=== PATIENT | male | born 1955 | race Hispanic/Latino ===

== ENCOUNTER 2018-05-04 10:14 | Emergency (ER) | payer BC ==
[2018-05-04] MEDS ORDERED: NA CHLORIDE 0.9% 1,000 ML ONE (11:26)
[2018-05-04 11:39] LABS: Protime INR 1.13
[2018-05-04 11:44] LABS: ALT/SGPT 21 U/L (12-78); AST/SGOT 15 U/L (15-37); Albumin 3.7 g/dL (3.4-5.0); Alkaline Phosphatase 43 U/L (45-117); BUN Blood Urea Nitrogen 17 mg/dL (7-18); Bicarbonate 23 mmol/L (21-32); Bilirubin Direct 0.3 mg/dL (0-0.2); Glucose Level 114 mg/dL (74-106); Magnesium 1.9 mg/dL (1.8-2.4); NT PRO-BNP 1244 pg/mL (<125); Potassium 3.8 mmol/L (3.5-5.1); Protein, Total 7.2 g/dL (6.4-8.2); Sodium Level 137 mmol/L (136-145); Troponin (Emerg Dept Use Only) < 0.02 ng/mL (0.0-0.045)
--- NOTE | 2018-05-04 11:48 | RAD REPORT ---
EXAM DESCRIPTION: RAD - Chest Single View - 05/04/2018 11:09 am CLINICAL HISTORY: DYSPNEA Chest pain. COMPARISON: No comparisons FINDINGS: Portable technique limits examination quality. The lungs are grossly clear. The heart is normal in size. No displaced fractures. IMPRESSION: No acute intrathoracic process suspected.
[2018-05-04 13:02] LABS: Absolute Lymphocytes (CBC) 1.2 K/uL (0.7-4.9); Absolute Neutrophil 0.8 K/uL (1.8-8.0); Basophils % 0.4 % (0-1.3); Eosinophils % 0.1 % (0-4.4); Hematocrit 31.7 % (39.6-49.0); Lymphocytes % 39.7 % (15.3-44.8); MCH 33.1 pg (27.0-35.0); MCV 92.2 fL (80-100); MPV 7.8 fL (7.6-11.3); Monocytes % 34.2 % (3.3-12.3); RBC Red Blood Cell Count 3.44 M/uL (4.33-5.43)
[2018-05-04 13:43] LABS: Urine Blood NEGATIVE (NEG); Urine Glucose NEGATIVE (NEG); Urine Protein NEGATIVE (NEG); Urine pH 5.5 (5.0-7.0)
--- NOTE | 2018-05-04 14:35 | EDPHYS ---
Physician Documentation [facility] Name: Sheldon Jaramillo Age: 62 yrs Sex: Male : 1955 Arrival Date: 05/04/2018 Time: 10:15 Bed 4 Private MD: ED Physician Florentino Arteaga HPI: 05/04 12:03 This 62 yrs old Male presents to ER via Ambulatory with complaints of Pain All damari Over, Shortness Of Breath. 12:03 The patient has shortness of breath with light activity. Onset: The symptoms/episode damari began/occurred 1 day(s) ago. Duration: The symptoms are chronic. The patient's shortness of breath has no apparent modifying factors. Associated signs and symptoms: The patient has no apparent associated signs or symptoms. Severity of symptoms: At their worst the symptoms were mild in the emergency department the symptoms have improved moderately. The patient has not experienced similar symptoms in the past. Historical: - Allergies: 10:55 No Known Allergies; jl7 - PMHx: 10:55 Myocardial infarction; Hypertension; jl7 - PSHx: 10:55 Heart stents; jl7 - Immunization history:: Adult Immunizations not up to date. - Social history:: Smoking status: Patient/guardian denies using tobacco. - Ebola Screening: : No symptoms or risks identified at this time. ROS: 12:04 Constitutional: Negative for fever, chills, and weight loss, Eyes: Negative for injury, damari pain, redness, and discharge, ENT: Negative for injury, pain, and discharge, Neck: Negative for injury, pain, and swelling, Cardiovascular: Negative for chest pain, palpitations, and edema, Respiratory: Negative for shortness of breath, cough, wheezing, and pleuritic chest pain, Abdomen/GI: Negative for abdominal pain, nausea, vomiting, diarrhea, and constipation, Back: Negative for injury and pain, : Negative for injury, bleeding, discharge, and swelling, MS/Extremity: Negative for injury and deformity, Skin: Negative for injury, rash, and discoloration, Neuro: Negative for headache, weakness, numbness, tingling, and seizure, Psych: Negative for depression, anxiety, suicide ideation, homicidal ideation, and hallucinations, Allergy/Immunology: Negative for hives, rash, and allergies, Endocrine: Negative for neck swelling, polydipsia, polyuria, polyphagia, and marked weight changes, Hematologic/Lymphatic: Negative for swollen nodes, abnormal bleeding, and unusual bruising. Exam: 12:04 Constitutional: This is a well developed, well nourished patient who is awake, alert, damari and in no acute distress. Head/Face: Normocephalic, atraumatic. Eyes: Pupils equal round and reactive to light, extra-ocular motions intact. Lids and lashes normal. Conjunctiva and sclera are non-icteric and not injected. Cornea within normal limits. Periorbital areas with no swelling, redness, or edema. ENT: Nares patent. No nasal discharge, no septal abnormalities noted. Tympanic membranes are normal and external auditory canals are clear. Oropharynx with no redness, swelling, or masses, exudates, or evidence of obstruction, uvula midline. Mucous membranes moist. Neck: Trachea midline, no thyromegaly or masses palpated, and no cervical lymphadenopathy. Supple, full range of motion without nuchal rigidity, or vertebral point tenderness. No Meningismus. Chest/axilla: Normal chest wall appearance and motion. Nontender with no deformity. No lesions are appreciated. Cardiovascular: Regular rate and rhythm with a normal S1 and S2. No gallops, murmurs, or rubs. Normal PMI, no JVD. No pulse deficits. Respiratory: Lungs have equal breath sounds bilaterally, clear to auscultation and percussion. No rales, rhonchi or wheezes noted. No increased work of breathing, no retractions or nasal flaring. Abdomen/GI: Soft, non-tender, with normal bowel sounds. No distension or tympany. No guarding or rebound. No evidence of tenderness throughout. Back: No spinal tenderness. No costovertebral tenderness. Full range of motion. Male : Normal genitalia with no discharge or lesions. Skin: Warm, dry with normal turgor. Normal color with no rashes, no lesions, and no evidence of cellulitis. MS/ Extremity: Pulses equal, no cyanosis. Neurovascular intact. Full, normal range of motion. Neuro: Awake and alert, GCS 15, oriented to person, place, time, and situation. Cranial nerves II-XII grossly intact. Motor strength 5/5 in all extremities. Sensory grossly intact. Cerebellar exam normal. Normal gait. Psych: Awake, alert, with orientation to person, place and time. Behavior, mood, and affect are within normal limits. 12:04 Musculoskeletal/extremity: DVT Exam: No signs of deep vein thrombosis. no pain, no swelling, no tenderness, negative Homans' sign noted on exam, no appreciated bluish discoloration, no erythema, no increased warmth. Vital Signs: 10:55 BP 151 / 73; Pulse 92; Resp 16 S; Temp 98.8(O); Pulse Ox 97% on R/A; Weight 160.57 kg jl7 (R); Height 5 ft. 5 in. (165.10 cm) (R); Pain 9/10; 11:45 BP 146 / 83; Pulse 90; Resp 16 S; Pulse Ox 97% on R/A; jl7 13:24 BP 115 / 57; Pulse 76; Resp 16 S; Pulse Ox 98% on R/A; jl7 14:52 BP 127 / 79; Pulse 89; Resp 16 S; Pulse Ox 96% on R/A; jl7 16:05 BP 129 / 60; Pulse 87; Resp 16 S; Pulse Ox 98% on R/A; jl7 10:55 Body Mass Index 58.91 (160.57 kg, 165.10 cm) 7 MDM: 10:44 Patient medically screened. [facility] 12:06 Data reviewed: vital signs, nurses notes, lab test result(s), EKG, radiologic studies, damari plain films. 12 10:44 Order name: Basic Metabolic Panel [facility] 05/04 10:44 Order name: CBC with Diff; Complete Time: 15:50 [facility] 05/04 10:44 Order name: LFT's [facility] 05/04 10:44 Order name: Magnesium [facility] 05/04 10:44 Order name: NT PRO-BNP [facility] 05/04 10:44 Order name: PT-INR [facility] 05/04 10:44 Order name: Troponin (emerg Dept Use Only) [facility] 05/04 11:43 Order name: Protime (+INR); Complete Time: 12:03 [facility] 05/04 11:44 Order name: Basic Metabolic Panel; Complete Time: 12:03 [facility] 05/04 11:44 Order name: Liver (Hepatic) Function; Complete Time: 12:03 [facility] 05/04 11:44 Order name: Troponin (Emerg Dept Use Only); Complete Time: 12:03 [facility] 05/04 11:44 Order name: NT PRO-BNP; Complete Time: 12:03 [facility] 05/04 11:44 Order name: Magnesium; Complete Time: 12:03 [facility] 05/04 12:03 Order name: Urine Culture [facility] 05/04 10:44 Order name: XRAY Chest (1 view) [facility] 05/04 11:49 Order name: RAD; Complete Time: 12:03 [facility] 05/04 12:05 Order name: Influenza Screen (a \T\ B); Complete Time: 13:24 05/04 13:17 Order name: D-Dimer; Complete Time: 14:48 [facility] 05/04 13:21 Order name: Add On-Lab 05/04 13:30 Order name: Manual Differential; Complete Time: 15:50 [facility] 05/04 13:34 Order name: Blood Culture Adult (2) 05/04 13:41 Order name: Urine Dipstick--Ancillary (enter results); Complete Time: 14:06 05/04 14:51 Order name: CT Chest For PE Angio; Complete Time: 15:50 [facility] 05/04 10:44 Order name: EKG; Complete Time: 10:45 [facility] 05/04 10:44 Order name: Cardiac monitoring; Complete Time: 10:57 [facility] 05/04 10:44 Order name: EKG - Nurse/Tech; Complete Time: 11:32 [facility] 05/04 10:44 Order name: IV Saline Lock; Complete Time: 11:15 [facility] 05/04 10:44 Order name: Labs collected and sent; Complete Time: 11:32 [facility] 05/04 10:44 Order name: O2 Per Protocol; Complete Time: 10:57 [facility] 05/04 10:44 Order name: O2 Sat Monitoring; Complete Time: 10:57 [facility] 05/04 12:03 Order name: Urine Dipstick-Ancillary (obtain specimen); Complete Time: 12:58 [facility] 05/04 12:13 Order name: Labs - recollect needed; Complete Time: 12:33 05/04 13:18 Order name: Vital Signs; Complete Time: 13:27 [facility] Administered Medications: 11:24 Drug: NS 0.9% 1000 ml Route: IV; Rate: 125 ml/hr; Site: left forearm; jl7 12:25 Drug: NS 0.9% 500 ml Route: IV; Rate: bolus; Site: left forearm; aa5 13:24 Follow up: Response: No adverse reaction; IV Status: Completed infusion; IV Intake: jl7 500ml 15:00 Drug: Lovenox 100 mg Route: Sub-Q; Site: left upper abdomen; jl7 15:15 Follow up: Response: No adverse reaction jl7 15:01 Drug: Pepcid 20 mg Route: IVP; Site: left forearm; jl7 15:45 Follow up: Response: No adverse reaction jl7 16:03 Not Given (Other Intervention Used): Cefepime 2 grams IVPB at 200 ml/hr once over 30 jl7 mins; (mix in NS 100 mL) 16:16 Drug: Cefepime 2 grams {Note: administered slow IVP per pharmacy protocol at this aa5 time..} Route: IVPB; Rate: 200 ml/hr; Infused Over: 30 mins; Site: left forearm; Disposition: 05/04/18 14:[address] [facility]. Diagnosis are Dyspnea, Pancytopenia - with 9%blast, Fever, unspecified, Obesity, unspecified, Malaise and fatigue. - Reason for transfer: Higher level of care. - Accepting physician [facility] to [facility]. - Condition is Stable. - Problem is new. - Symptoms have improved. Signatures: Dispatcher [employer] EDMS Amara Barakat Corey, MD MD cha Williams, Irene, RN Nevin Carroll RN RN aa5 Sussy Oliver RN RN jl7 Corrections: (The following items were deleted from the chart) 14:37 14:34 05/04/2018 14:[address] [facility]. Diagnosis is damari Dyspnea; Pancytopenia; Fever, unspecified; Obesity, unspecified. Reason for transfer: Higher level of care. Accepting physician [facility] to [facility]. Condition is Stable. Problem is new. Symptoms have improved. damari 16:41 14:37 05/04/2018 14:[address] [facility]. Diagnosis is iw Dyspnea; Pancytopenia - with 9%blast; Fever, unspecified; Obesity, unspecified; Malaise and fatigue. Reason for transfer: Higher level of care. Accepting physician is to [facility]. Condition is Stable. Problem is new. Symptoms have improved. damari
--- NOTE | 2018-05-04 14:35 | ER ---
Nurse's Notes [facility] Name: Sheldon Jaramillo Age: 62 yrs Sex: Male : 1955 Arrival Date: 05/04/2018 Time: 10:15 Bed 4 Private MD: Diagnosis: Dyspnea;Pancytopenia-with 9%blast;Fever, unspecified;Obesity, unspecified;Malaise and fatigue Presentation: 05/04 10:53 Presenting complaint: Patient states: Pain all over and SOB started last night, states jl7 "I get short of breath when I'm walking because my knees hurt so bad.". Transition of care: patient was not received from another setting of care. Onset of symptoms was May 03, 2018. Risk Assessment: Do you want to hurt yourself or someone else? Patient reports no desire to harm self or others. Initial Sepsis Screen: Does the patient meet any 2 criteria? No. Patient's initial sepsis screen is negative. Does the patient have a suspected source of infection? No. Patient's initial sepsis screen is negative. Care prior to arrival: None. 10:53 Method Of Arrival: Ambulatory 7 10:53 Acuity: LEXIS 3 jl7 Triage Assessment: 11:15 General: Appears in no apparent distress. uncomfortable, Behavior is calm, cooperative, jl7 appropriate for age. Pain: Complains of pain in "All over bu tmainly my knees." Pain currently is 9 out of 10 on a pain scale. Pain began years ago. Is continuous. Neuro: Level of Consciousness is awake, alert, obeys commands, Oriented to person, place, time, situation. Cardiovascular: Heart tones S1 S2 present Patient's skin is warm and dry. Respiratory: Reports shortness of breath on exertion since last night Airway is patent Respiratory effort is even, unlabored, Respiratory pattern is regular, symmetrical, Breath sounds are clear bilaterally. Onset: The symptoms/episode began/occurred yesterday, the patient has mild shortness of breath. Derm: Skin is pink, warm \\T\\ dry. Historical: - Allergies: 10:55 No Known Allergies; jl7 - PMHx: 10:55 Myocardial infarction; Hypertension; jl7 - PSHx: 10:55 Heart stents; jl7 - Immunization history:: Adult Immunizations not up to date. - Social history:: Smoking status: Patient/guardian denies using tobacco. - Ebola Screening: : No symptoms or risks identified at this time. Screenin:17 Abuse screen: Denies threats or abuse. Denies injuries from another. Nutritional jl7 screening: No deficits noted. Tuberculosis screening: No symptoms or risk factors identified. Fall Risk IV access (20 points). Total Pearce Fall Scale indicates No Risk (0-24 pts). Assessment: 11:26 General: See triage assessment. Pain: Complains of pain in "All over but mainly my jl7 knees.". Neuro: Level of Consciousness is awake, alert, obeys commands. Cardiovascular: Rhythm is sinus rhythm with unifocal PVCs. Respiratory: Reports shortness of breath on exertion Airway is patent Respiratory effort is even, unlabored, Respiratory pattern is regular, symmetrical, Breath sounds are clear bilaterally. Derm: Skin is pink, warm \\T\\ dry. 12:30 Reassessment: Patient is alert, oriented x 3, equal unlabored respirations, skin aa5 warm/dry/pink. Flu swab collected and sent to lab. CBC redrawn and sent to lab. Pt also instructed of need for urine specimen. . 14:49 Reassessment: D-dimer 990, ERD notified. jl7 Vital Signs: 10:55 BP 151 / 73; Pulse 92; Resp 16 S; Temp 98.8(O); Pulse Ox 97% on R/A; Weight 160.57 kg jl7 (R); Height 5 ft. 5 in. (165.10 cm) (R); Pain 9/10; 11:45 BP 146 / 83; Pulse 90; Resp 16 S; Pulse Ox 97% on R/A; jl7 13:24 BP 115 / 57; Pulse 76; Resp 16 S; Pulse Ox 98% on R/A; jl7 14:52 BP 127 / 79; Pulse 89; Resp 16 S; Pulse Ox 96% on R/A; jl7 16:05 BP 129 / 60; Pulse 87; Resp 16 S; Pulse Ox 98% on R/A; jl7 10:55 Body Mass Index 58.91 (160.57 kg, 165.10 cm) jl7 ED Course: 10:15 Patient arrived in ED. rg4 10:44 Florentino Arteaga MD is Attending Physician. damari 10:53 Oliver, Jahala, RN is Primary Nurse. jl7 10:54 Triage completed. jl7 10:55 Arm band placed on right wrist. jl7 11:03 X-ray completed. Portable x-ray completed in exam room. Patient tolerated procedure ls3 well. 11:05 Missed attempt(s): 22 gauge in right antecubital area. Bleeding controlled, band aid jl7 applied, catheter tip intact. 11:10 Initial lab(s) drawn, by ut, sent to lab. Inserted saline lock: 22 gauge in left jl7 forearm, using aseptic technique. Blood collected. 11:17 Patient has correct armband on for positive identification. Bed in low position. Call [facility] light in reach. Side rails up X 1. supervisor belt and link assembly on. Pulse ox on. NIBP on. Warm blanket given. 11:32 Basic Metabolic Panel Sent. jl7 11:32 CBC with Diff Sent. jl7 11:32 LFT's Sent. jl7 11:32 Magnesium Sent. jl7 11:32 NT PRO-BNP Sent. jl7 11:32 PT-INR Sent. jl7 11:32 Troponin (emerg Dept Use Only) Sent. jl7 11:36 EKG done, by quality assurance lab technician. reviewed by Florentino Arteaga MD. at1 12:57 Urine collected: urinal, gold. dh3 15:[address] via stretcher. kw1 15:15 CT completed. Patient tolerated procedure well. Patient moved back from CT. kw1 15:17 CT Chest For PE Angio In Process Unspecified. EDMS Administered Medications: 11:24 Drug: NS 0.9% 1000 ml Route: IV; Rate: 125 ml/hr; Site: left forearm; jl7 12:25 Drug: NS 0.9% 500 ml Route: IV; Rate: bolus; Site: left forearm; aa5 13:24 Follow up: Response: No adverse reaction; IV Status: Completed infusion; IV Intake: jl7 500ml 15:00 Drug: Lovenox 100 mg Route: Sub-Q; Site: left upper abdomen; jl7 15:15 Follow up: Response: No adverse reaction jl7 15:01 Drug: Pepcid 20 mg Route: IVP; Site: left forearm; jl7 15:45 Follow up: Response: No adverse reaction jl7 16:03 Not Given (Other Intervention Used): Cefepime 2 grams IVPB at 200 ml/hr once over 30 jl7 mins; (mix in NS 100 mL) 16:16 Drug: Cefepime 2 grams {Note: administered slow IVP per pharmacy protocol at this aa5 time..} Route: IVPB; Rate: 200 ml/hr; Infused Over: 30 mins; Site: left forearm; Intake: 13:24 IV: 500ml; Total: 500ml. jl7 Outcome: 14:34 ER care complete, transfer ordered by MD. wetzel 16:41 Patient left the ED. iw Signatures: Dispatcher [employer] EDMS Florentino Arteaga MD MD cha Williams, Irene, RN RN iw Nevin Olivares RN RN aa5 Emely Vaz, inside meter tester EKG Tat1 Monika Aiken4 Joon Landon Jahala RN RN jl7 Yessy Maurer 3 Caridad Jarquin1 Suresh Reyna ls3 Corrections: (The following items were deleted from the chart) 14:55 14:[address] via stretcher. evelia altamirano
[2018-05-04 15:01] LABS: Blood Morphology Comment NOT SEEN (NOT SEEN); Platelet Estimate DECR
[2018-05-04] MEDS ORDERED: FAMOTIDINE 20 MG/2 ML VIAL IV ONE (15:05)
[2018-05-04] MEDS ORDERED: ENOXAPARIN 100 MG/ML SYR SQ ONE (15:05)
--- NOTE | 2018-05-04 15:11 | EKG ---
Test Date: 2018-05-04 Test Time: 11:30:20 Rheumatologist: GUILLERMINA MEASUREMENT RESULTS: Intervals: Rate: 86 NM: 132 QRSD: 132 QT: 394 QTc: 471 [place]: P: 36 NM: 132 QRS: -28 T: -1 INTERPRETIVE STATEMENTS: Sinus rhythm with occasional premature ventricular complexes and fusion complexes Right bundle branch block Abnormal ECG No previous ECG available for comparison Electronically Signed On 05-04-18 15:10:56 SCUTCHER TENDER by Murali Persaud
[2018-05-04] MEDS ORDERED: CEFEPIME/SWI 2gm 2 GM/20 ML SYR IVP ONE (15:15)
--- NOTE | 2018-05-04 15:23 | RAD REPORT ---
EXAM DESCRIPTION: CT - Chest For Pe Angio - 05/04/2018 3:16 pm CLINICAL HISTORY: Chest pain. CHEST PAIN COMPARISON: No comparisons TECHNIQUE: CT angiogram of the pulmonary arteries was performed with MIP. All CT scans are performed using dose optimization technique as appropriate and may include automated exposure control or mA/KV adjustment according to patient size. FINDINGS: No evidence of pulmonary thromboembolism. No acute aortic finding demonstrated. Mild linear subsegmental atelectasis is present in the right lung base. The lungs are otherwise clear . No significant pericardial or pleural fluid. No concerning bony finding. IMPRESSION: No evidence of pulmonary thromboembolism. Mild subsegmental atelectasis in the right lung base.
== END 2018-05-04 16:41 | disposition short-term general hospital (02) ==
LOC: ER 10:14
DX: D61.818 Other pancytopenia (principal); R50.9 Fever, unspecified; R53.81 Other malaise; R53.83 Other fatigue; E66.9 Obesity, unspecified; I10 Essential (primary) hypertension; I25.2 Old myocardial infarction; Z95.818 Presence of other cardiac implants and grafts
CPT/HCPCS: 36415; 71045; 71275; 80048; 80076; 81003; 83735; 83880; 84484; 85025; 85379; 85610; 87040; 87086; 87088; 87804; 93005; 96361; 96372; 96374; 96375; 99285; J0692; J1650; J7030; Q9967

== ENCOUNTER 2018-07-25 10:21 | Emergency (ER) | payer BC ==
--- OUTSIDE RECORDS SUMMARY | 2018-07-25 10:33 | XMS REPORT ---
:1955 [facility] Address [address] [place] [address] Care Team Providers Name Role Phone JANEE VILLEGAS Unavailable Unavailable MELISSA ZHANG Unavailable Unavailable IVAN LOAIZA Unavailable Unavailable Problems This patient has no known problems. Allergies, Adverse Reactions, Alerts This patient has no known allergies or adverse reactions. Medications This patient has no known medications. Results Test Description Test Time Test Comments Text Results Atomic Results Result Comments CBC W/PLT COUNT & AUTO DIFFERENTIAL 2018-07-20 10:08:00 Test Item Value Reference Range Comments WHITE BLOOD CELL COUNT (BEAKER) (test nhxl=620) 2.2 K/ L 3.5-10.5 RED BLOOD CELL COUNT (BEAKER) (test jbge=034) 2.25 M/ L 4.63-6.08 HEMOGLOBIN (BEAKER) (test hlbk=133) 7.4 GM/DL 13.7-17.5 HEMATOCRIT (BEAKER) (test uxea=591) 22.1 % 40.1-51.0 MEAN CORPUSCULAR VOLUME (BEAKER) (test qvuv=716) 98.2 fL 79.0-92.2 MEAN CORPUSCULAR HEMOGLOBIN (BEAKER) (test hqmc=180) 32.9 pg 25.7-32.2 MEAN CORPUSCULAR HEMOGLOBIN CONC (BEAKER) (test wwyr=870) 33.5 GM/DL 32.3- 36.5 RED CELL DISTRIBUTION WIDTH (BEAKER) (test nopb=656) 19.9 % 11.6-14.4 PLATELET COUNT (BEAKER) (test cxnc=552) 58 K/CU MM 150-450 MEAN PLATELET VOLUME (BEAKER) (test xsyg=735) 9.7 fL 9.4-12.4 NUCLEATED RED BLOOD CELLS (BEAKER) (test dnur=081) 0 /100 WBC 0-0 (CELLAVISION MANUAL DIFF)2018-07-20 10:08:00 Test Item Value Reference Range Comments NEUTROPHILS - REL (CELLAVISION)(BEAKER) (test 100 % jfzy=5769) NEUTROPHILS - ABS (CELLAVISION)(BEAKER) (test 2.20 K/ul 1.78-5.38 hjok=1423) TOTAL COUNTED (BEAKER) (test qlnf=9050) 100 WBC MORPHOLOGY (BEAKER) (test dnvj=926) Normal PLT MORPHOLOGY (BEAKER) (test mofq=176) Normal POLYCHROMATOPHILLIC RBCS(BEAKER) (test jfcx=662) 1+ few HYPOCHROMIA (BEAKER) (test lbwr=037) 1+ few TEAR DROP CELLS (BEAKER) (test zoba=147) 1+ few ARTIFACT (CELLAVISION)(BEAKER) (test tjze=9027) Present PLATELET CONCENTRATION (CELLAVISION)(BEAKER) (test Decreased ewrz=6857) Received comment: User comments: Slide comments:CBC W/PLT COUNT & AUTO [id number] 06:03:00 Test Item Value Reference Range Comments WHITE BLOOD CELL COUNT (BEAKER) (test luwk=735) 2.8 K/ L 3.5-10.5 RED BLOOD CELL COUNT (BEAKER) (test ecju=994) 2.18 M/ L 4.63-6.08 HEMOGLOBIN (BEAKER) (test joqr=875) 7.2 GM/DL 13.7-17.5 HEMATOCRIT (BEAKER) (test nvhe=806) 21.7 % 40.1-51.0 MEAN CORPUSCULAR VOLUME (BEAKER) (test tbqw=213) 99.5 fL 79.0-92.2 MEAN CORPUSCULAR HEMOGLOBIN (BEAKER) (test 33.0 pg 25.7-32.2 wvnj=490) MEAN CORPUSCULAR HEMOGLOBIN CONC (BEAKER) (test 33.2 GM/DL 32.3-36.5 xjiu=366) RED CELL DISTRIBUTION WIDTH (BEAKER) (test 20.6 % 11.6-14.4 sjdj=771) PLATELET COUNT (BEAKER) (test wkby=745) 63 K/CU MM 150-450 MEAN PLATELET VOLUME (BEAKER) (test vmmx=818) 9.9 fL 9.4-12.4 NUCLEATED RED BLOOD CELLS (BEAKER) (test 0 /100 WBC 0-0 ddqk=695) NEUTROPHILS RELATIVE PERCENT (BEAKER) (test 95 % jfth=345) LYMPHOCYTES RELATIVE PERCENT (BEAKER) (test 2 % zmui=194) MONOCYTES RELATIVE PERCENT (BEAKER) (test 2 % qfjx=607) EOSINOPHILS RELATIVE PERCENT (BEAKER) (test 0 % mpcz=826) BASOPHILS RELATIVE PERCENT (BEAKER) (test 0 % udwc=265) NEUTROPHILS ABSOLUTE COUNT (BEAKER) (test 2.64 K/ L 1.78-5.38 dljc=365) LYMPHOCYTES ABSOLUTE COUNT (BEAKER) (test 0.06 K/ L 1.32-3.57 jkpd=475) MONOCYTES ABSOLUTE COUNT (BEAKER) (test ncze=833) 0.05 K/ L 0.30-0.82 EOSINOPHILS ABSOLUTE COUNT (BEAKER) (test 0.00 K/ L 0.04-0.54 dyzu=049) BASOPHILS ABSOLUTE COUNT (BEAKER) (test gipy=165) 0.00 K/ L 0.01-0.08 IMMATURE GRANULOCYTES-RELATIVE PERCENT (BEAKER) 1 % 0-1 (test sgnc=2747) [id number] 07:27:00 Test Item Value Reference Range Comments PHOSPHORUS (BEAKER) (test pupq=611) 2.6 mg/dL 2.3-4.7 [id number] 07:27:00 Test Item Value Reference Range Comments MAGNESIUM (BEAKER) (test toda=120) 1.6 mg/dL 1.6-2.6 BASIC METABOLIC [id number] 07:27:00 Test Item Value Reference Range Comments SODIUM (BEAKER) (test 138 meq/L 136-145 qzuc=802) POTASSIUM (BEAKER) (test 3.9 meq/L 3.5-5.1 vbpq=244) CHLORIDE (BEAKER) (test 109 meq/L 98-107 trtf=905) CO2 (BEAKER) (test 22 meq/L 22-29 kttk=853) BLOOD UREA NITROGEN 14 mg/dL 7-21 (BEAKER) (test xpsc=541) CREATININE (BEAKER) (test 0.81 mg/dL 0.57-1.25 tlpi=789) GLUCOSE RANDOM (BEAKER) 141 mg/dL 70-105 (test crbz=175) CALCIUM (BEAKER) (test 8.6 mg/dL 8.4-10.2 ctut=903) EGFR (BEAKER) (test 97 mL/min/1.73 sq m ESTIMATED GFR IS NOT yaik=3697) ACCURATE CREATININE CLEARANCE IN PREDICTING GLOMERULAR FILTRATION RATE. ESTIMATED GFR IS NOT APPLICABLE FOR DIALYSIS PATIENTS. HEPATIC FUNCTION [id number] 07:27:00 Test Item Value Reference Range Comments TOTAL PROTEIN (BEAKER) (test xqaz=229) 5.7 gm/dL 6.0-8.3 ALBUMIN (BEAKER) (test qgfl=6307) 3.0 g/dL 3.5-5.0 BILIRUBIN TOTAL (BEAKER) (test uxkk=262) 0.7 mg/dL 0.2-1.2 BILIRUBIN DIRECT (BEAKER) (test kdcy=308) 0.4 mg/dL 0.1-0.5 ALKALINE PHOSPHATASE (BEAKER) (test xjoo=628) 42 U/L 40-150 AST (SGOT) (BEAKER) (test frrb=087) 13 U/L 5-34 ALT (SGPT) (BEAKER) (test hdpc=779) 10 U/L 6-55 CALCIUM, [id number] 07:02:00 Test Item Value Reference Range Comments CALCIUM IONIZED (BEAKER) (test kyqw=653) 0.96 mmol/L 1.12-1.27 PH, BLOOD (BEAKER) (test asqy=9908) 7.47 CBC W/PLT COUNT & AUTO [id number] 06:48:00 Test Item Value Reference Range Comments WHITE BLOOD CELL COUNT (BEAKER) (test vxss=870) 4.3 K/ L 3.5-10.5 RED BLOOD CELL COUNT (BEAKER) (test ekcj=766) 2.37 M/ L 4.63-6.08 HEMOGLOBIN (BEAKER) (test aani=869) 7.7 GM/DL 13.7-17.5 HEMATOCRIT (BEAKER) (test dgbn=365) 23.7 % 40.1-51.0 MEAN CORPUSCULAR VOLUME (BEAKER) (test macx=683) 100.0 fL 79.0-92.2 MEAN CORPUSCULAR HEMOGLOBIN (BEAKER) (test 32.5 pg 25.7-32.2 vbas=767) MEAN CORPUSCULAR HEMOGLOBIN CONC (BEAKER) (test 32.5 GM/DL 32.3-36.5 vbct=571) RED CELL DISTRIBUTION WIDTH (BEAKER) (test 21.4 % 11.6-14.4 unrr=056) PLATELET COUNT (BEAKER) (test ejez=979) 72 K/CU MM 150-450 MEAN PLATELET VOLUME (BEAKER) (test cmfw=476) 9.8 fL 9.4-12.4 NUCLEATED RED BLOOD CELLS (BEAKER) (test 0 /100 WBC 0-0 nzcw=666) NEUTROPHILS RELATIVE PERCENT (BEAKER) (test 94 % kyda=698) LYMPHOCYTES RELATIVE PERCENT (BEAKER) (test 3 % fwgg=780) MONOCYTES RELATIVE PERCENT (BEAKER) (test 2 % mwvi=548) EOSINOPHILS RELATIVE PERCENT (BEAKER) (test 0 % jcjk=139) BASOPHILS RELATIVE PERCENT (BEAKER) (test 0 % uppv=815) NEUTROPHILS ABSOLUTE COUNT (BEAKER) (test 4.03 K/ L 1.78-5.38 gksp=358) LYMPHOCYTES ABSOLUTE COUNT (BEAKER) (test 0.13 K/ L 1.32-3.57 lpcm=118) MONOCYTES ABSOLUTE COUNT (BEAKER) (test ydyz=746) 0.10 K/ L 0.30-0.82 EOSINOPHILS ABSOLUTE COUNT (BEAKER) (test 0.00 K/ L 0.04-0.54 mvch=450) BASOPHILS ABSOLUTE COUNT (BEAKER) (test hmmz=891) 0.00 K/ L 0.01-0.08 IMMATURE GRANULOCYTES-RELATIVE PERCENT (BEAKER) 1 % 0-1 (test bhzx=3326) [id number] 07:10:00 Test Item Value Reference Range Comments PHOSPHORUS (BEAKER) (test mkbt=197) 2.2 mg/dL 2.3-4.7 [id number] 07:10:00 Test Item Value Reference Range Comments MAGNESIUM (BEAKER) (test bcuy=399) 1.9 mg/dL 1.6-2.6 BASIC METABOLIC [id number] 07:10:00 Test Item Value Reference Range Comments SODIUM (BEAKER) (test 138 meq/L 136-145 iyct=320) POTASSIUM (BEAKER) (test 3.6 meq/L 3.5-5.1 lgkq=921) CHLORIDE (BEAKER) (test 107 meq/L 98-107 suzm=506) CO2 (BEAKER) (test 25 meq/L 22-29 hueg=824) BLOOD UREA NITROGEN 8 mg/dL 7-21 (BEAKER) (test brme=103) CREATININE (BEAKER) (test 0.86 mg/dL 0.57-1.25 fvvn=689) GLUCOSE RANDOM (BEAKER) 156 mg/dL 70-105 (test sbww=902) CALCIUM (BEAKER) (test 8.6 mg/dL 8.4-10.2 vgfb=294) EGFR (BEAKER) (test 90 mL/min/1.73 sq m ESTIMATED GFR IS NOT ptms=2672) ACCURATE CREATININE CLEARANCE IN PREDICTING GLOMERULAR FILTRATION RATE. ESTIMATED GFR IS NOT APPLICABLE FOR DIALYSIS PATIENTS. HEPATIC FUNCTION [id number] 07:10:00 Test Item Value Reference Range Comments TOTAL PROTEIN (BEAKER) (test iwtg=113) 6.1 gm/dL 6.0-8.3 ALBUMIN (BEAKER) (test vrsg=8691) 3.1 g/dL 3.5-5.0 BILIRUBIN TOTAL (BEAKER) (test blpl=140) 1.3 mg/dL 0.2-1.2 BILIRUBIN DIRECT (BEAKER) (test fsvj=632) 0.5 mg/dL 0.1-0.5 ALKALINE PHOSPHATASE (BEAKER) (test ouwn=870) 48 U/L 40-150 AST (SGOT) (BEAKER) (test zjau=305) 15 U/L 5-34 ALT (SGPT) (BEAKER) (test srkz=647) 10 U/L 6-55 CALCIUM, [id number] 06:50:00 Test Item Value Reference Range Comments CALCIUM IONIZED (BEAKER) (test bhfa=564) 1.07 mmol/L 1.12-1.27 PH, BLOOD (BEAKER) (test njmc=0120) 7.37 CBC W/PLT COUNT & AUTO [id number] 06:18:00 Test Item Value Reference Range Comments WHITE BLOOD CELL COUNT (BEAKER) (test fczc=770) 4.5 K/ L 3.5-10.5 RED BLOOD CELL COUNT (BEAKER) (test zwpo=692) 2.58 M/ L 4.63-6.08 HEMOGLOBIN (BEAKER) (test mbuq=582) 8.4 GM/DL 13.7-17.5 HEMATOCRIT (BEAKER) (test zpeh=456) 25.4 % 40.1-51.0 MEAN CORPUSCULAR VOLUME (BEAKER) (test jjyr=563) 98.4 fL 79.0-92.2 MEAN CORPUSCULAR HEMOGLOBIN (BEAKER) (test 32.6 pg 25.7-32.2 teur=911) MEAN CORPUSCULAR HEMOGLOBIN CONC (BEAKER) (test 33.1 GM/DL 32.3-36.5 yxpr=323) RED CELL DISTRIBUTION WIDTH (BEAKER) (test 21.7 % 11.6-14.4 vsge=188) PLATELET COUNT (BEAKER) (test hstg=398) 73 K/CU MM 150-450 MEAN PLATELET VOLUME (BEAKER) (test mevi=235) 10.1 fL 9.4-12.4 NUCLEATED RED BLOOD CELLS (BEAKER) (test 0 /100 WBC 0-0 lbty=320) NEUTROPHILS RELATIVE PERCENT (BEAKER) (test 88 % afga=601) LYMPHOCYTES RELATIVE PERCENT (BEAKER) (test 5 % wumq=517) MONOCYTES RELATIVE PERCENT (BEAKER) (test 3 % cakp=697) EOSINOPHILS RELATIVE PERCENT (BEAKER) (test 0 % hxne=051) BASOPHILS RELATIVE PERCENT (BEAKER) (test 0 % mufi=670) NEUTROPHILS ABSOLUTE COUNT (BEAKER) (test 3.99 K/ L 1.78-5.38 ioaq=109) LYMPHOCYTES ABSOLUTE COUNT (BEAKER) (test 0.21 K/ L 1.32-3.57 tpsl=042) MONOCYTES ABSOLUTE COUNT (BEAKER) (test dfys=974) 0.12 K/ L 0.30-0.82 EOSINOPHILS ABSOLUTE COUNT (BEAKER) (test 0.01 K/ L 0.04-0.54 bsgb=405) BASOPHILS ABSOLUTE COUNT (BEAKER) (test vltf=089) 0.01 K/ L 0.01-0.08 IMMATURE GRANULOCYTES-RELATIVE PERCENT (BEAKER) 4 % 0-1 (test kdes=1348) [id number] 22:57:00 Test Item Value Reference Range Comments POTASSIUM (BEAKER) (test nuvi=883) 3.2 meq/L 3.5-5.1 [id number] 22:57:00 Test Item Value Reference Range Comments MAGNESIUM (BEAKER) (test obed=051) 1.4 mg/dL 1.6-2.6 CALCIUM, [id number] 07:37:00 Test Item Value Reference Range Comments CALCIUM IONIZED (BEAKER) (test oalt=082) 0.94 mmol/L 1.12-1.27 PH, BLOOD (BEAKER) (test obug=3562) 7.47 [id number] 06:51:00 Test Item Value Reference Range Comments PHOSPHORUS (BEAKER) (test wvtr=936) 2.8 mg/dL 2.3-4.7 [id number] 06:51:00 Test Item Value Reference Range Comments MAGNESIUM (BEAKER) (test lfgg=353) 1.1 mg/dL 1.6-2.6 BASIC METABOLIC [id number] 06:51:00 Test Item Value Reference Range Comments SODIUM (BEAKER) (test 140 meq/L 136-145 gyad=205) POTASSIUM (BEAKER) (test 2.9 meq/L 3.5-5.1 zvks=023) CHLORIDE (BEAKER) (test 108 meq/L 98-107 qghv=457) CO2 (BEAKER) (test 25 meq/L 22-29 buap=290) BLOOD UREA NITROGEN 10 mg/dL 7-21 (BEAKER) (test ijwr=237) CREATININE (BEAKER) (test 0.85 mg/dL 0.57-1.25 npdl=962) GLUCOSE RANDOM (BEAKER) 99 mg/dL 70-105 (test oyta=642) CALCIUM (BEAKER) (test 8.4 mg/dL 8.4-10.2 zpiz=593) EGFR (BEAKER) (test 91 mL/min/1.73 sq m ESTIMATED GFR IS NOT cuwu=3852) ACCURATE CREATININE CLEARANCE IN PREDICTING GLOMERULAR FILTRATION RATE. ESTIMATED GFR IS NOT APPLICABLE FOR DIALYSIS PATIENTS. HEPATIC FUNCTION [id number] 06:51:00 Test Item Value Reference Range Comments TOTAL PROTEIN (BEAKER) (test fosh=394) 5.6 gm/dL 6.0-8.3 ALBUMIN (BEAKER) (test fafg=0229) 2.9 g/dL 3.5-5.0 BILIRUBIN TOTAL (BEAKER) (test txjd=634) 0.7 mg/dL 0.2-1.2 BILIRUBIN DIRECT (BEAKER) (test ctmn=243) 0.3 mg/dL 0.1-0.5 ALKALINE PHOSPHATASE (BEAKER) (test owmh=371) 43 U/L 40-150 AST (SGOT) (BEAKER) (test rnuu=633) 13 U/L 5-34 ALT (SGPT) (BEAKER) (test kqxp=489) 9 U/L 6-55 CBC W/PLT COUNT & AUTO [id number] 06:09:00 Test Item Value Reference Range Comments WHITE BLOOD CELL COUNT (BEAKER) (test qcgf=334) 4.1 K/ L 3.5-10.5 RED BLOOD CELL COUNT (BEAKER) (test xdva=458) 2.11 M/ L 4.63-6.08 HEMOGLOBIN (BEAKER) (test zpak=527) 6.9 GM/DL 13.7-17.5 HEMATOCRIT (BEAKER) (test epgb=758) 21.4 % 40.1-51.0 MEAN CORPUSCULAR VOLUME (BEAKER) (test mxjr=254) 101.4 fL 79.0-92.2 MEAN CORPUSCULAR HEMOGLOBIN (BEAKER) (test 32.7 pg 25.7-32.2 oxse=515) MEAN CORPUSCULAR HEMOGLOBIN CONC (BEAKER) (test 32.2 GM/DL 32.3-36.5 qtlm=938) RED CELL DISTRIBUTION WIDTH (BEAKER) (test 22.6 % 11.6-14.4 curj=334) PLATELET COUNT (BEAKER) (test qgur=448) 79 K/CU MM 150-450 MEAN PLATELET VOLUME (BEAKER) (test btkg=647) 10.0 fL 9.4-12.4 NUCLEATED RED BLOOD CELLS (BEAKER) (test 1 /100 WBC 0-0 ocfo=589) NEUTROPHILS RELATIVE PERCENT (BEAKER) (test 66 % xgek=348) LYMPHOCYTES RELATIVE PERCENT (BEAKER) (test 17 % ynxp=262) MONOCYTES RELATIVE PERCENT (BEAKER) (test 16 % ptfo=338) EOSINOPHILS RELATIVE PERCENT (BEAKER) (test 0 % cvmg=127) BASOPHILS RELATIVE PERCENT (BEAKER) (test 1 % ssho=550) NEUTROPHILS ABSOLUTE COUNT (BEAKER) (test 2.69 K/ L 1.78-5.38 ucfv=300) LYMPHOCYTES ABSOLUTE COUNT (BEAKER) (test 0.68 K/ L 1.32-3.57 apcp=254) MONOCYTES ABSOLUTE COUNT (BEAKER) (test hcml=621) 0.67 K/ L 0.30-0.82 EOSINOPHILS ABSOLUTE COUNT (BEAKER) (test 0.01 K/ L 0.04-0.54 wlei=672) BASOPHILS ABSOLUTE COUNT (BEAKER) (test btoh=203) 0.02 K/ L 0.01-0.08 IMMATURE GRANULOCYTES-RELATIVE PERCENT (BEAKER) 1 % 0-1 (test vbgz=7277) COMPREHENSIVE METABOLIC [id number] 18:09:00 Test Item Value Reference Range Comments TOTAL PROTEIN (BEAKER) 6.4 gm/dL 6.0-8.3 (test hjpe=104) ALBUMIN (BEAKER) (test 3.3 g/dL 3.5-5.0 bvpg=2173) ALKALINE PHOSPHATASE 55 U/L 40-150 (BEAKER) (test kgqi=591) BILIRUBIN TOTAL (BEAKER) 0.7 mg/dL 0.2-1.2 (test vxpp=974) SODIUM (BEAKER) (test 143 meq/L 136-145 zfvq=552) POTASSIUM (BEAKER) (test 3.1 meq/L 3.5-5.1 ldku=104) CHLORIDE (BEAKER) (test 107 meq/L 98-107 cbjq=894) CO2 (BEAKER) (test 27 meq/L 22-29 zrjh=946) BLOOD UREA NITROGEN 13 mg/dL 7-21 (BEAKER) (test wwha=336) CREATININE (BEAKER) (test 0.88 mg/dL 0.57-1.25 oegu=947) GLUCOSE RANDOM (BEAKER) 121 mg/dL 70-105 (test gpxb=760) CALCIUM (BEAKER) (test 8.9 mg/dL 8.4-10.2 bpbw=843) AST (SGOT) (BEAKER) (test 16 U/L 5-34 bqso=692) ALT (SGPT) (BEAKER) (test 12 U/L 6-55 hdwi=268) EGFR (BEAKER) (test 88 mL/min/1.73 sq m ESTIMATED GFR IS NOT lhnh=5850) ACCURATE CREATININE CLEARANCE IN PREDICTING GLOMERULAR FILTRATION RATE. ESTIMATED GFR IS NOT APPLICABLE FOR DIALYSIS PATIENTS. URIC [id number] 17:38:00 Test Item Value Reference Range Comments URIC ACID (BEAKER) (test klhu=375) 5.3 mg/dL 2.6-7.2 [id number] 17:38:00 Test Item Value Reference Range Comments MAGNESIUM (BEAKER) (test nyjn=942) 1.3 mg/dL 1.6-2.6 CBC W/PLT COUNT & AUTO [id number] 17:25:00 Test Item Value Reference Range Comments WHITE BLOOD CELL COUNT (BEAKER) (test oikf=911) 4.1 K/ L 3.5-10.5 RED BLOOD CELL COUNT (BEAKER) (test pvbs=318) 2.25 M/ L 4.63-6.08 HEMOGLOBIN (BEAKER) (test fxpc=581) 7.5 GM/DL 13.7-17.5 HEMATOCRIT (BEAKER) (test bgkw=105) 22.3 % 40.1-51.0 MEAN CORPUSCULAR VOLUME (BEAKER) (test qbjo=600) 99.1 fL 79.0-92.2 MEAN CORPUSCULAR HEMOGLOBIN (BEAKER) (test 33.3 pg 25.7-32.2 oejd=357) MEAN CORPUSCULAR HEMOGLOBIN CONC (BEAKER) (test 33.6 GM/DL 32.3-36.5 pdoo=112) RED CELL DISTRIBUTION WIDTH (BEAKER) (test 22.5 % 11.6-14.4 cntl=169) PLATELET COUNT (BEAKER) (test bdhl=407) 86 K/CU MM 150-450 MEAN PLATELET VOLUME (BEAKER) (test ytqu=404) 9.9 fL 9.4-12.4 NUCLEATED RED BLOOD CELLS (BEAKER) (test 1 /100 WBC 0-0 xlel=423) NEUTROPHILS RELATIVE PERCENT (BEAKER) (test 63 % ntxq=964) LYMPHOCYTES RELATIVE PERCENT (BEAKER) (test 19 % tcxm=266) MONOCYTES RELATIVE PERCENT (BEAKER) (test 16 % yuzl=793) EOSINOPHILS RELATIVE PERCENT (BEAKER) (test 0 % ijhi=920) BASOPHILS RELATIVE PERCENT (BEAKER) (test 1 % cddx=445) NEUTROPHILS ABSOLUTE COUNT (BEAKER) (test 2.55 K/ L 1.78-5.38 jaml=582) LYMPHOCYTES ABSOLUTE COUNT (BEAKER) (test 0.78 K/ L 1.32-3.57 lzjm=257) MONOCYTES ABSOLUTE COUNT (BEAKER) (test mtmv=751) 0.64 K/ L 0.30-0.82 EOSINOPHILS ABSOLUTE COUNT (BEAKER) (test 0.01 K/ L 0.04-0.54 vykm=455) BASOPHILS ABSOLUTE COUNT (BEAKER) (test zpce=578) 0.03 K/ L 0.01-0.08 IMMATURE GRANULOCYTES-RELATIVE PERCENT (BEAKER) 1 % 0-1 (test oatp=3889) ANG, REMOVAL OF TUNNELED CVC W/O [id number] 13:19:00Reason for exam:-> line infectionFINAL REPORT Right chest Tunneled Central Line Removal. History: Line infection Modality: None. Sedation: None Video Editing Internship: Van Funes MD. Group President: None. Approach: Right anterior chest. Estimated blood loss: < 5 cc. Specimen: None. Technique: The procedure including risks and benefits were explained to the patient, who expressed understanding. After informed written consent was obtained, the patient's right anterior chest region was prepped and draped in the usual sterile fashion. The skin was anesthetized with lidocaine. The tunneled central line was then removed in toto with blunt dissection and gentle traction. The skin entry site was then dressed with sterile gauze and Tegaderm. The patient tolerated the procedure well. Impression: Successful, uncomplicated removal of a right chest tunneled central line. Signed: Van Funes MDReport Verified Date/Time : 06/30/2018 13:19:20 Reading Location: [place] [address] Angio Body Reading Room BLOOD [id number] 19:01:00 Test Item Value Reference Range Comments CULTURE (BEAKER) (test nvzs=0696) No growth in 5 days CATHETER TIP [id number] 11:18:00 Test Item Value Reference Range Comments CULTURE (BEAKER) (test <15 Colonies On Direct Plate nwpx=1914) Coagulase negative Staphylococcus [id number] 07:10:00 Test Item Value Reference Range Comments PHOSPHORUS (BEAKER) (test xpfg=981) 3.5 mg/dL 2.3-4.7 [id number] 07:10:00 Test Item Value Reference Range Comments MAGNESIUM (BEAKER) (test ceru=072) 1.6 mg/dL 1.6-2.6 BASIC METABOLIC [id number] 07:10:00 Test Item Value Reference Range Comments SODIUM (BEAKER) (test 135 meq/L 136-145 ivvj=271) POTASSIUM (BEAKER) (test 4.1 meq/L 3.5-5.1 atqp=110) CHLORIDE (BEAKER) (test 105 meq/L 98-107 eqeo=840) CO2 (BEAKER) (test 21 meq/L 22-29 ouxr=816) BLOOD UREA NITROGEN 31 mg/dL 7-21 (BEAKER) (test weps=076) CREATININE (BEAKER) (test 1.43 mg/dL 0.57-1.25 gtjc=626) GLUCOSE RANDOM (BEAKER) 154 mg/dL 70-105 (test wdks=998) CALCIUM (BEAKER) (test 8.5 mg/dL 8.4-10.2 fxjj=547) EGFR (BEAKER) (test 50 mL/min/1.73 sq m ESTIMATED GFR IS NOT owbp=0611) ACCURATE CREATININE CLEARANCE IN PREDICTING GLOMERULAR FILTRATION RATE. ESTIMATED GFR IS NOT APPLICABLE FOR DIALYSIS PATIENTS. CBC W/PLT COUNT & AUTO [id number] 06:54:00 Test Item Value Reference Range Comments WHITE BLOOD CELL COUNT (BEAKER) (test myiy=258) 2.7 K/ L 3.5-10.5 RED BLOOD CELL COUNT (BEAKER) (test hmbp=355) 2.57 M/ L 4.63-6.08 HEMOGLOBIN (BEAKER) (test elae=538) 8.2 GM/DL 13.7-17.5 HEMATOCRIT (BEAKER) (test lhuh=099) 24.2 % 40.1-51.0 MEAN CORPUSCULAR VOLUME (BEAKER) (test dcge=128) 94.2 fL 79.0-92.2 MEAN CORPUSCULAR HEMOGLOBIN (BEAKER) (test 31.9 pg 25.7-32.2 onse=400) MEAN CORPUSCULAR HEMOGLOBIN CONC (BEAKER) (test 33.9 GM/DL 32.3-36.5 izwz=577) RED CELL DISTRIBUTION WIDTH (BEAKER) (test 16.7 % 11.6-14.4 mhnk=908) PLATELET COUNT (BEAKER) (test nnjf=811) 88 K/CU MM 150-450 MEAN PLATELET VOLUME (BEAKER) (test lgwz=857) 10.4 fL 9.4-12.4 NUCLEATED RED BLOOD CELLS (BEAKER) (test 0 /100 WBC 0-0 fosd=326) NEUTROPHILS RELATIVE PERCENT (BEAKER) (test 96 % vxyu=750) LYMPHOCYTES RELATIVE PERCENT (BEAKER) (test 3 % hvel=438) MONOCYTES RELATIVE PERCENT (BEAKER) (test 0 % pdqb=476) EOSINOPHILS RELATIVE PERCENT (BEAKER) (test 0 % nhdv=807) BASOPHILS RELATIVE PERCENT (BEAKER) (test 0 % fmuf=180) NEUTROPHILS ABSOLUTE COUNT (BEAKER) (test 2.54 K/ L 1.78-5.38 xivr=271) LYMPHOCYTES ABSOLUTE COUNT (BEAKER) (test 0.09 K/ L 1.32-3.57 kfwc=369) MONOCYTES ABSOLUTE COUNT (BEAKER) (test zwok=662) 0.01 K/ L 0.30-0.82 EOSINOPHILS ABSOLUTE COUNT (BEAKER) (test 0.00 K/ L 0.04-0.54 itnv=277) BASOPHILS ABSOLUTE COUNT (BEAKER) (test ujyp=428) 0.00 K/ L 0.01-0.08 IMMATURE GRANULOCYTES-RELATIVE PERCENT (BEAKER) 0 % 0-1 (test vuwb=9339) WOUND CULTURE + GRAM [id number] 10:58:00 Test Item Value Reference Range Comments CULTURE (BEAKER) (test sabp=0338) No growth GRAM STAIN RESULT (BEAKER) (test No WBCs duwj=9785) GRAM STAIN RESULT (BEAKER) (test No organisms seen yhoa=82476) [id number] 07:24:00 Test Item Value Reference Range Comments PHOSPHORUS (BEAKER) (test pnod=780) 3.8 mg/dL 2.3-4.7 [id number] 07:24:00 Test Item Value Reference Range Comments MAGNESIUM (BEAKER) (test brqa=173) 1.7 mg/dL 1.6-2.6 BASIC METABOLIC [id number] 07:24:00 Test Item Value Reference Range Comments SODIUM (BEAKER) (test 136 meq/L 136-145 enoc=585) POTASSIUM (BEAKER) (test 4.4 meq/L 3.5-5.1 caie=412) CHLORIDE (BEAKER) (test 105 meq/L 98-107 qtch=638) CO2 (BEAKER) (test 22 meq/L 22-29 fwuw=671) BLOOD UREA NITROGEN 32 mg/dL 7-21 (BEAKER) (test iiqz=352) CREATININE (BEAKER) (test 1.53 mg/dL 0.57-1.25 pdol=743) GLUCOSE RANDOM (BEAKER) 162 mg/dL 70-105 (test hqhk=985) CALCIUM (BEAKER) (test 8.5 mg/dL 8.4-10.2 beps=203) EGFR (BEAKER) (test 46 mL/min/1.73 sq m ESTIMATED GFR IS NOT rdos=7953) ACCURATE CREATININE CLEARANCE IN PREDICTING GLOMERULAR FILTRATION RATE. ESTIMATED GFR IS NOT APPLICABLE FOR DIALYSIS PATIENTS. CBC W/PLT COUNT & AUTO [id number] 06:48:00 Test Item Value Reference Range Comments WHITE BLOOD CELL COUNT (BEAKER) (test xzud=890) 3.6 K/ L 3.5-10.5 RED BLOOD CELL COUNT (BEAKER) (test fwny=966) 2.23 M/ L 4.63-6.08 HEMOGLOBIN (BEAKER) (test klgg=720) 7.2 GM/DL 13.7-17.5 HEMATOCRIT (BEAKER) (test nzun=137) 21.7 % 40.1-51.0 MEAN CORPUSCULAR VOLUME (BEAKER) (test szbu=496) 97.3 fL 79.0-92.2 MEAN CORPUSCULAR HEMOGLOBIN (BEAKER) (test 32.3 pg 25.7-32.2 kiuk=913) MEAN CORPUSCULAR HEMOGLOBIN CONC (BEAKER) (test 33.2 GM/DL 32.3-36.5 vmuk=989) RED CELL DISTRIBUTION WIDTH (BEAKER) (test 17.5 % 11.6-14.4 gxxi=046) PLATELET COUNT (BEAKER) (test frys=615) 93 K/CU MM 150-450 MEAN PLATELET VOLUME (BEAKER) (test jspg=906) 10.2 fL 9.4-12.4 NUCLEATED RED BLOOD CELLS (BEAKER) (test 0 /100 WBC 0-0 eomx=107) NEUTROPHILS RELATIVE PERCENT (BEAKER) (test 95 % meri=927) LYMPHOCYTES RELATIVE PERCENT (BEAKER) (test 3 % cdif=466) MONOCYTES RELATIVE PERCENT (BEAKER) (test 1 % bdci=864) EOSINOPHILS RELATIVE PERCENT (BEAKER) (test 0 % qypd=608) BASOPHILS RELATIVE PERCENT (BEAKER) (test 0 % hhit=630) NEUTROPHILS ABSOLUTE COUNT (BEAKER) (test 3.43 K/ L 1.78-5.38 znde=982) LYMPHOCYTES ABSOLUTE COUNT (BEAKER) (test 0.12 K/ L 1.32-3.57 ixhb=238) MONOCYTES ABSOLUTE COUNT (BEAKER) (test hkfs=279) 0.03 K/ L 0.30-0.82 EOSINOPHILS ABSOLUTE COUNT (BEAKER) (test 0.00 K/ L 0.04-0.54 zcfv=182) BASOPHILS ABSOLUTE COUNT (BEAKER) (test zifr=466) 0.00 K/ L 0.01-0.08 IMMATURE GRANULOCYTES-RELATIVE PERCENT (BEAKER) 1 % 0-1 (test euaj=2455) RAD, CHEST, 1 VIEW, NON [id number] 17:35:00Reason for exam:->check picc placement Should this be performed at the bedside?->YesFINAL REPORT INDICATION: check picc placement COMPARISON:June 03 TECHNIQUE: Chest radiograph, single view, portable technique. FINDINGS / IMPRESSION: Interval placement of a right PICC line that terminates in the low SVC (good position). Prominent heart shadow which may be related to portable technique. No consolidation, pneumothorax, or pleural effusion demonstrated. Osseousstructures unremarkable. Line coursing down the right chest and neck probably ventricular shunt. Signed: Alfredo Duenas MDReport Verified Date/Time : 06/17/2018 17:35:29 Reading Location: [facility] B1 [id number] Consult Reading Room CBC W/PLT COUNT & AUTO [id number] 07:00:00 Test Item Value Reference Range Comments WHITE BLOOD CELL COUNT (BEAKER) (test bdfh=857) 8.8 K/ L 3.5-10.5 RED BLOOD CELL COUNT (BEAKER) (test spty=077) 2.34 M/ L 4.63-6.08 HEMOGLOBIN (BEAKER) (test jqtu=417) 7.6 GM/DL 13.7-17.5 HEMATOCRIT (BEAKER) (test vbme=015) 22.7 % 40.1-51.0 MEAN CORPUSCULAR VOLUME (BEAKER) (test sgli=203) 97.0 fL 79.0-92.2 MEAN CORPUSCULAR HEMOGLOBIN (BEAKER) (test 32.5 pg 25.7-32.2 goeu=384) MEAN CORPUSCULAR HEMOGLOBIN CONC (BEAKER) (test 33.5 GM/DL 32.3-36.5 vlqv=378) RED CELL DISTRIBUTION WIDTH (BEAKER) (test 17.5 % 11.6-14.4 dosq=812) PLATELET COUNT (BEAKER) (test ycco=597) 123 K/CU MM 150-450 MEAN PLATELET VOLUME (BEAKER) (test qoro=565) 10.2 fL 9.4-12.4 NUCLEATED RED BLOOD CELLS (BEAKER) (test 0 /100 WBC 0-0 klto=499) NEUTROPHILS RELATIVE PERCENT (BEAKER) (test 94 % hoqy=108) LYMPHOCYTES RELATIVE PERCENT (BEAKER) (test 3 % qhyj=480) MONOCYTES RELATIVE PERCENT (BEAKER) (test 2 % bqjf=162) EOSINOPHILS RELATIVE PERCENT (BEAKER) (test 0 % dwla=443) BASOPHILS RELATIVE PERCENT (BEAKER) (test 0 % zpxs=256) NEUTROPHILS ABSOLUTE COUNT (BEAKER) (test 8.31 K/ L 1.78-5.38 cesz=011) LYMPHOCYTES ABSOLUTE COUNT (BEAKER) (test 0.24 K/ L 1.32-3.57 hksy=553) MONOCYTES ABSOLUTE COUNT (BEAKER) (test 0.16 K/ L 0.30-0.82 nghw=379) EOSINOPHILS ABSOLUTE COUNT (BEAKER) (test 0.00 K/ L 0.04-0.54 vhkw=387) BASOPHILS ABSOLUTE COUNT (BEAKER) (test 0.01 K/ L 0.01-0.08 oykx=266) IMMATURE GRANULOCYTES-RELATIVE PERCENT (BEAKER) 1 % 0-1 (test rjad=9885) [id number] 06:43:00 Test Item Value Reference Range Comments PHOSPHORUS (BEAKER) (test sfox=600) 3.7 mg/dL 2.3-4.7 [id number] 06:43:00 Test Item Value Reference Range Comments MAGNESIUM (BEAKER) (test mmoq=168) 2.1 mg/dL 1.6-2.6 COMPREHENSIVE METABOLIC [id number] 06:43:00 Test Item Value Reference Range Comments TOTAL PROTEIN (BEAKER) 6.1 gm/dL 6.0-8.3 (test rzxi=988) ALBUMIN (BEAKER) (test 3.1 g/dL 3.5-5.0 qozv=5044) ALKALINE PHOSPHATASE 39 U/L 40-150 (BEAKER) (test nlhc=939) BILIRUBIN TOTAL (BEAKER) 0.6 mg/dL 0.2-1.2 (test ianj=805) SODIUM (BEAKER) (test 135 meq/L 136-145 fisw=164) POTASSIUM (BEAKER) (test 4.1 meq/L 3.5-5.1 wilb=936) CHLORIDE (BEAKER) (test 104 meq/L 98-107 mstp=392) CO2 (BEAKER) (test 24 meq/L 22-29 crvn=329) BLOOD UREA NITROGEN 26 mg/dL 7-21 (BEAKER) (test lcsx=600) CREATININE (BEAKER) (test 1.59 mg/dL 0.57-1.25 fvqc=033) GLUCOSE RANDOM (BEAKER) 158 mg/dL 70-105 (test uvnm=688) CALCIUM (BEAKER) (test 8.4 mg/dL 8.4-10.2 hzro=321) AST (SGOT) (BEAKER) (test 14 U/L 5-34 pmcc=564) ALT (SGPT) (BEAKER) (test 11 U/L 6-55 angs=429) EGFR (BEAKER) (test 44 mL/min/1.73 sq m ESTIMATED GFR IS NOT fnvp=9954) ACCURATE CREATININE CLEARANCE IN PREDICTING GLOMERULAR FILTRATION RATE. ESTIMATED GFR IS NOT APPLICABLE FOR DIALYSIS PATIENTS. [id number] 07:03:00 Test Item Value Reference Range Comments PHOSPHORUS (BEAKER) (test mstp=425) 2.5 mg/dL 2.3-4.7 [id number] 07:03:00 Test Item Value Reference Range Comments MAGNESIUM (BEAKER) (test fdhk=997) 1.3 mg/dL 1.6-2.6 BASIC METABOLIC [id number] 07:03:00 Test Item Value Reference Range Comments SODIUM (BEAKER) (test 136 meq/L 136-145 enwq=751) POTASSIUM (BEAKER) (test 4.1 meq/L 3.5-5.1 vvze=607) CHLORIDE (BEAKER) (test 104 meq/L 98-107 jfri=464) CO2 (BEAKER) (test 23 meq/L 22-29 wfqs=321) BLOOD UREA NITROGEN 24 mg/dL 7-21 (BEAKER) (test btfw=318) CREATININE (BEAKER) (test 1.75 mg/dL 0.57-1.25 pveg=053) GLUCOSE RANDOM (BEAKER) 169 mg/dL 70-105 (test cwrl=300) CALCIUM (BEAKER) (test 8.5 mg/dL 8.4-10.2 khbf=010) EGFR (BEAKER) (test 40 mL/min/1.73 sq m ESTIMATED GFR IS NOT inav=2995) ACCURATE CREATININE CLEARANCE IN PREDICTING GLOMERULAR FILTRATION RATE. ESTIMATED GFR IS NOT APPLICABLE FOR DIALYSIS PATIENTS. CALCIUM, [id number] 07:02:00 Test Item Value Reference Range Comments CALCIUM IONIZED (BEAKER) (test ykjv=147) 1.03 mmol/L 1.12-1.27 PH, BLOOD (BEAKER) (test rfww=6512) 7.38 CBC W/PLT COUNT & AUTO [id number] 06:33:00 Test Item Value Reference Range Comments WHITE BLOOD CELL COUNT (BEAKER) (test yszz=453) 12.3 K/ L 3.5-10.5 RED BLOOD CELL COUNT (BEAKER) (test bkjs=650) 2.42 M/ L 4.63-6.08 HEMOGLOBIN (BEAKER) (test enyu=141) 7.8 GM/DL 13.7-17.5 HEMATOCRIT (BEAKER) (test gndm=061) 23.6 % 40.1-51.0 MEAN CORPUSCULAR VOLUME (BEAKER) (test dqdk=623) 97.5 fL 79.0-92.2 MEAN CORPUSCULAR HEMOGLOBIN (BEAKER) (test 32.2 pg 25.7-32.2 ihyj=972) MEAN CORPUSCULAR HEMOGLOBIN CONC (BEAKER) (test 33.1 GM/DL 32.3-36.5 kjgl=457) RED CELL DISTRIBUTION WIDTH (BEAKER) (test 17.5 % 11.6-14.4 giyl=697) PLATELET COUNT (BEAKER) (test jmri=419) 102 K/CU MM 150-450 MEAN PLATELET VOLUME (BEAKER) (test ucgn=067) 10.2 fL 9.4-12.4 NUCLEATED RED BLOOD CELLS (BEAKER) (test 0 /100 WBC 0-0 maze=595) NEUTROPHILS RELATIVE PERCENT (BEAKER) (test 91 % ctbm=572) LYMPHOCYTES RELATIVE PERCENT (BEAKER) (test 5 % ojqh=486) MONOCYTES RELATIVE PERCENT (BEAKER) (test 2 % urum=307) EOSINOPHILS RELATIVE PERCENT (BEAKER) (test 0 % puoa=539) BASOPHILS RELATIVE PERCENT (BEAKER) (test 1 % ciqw=183) NEUTROPHILS ABSOLUTE COUNT (BEAKER) (test 11.11 K/ L 1.78-5.38 vfcs=433) LYMPHOCYTES ABSOLUTE COUNT (BEAKER) (test 0.56 K/ L 1.32-3.57 jawf=641) MONOCYTES ABSOLUTE COUNT (BEAKER) (test 0.19 K/ L 0.30-0.82 fkhm=036) EOSINOPHILS ABSOLUTE COUNT (BEAKER) (test 0.01 K/ L 0.04-0.54 uigg=711) BASOPHILS ABSOLUTE COUNT (BEAKER) (test 0.07 K/ L 0.01-0.08 okis=532) IMMATURE GRANULOCYTES-RELATIVE PERCENT (BEAKER) 3 % 0-1 (test iwdr=2662) [id number] 15:15:00 Test Item Value Reference Range Comments MAGNESIUM (BEAKER) (test nlqn=655) 1.3 mg/dL 1.6-2.6 BASIC METABOLIC [id number] 15:15:00 Test Item Value Reference Range Comments SODIUM (BEAKER) (test 141 meq/L 136-145 oziw=258) POTASSIUM (BEAKER) (test 3.6 meq/L 3.5-5.1 zfer=558) CHLORIDE (BEAKER) (test 105 meq/L 98-107 jeme=335) CO2 (BEAKER) (test 24 meq/L 22-29 hzmy=005) BLOOD UREA NITROGEN 25 mg/dL 7-21 (BEAKER) (test vmgd=324) CREATININE (BEAKER) (test 1.89 mg/dL 0.57-1.25 xtkc=257) GLUCOSE RANDOM (BEAKER) 117 mg/dL 70-105 (test pnkc=568) CALCIUM (BEAKER) (test 8.6 mg/dL 8.4-10.2 erer=026) EGFR (BEAKER) (test 36 mL/min/1.73 sq m ESTIMATED GFR IS NOT roog=7175) ACCURATE CREATININE CLEARANCE IN PREDICTING GLOMERULAR FILTRATION RATE. ESTIMATED GFR IS NOT APPLICABLE FOR DIALYSIS PATIENTS. HEPATIC FUNCTION [id number] 15:15:00 Test Item Value Reference Range Comments TOTAL PROTEIN (BEAKER) (test rbzt=562) 6.8 gm/dL 6.0-8.3 ALBUMIN (BEAKER) (test uvxl=2640) 3.5 g/dL 3.5-5.0 BILIRUBIN TOTAL (BEAKER) (test rjxc=408) 0.5 mg/dL 0.2-1.2 BILIRUBIN DIRECT (BEAKER) (test xaqk=457) 0.2 mg/dL 0.1-0.5 ALKALINE PHOSPHATASE (BEAKER) (test elmu=597) 47 U/L 40-150 AST (SGOT) (BEAKER) (test ucly=087) 22 U/L 5-34 ALT (SGPT) (BEAKER) (test ojgh=060) 19 U/L 6-55 CBC W/PLT COUNT & AUTO [id number] 15:08:00 Test Item Value Reference Range Comments WHITE BLOOD CELL COUNT (BEAKER) (test nrho=127) 12.5 K/ L 3.5-10.5 RED BLOOD CELL COUNT (BEAKER) (test wcxu=954) 2.74 M/ L 4.63-6.08 HEMOGLOBIN (BEAKER) (test gsbg=664) 8.8 GM/DL 13.7-17.5 HEMATOCRIT (BEAKER) (test oxms=130) 26.5 % 40.1-51.0 MEAN CORPUSCULAR VOLUME (BEAKER) (test fuuq=130) 96.7 fL 79.0-92.2 MEAN CORPUSCULAR HEMOGLOBIN (BEAKER) (test 32.1 pg 25.7-32.2 daoe=634) MEAN CORPUSCULAR HEMOGLOBIN CONC (BEAKER) (test 33.2 GM/DL 32.3-36.5 aras=024) RED CELL DISTRIBUTION WIDTH (BEAKER) (test 17.8 % 11.6-14.4 qimg=231) PLATELET COUNT (BEAKER) (test vibw=619) 129 K/CU MM 150-450 MEAN PLATELET VOLUME (BEAKER) (test nzyx=816) 9.8 fL 9.4-12.4 NUCLEATED RED BLOOD CELLS (BEAKER) (test 0 /100 WBC 0-0 ipbp=844) NEUTROPHILS RELATIVE PERCENT (BEAKER) (test 73 % agab=820) LYMPHOCYTES RELATIVE PERCENT (BEAKER) (test 11 % zvuc=308) MONOCYTES RELATIVE PERCENT (BEAKER) (test 12 % aqyf=468) EOSINOPHILS RELATIVE PERCENT (BEAKER) (test 1 % gjpq=795) BASOPHILS RELATIVE PERCENT (BEAKER) (test 2 % pndc=376) NEUTROPHILS ABSOLUTE COUNT (BEAKER) (test 9.17 K/ L 1.78-5.38 aiku=086) LYMPHOCYTES ABSOLUTE COUNT (BEAKER) (test 1.36 K/ L 1.32-3.57 femg=777) MONOCYTES ABSOLUTE COUNT (BEAKER) (test 1.46 K/ L 0.30-0.82 nekr=601) EOSINOPHILS ABSOLUTE COUNT (BEAKER) (test 0.07 K/ L 0.04-0.54 rguz=309) BASOPHILS ABSOLUTE COUNT (BEAKER) (test 0.23 K/ L 0.01-0.08 qtce=467) IMMATURE GRANULOCYTES-RELATIVE PERCENT (BEAKER) 2 % 0-1 (test dcua=1302) ANTI-NEUTROPHIL CYTOPLASMIC AB (ANCA)2018-06-11 13:44:00 Test Item Value Reference Range Comments PROTEINASE-3 AB (QUEST) <1.0 AI <1.0 <1.0 AI No Antibody (test akzg=[id number]) Detected> or=1.0 AI Antibody Detected Autoantibodies to proteinase-3 (WA-3) are accepted as characteristic forgranulomatosis with polyangiitis (GPA, Konrad's), and are detectable in 95%of the histologically proven cases. The cytoplasmic IFA pattern, (c-ANCA), isbased largely on autoantibody to WA-3 which serves as the primary antigen.These autoantibodies are present in active disease. MYELOPEROXIDASE AB (QUEST) <1.0 AI <1.0 <1.0 AI No Antibody (test xena=[id number]) Detected> or=1.0 AI Antibody Detected Autoantibodies to myeloperoxidase (MPO) are commonly associated with thefollowing small-vessel vasculitides: microscopic polyangiitis, polyarteritisnodosa, Churg-Susanna syndrome, necrotizing and crescentic glomerulonephritisand occasionally granulomatosis with polyangiitis (GPA, Konrad's). Theperinuclear IFA pattern, (p-ANCA) is based largely on autoantibodyto myeloperoxidase which serves as the primary antigen. These autoantibodiesare present in active disease. Performing Lab [facility] [address] [place] [address] Coby Jimenez MD, PhD, MBABONE MARROW [id number] 13:50:00Bone Marrow Pathology Report Case: [id number] Authorizing Provider: Thelma Cristobal MD Collected: 06/03/2018 1045 Ordering Location: [address] Received: 06/03/2018 1100 SERVICE Pathologist: Radha Edmond MD Specimens: A) - Iliac Crest, Right B) -Bone Marrow C) - Bone Marrow The normal results of the cytogenetic studies do not alter the previously rendered diagnosis (see attached report). Addendumelectronically signed by Radha Edmond MD on 06/09/2018 at 1:50 PMBONE MARROW ASPIRATE, CLOT, AND DECALCIFIED BIOPSY:-VARIABLY CELLULAR (30-50 %) MARROW WITH TRILINEAGE HEMATOPOIESIS AND ADEQUATE MATURATION -NO MORPHOLOGIC OR IMMUNOPHENOTYPIC EVIDENCE OF ACUTE MYELOID LEUKEMIA-PENDING CYTOGENETIC STUDIESPERIPHERAL BLOOD:- ANEMIA Signing Pathologist Direct Phone Line: [phone] signed by Radha Edmond MD on 06/05/2018 at 1:21 PMAlthough aspirate smears lack particles, less than 1% blasts are noted on touch imprints. A CD34 immunostain performed on the marrow biopsy is compatible with the morphologic impression; bone marrow aspirate flow cytometry also does not identify an increased nor aberrant myeloblast population (F19-3). Cytogenetic studies are pending,and will be reported separately. An addendum will follow. Preliminary results discussed with Dr. Webster 06/04/2018. 38335; 36457; 98481 x 2; 48085; 86193 ; 60047Liznofi chemotherapy for AMLRight iliac crest bone marrow Specimen is received in three parts all labeled with the patient's information and labeled "right iliac crest bone marrow". Specimen A consists of several aspirate smears with one unstained slide for iron stain. Specimen B is received in formalin and consists of a blood clot measuring 1 x0.6 cm. The specimen is sectioned and entirely submitted in cassette B1. Specimen C is received in formalin and consists of a single carpenter-red bone core measuring 1.2 cm in length submitted entirely in cassette C1 for decalcification. CG/ew BONE MARROW ASPIRATE:QUALITY: Aspirate- InadequateTouch imprint- SuboptimalMARROW DIFFERENTIAL COUNT: Number of cells counted: 2000 % Blasts 0 % Promyelocytes 48% Myelocytes/ Metamyelocytes 24 % Bands/Segmented granulocytes 0 % Eosinophils and precursors 1 % Basophils and precursors 16 % Erythroid precursors 8 % Lymphocytes 3 % Monocytes0 % Plasma cellsMyeloid: Erythroid Ratio: 4.75Blasts : Not IncreasedErythropoiesis: Normal and complete maturation; a few dyserythropoietic forms Myelopoiesis: Normal and complete maturation Megakaryocytes: PresentStainable storage iron cannot be assessed based on an iron stain performed on the aspirate smear due to the lack of adequate marrow particles. BONE MARROW BIOPSY:Biopsy- AdequateClot- InadequateVariable Cellular ( 30-50 %). Cellular composition similar to aspirate smears and touch imprints. Erythropoiesis and myelopoiesis are complete. Megakaryocytes are adequate with overall normal morphology. A CD34 immunostain reveals very fewscattered positive mononuclear cells, less than 5% of marrow cellularity. Bony trabeculae: Focally thinnedStainable storage iron iron cannot be assessed based on an iron stain performed on the clot section due to the lack of adequate marrow particles. PERIPHERAL BLOOD:RBCs: Increased polychromasia and anisocytosisWBCs: No circulating blasts Platelets: Very mildly decreasedThe interpretation of this case included the use of immunohistochemistry or specialstains. C1: CD34 Immunohistochemistry technical testing was performed at [facility], Pathology Laboratory where it was developed and its performance characteristics were determined. It has not been cleared or approved by the U.S. Food and Drug Administration. The FDA has determined that such clearance or approval is not necessary. The test is used for clinical purposes. It should not be regarded as investigational or for research. This laboratory is certified under the Clinical Laboratory Improvement Amendments of 1988 (CLIA-88) as qualified to perform high complexity clinical laboratory testing.CBC W/PLT COUNT & AUTO [id number] 07:55:00 Test Item Value Reference Range Comments WHITE BLOOD CELL COUNT (BEAKER) (test trxk=019) 8.1 K/ L 3.5-10.5 RED BLOOD CELL COUNT (BEAKER) (test hghf=341) 2.47 M/ L 4.63-6.08 HEMOGLOBIN (BEAKER) (test layv=643) 7.9 GM/DL 13.7-17.5 HEMATOCRIT (BEAKER) (test kwzg=390) 23.6 % 40.1-51.0 MEAN CORPUSCULAR VOLUME (BEAKER) (test xltw=633) 95.5 fL 79.0-92.2 MEAN CORPUSCULAR HEMOGLOBIN (BEAKER) (test 32.0 pg 25.7-32.2 bavo=567) MEAN CORPUSCULAR HEMOGLOBIN CONC (BEAKER) (test 33.5 GM/DL 32.3-36.5 kznt=675) RED CELL DISTRIBUTION WIDTH (BEAKER) (test 15.4 % 11.6-14.4 najj=045) PLATELET COUNT (BEAKER) (test gejy=276) 151 K/CU MM 150-450 MEAN PLATELET VOLUME (BEAKER) (test rtaj=202) 10.1 fL 9.4-12.4 NUCLEATED RED BLOOD CELLS (BEAKER) (test 0 /100 WBC 0-0 hvvv=396) NEUTROPHILS RELATIVE PERCENT (BEAKER) (test 63 % cxvc=379) LYMPHOCYTES RELATIVE PERCENT (BEAKER) (test 15 % vwvf=961) MONOCYTES RELATIVE PERCENT (BEAKER) (test 18 % rdyv=446) EOSINOPHILS RELATIVE PERCENT (BEAKER) (test 0 % yxxb=089) BASOPHILS RELATIVE PERCENT (BEAKER) (test 3 % puqg=857) NEUTROPHILS ABSOLUTE COUNT (BEAKER) (test 5.05 K/ L 1.78-5.38 zrgr=723) LYMPHOCYTES ABSOLUTE COUNT (BEAKER) (test 1.17 K/ L 1.32-3.57 gvgr=118) MONOCYTES ABSOLUTE COUNT (BEAKER) (test 1.49 K/ L 0.30-0.82 lbjg=093) EOSINOPHILS ABSOLUTE COUNT (BEAKER) (test 0.01 K/ L 0.04-0.54 chfr=066) BASOPHILS ABSOLUTE COUNT (BEAKER) (test 0.20 K/ L 0.01-0.08 jymf=478) IMMATURE GRANULOCYTES-RELATIVE PERCENT (BEAKER) 2 % 0-1 (test gazb=2206) CALCIUM, [id number] 06:58:00 Test Item Value Reference Range Comments CALCIUM IONIZED (BEAKER) (test obbs=676) 0.96 mmol/L 1.12-1.27 PH, BLOOD (BEAKER) (test arob=1329) 7.49 [id number] 06:15:00 Test Item Value Reference Range Comments PHOSPHORUS (BEAKER) (test mpmo=799) 4.5 mg/dL 2.3-4.7 [id number] 06:15:00 Test Item Value Reference Range Comments MAGNESIUM (BEAKER) (test jdgq=689) 1.5 mg/dL 1.6-2.6 COMPREHENSIVE METABOLIC [id number] 06:15:00 Test Item Value Reference Range Comments TOTAL PROTEIN (BEAKER) 6.2 gm/dL 6.0-8.3 (test lclv=695) ALBUMIN (BEAKER) (test 3.0 g/dL 3.5-5.0 exmj=4463) ALKALINE PHOSPHATASE 43 U/L 40-150 (BEAKER) (test gwuo=557) BILIRUBIN TOTAL (BEAKER) 0.7 mg/dL 0.2-1.2 (test adnw=270) SODIUM (BEAKER) (test 132 meq/L 136-145 kshm=879) POTASSIUM (BEAKER) (test 3.9 meq/L 3.5-5.1 lbfp=907) CHLORIDE (BEAKER) (test 99 meq/L 98-107 rkps=190) CO2 (BEAKER) (test 23 meq/L 22-29 qsyq=950) BLOOD UREA NITROGEN 36 mg/dL 7-21 (BEAKER) (test ghse=492) CREATININE (BEAKER) (test 2.59 mg/dL 0.57-1.25 nlrm=183) GLUCOSE RANDOM (BEAKER) 96 mg/dL 70-105 (test wejb=184) CALCIUM (BEAKER) (test 8.5 mg/dL 8.4-10.2 igfv=009) AST (SGOT) (BEAKER) (test 28 U/L 5-34 qhuj=155) ALT (SGPT) (BEAKER) (test 17 U/L 6-55 slgd=896) EGFR (BEAKER) (test 25 mL/min/1.73 sq m ESTIMATED GFR IS NOT smvo=5852) ACCURATE CREATININE CLEARANCE IN PREDICTING GLOMERULAR FILTRATION RATE. ESTIMATED GFR IS NOT APPLICABLE FOR DIALYSIS PATIENTS. [id number] 05:59:00 Test Item Value Reference Range Comments PROTIME (BEAKER) (test lyku=931) 14.0 seconds 11.7-14.7 INR (BEAKER) (test rlmn=911) 1.1 <=5.9 PARTIAL THROMBOPLASTIN TIME (BEAKER) (test 25.9 seconds 22.5-36.0 baco=836) RECOMMENDED COUMADIN/WARFARIN INR THERAPY RANGESSTANDARD DOSE: 2.0 - 3.0 Includes: PROPHYLAXIS forvenous thrombosis, systemic embolization; TREATMENT for venous thrombosis and/or pulmonary embolus.HIGH RISK: Target INR is 2.5-3.5 for patients with mechanical heart valves.CBC WITH PLATELET COUNT + MANUAL [id number] 13:12:00 Test Item Value Reference Range Comments WHITE BLOOD CELL COUNT (BEAKER) (test brnq=481) 7.3 K/ L 3.5-10.5 RED BLOOD CELL COUNT (BEAKER) (test ogew=876) 2.76 M/ L 4.63-6.08 HEMOGLOBIN (BEAKER) (test dfkx=293) 8.6 GM/DL 13.7-17.5 HEMATOCRIT (BEAKER) (test soam=318) 26.3 % 40.1-51.0 MEAN CORPUSCULAR VOLUME (BEAKER) (test xhps=417) 95.3 fL 79.0-92.2 MEAN CORPUSCULAR HEMOGLOBIN (BEAKER) (test 31.2 pg 25.7-32.2 dixu=238) MEAN CORPUSCULAR HEMOGLOBIN CONC (BEAKER) (test 32.7 GM/DL 32.3-36.5 faqh=878) RED CELL DISTRIBUTION WIDTH (BEAKER) (test 15.4 % 11.6-14.4 odvr=111) PLATELET COUNT (BEAKER) (test cnrf=371) 176 K/CU MM 150-450 MEAN PLATELET VOLUME (BEAKER) (test jzsc=118) 9.4 fL 9.4-12.4 NUCLEATED RED BLOOD CELLS (BEAKER) (test 0 /100 WBC 0-0 jkwb=305) (CELLAVISION MANUAL DIFF)2018-06-08 13:12:00 Test Item Value Reference Range Comments NEUTROPHILS - REL (CELLAVISION)(BEAKER) (test 63 % unlh=7241) LYMPHOCYTES - REL (CELLAVISION)(BEAKER) (test 12 % qvdt=3967) MONOCYTES - REL (CELLAVISION)(BEAKER) (test 20 % nloq=1910) BANDS - REL (CELLAVISION)(BEAKER) (test lehb=7172) 5 % 0-10 NEUTROPHILS - ABS (CELLAVISION)(BEAKER) (test 4.60 K/ul 1.78-5.38 rhug=5900) LYMPHOCYTES - ABS (CELLAVISION)(BEAKER) (test 0.88 K/ul 1.32-3.57 fukx=8093) MONOCYTES - ABS (CELLAVISION)(BEAKER) (test 1.46 K/uL 0.30-0.82 wsam=0086) BANDS - ABS (CELLAVISION)(BEAKER) (test cntf=8921) 0.37 K/uL 0.00-0.80 TOTAL COUNTED (BEAKER) (test fauk=9633) 100 WBC MORPHOLOGY (BEAKER) (test dcsk=085) Normal PLT MORPHOLOGY (BEAKER) (test fsjt=576) Normal POLYCHROMATOPHILLIC RBCS(BEAKER) (test kjnt=224) 1+ few ANISOCYTOSIS (BEAKER) (test tngg=430) 1+ few COMPREHENSIVE METABOLIC [id number] 06:22:00 Test Item Value Reference Range Comments TOTAL PROTEIN (BEAKER) 6.9 gm/dL 6.0-8.3 Specimen slightly (test kgos=317) hemolyzed ALBUMIN (BEAKER) (test 3.2 g/dL 3.5-5.0 Specimen slightly ayca=0262) hemolyzed ALKALINE PHOSPHATASE 46 U/L 40-150 (BEAKER) (test usno=908) BILIRUBIN TOTAL (BEAKER) 0.8 mg/dL 0.2-1.2 Specimen slightly (test amlh=042) hemolyzed SODIUM (BEAKER) (test 137 meq/L 136-145 uzaa=576) POTASSIUM (BEAKER) (test 4.4 meq/L 3.5-5.1 Specimen slightly ntqh=538) hemolyzed CHLORIDE (BEAKER) (test 102 meq/L 98-107 saqg=767) CO2 (BEAKER) (test 23 meq/L 22-29 jiyc=432) BLOOD UREA NITROGEN 41 mg/dL 7-21 (BEAKER) (test vvtw=455) CREATININE (BEAKER) (test 2.97 mg/dL 0.57-1.25 Specimen slightly bvxx=219) hemolyzed GLUCOSE RANDOM (BEAKER) 96 mg/dL 70-105 (test ftpn=384) CALCIUM (BEAKER) (test 9.7 mg/dL 8.4-10.2 dqho=633) AST (SGOT) (BEAKER) (test 39 U/L 5-34 Specimen slightly rgrn=261) hemolyzed ALT (SGPT) (BEAKER) (test 21 U/L 6-55 Specimen slightly csjw=514) hemolyzed EGFR (BEAKER) (test 22 mL/min/1.73 sq m ESTIMATED GFR IS NOT ahlv=0023) ACCURATE CREATININE CLEARANCE IN PREDICTING GLOMERULAR FILTRATION RATE. ESTIMATED GFR IS NOT APPLICABLE FOR DIALYSIS PATIENTS. CBC W/PLT COUNT & AUTO [id number] 06:09:00 Test Item Value Reference Range Comments WHITE BLOOD CELL COUNT (BEAKER) (test qhan=272) 7.3 K/ L 3.5-10.5 RED BLOOD CELL COUNT (BEAKER) (test gqjg=118) 2.76 M/ L 4.63-6.08 HEMOGLOBIN (BEAKER) (test cxso=017) 8.6 GM/DL 13.7-17.5 HEMATOCRIT (BEAKER) (test fwam=956) 26.3 % 40.1-51.0 MEAN CORPUSCULAR VOLUME (BEAKER) (test wisb=436) 95.3 fL 79.0-92.2 MEAN CORPUSCULAR HEMOGLOBIN (BEAKER) (test 31.2 pg 25.7-32.2 ougp=773) MEAN CORPUSCULAR HEMOGLOBIN CONC (BEAKER) (test 32.7 GM/DL 32.3-36.5 elgr=964) RED CELL DISTRIBUTION WIDTH (BEAKER) (test 15.4 % 11.6-14.4 dbpq=451) PLATELET COUNT (BEAKER) (test timt=864) 176 K/CU MM 150-450 MEAN PLATELET VOLUME (BEAKER) (test kruk=011) 9.4 fL 9.4-12.4 NUCLEATED RED BLOOD CELLS (BEAKER) (test 0 /100 WBC 0-0 telv=413) NEUTROPHILS RELATIVE PERCENT (BEAKER) (test 61 % pnaw=739) LYMPHOCYTES RELATIVE PERCENT (BEAKER) (test 15 % kuta=624) MONOCYTES RELATIVE PERCENT (BEAKER) (test 20 % kpnc=269) EOSINOPHILS RELATIVE PERCENT (BEAKER) (test 0 % cftp=396) BASOPHILS RELATIVE PERCENT (BEAKER) (test 3 % mvsb=884) NEUTROPHILS ABSOLUTE COUNT (BEAKER) (test 4.44 K/ L 1.78-5.38 fdik=544) LYMPHOCYTES ABSOLUTE COUNT (BEAKER) (test 1.11 K/ L 1.32-3.57 aypw=369) MONOCYTES ABSOLUTE COUNT (BEAKER) (test 1.44 K/ L 0.30-0.82 nvrk=182) EOSINOPHILS ABSOLUTE COUNT (BEAKER) (test 0.00 K/ L 0.04-0.54 ziih=849) BASOPHILS ABSOLUTE COUNT (BEAKER) (test 0.22 K/ L 0.01-0.08 thei=574) IMMATURE GRANULOCYTES-RELATIVE PERCENT (BEAKER) 2 % 0-1 (test dvys=0340) [id number] 05:53:00 Test Item Value Reference Range Comments PROTIME (BEAKER) (test hdhp=793) 13.3 seconds 11.7-14.7 INR (BEAKER) (test mbab=044) 1.0 <=5.9 PARTIAL THROMBOPLASTIN TIME (BEAKER) (test 26.8 seconds 22.5-36.0 gkzj=178) RECOMMENDED COUMADIN/WARFARIN INR THERAPY RANGESSTANDARD DOSE: 2.0 - 3.0 Includes: PROPHYLAXIS forvenous thrombosis, systemic embolization; TREATMENT for venous thrombosis and/or pulmonary embolus.HIGH RISK: Target INR is 2.5-3.5 for patients with mechanical heart valves.CT, CHEST, WITHOUT [id number] 15:57:00FINAL REPORT INDICATION: Persistent cough. COMPARISON:Chest radiograph June 03, 2018 TECHNIQUE: Chest CT exam WITHOUT intravenous contrast. The exam was performed according to our department dose- optimization protocol, which includes automated exposure control, adjustments of mA and kV according to patient size. Iterative reconstructions are also sometimes employed. FINDINGS:In the posteromedial right lower lobe there are several 1 cm and smaller nodular opacities. Overall the lung parenchyma is normal in attenuation and architecture. The left lung is clear. Central airwaysare clear. No mediastinal or hilar lymphadenopathy is demonstrated. Heart is normal in size and there is no pericardial effusion. Extensive calcification of the coronary arteries demonstrated. Main pulmonary artery and thoracic aorta are normal in caliber. Thyroid gland, esophagus, upper abdomen, osseous structures are unremarkable. IMPRESSION: Right posteromedial lung 1 cm and smaller nodular opacities, infectious or inflammatory etiology is favored. No consolidation or discrete pneumonia present. Signed: Alfredo Duenas MDReport Verified Date/Time: 06/07/2018 15:57:09 Reading Location: [address] Ortho Consult Reading Room 03:57 PMCBC WITH PLATELET COUNT + MANUAL [id number] 11:07:00 Test Item Value Reference Range Comments WHITE BLOOD CELL COUNT (BEAKER) (test dyyr=276) 6.9 K/ L 3.5-10.5 RED BLOOD CELL COUNT (BEAKER) (test imvk=650) 2.95 M/ L 4.63-6.08 HEMOGLOBIN (BEAKER) (test kuff=323) 9.1 GM/DL 13.7-17.5 HEMATOCRIT (BEAKER) (test auyj=176) 27.9 % 40.1-51.0 MEAN CORPUSCULAR VOLUME (BEAKER) (test rmdb=645) 94.6 fL 79.0-92.2 MEAN CORPUSCULAR HEMOGLOBIN (BEAKER) (test 30.8 pg 25.7-32.2 blxc=317) MEAN CORPUSCULAR HEMOGLOBIN CONC (BEAKER) (test 32.6 GM/DL 32.3-36.5 gnnx=623) RED CELL DISTRIBUTION WIDTH (BEAKER) (test 15.5 % 11.6-14.4 hmmr=670) PLATELET COUNT (BEAKER) (test vkel=091) 231 K/CU MM 150-450 MEAN PLATELET VOLUME (BEAKER) (test efgh=003) 9.5 fL 9.4-12.4 NUCLEATED RED BLOOD CELLS (BEAKER) (test 0 /100 WBC 0-0 tidj=723) CBC W/PLT COUNT & AUTO [id number] 11:07:00 Test Item Value Reference Range Comments WHITE BLOOD CELL COUNT (BEAKER) (test cjuy=718) 6.9 K/ L 3.5-10.5 RED BLOOD CELL COUNT (BEAKER) (test wchi=910) 2.95 M/ L 4.63-6.08 HEMOGLOBIN (BEAKER) (test ndju=073) 9.1 GM/DL 13.7-17.5 HEMATOCRIT (BEAKER) (test zewh=159) 27.9 % 40.1-51.0 MEAN CORPUSCULAR VOLUME (BEAKER) (test eoim=986) 94.6 fL 79.0-92.2 MEAN CORPUSCULAR HEMOGLOBIN (BEAKER) (test 30.8 pg 25.7-32.2 dojk=463) MEAN CORPUSCULAR HEMOGLOBIN CONC (BEAKER) (test 32.6 GM/DL 32.3-36.5 blxy=719) RED CELL DISTRIBUTION WIDTH (BEAKER) (test 15.5 % 11.6-14.4 whhg=351) PLATELET COUNT (BEAKER) (test tbcb=808) 231 K/CU MM 150-450 MEAN PLATELET VOLUME (BEAKER) (test urct=802) 9.5 fL 9.4-12.4 NUCLEATED RED BLOOD CELLS (BEAKER) (test 0 /100 WBC 0-0 nkxq=452) (CELLAVISION MANUAL DIFF)2018-06-07 11:07:00 Test Item Value Reference Range Comments NEUTROPHILS - REL (CELLAVISION)(BEAKER) (test 54 % bwyf=8727) LYMPHOCYTES - REL (CELLAVISION)(BEAKER) (test 25 % lbyc=7483) MONOCYTES - REL (CELLAVISION)(BEAKER) (test 17 % gycb=9156) BASOPHILS - REL (CELLAVISION)(BEAKER) (test 2 % jwgm=3063) MYELOCYTES - REL (CELLAVISION)(BEAKER) (test 1 % 0-0 agqz=8564) BANDS - REL (CELLAVISION)(BEAKER) (test 1 % 0-10 xmue=9213) NEUTROPHILS - ABS (CELLAVISION)(BEAKER) (test 3.73 K/ul 1.78-5.38 cebe=0933) LYMPHOCYTES - ABS (CELLAVISION)(BEAKER) (test 1.73 K/ul 1.32-3.57 mgpx=9567) MONOCYTES - ABS (CELLAVISION)(BEAKER) (test 1.17 K/uL 0.30-0.82 bnjf=3264) BASOPHILS - ABS (CELLAVISION)(BEAKER) (test 0.14 K/uL 0.01-0.08 itvw=5598) MYELOCYTES-ABS (CELLAVISION)(BEAKER) (test 0.07 K/uL 0.00-0.00 cfrn=8155) BANDS - ABS (CELLAVISION)(BEAKER) (test 0.07 K/uL 0.00-0.80 hadh=6103) TOTAL COUNTED (BEAKER) (test fxjd=0559) 100 WBC MORPHOLOGY (BEAKER) (test iwny=027) Normal PLT MORPHOLOGY (BEAKER) (test dlep=404) Normal ANISOCYTOSIS (BEAKER) (test ltqt=211) 2+ moderate MICROCYTES (BEAKER) (test cmpw=629) 1+ few ARTIFACT (CELLAVISION)(BEAKER) (test xhlc=2590) Present PLATELET CONCENTRATION (CELLAVISION)(BEAKER) Adequate (test ojdh=2964) Received comment: User comments: Slide comments:URINALYSIS W/ [id number] 07:56:00 Test Item Value Reference Range Comments COLOR (BEAKER) (test arwy=768) Light Yellow CLARITY (BEAKER) (test ycas=969) Clear SPECIFIC GRAVITY UA (BEAKER) (test llwc=107) 1.010 1.001-1.035 PH UA (BEAKER) (test wang=254) 6.0 5.0-8.0 PROTEIN UA (BEAKER) (test rdvn=358) Negative Negative GLUCOSE UA (BEAKER) (test hkze=372) Negative Negative KETONES UA (BEAKER) (test vqla=230) Negative Negative BILIRUBIN UA (BEAKER) (test gssv=864) Negative Negative BLOOD UA (BEAKER) (test irmo=767) Negative Negative NITRITE UA (BEAKER) (test wjwp=938) Negative Negative LEUKOCYTE ESTERASE UA (BEAKER) (test qmqw=693) Negative Negative UROBILINOGEN UA (BEAKER) (test tnqx=357) 0.2 mg/dL 0.2-1.0 RBC UA (BEAKER) (test cqjo=405) 0 /HPF WBC UA (BEAKER) (test hicr=969) 2 /HPF SQUAMOUS EPITHELIAL (BEAKER) (test bwaj=675) < /HPF SOURCE(BEAKER) (test riji=3308) Urine, Voided COMPLEMENT COMPONENT [id number] 07:56:00 Test Item Value Reference Range Comments C4 COMPLEMENT (BEAKER) (test alto=192) 46 mg/dL 15-57 COMPLEMENT COMPONENT [id number] 07:56:00 Test Item Value Reference Range Comments C3 COMPLEMENT (BEAKER) (test jvlz=331) 207 mg/dL 82-193 CREATININE, RANDOM [id number] 07:31:00 Test Item Value Reference Range Comments CREATININE URINE (BEAKER) (test rgnt=871) 85.3 mg/dL Reference Range: No NormalsSODIUM, RANDOM [id number] 07:31:00 Test Item Value Reference Range Comments SODIUM URINE (BEAKER) (test qllz=089) 84 meq/L Reference Range: No NormalsUREA NITROGEN, RANDOM [id number] 07:31:00 Test Item Value Reference Range Comments UREA NITROGEN URINE (BEAKER) (test mhvb=277) 517 mg/dL Reference Range: No NormalsCOMPREHENSIVE METABOLIC [id number] 07:03:00 Test Item Value Reference Range Comments TOTAL PROTEIN (BEAKER) 7.0 gm/dL 6.0-8.3 (test sqxk=999) ALBUMIN (BEAKER) (test 3.3 g/dL 3.5-5.0 hqyu=6994) ALKALINE PHOSPHATASE 50 U/L 40-150 (BEAKER) (test lzjz=824) BILIRUBIN TOTAL (BEAKER) 0.8 mg/dL 0.2-1.2 (test uvub=351) SODIUM (BEAKER) (test 140 meq/L 136-145 edqv=390) POTASSIUM (BEAKER) (test 4.0 meq/L 3.5-5.1 ywoy=073) CHLORIDE (BEAKER) (test 101 meq/L 98-107 kwes=292) CO2 (BEAKER) (test 29 meq/L 22-29 qkda=022) BLOOD UREA NITROGEN 43 mg/dL 7-21 (BEAKER) (test uluw=560) CREATININE (BEAKER) (test 3.07 mg/dL 0.57-1.25 sxop=098) GLUCOSE RANDOM (BEAKER) 98 mg/dL 70-105 (test mzey=466) CALCIUM (BEAKER) (test 9.6 mg/dL 8.4-10.2 owuh=090) AST (SGOT) (BEAKER) (test 34 U/L 5-34 kzbt=873) ALT (SGPT) (BEAKER) (test 19 U/L 6-55 nksm=641) EGFR (BEAKER) (test 21 mL/min/1.73 sq m ESTIMATED GFR IS NOT qnyo=0170) ACCURATE CREATININE CLEARANCE IN PREDICTING GLOMERULAR FILTRATION RATE. ESTIMATED GFR IS NOT APPLICABLE FOR DIALYSIS PATIENTS. PROTHROMBIN [id number] 06:34:00 Test Item Value Reference Range Comments PROTIME (BEAKER) (test lnma=285) 13.8 seconds 11.7-14.7 INR (BEAKER) (test ckoq=182) 1.1 <=5.9 RECOMMENDED COUMADIN/WARFARIN INR THERAPY RANGESSTANDARD DOSE: 2.0 - 3.0 Includes: PROPHYLAXIS forvenous thrombosis, systemic embolization; TREATMENT for venous thrombosis and/or pulmonary embolus.HIGH RISK: Target INR is 2.5-3.5 for patients with mechanical heart valves.CT, ABDOMEN, WITHOUT [id number] 02:35:00FINAL REPORT CLINICAL HISTORY: Acute renal failure FINDINGS: Multiple axial images of the abdomen were performed after the uncomplicated administration of IV contrast. Oral contrast was not given. This exam was performed according to our departmental dose-optimization program, which includes automated exposure control, adjustment of the mA and/or kV according to patient size and/or use of the iterative reconstruction technique. Comparison:None. Lower chest: 1.7 x 1.0 cm nodule in the peripheral right posterior lower lung. Smaller adjacent nodular opacities are also present.Curvilinear atelectasis versus scarring in the lung bases. No pleural effusion or pneumothorax. Coronary artery atherosclerotic calcification. Liver: No significant findings. Gallbladder and biliary tree: No significant findings. Spleen: Mild splenomegaly, measuring 14.2 cm in maximum dimension Adrenal Glands : There is a 1.5 cm fat density right adrenal nodule, consistent with an adenoma. No imaging follow-up is recommended for this finding. Kidneys and ureters: Several punctate nonobstructing rightkidney stones. No ureteral stone or noncontrast CT evidence of obstructive uropathy. Stomach and Duodenum: No significant findings. Pancreas: No significant findings. Bowel: No significant findings. Major vascular structures: Scattered atherosclerotic calcifications Other: No free air, fluid or adenopathy Skeleton: No acute bony abnormality. IMPRESSION: Several punctate nonobstructing right kidney stones. No visualized ureteral stone or noncontrast CT evidence of obstructive uropathy. Mild splenomegaly. Several right lower lobe pulmonary nodules, the largest measuring 1.7 x 1.0 cm. Please see belowfor published recommendations related to follow- up. 2017 Fleischner Society Recommendations for Multiple Solid Lung Nodules Follow-Up base on size (average of long- and short-axis diameters). Use mostsuspicious nodule for followup. Nodule Size (mm) >8 Low-Risk Patient: CT at 3-6 months, then consider CT at 18-24 monthsNodule Size (mm) >8 High-Risk Patient: CT at 3-6 months, then at 18-24 months Signed: Humberto Jo MDReport Verified Date/Time: 06/07/2018 02:35:08 Reading Location: [address] Reading Room Electronically signed by: HUMBERTO JO M.D. on 02:35 AMCBC WITH PLATELET COUNT + MANUAL [id number] 11:22:00 Test Item Value Reference Range Comments WHITE BLOOD CELL COUNT (BEAKER) (test jgla=979) 5.2 K/ L 3.5-10.5 RED BLOOD CELL COUNT (BEAKER) (test lual=746) 2.69 M/ L 4.63-6.08 HEMOGLOBIN (BEAKER) (test dduu=447) 8.5 GM/DL 13.7-17.5 HEMATOCRIT (BEAKER) (test hodf=828) 25.5 % 40.1-51.0 MEAN CORPUSCULAR VOLUME (BEAKER) (test qwuw=964) 94.8 fL 79.0-92.2 MEAN CORPUSCULAR HEMOGLOBIN (BEAKER) (test 31.6 pg 25.7-32.2 edmk=343) MEAN CORPUSCULAR HEMOGLOBIN CONC (BEAKER) (test 33.3 GM/DL 32.3-36.5 uivw=400) RED CELL DISTRIBUTION WIDTH (BEAKER) (test 15.0 % 11.6-14.4 wvho=035) PLATELET COUNT (BEAKER) (test uzeg=282) 167 K/CU MM 150-450 MEAN PLATELET VOLUME (BEAKER) (test avev=655) 9.3 fL 9.4-12.4 NUCLEATED RED BLOOD CELLS (BEAKER) (test 1 /100 WBC 0-0 hmzb=525) (CELLAVISION MANUAL DIFF)2018-06-06 11:22:00 Test Item Value Reference Range Comments NEUTROPHILS - REL (CELLAVISION)(BEAKER) (test 58 % uffg=9868) LYMPHOCYTES - REL (CELLAVISION)(BEAKER) (test 13 % pmvi=5595) MONOCYTES - REL (CELLAVISION)(BEAKER) (test 28 % homc=0984) ATYPICAL LYMPHOCYTES - REL (CELLAVISION)(BEAKER) 1 % 0-0 (test ktql=0751) NEUTROPHILS - ABS (CELLAVISION)(BEAKER) (test 3.02 K/ul 1.78-5.38 tvgu=1670) LYMPHOCYTES - ABS (CELLAVISION)(BEAKER) (test 0.68 K/ul 1.32-3.57 dqpd=3025) MONOCYTES - ABS (CELLAVISION)(BEAKER) (test 1.46 K/uL 0.30-0.82 qztp=9223) ATYPICAL LYMPHOCYTES - ABS (CELLAVISION)(BEAKER) 0.05 K/uL 0.00-0.00 (test gqfd=4568) TOTAL COUNTED (BEAKER) (test altv=8100) 100 MANUAL NRBC PER 100 CELLS (BEAKER) (test 1 /100 WBC 0-0 axit=6864) WBC MORPHOLOGY (BEAKER) (test sdfm=582) Normal PLT MORPHOLOGY (BEAKER) (test xidq=765) Normal POLYCHROMATOPHILLIC RBCS(BEAKER) (test item=367) 1+ few PLATELET CONCENTRATION (CELLAVISION)(BEAKER) Adequate (test axnc=4213) Received comment: User comments: Slide comments:CBC WITH PLATELET COUNT + MANUAL [id number] 11:35:00 Test Item Value Reference Range Comments WHITE BLOOD CELL COUNT (BEAKER) (test zkxt=035) 5.9 K/ L 3.5-10.5 RED BLOOD CELL COUNT (BEAKER) (test bwtd=658) 2.80 M/ L 4.63-6.08 HEMOGLOBIN (BEAKER) (test uctm=897) 8.6 GM/DL 13.7-17.5 HEMATOCRIT (BEAKER) (test ndod=013) 26.1 % 40.1-51.0 MEAN CORPUSCULAR VOLUME (BEAKER) (test dknc=790) 93.2 fL 79.0-92.2 MEAN CORPUSCULAR HEMOGLOBIN (BEAKER) (test 30.7 pg 25.7-32.2 indi=664) MEAN CORPUSCULAR HEMOGLOBIN CONC (BEAKER) (test 33.0 GM/DL 32.3-36.5 vtdk=465) RED CELL DISTRIBUTION WIDTH (BEAKER) (test 15.3 % 11.6-14.4 aykh=463) PLATELET COUNT (BEAKER) (test zlwd=927) 180 K/CU MM 150-450 MEAN PLATELET VOLUME (BEAKER) (test prwg=300) 9.9 fL 9.4-12.4 NUCLEATED RED BLOOD CELLS (BEAKER) (test 1 /100 WBC 0-0 afaq=277) (CELLAVISION MANUAL DIFF)2018-06-05 11:35:00 Test Item Value Reference Range Comments NEUTROPHILS - REL (CELLAVISION)(BEAKER) (test 60 % mivt=5860) LYMPHOCYTES - REL (CELLAVISION)(BEAKER) (test 19 % jigo=5108) MONOCYTES - REL (CELLAVISION)(BEAKER) (test 18 % recn=4578) BASOPHILS - REL (CELLAVISION)(BEAKER) (test 1 % ujlf=2062) MYELOCYTES - REL (CELLAVISION)(BEAKER) (test 2 % 0-0 fpqt=6220) NEUTROPHILS - ABS (CELLAVISION)(BEAKER) (test 3.54 K/ul 1.78-5.38 jacm=6643) LYMPHOCYTES - ABS (CELLAVISION)(BEAKER) (test 1.12 K/ul 1.32-3.57 vyfo=5898) MONOCYTES - ABS (CELLAVISION)(BEAKER) (test 1.06 K/uL 0.30-0.82 zbto=8176) BASOPHILS - ABS (CELLAVISION)(BEAKER) (test 0.06 K/uL 0.01-0.08 wigq=1469) MYELOCYTES-ABS (CELLAVISION)(BEAKER) (test 0.12 K/uL 0.00-0.00 kswc=1064) TOTAL COUNTED (BEAKER) (test wrce=6716) 100 WBC MORPHOLOGY (BEAKER) (test tprl=049) Normal PLT MORPHOLOGY (BEAKER) (test wjfg=867) Normal ANISOCYTOSIS (BEAKER) (test lpfk=060) 2+ moderate MICROCYTES (BEAKER) (test unno=099) 2+ moderate ARTIFACT (CELLAVISION)(BEAKER) (test vprm=1920) Present PLATELET CONCENTRATION (CELLAVISION)(BEAKER) Adequate (test shwg=2739) Received comment: User comments: Slide comments:BASIC METABOLIC [id number] 08:15:00 Test Item Value Reference Range Comments SODIUM (BEAKER) (test 140 meq/L 136-145 cdjv=784) POTASSIUM (BEAKER) (test 4.0 meq/L 3.5-5.1 gwqu=152) CHLORIDE (BEAKER) (test 100 meq/L 98-107 ebhj=445) CO2 (BEAKER) (test 31 meq/L 22-29 kwsb=543) BLOOD UREA NITROGEN 36 mg/dL 7-21 (BEAKER) (test xoss=672) CREATININE (BEAKER) (test 2.87 mg/dL 0.57-1.25 hyvs=821) GLUCOSE RANDOM (BEAKER) 94 mg/dL 70-105 (test uhme=236) CALCIUM (BEAKER) (test 9.3 mg/dL 8.4-10.2 foab=490) EGFR (BEAKER) (test 22 mL/min/1.73 sq m ESTIMATED GFR IS NOT cycr=1944) ACCURATE CREATININE CLEARANCE IN PREDICTING GLOMERULAR FILTRATION RATE. ESTIMATED GFR IS NOT APPLICABLE FOR DIALYSIS PATIENTS. [id number] 07:44:00 Test Item Value Reference Range Comments MAGNESIUM (BEAKER) (test hzbc=357) 1.8 mg/dL 1.6-2.6 CBC WITH PLATELET COUNT + MANUAL [id number] 11:37:00 Test Item Value Reference Range Comments WHITE BLOOD CELL COUNT (BEAKER) (test wcpl=105) 5.2 K/ L 3.5-10.5 RED BLOOD CELL COUNT (BEAKER) (test rksm=279) 2.81 M/ L 4.63-6.08 HEMOGLOBIN (BEAKER) (test yaob=614) 8.6 GM/DL 13.7-17.5 HEMATOCRIT (BEAKER) (test gvcn=734) 26.0 % 40.1-51.0 MEAN CORPUSCULAR VOLUME (BEAKER) (test dpgq=247) 92.5 fL 79.0-92.2 MEAN CORPUSCULAR HEMOGLOBIN (BEAKER) (test 30.6 pg 25.7-32.2 rfpt=371) MEAN CORPUSCULAR HEMOGLOBIN CONC (BEAKER) (test 33.1 GM/DL 32.3-36.5 tjze=441) RED CELL DISTRIBUTION WIDTH (BEAKER) (test 14.8 % 11.6-14.4 ukmv=468) PLATELET COUNT (BEAKER) (test tfdh=280) 206 K/CU MM 150-450 MEAN PLATELET VOLUME (BEAKER) (test sepf=103) 9.6 fL 9.4-12.4 NUCLEATED RED BLOOD CELLS (BEAKER) (test 1 /100 WBC 0-0 ophn=556) (CELLAVISION MANUAL DIFF)2018-06-04 11:37:00 Test Item Value Reference Range Comments NEUTROPHILS - REL (CELLAVISION)(BEAKER) (test 41 % tcch=1980) LYMPHOCYTES - REL (CELLAVISION)(BEAKER) (test 17 % trum=8173) MONOCYTES - REL (CELLAVISION)(BEAKER) (test 29 % qdia=4953) BASOPHILS - REL (CELLAVISION)(BEAKER) (test 2 % inul=3782) METAMYELOCYTES - REL (CELLAVISION)(BEAKER) (test 1 % 0-0 cssl=9910) BANDS - REL (CELLAVISION)(BEAKER) (test xowh=5611) 10 % 0-10 NEUTROPHILS - ABS (CELLAVISION)(BEAKER) (test 2.13 K/ul 1.78-5.38 vzxe=3774) LYMPHOCYTES - ABS (CELLAVISION)(BEAKER) (test 0.88 K/ul 1.32-3.57 orat=7629) MONOCYTES - ABS (CELLAVISION)(BEAKER) (test 1.51 K/uL 0.30-0.82 enfu=2116) BASOPHILS - ABS (CELLAVISION)(BEAKER) (test 0.10 K/uL 0.01-0.08 bsmu=2406) METAMYELOCYTES - ABS (CELLAVISION)(BEAKER) (test 0.05 K/uL 0.00-0.00 gsyk=4020) BANDS - ABS (CELLAVISION)(BEAKER) (test gclx=9520) 0.52 K/uL 0.00-0.80 TOTAL COUNTED (BEAKER) (test zbeu=9342) 100 WBC MORPHOLOGY (BEAKER) (test nwdl=959) Normal PLT MORPHOLOGY (BEAKER) (test mohd=419) Normal POLYCHROMATOPHILLIC RBCS(BEAKER) (test jzqk=864) 1+ few ANISOCYTOSIS (BEAKER) (test abkd=583) 1+ few ARTIFACT (CELLAVISION)(BEAKER) (test tbez=3389) Present PLATELET CONCENTRATION (CELLAVISION)(BEAKER) (test Adequate rprj=8801) Received comment: User comments: Slide comments:BASIC METABOLIC [id number] 05:47:00 Test Item Value Reference Range Comments SODIUM (BEAKER) (test 141 meq/L 136-145 dwob=129) POTASSIUM (BEAKER) (test 4.2 meq/L 3.5-5.1 lswz=390) CHLORIDE (BEAKER) (test 103 meq/L 98-107 owli=678) CO2 (BEAKER) (test 29 meq/L 22-29 amvj=738) BLOOD UREA NITROGEN 35 mg/dL 7-21 (BEAKER) (test dusi=156) CREATININE (BEAKER) (test 2.76 mg/dL 0.57-1.25 ptbn=848) GLUCOSE RANDOM (BEAKER) 89 mg/dL 70-105 (test ijpt=750) CALCIUM (BEAKER) (test 9.1 mg/dL 8.4-10.2 jvaa=858) EGFR (BEAKER) (test 23 mL/min/1.73 sq m ESTIMATED GFR IS NOT ljzf=2062) ACCURATE CREATININE CLEARANCE IN PREDICTING GLOMERULAR FILTRATION RATE. ESTIMATED GFR IS NOT APPLICABLE FOR DIALYSIS PATIENTS. [id number] 05:45:00 Test Item Value Reference Range Comments MAGNESIUM (BEAKER) (test vnug=180) 1.6 mg/dL 1.6-2.6 BLOOD [id number] 01:00:00 Test Item Value Reference Range Comments CULTURE (BEAKER) (test aghn=1921) No growth in 5 days FLOW CYTOMETRY [id number] 18:29:00 Test Item Value Reference Range Comments FLOW CYTOMETRY RESULT POINTER (BEAKER) See Separate Report (test uziw=1764) FLOW CYTOMETRY AP CASE # (MAMIE) (test [id number] jxhy=5999) FLOW [id number] 15:06:00Flow Cytometry Report Case: [id number] Authorizing Provider: Thelma Cristobal MD Collected: 06/03/2018 1045 Ordering Location: [address] Received: 2018 1121 SERVICE Pathologist: Radha Edmond MD Specimen: Other BONE MARROW, FLOWCYTOMETRY:-NO INCREASED OR ABERRANT MYELOBLAST POPULATION -SEE COMMENT Less than 1% myeloblasts are identified, which do NOT show aberrant expression of CD79a, CD19, nor CD11b, which were noted on the leukemic population previously ([id number]). See M19-1 for correlation with the morphologic and other features. [id number] chemotherapy for AMLBone marrowcytoplasmic (c) MPO, cCD79a, CD34, CD19, CD7, CD3, cCD3, CD45, CD16, CD13 , CD117, CD11b, CD10, CD36, CD64, CD33, CD14, HLA-DR, cTdT, AU10Zuebqjca Viability: 97.4% Number of Events Acquired: [id number] The following populations are identified: Blasts: the dim CD45+ CD34+ blasts comprise 0.4% of total cells. The majority of these cells express CD117, HLA-DR, CD13 and CD33 ( myeloblasts). The myeloblasts do NOT express cCD79a, CD19, nor CD11b.Lymphocytes : Bright CD45+ lymphocytes comprise 2.6% of total cells. Myeloid/monocytic populations: As identified by CD45 and light scatter characteristics, granulocytes comprise the majority of cells analyzed, and monocytes comprise 13.3% of total cells. The remaining events analyzed represent nonviable cells, non-hematolymphoid cells,and debris.These tests were developed and their performance characteristics determined by [facility]. They have not been cleared or approved by the U.S. Food and Drug Administration. The FDA has determined that such clearance or approval is not necessary. It should not be regarded as investigational or for research. This laboratory is certified under the Clinical Laboratory Improvement Amendments of 1988 ("CLIA") as qualified to perform high-complexity clinical testing.BLOOD [id number] 13:01:00 Test Item Value Reference Range Comments CULTURE (BEAKER) (test baqk=2398) No growth in 5 days BONE MARROW PROCESS.2018-06-03 11:16:00 Test Item Value Reference Range Comments ANATOMIC CASE# (BEAKER) (test fwfe=0874) [id number] ORDERED BY DOCTOR# (BEAKER) (test lgtk=6611) [place] PERFORMED BY DOCTOR# (BEAKER) (test ogur=8854) Ester CLOT RECEIVED? (BEAKER) (test zyrn=7332) Yes BIOPSY RECEIVED? (BEAKER) (test dikg=6083) Yes CULTURE RECEIVED? (BEAKER) (test qpdy=2261) No FLOW RECEIVED? (BEAKER) (test qjzu=4536) Yes CYTOGENICS? (BEAKER) (test chcm=8568) Yes MOLECULAR GENETICS? (BEAKER) (test swql=0478) Hold Good collection but slides not great no partical by Dr Grimaldo WITH PLATELET COUNT + MANUAL [id number] 11:02:00 Test Item Value Reference Range Comments WHITE BLOOD CELL COUNT (BEAKER) (test oain=308) 6.3 K/ L 3.5-10.5 RED BLOOD CELL COUNT (BEAKER) (test wohm=015) 2.20 M/ L 4.63-6.08 HEMOGLOBIN (BEAKER) (test ihwj=017) 6.9 GM/DL 13.7-17.5 HEMATOCRIT (BEAKER) (test ofrm=904) 20.6 % 40.1-51.0 MEAN CORPUSCULAR VOLUME (BEAKER) (test rbgo=375) 93.6 fL 79.0-92.2 MEAN CORPUSCULAR HEMOGLOBIN (BEAKER) (test 31.4 pg 25.7-32.2 zess=785) MEAN CORPUSCULAR HEMOGLOBIN CONC (BEAKER) (test 33.5 GM/DL 32.3-36.5 jlrf=671) RED CELL DISTRIBUTION WIDTH (BEAKER) (test 14.6 % 11.6-14.4 pdaz=979) PLATELET COUNT (BEAKER) (test yhro=075) 148 K/CU MM 150-450 MEAN PLATELET VOLUME (BEAKER) (test euig=844) 9.8 fL 9.4-12.4 NUCLEATED RED BLOOD CELLS (BEAKER) (test 1 /100 WBC 0-0 omet=421) (CELLAVISION MANUAL DIFF)2018-06-03 11:02:00 Test Item Value Reference Range Comments NEUTROPHILS - REL (CELLAVISION)(BEAKER) (test 53 % itqs=9510) LYMPHOCYTES - REL (CELLAVISION)(BEAKER) (test 14 % mlow=3709) MONOCYTES - REL (CELLAVISION)(BEAKER) (test 21 % faku=2537) BASOPHILS - REL (CELLAVISION)(BEAKER) (test 1 % crjt=2457) METAMYELOCYTES - REL (CELLAVISION)(BEAKER) (test 1 % 0-0 rldb=5483) MYELOCYTES - REL (CELLAVISION)(BEAKER) (test 2 % 0-0 wfyh=0727) PROMYELOCYTES - REL (CELLAVSION)(BEAKER) (test 1 % 0-0 cpal=0098) BANDS - REL (CELLAVISION)(BEAKER) (test 6 % 0-10 hiqv=0092) ATYPICAL LYMPHOCYTES - REL (CELLAVISION)(BEAKER) 1 % 0-0 (test bexf=9793) NEUTROPHILS - ABS (CELLAVISION)(BEAKER) (test 3.34 K/ul 1.78-5.38 gixu=7177) LYMPHOCYTES - ABS (CELLAVISION)(BEAKER) (test 0.88 K/ul 1.32-3.57 ygxw=5700) MONOCYTES - ABS (CELLAVISION)(BEAKER) (test 1.32 K/uL 0.30-0.82 dqfp=0125) BASOPHILS - ABS (CELLAVISION)(BEAKER) (test 0.06 K/uL 0.01-0.08 ulzr=7424) METAMYELOCYTES - ABS (CELLAVISION)(BEAKER) (test 0.06 K/uL 0.00-0.00 judx=9190) MYELOCYTES-ABS (CELLAVISION)(BEAKER) (test 0.13 K/uL 0.00-0.00 xizg=6914) PROMYELOCYTES - ABS (CELLAVISION)(BEAKER) (test 0.06 K/uL 0.00-0.00 aiyl=7132) BANDS - ABS (CELLAVISION)(BEAKER) (test 0.38 K/uL 0.00-0.80 nhcw=6042) ATYPICAL LYMPHOCYTES - ABS (CELLAVISION)(BEAKER) 0.06 K/uL 0.00-0.00 (test nxbo=0864) TOTAL COUNTED (BEAKER) (test nuum=4267) 100 MANUAL NRBC PER 100 CELLS (BEAKER) (test 2 /100 WBC 0-0 hypx=3690) SMUDGE CELLS (BEAKER) (test qlea=2253) Present GIANT PLATELETS (BEAKER) (test fbsl=052) Present POLYCHROMATOPHILLIC RBCS(BEAKER) (test jhfj=240) 1+ few ANISOCYTOSIS (BEAKER) (test cxpd=968) 2+ moderate MICROCYTES (BEAKER) (test fgkg=676) 1+ few PLATELET CONCENTRATION (CELLAVISION)(BEAKER) Adequate (test qgnm=0738) Received comment: User comments: Slide comments:CT, BIOPSY, BONE [id number] 10:58:00Reason for exam:->AML, s/p induction , assess treatment response, patient is morbid obese.FINAL REPORT CT guided bone marrow aspiration and biopsy History: AML, s/p induction , assess treatment response, patient is morbid obese. Modality: CT, CT fluoroscopy Anesthesia: 1% lidocaine local Approach: Right dorsal percutaneous Consent: Informed written consent was obtained from the patient. Sedation: Moderate sedation was administered. 2 mg of Versed and 100 mcg of fentanyl IV was used for moderate sedation monitored under my direction. Total intraservice time of sedation was 15 minutes. The patient's vital signs were monitored throughout the procedure and recorded in the patient's medical record by the nurse. Technique: The patient was placed in the prone position in the CT scanner. A safe window to the right iliac bone was localized using CT and CT fluoroscopy. This exam was performed according to our departmental dose optimization program which includes automated exposure control, adjustment of the mA and/or kV according to patient size and/or use of iterativereconstructive technique. After the usual sterile preparation and application of local anesthesia, using a right dorsal percutaneous approach, a 10 cm 12 gauge [place] bone biopsy needle was advanced into the right iliac bone using CT guidance. Approximately 10 cc of marrow aspirates were obtained. Subsequently, a 2 cm core biopsy sample was obtained. The samples were collected by cytopathology for further analysis. Disposition: The patient tolerated the procedure well, without immediate complications. The patient left CT in stable condition. Impression: 1. Technically successful CT guided bone marrow aspiration and biopsy Signed: Robbie Rouse [facility] Verified Date/Time: 06/03/2018 10:58:26 Reading Location: [facility] C0X Ortho Consult Reading Room Electronically signed by: ROBBIE ROUSE M.D.on 06/03/2018 10:58 [id number] 09:11:00 Test Item Value Reference Range Comments PROTIME (BEAKER) (test wxon=020) 14.0 seconds 11.7-14.7 INR (BEAKER) (test yoqr=960) 1.1 <=5.9 PARTIAL THROMBOPLASTIN TIME (BEAKER) (test 34.0 seconds 22.5-36.0 owjo=512) RECOMMENDED COUMADIN/WARFARIN INR THERAPY RANGESSTANDARD DOSE: 2.0 - 3.0 Includes: PROPHYLAXIS forvenous thrombosis, systemic embolization; TREATMENT for venous thrombosis and/or pulmonary embolus.HIGH RISK: Target INR is 2.5-3.5 for patients with mechanical heart valves.RAD, CHEST, 1 VIEW, NON [id number] 08:04:00Reason for exam:->SOBShould this be performed at the bedside?-> YesFINAL REPORT RAD, CHEST, 1 VIEW, NON DEPT INDICATION: SOB COMPARISON: May 23, 2018 FINDINGS: Portable frontal view of the chest. IMPRESSION: Support Lines: Visible portions of catheter are intact. Lungs and pleura: Lungs are underinflated but clear. There is no effusion.No pneumothorax.Heart and mediastinum: Stable contours. Additional findings: None. Signed: JR Reed Robert MDReport Verified Date/Time: 06/03/2018 08:04: 26 Reading Location: [facility] Radiology Reading Room BASIC METABOLIC [id number] 06:47:00 Test Item Value Reference Range Comments SODIUM (BEAKER) (test 141 meq/L 136-145 bvdi=014) POTASSIUM (BEAKER) (test 4.1 meq/L 3.5-5.1 nfbx=979) CHLORIDE (BEAKER) (test 105 meq/L 98-107 tmxc=447) CO2 (BEAKER) (test 27 meq/L 22-29 kibv=819) BLOOD UREA NITROGEN 36 mg/dL 7-21 (BEAKER) (test yifw=162) CREATININE (BEAKER) (test 2.62 mg/dL 0.57-1.25 dkcq=421) GLUCOSE RANDOM (BEAKER) 97 mg/dL 70-105 (test wsbx=061) CALCIUM (BEAKER) (test 8.4 mg/dL 8.4-10.2 kfym=590) EGFR (BEAKER) (test 25 mL/min/1.73 sq m ESTIMATED GFR IS NOT xjlm=9531) ACCURATE CREATININE CLEARANCE IN PREDICTING GLOMERULAR FILTRATION RATE. ESTIMATED GFR IS NOT APPLICABLE FOR DIALYSIS PATIENTS. [id number] 06:42:00 Test Item Value Reference Range Comments MAGNESIUM (BEAKER) (test yhqy=296) 1.7 mg/dL 1.6-2.6 B-TYPE NATRIURETIC FACTOR (BNP)2018-06-03 06:40:00 Test Item Value Reference Range Comments B-TYPE NATRIURETIC PEPTIDE (BEAKER) (test 106 pg/mL 0-100 uncp=271) CBC WITH PLATELET COUNT + MANUAL [id number] 13:39:00 Test Item Value Reference Range Comments WHITE BLOOD CELL COUNT (BEAKER) (test krzu=908) 6.6 K/ L 3.5-10.5 RED BLOOD CELL COUNT (BEAKER) (test cnfs=927) 2.27 M/ L 4.63-6.08 HEMOGLOBIN (BEAKER) (test bbyl=293) 7.1 GM/DL 13.7-17.5 HEMATOCRIT (BEAKER) (test qrdv=274) 21.0 % 40.1-51.0 MEAN CORPUSCULAR VOLUME (BEAKER) (test wyne=201) 92.5 fL 79.0-92.2 MEAN CORPUSCULAR HEMOGLOBIN (BEAKER) (test 31.3 pg 25.7-32.2 orue=697) MEAN CORPUSCULAR HEMOGLOBIN CONC (BEAKER) (test 33.8 GM/DL 32.3-36.5 vuzh=440) RED CELL DISTRIBUTION WIDTH (BEAKER) (test 14.4 % 11.6-14.4 wifd=018) PLATELET COUNT (BEAKER) (test uazg=239) 150 K/CU MM 150-450 MEAN PLATELET VOLUME (BEAKER) (test ajzc=860) 9.7 fL 9.4-12.4 NUCLEATED RED BLOOD CELLS (BEAKER) (test 2 /100 WBC 0-0 rxmx=188) (CELLAVISION MANUAL DIFF)2018-06-02 13:39:00 Test Item Value Reference Range Comments NEUTROPHILS - REL (CELLAVISION)(BEAKER) (test 45 % yjzj=3995) LYMPHOCYTES - REL (CELLAVISION)(BEAKER) (test 19 % tqeo=2385) MONOCYTES - REL (CELLAVISION)(BEAKER) (test 21 % pugh=5872) METAMYELOCYTES - REL (CELLAVISION)(BEAKER) (test 4 % 0-0 qpae=4143) MYELOCYTES - REL (CELLAVISION)(BEAKER) (test 1 % 0-0 aonf=5186) BANDS - REL (CELLAVISION)(BEAKER) (test 9 % 0-10 bhis=3550) ATYPICAL LYMPHOCYTES - REL (CELLAVISION)(BEAKER) 1 % 0-0 (test qgqf=7842) NEUTROPHILS - ABS (CELLAVISION)(BEAKER) (test 2.97 K/ul 1.78-5.38 fqcj=1559) LYMPHOCYTES - ABS (CELLAVISION)(BEAKER) (test 1.25 K/ul 1.32-3.57 xntq=9493) MONOCYTES - ABS (CELLAVISION)(BEAKER) (test 1.39 K/uL 0.30-0.82 jtxg=8565) METAMYELOCYTES - ABS (CELLAVISION)(BEAKER) (test 0.26 K/uL 0.00-0.00 iubs=0869) MYELOCYTES-ABS (CELLAVISION)(BEAKER) (test 0.07 K/uL 0.00-0.00 jvuc=9243) BANDS - ABS (CELLAVISION)(BEAKER) (test 0.59 K/uL 0.00-0.80 yrqs=7142) ATYPICAL LYMPHOCYTES - ABS (CELLAVISION)(BEAKER) 0.07 K/uL 0.00-0.00 (test urla=8190) TOTAL COUNTED (BEAKER) (test pojs=2844) 100 PLT MORPHOLOGY (BEAKER) (test uaga=813) Normal SMUDGE CELLS (BEAKER) (test cfxn=3121) Present POLYCHROMATOPHILLIC RBCS(BEAKER) (test ezva=859) 1+ few ANISOCYTOSIS (BEAKER) (test ualy=189) 2+ moderate MICROCYTES (BEAKER) (test rmwj=085) 2+ moderate OVALOCYTES (BEAKER) (test qydv=966) 1+ few TEAR DROP CELLS (BEAKER) (test injv=127) 1+ few PLATELET CONCENTRATION (CELLAVISION)(BEAKER) Adequate (test pvbj=6077) Received comment: User comments: Slide comments:BASIC METABOLIC [id number] 07:14:00 Test Item Value Reference Range Comments SODIUM (BEAKER) (test 140 meq/L 136-145 mnmt=138) POTASSIUM (BEAKER) (test 3.8 meq/L 3.5-5.1 wgkw=605) CHLORIDE (BEAKER) (test 106 meq/L 98-107 skhr=826) CO2 (BEAKER) (test 25 meq/L 22-29 naye=767) BLOOD UREA NITROGEN 37 mg/dL 7-21 (BEAKER) (test sqym=173) CREATININE (BEAKER) (test 2.41 mg/dL 0.57-1.25 qjti=493) GLUCOSE RANDOM (BEAKER) 104 mg/dL 70-105 (test xubb=873) CALCIUM (BEAKER) (test 8.4 mg/dL 8.4-10.2 eqjw=820) EGFR (BEAKER) (test 27 mL/min/1.73 sq m ESTIMATED GFR IS NOT ytmt=1691) ACCURATE CREATININE CLEARANCE IN PREDICTING GLOMERULAR FILTRATION RATE. ESTIMATED GFR IS NOT APPLICABLE FOR DIALYSIS PATIENTS. [id number] 07:02:00 Test Item Value Reference Range Comments MAGNESIUM (BEAKER) (test beyv=938) 1.5 mg/dL 1.6-2.6 CBC WITH PLATELET COUNT + MANUAL [id number] 15:14:00 Test Item Value Reference Range Comments WHITE BLOOD CELL COUNT (BEAKER) (test svlq=122) 7.3 K/ L 3.5-10.5 RED BLOOD CELL COUNT (BEAKER) (test geji=632) 2.32 M/ L 4.63-6.08 HEMOGLOBIN (BEAKER) (test djpq=782) 7.3 GM/DL 13.7-17.5 HEMATOCRIT (BEAKER) (test gmee=462) 21.1 % 40.1-51.0 MEAN CORPUSCULAR VOLUME (BEAKER) (test hiej=577) 90.9 fL 79.0-92.2 MEAN CORPUSCULAR HEMOGLOBIN (BEAKER) (test 31.5 pg 25.7-32.2 hpri=448) MEAN CORPUSCULAR HEMOGLOBIN CONC (BEAKER) (test 34.6 GM/DL 32.3-36.5 lkub=967) RED CELL DISTRIBUTION WIDTH (BEAKER) (test 14.6 % 11.6-14.4 pdwi=931) PLATELET COUNT (BEAKER) (test fslk=418) 123 K/CU MM 150-450 MEAN PLATELET VOLUME (BEAKER) (test ouvd=572) 10.1 fL 9.4-12.4 NUCLEATED RED BLOOD CELLS (BEAKER) (test 2 /100 WBC 0-0 pvoh=963) (CELLAVISION MANUAL DIFF)2018-06-01 15:14:00 Test Item Value Reference Range Comments NEUTROPHILS - REL (CELLAVISION)(BEAKER) (test 28 % jscl=5663) LYMPHOCYTES - REL (CELLAVISION)(BEAKER) (test 20 % bsfd=0269) MONOCYTES - REL (CELLAVISION)(BEAKER) (test 32 % zwen=3152) METAMYELOCYTES - REL (CELLAVISION)(BEAKER) (test 4 % 0-0 plej=7821) MYELOCYTES - REL (CELLAVISION)(BEAKER) (test 3 % 0-0 pxne=9975) BANDS - REL (CELLAVISION)(BEAKER) (test 11 % 0-10 ydkr=9279) ATYPICAL LYMPHOCYTES - REL (CELLAVISION)(BEAKER) 1 % 0-0 (test lpwm=6885) NEUTROPHILS - ABS (CELLAVISION)(BEAKER) (test 2.04 K/ul 1.78-5.38 xueb=9967) LYMPHOCYTES - ABS (CELLAVISION)(BEAKER) (test 1.46 K/ul 1.32-3.57 eunb=9702) MONOCYTES - ABS (CELLAVISION)(BEAKER) (test 2.34 K/uL 0.30-0.82 fyjg=9723) METAMYELOCYTES - ABS (CELLAVISION)(BEAKER) (test 0.29 K/uL 0.00-0.00 sant=6043) MYELOCYTES-ABS (CELLAVISION)(BEAKER) (test 0.22 K/uL 0.00-0.00 vyxp=6354) BANDS - ABS (CELLAVISION)(BEAKER) (test 0.80 K/uL 0.00-0.80 lgok=2620) ATYPICAL LYMPHOCYTES - ABS (CELLAVISION)(BEAKER) 0.07 K/uL 0.00-0.00 (test lchp=9113) TOTAL COUNTED (BEAKER) (test zsog=8367) 100 MANUAL NRBC PER 100 CELLS (BEAKER) (test 4 /100 WBC 0-0 opec=8741) PLT MORPHOLOGY (BEAKER) (test svbt=397) Normal SMUDGE CELLS (BEAKER) (test njnf=4439) Present POLYCHROMATOPHILLIC RBCS(BEAKER) (test vwzy=176) 3+ many ANISOCYTOSIS (BEAKER) (test wiju=796) 2+ moderate MICROCYTES (BEAKER) (test lnos=034) 1+ few POIKILOCYTES (BEAKER) (test ogcc=705) 1+ few ARTIFACT (CELLAVISION)(BEAKER) (test lbge=9073) Present PLATELET CONCENTRATION (CELLAVISION)(BEAKER) Decreased (test ucjm=8935) Received comment: User comments: Slide comments:BONE MARROW [id number] 13:39 :00Bone Marrow Pathology Report Case: [id number] Authorizing Provider: Willem Kapoor MD Collected: 05/05/2018 1000 Ordering Location: [address] Received: 05/05/2018 1020 SERVICE Pathologist: Ash Puentes MD Specimens: A) - Iliac Crest, Right B) - C) - Bone Marrow Addendum: This addendum is created to report the [facility] Pounce Comprehensive DNA Panel and the [facility] results for the FLT3 Mutation Analysis Panel and Oncologic chromosomal study:Oncologic Chromosomal Study is ABNORMAL. 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 Clinical correlation is recommended. Please see attachedscanned [facility] Genetics and [facility] reports for details. Addendum electronically signed by Ash Puentes MD on 06/01/2018 at 1:39 PMPreliminary result electronically signed by Ash Puentes MD on 05/11/2018 at 2:12 PMBONE MARROW ASPIRATE, CLOT, AND DECALCIFIED BIOPSY:-HYPOCELLULAR (30 %) MARROW INVOLVED BY ACUTE MYELOID LEUKEMIA(60% OF CELLULARITY)-MINIMAL RESIDUAL TRILINEAGE HEMATOPOIESIS WITH DECREASED M:E RATIO(0.3)-INCREASED LYMPHOCYTES(19%)-NO INCREASED STORAGE IRON OR RINGED SIDEROBLASTS -ONCOLOGIC CHROMOSOMAL STUDY PENDING-FLT3 TESTING PENDING-NGS HEMATOLOGIC MALIGNANCY PANEL PENDING- SEECOMMENTPERIPHERAL BLOOD:-LEUKOPENIA WITH CIRCULATING BLASTS-HYPOCHROMIC, MACROCYTIC ANEMIA-THROMBOCYTOPENIA Signing Pathologist Direct Phone Line: [phone] signed by Ash Puentes MD on 05/06/2018 at 4:48 PMPreliminary result electronically signed by Ash Puentes MD on 05/06/2018 at 3 :18 PMBone marrow biopsy evaluation was performed on a 62 year old man with pancytopenia and circulating blasts. Bone marrow evaluation demonstrates a hypocellular bone marrow involved by acute myeloid leukemia. The aspirate differential demonstrates numerous blasts(60%). Minimal trilineage hematopoiesis with a decreased M:E ratio(0.3) and no significant dyspoiesis is identified. A mild lymphocytosis(19.0%) is noted. The corresponding flow cytometry([id number]) of the aspirate demonstrated increased blasts with a phenotypic consistent with acute myeloid leukemia. There was no evidence of an aberrant B or T lymphocyte process. The peripheral blood was remarkably for pancytopenia and circulating blasts. Clinical correlation is recommended.Oncologic chromosomal study, FLT3 molecular study and NGS Hematologic malignancy panel are pending. The results will be submitted as an addendum when available.91283; 41493; 45355 x 2; 14349; [id number] x 1; 31492 l5Xmknt iliac crest bone marrow The specimen is three parts all labeled with the patient's information.Part A consists of several aspirate smears with one unstained slide for iron stain. Part B is received in formalin and consists of a single blood clot measuring 0.8 x 0.6 cm. The specimen is sectioned, submitted entirely B1. Part C is received in formalin and consists of a single bone core measuring 1.3 cm in length, submitted entirely C1 for decalcification. CG/pl BONE MARROW ASPIRATE:QUALITY:Aspirate- AdequateTouch imprint- AdequateMARROW DIFFERENTIAL COUNT: Number of cells counted: 63351.5 % Blasts 0.00 % Promyelocytes 2.00 % Myelocytes/Metamyelocytes 1.50 % Bands/ Segmented granulocytes 1.00 % Eosinophils and precursors 0.00 % Basophils and precursors 13.0 % Erythroid precursors 19.0 % Lymphocytes 0.00 % Monocytes0.50 % Plasma cellsMyeloid: Erythroid Ratio: 0.3 ; DecreasedBlasts : Increased, appearance similar to the peripheral blood smearErythropoiesis: Decreased; Normal and complete maturation Myelopoiesis: Markedly decreased; Rare maturing cells identifiedOther: Increased lymphocytes Megakaryocytes: Rare megakaryocytes are present; some hypersegmented forms Stainable iron cannot be adequately assessed based on an iron stain performed on the aspirate smear due to lack of spicules. There are no ring sideroblasts identified in RBC precursors identified. BONE MARROW BIOPSY:Biopsy- AdequateClot- Suboptimal; One marrow particle available for evaluationHypocellular ( 30 %)Cellular composition similar to aspirate smears and touch imprints. Increased blasts with markedly decreased myeloid and erythroid precursors present. Also present are increased blastsMegakaryocytes are decreased with only rare cells to evaluate. No overt dyspoiesis. Other: No mass lesions Bony trabeculae: unremarkableStainable iron is not increased based on an iron stain performed on the suboptimal clot section. The following stains are evaluated on the bone marrow biopsy:CD34: Increased yjjjgoII952: Markedly increased blasts(compared to E-cadherin, essentially all CD117 cells are blasts)CD61: Decreased megakaryocytesE-cadherin: Markedly decreased erythroid precursorsPERIPHERAL BLOOD:RBCs: Hypochromic, macrocytic anemia with mild anisopoikilocytosis, including rare dacrocytes and schistocytes. Increased polychromasia with rare nucleated RBCs identified. WBCs: Decreased with circulating blasts. Platelets: Normal appearance, Decreased and Occasional enlarged formsThe interpretation of this case included the use of immunohistochemistry or special stains. Immunohistochemistry technical testing was performed at [facility] where it was developed and its performance characteristics were determined. It has not been cleared or approved by the U.S. Food andDrug Administration. The FDA has determined that such clearance or approval is not necessary. The test is used for clinical purposes. It should not be regarded as investigational or for research. This laboratory is certified under the Clinical Laboratory Improvement Amendments of 1988 (CLIA-88) as qualified to perform high complexity clinical laboratory testing.The following stains are evaluated on the bone marrow biopsy:CD34, CD117 , CD61, E-cadherinBASAINT JOSEPH MOUNT [facility] METABOLIC [id number] 06:08:00 Test Item Value Reference Range Comments SODIUM (BEAKER) (test 140 meq/L 136-145 uljl=034) POTASSIUM (BEAKER) (test 3.8 meq/L 3.5-5.1 ejqn=542) CHLORIDE (BEAKER) (test 106 meq/L 98-107 fxly=601) CO2 (BEAKER) (test 28 meq/L 22-29 xhao=882) BLOOD UREA NITROGEN 38 mg/dL 7-21 (BEAKER) (test qlrg=798) CREATININE (BEAKER) (test 2.56 mg/dL 0.57-1.25 hbjo=396) GLUCOSE RANDOM (BEAKER) 99 mg/dL 70-105 (test nqob=151) CALCIUM (BEAKER) (test 8.3 mg/dL 8.4-10.2 exbd=658) EGFR (BEAKER) (test 26 mL/min/1.73 sq m ESTIMATED GFR IS NOT pafv=9147) ACCURATE CREATININE CLEARANCE IN PREDICTING GLOMERULAR FILTRATION RATE. ESTIMATED GFR IS NOT APPLICABLE FOR DIALYSIS PATIENTS. [id number] 06:04:00 Test Item Value Reference Range Comments MAGNESIUM (BEAKER) (test pgwb=047) 1.6 mg/dL 1.6-2.6 URIC [id number] 15:26:00 Test Item Value Reference Range Comments URIC ACID (BEAKER) (test uayu=602) 6.4 mg/dL 2.6-7.2 [id number] 15:26:00 Test Item Value Reference Range Comments PHOSPHORUS (BEAKER) (test vuep=960) 2.7 mg/dL 2.3-4.7 BASIC METABOLIC [id number] 12:17:00 Test Item Value Reference Range Comments SODIUM (BEAKER) (test 139 meq/L 136-145 rjae=602) POTASSIUM (BEAKER) (test 3.6 meq/L 3.5-5.1 qxhp=863) CHLORIDE (BEAKER) (test 105 meq/L 98-107 pyve=398) CO2 (BEAKER) (test 27 meq/L 22-29 vzov=485) BLOOD UREA NITROGEN 34 mg/dL 7-21 (BEAKER) (test hcwl=678) CREATININE (BEAKER) (test 2.60 mg/dL 0.57-1.25 qumj=362) GLUCOSE RANDOM (BEAKER) 123 mg/dL 70-105 (test gynh=584) CALCIUM (BEAKER) (test 8.4 mg/dL 8.4-10.2 kgee=638) EGFR (BEAKER) (test 25 mL/min/1.73 sq m ESTIMATED GFR IS NOT lnyq=8480) ACCURATE CREATININE CLEARANCE IN PREDICTING GLOMERULAR FILTRATION RATE. ESTIMATED GFR IS NOT APPLICABLE FOR DIALYSIS PATIENTS. CBC WITH PLATELET COUNT + MANUAL [id number] 08:24:00 Test Item Value Reference Range Comments WHITE BLOOD CELL COUNT (BEAKER) (test uwfk=842) 9.0 K/ L 3.5-10.5 RED BLOOD CELL COUNT (BEAKER) (test mjjn=793) 2.63 M/ L 4.63-6.08 HEMOGLOBIN (BEAKER) (test aajf=985) 8.3 GM/DL 13.7-17.5 HEMATOCRIT (BEAKER) (test nmww=305) 23.5 % 40.1-51.0 MEAN CORPUSCULAR VOLUME (BEAKER) (test pgdd=674) 89.4 fL 79.0-92.2 MEAN CORPUSCULAR HEMOGLOBIN (BEAKER) (test 31.6 pg 25.7-32.2 ztzt=353) MEAN CORPUSCULAR HEMOGLOBIN CONC (BEAKER) (test 35.3 GM/DL 32.3-36.5 ihxb=718) RED CELL DISTRIBUTION WIDTH (BEAKER) (test 14.1 % 11.6-14.4 pdev=044) PLATELET COUNT (BEAKER) (test foyj=171) 126 K/CU MM 150-450 MEAN PLATELET VOLUME (BEAKER) (test uyww=794) 10.2 fL 9.4-12.4 NUCLEATED RED BLOOD CELLS (BEAKER) (test 2 /100 WBC 0-0 piqk=103) (CELLAVISION MANUAL DIFF)2018-05-31 08:24:00 Test Item Value Reference Range Comments NEUTROPHILS - REL (CELLAVISION)(BEAKER) (test 32 % hyqv=0214) LYMPHOCYTES - REL (CELLAVISION)(BEAKER) (test 15 % wnxy=1142) MONOCYTES - REL (CELLAVISION)(BEAKER) (test 34 % xcri=0045) METAMYELOCYTES - REL (CELLAVISION)(BEAKER) (test 2 % 0-0 kxrl=1670) MYELOCYTES - REL (CELLAVISION)(BEAKER) (test 2 % 0-0 whxp=1355) BANDS - REL (CELLAVISION)(BEAKER) (test 11 % 0-10 unak=7464) BLASTS - REL (CELLAVISION)(BEAKER) (test 1 % 0-0 mnia=8918) ATYPICAL LYMPHOCYTES - REL (CELLAVISION)(BEAKER) 2 % 0-0 (test xwlx=1991) NEUTROPHILS - ABS (CELLAVISION)(BEAKER) (test 2.88 K/ul 1.78-5.38 ljnd=6792) LYMPHOCYTES - ABS (CELLAVISION)(BEAKER) (test 1.35 K/ul 1.32-3.57 hkev=6346) MONOCYTES - ABS (CELLAVISION)(BEAKER) (test 3.06 K/uL 0.30-0.82 qcnx=8253) METAMYELOCYTES - ABS (CELLAVISION)(BEAKER) (test 0.18 K/uL 0.00-0.00 zpdj=1464) MYELOCYTES-ABS (CELLAVISION)(BEAKER) (test 0.18 K/uL 0.00-0.00 kdpa=2228) BANDS - ABS (CELLAVISION)(BEAKER) (test 0.99 K/uL 0.00-0.80 jbbk=9649) BLASTS - ABS (CELLAVISION)(BEAKER) (test 0.09 K/uL 0.00-0.00 uhtm=2246) ATYPICAL LYMPHOCYTES - ABS (CELLAVISION)(BEAKER) 0.18 K/uL 0.00-0.00 (test fkkb=3558) TOTAL COUNTED (BEAKER) (test fzbr=4520) 100 MANUAL NRBC PER 100 CELLS (BEAKER) (test 4 /100 WBC 0-0 fcab=1199) WBC MORPHOLOGY (BEAKER) (test hhhz=515) Normal PLT MORPHOLOGY (BEAKER) (test xldr=030) Normal ANISOCYTOSIS (BEAKER) (test ympj=277) 1+ few MICROCYTES (BEAKER) (test pxcf=913) 1+ few ARTIFACT (CELLAVISION)(BEAKER) (test ezes=4923) Present PLATELET CONCENTRATION (CELLAVISION)(BEAKER) Decreased (test irul=9788) Received comment: User comments: Slide comments:EOSINOPHIL SMEAR, [id number] 12:47:00 Test Item Value Reference Range Comments EOSINOPHIL SMEAR, URINE (BEAKER) (test No EOS seen No EOS seen jrvt=4434) CBC WITH PLATELET COUNT + MANUAL [id number] 11:18:00 Test Item Value Reference Range Comments WHITE BLOOD CELL COUNT (BEAKER) (test turk=332) 8.6 K/ L 3.5-10.5 RED BLOOD CELL COUNT (BEAKER) (test sxnr=228) 2.10 M/ L 4.63-6.08 HEMOGLOBIN (BEAKER) (test uhmg=241) 6.6 GM/DL 13.7-17.5 HEMATOCRIT (BEAKER) (test hmdq=274) 18.8 % 40.1-51.0 MEAN CORPUSCULAR VOLUME (BEAKER) (test hokd=625) 89.5 fL 79.0-92.2 MEAN CORPUSCULAR HEMOGLOBIN (BEAKER) (test 31.4 pg 25.7-32.2 ssdp=106) MEAN CORPUSCULAR HEMOGLOBIN CONC (BEAKER) (test 35.1 GM/DL 32.3-36.5 crcp=369) RED CELL DISTRIBUTION WIDTH (BEAKER) (test 14.4 % 11.6-14.4 wbdk=493) PLATELET COUNT (BEAKER) (test fzts=527) 84 K/CU MM 150-450 MEAN PLATELET VOLUME (BEAKER) (test ryxx=275) 10.3 fL 9.4-12.4 NUCLEATED RED BLOOD CELLS (BEAKER) (test 1 /100 WBC 0-0 qcpx=759) (MANUAL DIFFERENTIAL)2018-05-30 11:18:00 Test Item Value Reference Range Comments NEUTROPHILS - REL (DIFF) (BEAKER) (test 13 % zfcz=7142) LYMPHOCYTES - REL (DIFF) (BEAKER) (test 14 % cddn=0405) MONOCYTES - REL (DIFF) (BEAKER) (test sszn=4348) 49 % METAMYELOCYTES-REL (DIFF) (BEAKER) (test 6 % 0-0 jlxv=675) MYELOCYTES-REL (DIFF) (BEAKER) (test esdf=6634) 2 % 0-0 PROMYELOCYTES-REL (DIFF) (BEAKER) (test 1 % 0-0 dwun=364) BANDS - REL (DIFF) (BEAKER) (test iqoy=9242) 12 % 0-10 BLASTS - REL (DIFF) (BEAKER) (test gijx=4331) 3 % 0-0 NEUTROPHILS - ABS (DIFF) (BEAKER) (test 1.12 K/ L 1.80-8.00 mwya=8842) LYMPHOCYTES - ABS (DIFF) (BEAKER) (test 1.20 K/ L 1.48-4.50 ramh=7704) MONOCYTES - ABS (DIFF) (BEAKER) (test wfve=8689) 4.21 K/ L 0.00-1.30 METAMYELOCTYES - ABS (DIFF) (BEAKER) (test 0.52 K/ L 0.00-0.00 xhga=620) PROMYELOCYTES - ABS (DIFF) (BEAKER) (test 0.09 K/ L 0.00-0.00 uotp=437) BANDS-ABS (DIFF) (BEAKER) (test ssey=6962) 1.0 K/ L 0.0-0.8 BLASTS - ABS (DIFF) (BEAKER) (test flay=0042) 0.26 K/ L 0.00-0.00 MYELOCYTES-ABS (DIFF) (BEAKER) (test likq=9364) 0.17 K/ L 0.00-0.00 TOTAL COUNTED (BEAKER) (test xwmu=3136) 100 BANDS + SEGMENTED NEUTROPHILS (BEAKER) (test 2.15 btrk=2625) MANUAL NRBC PER 100 CELLS (BEAKER) (test 2 /100 WBC 0-0 ujqk=3042) WBC MORPHOLOGY (BEAKER) (test hnir=356) Normal PLT MORPHOLOGY (BEAKER) (test upoc=441) Normal ACANTHOCYTES (BEAKER) (test ticd=326) 1+ few ANISOCYTOSIS (BEAKER) (test zqbi=028) 1+ few HYPOCHROMIA (BEAKER) (test bilo=883) 2+ moderate MACROCYTES (BEAKER) (test hoxb=043) 1+ few OVALOCYTES (BEAKER) (test pdcs=430) 1+ few POIKILOCYTES (BEAKER) (test ophq=525) 1+ few POLYCHROMATOPHILLIC RBCS(BEAKER) (test qesv=758) 1+ few B-TYPE NATRIURETIC FACTOR (BNP)2018-05-30 07:16:00 Test Item Value Reference Range Comments B-TYPE NATRIURETIC PEPTIDE (BEAKER) (test lckt=123) 72 pg/mL 0-100 BASIC METABOLIC [id number] 07:02:00 Test Item Value Reference Range Comments SODIUM (BEAKER) (test 136 meq/L 136-145 sqhn=094) POTASSIUM (BEAKER) (test 3.6 meq/L 3.5-5.1 odam=309) CHLORIDE (BEAKER) (test 103 meq/L 98-107 ogql=626) CO2 (BEAKER) (test 28 meq/L 22-29 epva=586) BLOOD UREA NITROGEN 32 mg/dL 7-21 (BEAKER) (test npkh=238) CREATININE (BEAKER) (test 2.43 mg/dL 0.57-1.25 smtp=184) GLUCOSE RANDOM (BEAKER) 102 mg/dL 70-105 (test cnkv=070) CALCIUM (BEAKER) (test 8.6 mg/dL 8.4-10.2 hkrf=931) EGFR (BEAKER) (test 27 mL/min/1.73 sq m ESTIMATED GFR IS NOT wejj=6019) ACCURATE CREATININE CLEARANCE IN PREDICTING GLOMERULAR FILTRATION RATE. ESTIMATED GFR IS NOT APPLICABLE FOR DIALYSIS PATIENTS. [id number] 07:01:00 Test Item Value Reference Range Comments MAGNESIUM (BEAKER) (test bpls=188) 1.8 mg/dL 1.6-2.6 BILIRUBIN, ADULT [id number] 07:01:00 Test Item Value Reference Range Comments BILIRUBIN TOTAL (BEAKER) (test utmk=322) 1.0 mg/dL 0.2-1.2 BILIRUBIN, [id number] 07:01:00 Test Item Value Reference Range Comments BILIRUBIN DIRECT (BEAKER) (test xpzu=987) 0.4 mg/dL 0.1-0.5 LACTATE DEHYDROGENASE (LDH)2018-05-30 07:01:00 Test Item Value Reference Range Comments LACTATE DEHYDROGENASE (BEAKER) (test xrzt=189) 733 U/L 125-220 U/S, RENAL, [id number] 22:34:00Reason for exam:->acute renal failureShould this be performed at the bedside?->YesFINAL REPORT Renal ultrasound. Clinical History: acute renal failure. Comparison Study: None. Findings: The right kidney measures 12.8 x 6.2 x 6.2 cm and left kidney measures 12.0 x 6.0 x 5.6 cm. There is no evidence of hydronephrosis, nephrolithiasis or renal mass on either side. The echogenicity is normal bilaterally. The cortical thickness on the right side is 1.7 cm and on the left side is 1.5 cm. Color flow is documented to both kidneys. The bladder is partially filled with urine. Impression: Morphologically normal appearing kidneys bilaterally with no evidence of hydronephrosis. Signed: Dexter Nunez MDReport Verified Date/Time: 05/29/2018 22:34:59 Reading Location:[facility] [id number] Consult Reading Room Electronically signed by: DEXTER NUNEZ M.D. on 10:34 PMEOSINOPHIL SMEAR, [id number] 14:05:00 Test Item Value Reference Range Comments EOSINOPHIL SMEAR, URINE (BEAKER) (test No EOS seen No EOS seen cros=8121) VANCOMYCIN LEVEL, [id number] 13:33:00 Test Item Value Reference Range Comments VANCOMYCIN TROUGH (BEAKER) (test ecvj=245) 46.3 ug/mL 10.0-20.0 CREATINE KINASE (CK)2018-05-29 12:34:00 Test Item Value Reference Range Comments CREATINE KINASE TOTAL (BEAKER) (test fnrk=663) 246 U/L 29-200 CREATININE, RANDOM [id number] 11:40:00 Test Item Value Reference Range Comments CREATININE URINE (BEAKER) (test nuex=736) 188.6 mg/dL Reference Range: No NormalsSODIUM, RANDOM [id number] 11:40:00 Test Item Value Reference Range Comments SODIUM URINE (BEAKER) (test friy=006) 34 meq/L Reference Range: No NormalsUREA NITROGEN, RANDOM [id number] 11:40:00 Test Item Value Reference Range Comments UREA NITROGEN URINE (BEAKER) (test cllc=764) 422 mg/dL Reference Range: No NormalsURINALYSIS W/ REFLEX URINE [id number] 11:29:00 Test Item Value Reference Range Comments COLOR (BEAKER) (test vybk=666) Yellow CLARITY (BEAKER) (test jsfv=449) Hazy SPECIFIC GRAVITY UA (BEAKER) (test hmdz=959) 1.013 1.001-1.035 PH UA (BEAKER) (test zcug=794) 5.5 5.0-8.0 PROTEIN UA (BEAKER) (test clzi=423) 30 mg/dL Negative GLUCOSE UA (BEAKER) (test asjv=886) Negative Negative KETONES UA (BEAKER) (test emmv=778) Trace Negative BILIRUBIN UA (BEAKER) (test bskn=891) Negative Negative BLOOD UA (BEAKER) (test bkdc=992) Trace Negative NITRITE UA (BEAKER) (test wzdg=739) Negative Negative LEUKOCYTE ESTERASE UA (BEAKER) (test nepo=255) Negative Negative UROBILINOGEN UA (BEAKER) (test jxbo=849) 3.0 mg/dL 0.2-1.0 RBC UA (BEAKER) (test dnpj=884) 0 /HPF WBC UA (BEAKER) (test msos=664) < /HPF BACTERIA (BEAKER) (test roqk=994) Moderate SQUAMOUS EPITHELIAL (BEAKER) (test zuql=924) 1 /HPF YEAST (BEAKER) (test gopl=9779) Occasional SOURCE(BEAKER) (test ocrd=3552) CBC WITH PLATELET COUNT + MANUAL [id number] 10:49:00 Test Item Value Reference Range Comments WHITE BLOOD CELL COUNT (BEAKER) (test hswb=486) 7.1 K/ L 3.5-10.5 RED BLOOD CELL COUNT (BEAKER) (test tdrh=163) 2.25 M/ L 4.63-6.08 HEMOGLOBIN (BEAKER) (test xivi=454) 7.0 GM/DL 13.7-17.5 HEMATOCRIT (BEAKER) (test uqwb=850) 20.0 % 40.1-51.0 MEAN CORPUSCULAR VOLUME (BEAKER) (test nbnl=254) 88.9 fL 79.0-92.2 MEAN CORPUSCULAR HEMOGLOBIN (BEAKER) (test 31.1 pg 25.7-32.2 exxc=428) MEAN CORPUSCULAR HEMOGLOBIN CONC (BEAKER) (test 35.0 GM/DL 32.3-36.5 gema=037) RED CELL DISTRIBUTION WIDTH (BEAKER) (test 14.3 % 11.6-14.4 qsvf=028) PLATELET COUNT (BEAKER) (test vjkz=077) 62 K/CU MM 150-450 MEAN PLATELET VOLUME (BEAKER) (test icpm=975) 9.8 fL 9.4-12.4 NUCLEATED RED BLOOD CELLS (BEAKER) (test 1 /100 WBC 0-0 xijb=367) (CELLAVISION MANUAL DIFF)2018-05-29 10:49:00 Test Item Value Reference Range Comments NEUTROPHILS - REL (CELLAVISION)(BEAKER) (test 10 % qfdo=8244) LYMPHOCYTES - REL (CELLAVISION)(BEAKER) (test 13 % evkx=7287) MONOCYTES - REL (CELLAVISION)(BEAKER) (test 58 % mtuq=5004) METAMYELOCYTES - REL (CELLAVISION)(BEAKER) (test 2 % 0-0 eafk=0905) MYELOCYTES - REL (CELLAVISION)(BEAKER) (test 4 % 0-0 axff=5095) BANDS - REL (CELLAVISION)(BEAKER) (test 5 % 0-10 rpyd=6191) BLASTS - REL (CELLAVISION)(BEAKER) (test 8 % 0-0 gvjc=2490) NEUTROPHILS - ABS (CELLAVISION)(BEAKER) (test 0.71 K/ul 1.78-5.38 vmtu=3064) LYMPHOCYTES - ABS (CELLAVISION)(BEAKER) (test 0.92 K/ul 1.32-3.57 rbvq=9679) MONOCYTES - ABS (CELLAVISION)(BEAKER) (test 4.12 K/uL 0.30-0.82 pfaa=3148) METAMYELOCYTES - ABS (CELLAVISION)(BEAKER) (test 0.14 K/uL 0.00-0.00 laag=0291) MYELOCYTES-ABS (CELLAVISION)(BEAKER) (test 0.28 K/uL 0.00-0.00 vbqb=4599) BANDS - ABS (CELLAVISION)(BEAKER) (test 0.36 K/uL 0.00-0.80 pipo=6197) BLASTS - ABS (CELLAVISION)(BEAKER) (test 0.57 K/uL 0.00-0.00 alxa=9608) TOTAL COUNTED (BEAKER) (test gixy=3271) 100 MANUAL NRBC PER 100 CELLS (BEAKER) (test 1 /100 WBC 0-0 xxzi=5142) WBC MORPHOLOGY (BEAKER) (test xymj=438) Normal PLT MORPHOLOGY (BEAKER) (test dopr=501) Normal ANISOCYTOSIS (BEAKER) (test ydqp=267) 2+ moderate MICROCYTES (BEAKER) (test ghul=566) 2+ moderate POIKILOCYTES (BEAKER) (test nazt=020) 1+ few ARTIFACT (CELLAVISION)(BEAKER) (test vwta=5963) Present PLATELET CONCENTRATION (CELLAVISION)(BEAKER) Decreased (test qhqd=8209) Received comment: User comments: Slide comments:BASIC METABOLIC [id number] 10:26:00 Test Item Value Reference Range Comments SODIUM (BEAKER) (test 135 meq/L 136-145 ydwb=443) POTASSIUM (BEAKER) (test 3.5 meq/L 3.5-5.1 lvbp=289) CHLORIDE (BEAKER) (test 101 meq/L 98-107 supr=262) CO2 (BEAKER) (test 25 meq/L 22-29 iieg=415) BLOOD UREA NITROGEN 29 mg/dL 7-21 (BEAKER) (test xymd=053) CREATININE (BEAKER) (test 2.27 mg/dL 0.57-1.25 yoda=828) GLUCOSE RANDOM (BEAKER) 122 mg/dL 70-105 (test pyun=813) CALCIUM (BEAKER) (test 8.3 mg/dL 8.4-10.2 lbxu=032) EGFR (BEAKER) (test 29 mL/min/1.73 sq m ESTIMATED GFR IS NOT xopw=4967) ACCURATE CREATININE CLEARANCE IN PREDICTING GLOMERULAR FILTRATION RATE. ESTIMATED GFR IS NOT APPLICABLE FOR DIALYSIS PATIENTS. BASIC METABOLIC [id number] 07:27:00 Test Item Value Reference Range Comments SODIUM (BEAKER) (test 136 meq/L 136-145 kkhs=726) POTASSIUM (BEAKER) (test 3.9 meq/L 3.5-5.1 dlbq=980) CHLORIDE (BEAKER) (test 103 meq/L 98-107 tfza=632) CO2 (BEAKER) (test 28 meq/L 22-29 ccsp=935) BLOOD UREA NITROGEN 27 mg/dL 7-21 (BEAKER) (test kqnu=625) CREATININE (BEAKER) (test 2.14 mg/dL 0.57-1.25 qjcu=424) GLUCOSE RANDOM (BEAKER) 109 mg/dL 70-105 (test vsuh=171) CALCIUM (BEAKER) (test 8.7 mg/dL 8.4-10.2 gllw=688) EGFR (BEAKER) (test 31 mL/min/1.73 sq m ESTIMATED GFR IS NOT qlbx=7440) ACCURATE CREATININE CLEARANCE IN PREDICTING GLOMERULAR FILTRATION RATE. ESTIMATED GFR IS NOT APPLICABLE FOR DIALYSIS PATIENTS. [id number] 06:21:00 Test Item Value Reference Range Comments MAGNESIUM (BEAKER) (test dpep=931) 2.1 mg/dL 1.6-2.6 CBC WITH PLATELET COUNT + MANUAL [id number] 13:50:00 Test Item Value Reference Range Comments WHITE BLOOD CELL COUNT (BEAKER) (test enhy=704) 6.5 K/ L 3.5-10.5 RED BLOOD CELL COUNT (BEAKER) (test xeea=988) 2.43 M/ L 4.63-6.08 HEMOGLOBIN (BEAKER) (test sxiv=824) 7.6 GM/DL 13.7-17.5 HEMATOCRIT (BEAKER) (test ybbj=837) 21.4 % 40.1-51.0 MEAN CORPUSCULAR VOLUME (BEAKER) (test vkyu=583) 88.1 fL 79.0-92.2 MEAN CORPUSCULAR HEMOGLOBIN (BEAKER) (test 31.3 pg 25.7-32.2 kudy=394) MEAN CORPUSCULAR HEMOGLOBIN CONC (BEAKER) (test 35.5 GM/DL 32.3-36.5 wwdq=096) RED CELL DISTRIBUTION WIDTH (BEAKER) (test 14.0 % 11.6-14.4 kmye=622) PLATELET COUNT (BEAKER) (test vyyv=808) 52 K/CU MM 150-450 MEAN PLATELET VOLUME (BEAKER) (test gnyu=930) 10.4 fL 9.4-12.4 NUCLEATED RED BLOOD CELLS (BEAKER) (test 0 /100 WBC 0-0 ihng=122) (CELLAVISION MANUAL DIFF)2018-05-28 13:50:00 Test Item Value Reference Range Comments NEUTROPHILS - REL (CELLAVISION)(BEAKER) (test 5 % liog=3947) LYMPHOCYTES - REL (CELLAVISION)(BEAKER) (test 19 % bgaf=3962) MONOCYTES - REL (CELLAVISION)(BEAKER) (test 68 % ksbt=6098) MYELOCYTES - REL (CELLAVISION)(BEAKER) (test 2 % 0-0 aphj=5716) BLASTS - REL (CELLAVISION)(BEAKER) (test 3 % 0-0 srrv=6211) ATYPICAL LYMPHOCYTES - REL (CELLAVISION)(BEAKER) 3 % 0-0 (test rjzr=2757) NEUTROPHILS - ABS (CELLAVISION)(BEAKER) (test 0.33 K/ul 1.78-5.38 mmar=3300) LYMPHOCYTES - ABS (CELLAVISION)(BEAKER) (test 1.24 K/ul 1.32-3.57 xdfe=0617) MONOCYTES - ABS (CELLAVISION)(BEAKER) (test 4.42 K/uL 0.30-0.82 kqkg=9937) MYELOCYTES-ABS (CELLAVISION)(BEAKER) (test 0.13 K/uL 0.00-0.00 muvo=2604) BLASTS - ABS (CELLAVISION)(BEAKER) (test 0.20 K/uL 0.00-0.00 aadk=4990) ATYPICAL LYMPHOCYTES - ABS (CELLAVISION)(BEAKER) 0.20 K/uL 0.00-0.00 (test aheb=4500) TOTAL COUNTED (BEAKER) (test meuf=9048) 100 MANUAL NRBC PER 100 CELLS (BEAKER) (test 1 /100 WBC 0-0 ayzu=8300) WBC MORPHOLOGY (BEAKER) (test wamt=588) Normal PLT MORPHOLOGY (BEAKER) (test rlrg=897) Normal POLYCHROMATOPHILLIC RBCS(BEAKER) (test fukq=158) 1+ few ANISOCYTOSIS (BEAKER) (test xsmi=267) 1+ few ARTIFACT (CELLAVISION)(BEAKER) (test qwwc=5531) Present PLATELET CONCENTRATION (CELLAVISION)(BEAKER) Decreased (test rsaj=3805) Received comment: User comments: Slide comments:BONE MARROW [id number] 11:25 :00Bone Marrow Pathology Report Case: [id number] Authorizing Provider: Thelma Cristobal MD Collected: 05/20/20181728 Ordering Location: [address] Received: 05/20/20181728 SERVICE Pathologist: Tito Hoffmann MD Specimens: A) - Iliac, Right B) -Iliac, Right C) - Iliac, Right Conventional cytogenetics was attempted however no cells were able to grow in culture.See attached scanned report.Addendum electronically signed by Tito Hoffmann MD on 05/28/2018 at 11:25 AMBONE MARROW ASPIRATE, CLOT, AND DECALCIFIED BIOPSY :SUBOPTIMAL BONE MARROW STUDY.REPEAT STUDY IS MAY BE WARRANTED.SEE DIAGNOSTIC COMMENT.PERIPHERAL BLOOD:NO CIRCULATING BLASTS. Signing Pathologist Direct Phone Line: [phone] signed by Tito Hoffmann MD on 05/22/2018 at 9:03 AMThis patient has a history of acute myeloid leukemia, previously diagnosed in our institution. Minimal bone marrow tissue is present for evaluation, although the marrow present appears to be hypocellular which is consistent with a therapy effect. Concurrent flow cytometry studies identify a blast population of 2.8%, however it should be noted that the bone marrow aspirate is hemodilute. Nevertheless, a repeat bone marrow study is strongly recommended if there is strong clinical concern for persistent leukemia. Cytogenetic studies are pending. These results will be issued in an addendum report. [id number]; [id number]; 72905 x 2;[id number]; [id number], [id number] MARROWSpecimen is received in three parts all labeled with the patient's information. Specimen A consists of several aspirate smears with one unstained slide for iron stain. Specimen B is received in formalin and consists of a blood clot measuring 1.9 x 0.8 cm. The specimen is sectioned and entirely submitted in cassette B1. Specimen C is received in formalin and consists of asingle carpenter-red bone core measuring 0.3 cm in length. The specimen is submitted entirely in cassette C1 for decalcification. CG/ew BONE MARROW ASPIRATE: QUALITY: Aspirate- Suboptimal, hemodilute with minimal particles. Touch imprint- Suboptimal.MARROW DIFFERENTIAL COUNT:A marrow differential is precluded due to due hemodilution, lack of particles, and the likely hypocellular state of the marrow. Megarkyocytes are not readily identified. Rare erythroid, granulocytic, and lymphoplasmacytic elements are present. Cytochemical stain for iron performed on the aspirate smear is noncontributory due to lack of particles. Ring sideroblasts are not identified. BONE MARROW BIOPSY: Biopsy- Highly suboptimal , limited material Clot- Highly suboptimal, limited material The marrow core has limited preserved marrow for interpretation. Cellularity cannot be estimated. The minimal marrow present demonstrates hypocellular features consistent with therapy effect. Immunohistochemical studies for CD34 were performed and does not demonstrate increased blasts, however the study is limited. Stainable iron is not identified on the clot section by the Perls iron special stain, however limited material is present.PERIPHERAL BLOOD:Red cells: Normocytic.White cells: No circulating blasts.Platelets: UnremarkableThe interpretation of this case included the use of immunohistochemistry or special stains.BLOCK B1- PERLS IRONBLOCK C1- CD34 The immunohistochemistry test was developed and its performance characteristics determined by [facility], Pathology Laboratory. It has not been cleared or approved by the U.S. Food and Drug Administration. The FDA has determined that such clearance or approval is not necessary. The test is used for clinical purposes. It should not be regarded as investigational or for research. This laboratory is certified under the Clinical Laboratory Improvement Amendments of 1988(CLIA-88) as qualified to perform high complexity clinical laboratory testing.BLOOD [id number] 11:01:00 Test Item Value Reference Range Comments CULTURE (BEAKER) (test ecgs=8356) No growth in 5 days BLOOD [id number] 11:01:00 Test Item Value Reference Range Comments CULTURE (BEAKER) (test dvgo=7701) No growth in 5 days [id number] 06:27:00 Test Item Value Reference Range Comments MAGNESIUM (BEAKER) (test crbf=240) 1.8 mg/dL 1.6-2.6 BASIC METABOLIC [id number] 06:27:00 Test Item Value Reference Range Comments SODIUM (BEAKER) (test 136 meq/L 136-145 soku=749) POTASSIUM (BEAKER) (test 4.0 meq/L 3.5-5.1 mdcy=844) CHLORIDE (BEAKER) (test 102 meq/L 98-107 lfsq=497) CO2 (BEAKER) (test 28 meq/L 22-29 ritp=645) BLOOD UREA NITROGEN 15 mg/dL 7-21 (BEAKER) (test ynjt=166) CREATININE (BEAKER) (test 0.98 mg/dL 0.57-1.25 gcqr=681) GLUCOSE RANDOM (BEAKER) 119 mg/dL 70-105 (test yxgj=268) CALCIUM (BEAKER) (test 8.7 mg/dL 8.4-10.2 qdva=726) EGFR (BEAKER) (test 78 mL/min/1.73 sq m ESTIMATED GFR IS NOT zkqe=1252) ACCURATE CREATININE CLEARANCE IN PREDICTING GLOMERULAR FILTRATION RATE. ESTIMATED GFR IS NOT APPLICABLE FOR DIALYSIS PATIENTS. CBC WITH PLATELET COUNT + MANUAL [id number] 10:57:00 Test Item Value Reference Range Comments WHITE BLOOD CELL COUNT (BEAKER) (test rvae=338) 3.9 K/ L 3.5-10.5 RED BLOOD CELL COUNT (BEAKER) (test ifxs=695) 2.46 M/ L 4.63-6.08 HEMOGLOBIN (BEAKER) (test sljp=103) 7.5 GM/DL 13.7-17.5 HEMATOCRIT (BEAKER) (test yrxx=189) 21.5 % 40.1-51.0 MEAN CORPUSCULAR VOLUME (BEAKER) (test raps=980) 87.4 fL 79.0-92.2 MEAN CORPUSCULAR HEMOGLOBIN (BEAKER) (test 30.5 pg 25.7-32.2 lwgy=826) MEAN CORPUSCULAR HEMOGLOBIN CONC (BEAKER) (test 34.9 GM/DL 32.3-36.5 pdan=341) RED CELL DISTRIBUTION WIDTH (BEAKER) (test 13.7 % 11.6-14.4 ewdd=427) PLATELET COUNT (BEAKER) (test lwjf=827) 37 K/CU MM 150-450 MEAN PLATELET VOLUME (BEAKER) (test bghk=922) 11.5 fL 9.4-12.4 NUCLEATED RED BLOOD CELLS (BEAKER) (test 0 /100 WBC 0-0 uoug=044) (CELLAVISION MANUAL DIFF)2018-05-27 10:57:00 Test Item Value Reference Range Comments NEUTROPHILS - REL (CELLAVISION)(BEAKER) (test 1 % usvc=4563) LYMPHOCYTES - REL (CELLAVISION)(BEAKER) (test 28 % kopj=0978) MONOCYTES - REL (CELLAVISION)(BEAKER) (test 64 % ctsm=1950) BLASTS - REL (CELLAVISION)(BEAKER) (test 4 % 0-0 xqhe=0010) ATYPICAL LYMPHOCYTES - REL (CELLAVISION)(BEAKER) 3 % 0-0 (test gmdg=9567) NEUTROPHILS - ABS (CELLAVISION)(BEAKER) (test 0.04 K/ul 1.78-5.38 rvnp=6514) LYMPHOCYTES - ABS (CELLAVISION)(BEAKER) (test 1.09 K/ul 1.32-3.57 slsx=2312) MONOCYTES - ABS (CELLAVISION)(BEAKER) (test 2.50 K/uL 0.30-0.82 pyoe=4913) BLASTS - ABS (CELLAVISION)(BEAKER) (test 0.16 K/uL 0.00-0.00 rskp=3507) ATYPICAL LYMPHOCYTES - ABS (CELLAVISION)(BEAKER) 0.12 K/uL 0.00-0.00 (test onpa=4890) TOTAL COUNTED (BEAKER) (test ezfz=0835) 100 WBC MORPHOLOGY (BEAKER) (test xidm=070) Normal PLT MORPHOLOGY (BEAKER) (test eoxc=377) Normal POLYCHROMATOPHILLIC RBCS(BEAKER) (test rzaq=804) 1+ few ARTIFACT (CELLAVISION)(BEAKER) (test atqa=2396) Present PLATELET CONCENTRATION (CELLAVISION)(BEAKER) (test Decreased icbf=5321) Received comment: User comments: Slide comments:BASIC METABOLIC [id number] 07:18:00 Test Item Value Reference Range Comments SODIUM (BEAKER) (test 137 meq/L 136-145 izdq=413) POTASSIUM (BEAKER) (test 3.8 meq/L 3.5-5.1 nrkn=018) CHLORIDE (BEAKER) (test 102 meq/L 98-107 ykfh=331) CO2 (BEAKER) (test 30 meq/L 22-29 nybd=349) BLOOD UREA NITROGEN 12 mg/dL 7-21 (BEAKER) (test tlvt=928) CREATININE (BEAKER) (test 0.95 mg/dL 0.57-1.25 iqur=356) GLUCOSE RANDOM (BEAKER) 111 mg/dL 70-105 (test hujy=708) CALCIUM (BEAKER) (test 8.8 mg/dL 8.4-10.2 xkci=991) EGFR (BEAKER) (test 80 mL/min/1.73 sq m ESTIMATED GFR IS NOT udab=1480) ACCURATE CREATININE CLEARANCE IN PREDICTING GLOMERULAR FILTRATION RATE. ESTIMATED GFR IS NOT APPLICABLE FOR DIALYSIS PATIENTS. CBC WITH PLATELET COUNT + MANUAL [id number] 12:06:00 Test Item Value Reference Range Comments WHITE BLOOD CELL COUNT (BEAKER) (test izpb=336) 1.6 K/ L 3.5-10.5 RED BLOOD CELL COUNT (BEAKER) (test svfc=517) 2.28 M/ L 4.63-6.08 HEMOGLOBIN (BEAKER) (test pvvj=587) 7.3 GM/DL 13.7-17.5 HEMATOCRIT (BEAKER) (test tsbd=213) 20.1 % 40.1-51.0 MEAN CORPUSCULAR VOLUME (BEAKER) (test fjdq=105) 88.2 fL 79.0-92.2 MEAN CORPUSCULAR HEMOGLOBIN (BEAKER) (test 32.0 pg 25.7-32.2 oxwy=872) MEAN CORPUSCULAR HEMOGLOBIN CONC (BEAKER) (test 36.3 GM/DL 32.3-36.5 mhzc=233) RED CELL DISTRIBUTION WIDTH (BEAKER) (test 13.6 % 11.6-14.4 skcn=564) PLATELET COUNT (BEAKER) (test obsf=558) 25 K/CU MM 150-450 MEAN PLATELET VOLUME (BEAKER) (test wcpg=943) 11.6 fL 9.4-12.4 NUCLEATED RED BLOOD CELLS (BEAKER) (test 0 /100 WBC 0-0 aygb=434) (CELLAVISION MANUAL DIFF)2018-05-26 12:06:00 Test Item Value Reference Range Comments LYMPHOCYTES - REL (CELLAVISION)(BEAKER) (test 47 % vmfd=5998) MONOCYTES - REL (CELLAVISION)(BEAKER) (test 43 % gyly=7291) BANDS - REL (CELLAVISION)(BEAKER) (test 1 % 0-10 hpaa=2103) BLASTS - REL (CELLAVISION)(BEAKER) (test 5 % 0-0 kbvv=4075) ATYPICAL LYMPHOCYTES - REL (CELLAVISION)(BEAKER) 4 % 0-0 (test qgdc=3425) LYMPHOCYTES - ABS (CELLAVISION)(BEAKER) (test 0.75 K/ul 1.32-3.57 dobm=0602) MONOCYTES - ABS (CELLAVISION)(BEAKER) (test 0.69 K/uL 0.30-0.82 vsks=6329) BANDS - ABS (CELLAVISION)(BEAKER) (test 0.02 K/uL 0.00-0.80 pkxj=5461) BLASTS - ABS (CELLAVISION)(BEAKER) (test 0.08 K/uL 0.00-0.00 djns=7129) ATYPICAL LYMPHOCYTES - ABS (CELLAVISION)(BEAKER) 0.06 K/uL 0.00-0.00 (test yesp=2828) TOTAL COUNTED (BEAKER) (test ezoe=9232) 100 MANUAL NRBC PER 100 CELLS (BEAKER) (test 1 /100 WBC 0-0 krrg=4744) SMUDGE CELLS (BEAKER) (test jfco=9376) Present GIANT PLATELETS (BEAKER) (test xazp=196) Present POLYCHROMATOPHILLIC RBCS(BEAKER) (test uqfb=931) 1+ few ANISOCYTOSIS (BEAKER) (test tjbe=575) 2+ moderate MICROCYTES (BEAKER) (test crdk=041) 1+ few ARTIFACT (CELLAVISION)(BEAKER) (test ckjd=0626) Present PLATELET CONCENTRATION (CELLAVISION)(BEAKER) Decreased (test rgkz=4595) Received comment: User comments: Slide comments:[id number] 06:39:00 Test Item Value Reference Range Comments MAGNESIUM (BEAKER) (test gqnm=368) 1.5 mg/dL 1.6-2.6 BASIC METABOLIC [id number] 06:39:00 Test Item Value Reference Range Comments SODIUM (BEAKER) (test 136 meq/L 136-145 jxrs=164) POTASSIUM (BEAKER) (test 3.6 meq/L 3.5-5.1 kpsd=199) CHLORIDE (BEAKER) (test 102 meq/L 98-107 dhod=005) CO2 (BEAKER) (test 26 meq/L 22-29 mrbs=524) BLOOD UREA NITROGEN 9 mg/dL 7-21 (BEAKER) (test kaum=976) CREATININE (BEAKER) (test 0.80 mg/dL 0.57-1.25 meve=123) GLUCOSE RANDOM (BEAKER) 102 mg/dL 70-105 (test idft=083) CALCIUM (BEAKER) (test 8.4 mg/dL 8.4-10.2 ttse=977) EGFR (BEAKER) (test 98 mL/min/1.73 sq m ESTIMATED GFR IS NOT ubpg=2918) ACCURATE CREATININE CLEARANCE IN PREDICTING GLOMERULAR FILTRATION RATE. ESTIMATED GFR IS NOT APPLICABLE FOR DIALYSIS PATIENTS. COBY ANTIGEN WITH REFLEX TO [id number] 12:25:00 Test Item Value Reference Range Comments COBY ANTIGEN (BEAKER) (test arld=0491) Negative CBC WITH PLATELET COUNT + MANUAL [id number] 11:50:00 Test Item Value Reference Range Comments WHITE BLOOD CELL COUNT (BEAKER) (test evvy=203) 0.5 K/ L 3.5-10.5 RED BLOOD CELL COUNT (BEAKER) (test cgsg=133) 2.20 M/ L 4.63-6.08 HEMOGLOBIN (BEAKER) (test ffgg=669) 7.1 GM/DL 13.7-17.5 HEMATOCRIT (BEAKER) (test qsik=567) 19.3 % 40.1-51.0 MEAN CORPUSCULAR VOLUME (BEAKER) (test uxae=922) 87.7 fL 79.0-92.2 MEAN CORPUSCULAR HEMOGLOBIN (BEAKER) (test 32.3 pg 25.7-32.2 uulm=950) MEAN CORPUSCULAR HEMOGLOBIN CONC (BEAKER) (test 36.8 GM/DL 32.3-36.5 hgqg=449) RED CELL DISTRIBUTION WIDTH (BEAKER) (test 13.5 % 11.6-14.4 scgg=681) PLATELET COUNT (BEAKER) (test rrpr=540) 14 K/CU MM 150-450 MEAN PLATELET VOLUME (BEAKER) (test rhdz=268) 10.4 fL 9.4-12.4 NUCLEATED RED BLOOD CELLS (BEAKER) (test 0 /100 WBC 0-0 ppou=880) (MANUAL DIFFERENTIAL)2018-05-25 11:50:00 Test Item Value Reference Range Comments NEUTROPHILS - REL (DIFF) (BEAKER) (test onxx=3563) 0 % LYMPHOCYTES - REL (DIFF) (BEAKER) (test yowf=6085) 53 % MONOCYTES - REL (DIFF) (BEAKER) (test xgbt=7985) 29 % EOSINOPHILS - REL (DIFF) (BEAKER) (test cbka=0609) 0 % BASOPHILS - REL (DIFF) (BEAKER) (test faac=6946) 0 % BANDS - REL (DIFF) (BEAKER) (test wtfb=4510) 14 % 0-10 BLASTS - REL (DIFF) (BEAKER) (test vzow=6365) 4 % 0-0 NEUTROPHILS - ABS (DIFF) (BEAKER) (test gcxf=9311) 0.00 K/ L 1.80-8.00 LYMPHOCYTES - ABS (DIFF) (BEAKER) (test uxbr=4638) 0.27 K/ L 1.48-4.50 MONOCYTES - ABS (DIFF) (BEAKER) (test odrw=6618) 0.15 K/ L 0.00-1.30 EOSINOPHILS - ABS (DIFF) (BEAKER) (test fhrv=1406) 0.00 K/ L 0.00-0.50 BASOPHILS - ABS (DIFF) (BEAKER) (test kjcj=3891) 0.00 K/ L 0.00-0.20 BANDS-ABS (DIFF) (BEAKER) (test xvdy=0785) 0.1 K/ L 0.0-0.8 BLASTS - ABS (DIFF) (BEAKER) (test sgpx=9736) 0.02 K/ L 0.00-0.00 TOTAL COUNTED (BEAKER) (test ovxq=4784) 100 BANDS + SEGMENTED NEUTROPHILS (BEAKER) (test 0.07 dnaw=7740) WBC MORPHOLOGY (BEAKER) (test mcxn=761) Normal PLT MORPHOLOGY (BEAKER) (test batd=216) Normal RBC MORPHOLOGY (BEAKER) (test jjvx=811) Normal BASIC METABOLIC [id number] 06:26:00 Test Item Value Reference Range Comments SODIUM (BEAKER) (test 137 meq/L 136-145 aiem=956) POTASSIUM (BEAKER) (test 3.6 meq/L 3.5-5.1 scwy=806) CHLORIDE (BEAKER) (test 105 meq/L 98-107 zbnj=534) CO2 (BEAKER) (test 26 meq/L 22-29 zoaa=200) BLOOD UREA NITROGEN 12 mg/dL 7-21 (BEAKER) (test tqea=218) CREATININE (BEAKER) (test 0.77 mg/dL 0.57-1.25 fjac=976) GLUCOSE RANDOM (BEAKER) 100 mg/dL 70-105 (test aojh=153) CALCIUM (BEAKER) (test 8.2 mg/dL 8.4-10.2 ahmm=074) EGFR (BEAKER) (test 102 mL/min/1.73 sq m ESTIMATED GFR IS NOT gcdt=4378) ACCURATE CREATININE CLEARANCE IN PREDICTING GLOMERULAR FILTRATION RATE. ESTIMATED GFR IS NOT APPLICABLE FOR DIALYSIS PATIENTS. VANCOMYCIN LEVEL, [id number] 20:39:00 Test Item Value Reference Range Comments VANCOMYCIN TROUGH (BEAKER) (test gzjl=054) 17.9 ug/mL 10.0-20.0 CBC WITH PLATELET COUNT + MANUAL [id number] 11:24:00 Test Item Value Reference Range Comments WHITE BLOOD CELL COUNT (BEAKER) (test yyie=348) 0.4 K/ L 3.5-10.5 RED BLOOD CELL COUNT (BEAKER) (test vaux=859) 2.05 M/ L 4.63-6.08 HEMOGLOBIN (BEAKER) (test jltn=427) 6.4 GM/DL 13.7-17.5 HEMATOCRIT (BEAKER) (test jqon=950) 18.2 % 40.1-51.0 MEAN CORPUSCULAR VOLUME (BEAKER) (test wwtf=290) 88.8 fL 79.0-92.2 MEAN CORPUSCULAR HEMOGLOBIN (BEAKER) (test 31.2 pg 25.7-32.2 htho=674) MEAN CORPUSCULAR HEMOGLOBIN CONC (BEAKER) (test 35.2 GM/DL 32.3-36.5 wzjo=042) RED CELL DISTRIBUTION WIDTH (BEAKER) (test 13.8 % 11.6-14.4 styd=080) PLATELET COUNT (BEAKER) (test ivem=985) 13 K/CU MM 150-450 MEAN PLATELET VOLUME (BEAKER) (test dsbn=644) 11.4 fL 9.4-12.4 NUCLEATED RED BLOOD CELLS (BEAKER) (test 0 /100 WBC 0-0 zvyr=613) (CELLAVISION MANUAL DIFF)2018-05-24 11:24:00 Test Item Value Reference Range Comments NEUTROPHILS - REL (CELLAVISION)(BEAKER) (test 1 % wpbm=3403) LYMPHOCYTES - REL (CELLAVISION)(BEAKER) (test 92 % ntfk=6590) BLASTS - REL (CELLAVISION)(BEAKER) (test 2 % 0-0 hvde=6345) ATYPICAL LYMPHOCYTES - REL (CELLAVISION)(BEAKER) 5 % 0-0 (test ipqt=0399) NEUTROPHILS - ABS (CELLAVISION)(BEAKER) (test 0.00 K/ul 1.78-5.38 kdon=2069) LYMPHOCYTES - ABS (CELLAVISION)(BEAKER) (test 0.37 K/ul 1.32-3.57 obke=4439) BLASTS - ABS (CELLAVISION)(BEAKER) (test 0.01 K/uL 0.00-0.00 xzew=9651) ATYPICAL LYMPHOCYTES - ABS (CELLAVISION)(BEAKER) 0.02 K/uL 0.00-0.00 (test zbvx=7014) TOTAL COUNTED (BEAKER) (test hhau=7536) 100 MANUAL NRBC PER 100 CELLS (BEAKER) (test 1 /100 WBC 0-0 ckiq=3916) WBC MORPHOLOGY (BEAKER) (test pexr=085) Normal PLT MORPHOLOGY (BEAKER) (test lzdj=591) Normal ANISOCYTOSIS (BEAKER) (test dazn=844) 1+ few ARTIFACT (CELLAVISION)(BEAKER) (test ttub=2505) Present PLATELET CONCENTRATION (CELLAVISION)(BEAKER) Decreased (test kgzq=1853) Received comment: User comments: Slide comments:[id number] 05:35:00 Test Item Value Reference Range Comments MAGNESIUM (BEAKER) (test jvce=215) 1.6 mg/dL 1.6-2.6 BASIC METABOLIC [id number] 05:35:00 Test Item Value Reference Range Comments SODIUM (BEAKER) (test 136 meq/L 136-145 aent=032) POTASSIUM (BEAKER) (test 3.7 meq/L 3.5-5.1 gdil=275) CHLORIDE (BEAKER) (test 105 meq/L 98-107 yirf=825) CO2 (BEAKER) (test 26 meq/L 22-29 giem=686) BLOOD UREA NITROGEN 13 mg/dL 7-21 (BEAKER) (test lcwf=912) CREATININE (BEAKER) (test 0.79 mg/dL 0.57-1.25 bykq=329) GLUCOSE RANDOM (BEAKER) 99 mg/dL 70-105 (test hxey=951) CALCIUM (BEAKER) (test 8.5 mg/dL 8.4-10.2 piin=863) EGFR (BEAKER) (test 99 mL/min/1.73 sq m ESTIMATED GFR IS NOT tggg=0097) ACCURATE CREATININE CLEARANCE IN PREDICTING GLOMERULAR FILTRATION RATE. ESTIMATED GFR IS NOT APPLICABLE FOR DIALYSIS PATIENTS. URINALYSIS W/ REFLEX URINE [id number] 19:57:00 Test Item Value Reference Range Comments COLOR (BEAKER) (test fljq=482) Yellow CLARITY (BEAKER) (test hlqk=343) Hazy SPECIFIC GRAVITY UA (BEAKER) (test enxl=531) 1.024 1.001-1.035 PH UA (BEAKER) (test ggoc=632) 6.0 5.0-8.0 PROTEIN UA (BEAKER) (test lema=972) 70 mg/dL Negative GLUCOSE UA (BEAKER) (test euug=376) 30 mg/dL Negative KETONES UA (BEAKER) (test qmiq=755) Trace Negative BILIRUBIN UA (BEAKER) (test igqc=437) Negative Negative BLOOD UA (BEAKER) (test bdgx=905) Small Negative NITRITE UA (BEAKER) (test vvkl=136) Negative Negative LEUKOCYTE ESTERASE UA (BEAKER) (test psjp=822) Negative Negative UROBILINOGEN UA (BEAKER) (test nrgq=188) 0.2 mg/dL 0.2-1.0 RBC UA (BEAKER) (test cmxd=660) < /HPF WBC UA (BEAKER) (test acwx=580) 8 /HPF BACTERIA (BEAKER) (test osjv=319) Few MUCUS (BEAKER) (test bavz=1382) Occasional WBC CASTS (BEAKER) (test eonv=8509) 1 /LPF GRANULAR CASTS (BEAKER) (test eczh=155) 1 /LPF SOURCE(BEAKER) (test frez=1632) RAD, CHEST, 1 VIEW, NON [id number] 15:26:00Reason for exam:->Neutropenic fever, possible pneumoniaShould this be performed at the bedside?->YesFINAL REPORT Clinical History: Neutropenic fever, possible pneumonia Comparison Study: May 16, 2018 Findings: The heart and lungs are within normal limits. A right-sided ventriculoperitoneal shunt is seen. The pleural spaces are clear. No significant bony or soft tissue abnormalities are seen. Impression: No active cardiopulmonary disease. Signed: Dexter Nunezeport Verified Date/Time: 05/23/2018 15:26:06 Reading Location: [place] [id number] Ortho Consult Reading Room BLOOD [id number] 10:00:00 Test Item Value Reference Range Comments CULTURE (BEAKER) (test tfkd=0459) No growth in 5 days BLOOD [id number] 10:00:00 Test Item Value Reference Range Comments CULTURE (BEAKER) (test bnwe=4174) No growth in 5 days CBC WITH PLATELET COUNT + MANUAL [id number] 08:54:00 Test Item Value Reference Range Comments WHITE BLOOD CELL COUNT (BEAKER) (test leos=827) 0.3 K/ L 3.5-10.5 RED BLOOD CELL COUNT (BEAKER) (test ayfc=345) 2.31 M/ L 4.63-6.08 HEMOGLOBIN (BEAKER) (test dctg=550) 7.2 GM/DL 13.7-17.5 HEMATOCRIT (BEAKER) (test font=751) 20.4 % 40.1-51.0 MEAN CORPUSCULAR VOLUME (BEAKER) (test lefn=384) 88.3 fL 79.0-92.2 MEAN CORPUSCULAR HEMOGLOBIN (BEAKER) (test 31.2 pg 25.7-32.2 ndmh=244) MEAN CORPUSCULAR HEMOGLOBIN CONC (BEAKER) (test 35.3 GM/DL 32.3-36.5 roid=739) RED CELL DISTRIBUTION WIDTH (BEAKER) (test 14.0 % 11.6-14.4 tigj=104) PLATELET COUNT (BEAKER) (test lala=648) 38 K/CU MM 150-450 MEAN PLATELET VOLUME (BEAKER) (test iplr=205) 11.0 fL 9.4-12.4 NUCLEATED RED BLOOD CELLS (BEAKER) (test 0 /100 WBC 0-0 jwqy=601) (MANUAL DIFFERENTIAL)2018-05-23 08:54:00 Test Item Value Reference Range Comments LYMPHOCYTES - REL (DIFF) (BEAKER) (test fwoi=0880) 95 % MONOCYTES - REL (DIFF) (BEAKER) (test name=7619) 5 % LYMPHOCYTES - ABS (DIFF) (BEAKER) (test uaxx=7091) 0.29 K/ L 1.48-4.50 MONOCYTES - ABS (DIFF) (BEAKER) (test nmlq=6886) 0.02 K/ L 0.00-1.30 TOTAL COUNTED (BEAKER) (test asqr=0477) 100 PLT MORPHOLOGY (BEAKER) (test tjha=112) Normal ATYPICAL LYMPHS(BEAKER) (test nabl=2321) Present MICROCYTES (BEAKER) (test xmyx=238) 1+ few [id number] 06:59:00 Test Item Value Reference Range Comments MAGNESIUM (BEAKER) (test hoxj=035) 1.8 mg/dL 1.6-2.6 BASIC METABOLIC [id number] 06:59:00 Test Item Value Reference Range Comments SODIUM (BEAKER) (test 137 meq/L 136-145 mcqs=857) POTASSIUM (BEAKER) (test 3.4 meq/L 3.5-5.1 yxtr=577) CHLORIDE (BEAKER) (test 104 meq/L 98-107 suec=779) CO2 (BEAKER) (test 26 meq/L 22-29 jcov=595) BLOOD UREA NITROGEN 13 mg/dL 7-21 (BEAKER) (test uncs=672) CREATININE (BEAKER) (test 0.79 mg/dL 0.57-1.25 whdj=970) GLUCOSE RANDOM (BEAKER) 116 mg/dL 70-105 (test ldst=860) CALCIUM (BEAKER) (test 8.9 mg/dL 8.4-10.2 nvji=170) EGFR (BEAKER) (test 99 mL/min/1.73 sq m ESTIMATED GFR IS NOT tuqp=2954) ACCURATE CREATININE CLEARANCE IN PREDICTING GLOMERULAR FILTRATION RATE. ESTIMATED GFR IS NOT APPLICABLE FOR DIALYSIS PATIENTS. HEPATIC FUNCTION [id number] 06:59:00 Test Item Value Reference Range Comments TOTAL PROTEIN (BEAKER) (test agyf=139) 6.5 gm/dL 6.0-8.3 ALBUMIN (BEAKER) (test boyo=5338) 3.0 g/dL 3.5-5.0 BILIRUBIN TOTAL (BEAKER) (test fsco=342) 0.7 mg/dL 0.2-1.2 BILIRUBIN DIRECT (BEAKER) (test xtng=610) 0.4 mg/dL 0.1-0.5 ALKALINE PHOSPHATASE (BEAKER) (test bbuz=654) 47 U/L 40-150 AST (SGOT) (BEAKER) (test gxxt=970) 48 U/L 5-34 ALT (SGPT) (BEAKER) (test jrar=096) 35 U/L 6-55 CBC WITH PLATELET COUNT + MANUAL [id number] 16:01:00 Test Item Value Reference Range Comments WHITE BLOOD CELL COUNT (BEAKER) (test feav=981) 0.3 K/ L 3.5-10.5 RED BLOOD CELL COUNT (BEAKER) (test cptc=362) 2.22 M/ L 4.63-6.08 HEMOGLOBIN (BEAKER) (test kgpf=619) 7.0 GM/DL 13.7-17.5 HEMATOCRIT (BEAKER) (test upaj=017) 19.7 % 40.1-51.0 MEAN CORPUSCULAR VOLUME (BEAKER) (test wlvq=790) 88.7 fL 79.0-92.2 MEAN CORPUSCULAR HEMOGLOBIN (BEAKER) (test 31.5 pg 25.7-32.2 rxza=823) MEAN CORPUSCULAR HEMOGLOBIN CONC (BEAKER) (test 35.5 GM/DL 32.3-36.5 ntft=438) RED CELL DISTRIBUTION WIDTH (BEAKER) (test 14.0 % 11.6-14.4 imjk=932) PLATELET COUNT (BEAKER) (test kxpi=888) 7 K/CU MM 150-450 MEAN PLATELET VOLUME (BEAKER) (test qksj=605) 14.3 fL 9.4-12.4 NUCLEATED RED BLOOD CELLS (BEAKER) (test 0 /100 WBC 0-0 zwif=130) Differential performed off of buffy coat smear.(CELLAVISION MANUAL DIFF) 16:01:00 Test Item Value Reference Range Comments LYMPHOCYTES - REL (CELLAVISION)(BEAKER) 98 % (test tftx=3194) MONOCYTES - REL (CELLAVISION)(BEAKER) 2 % (test ixbn=4022) TOTAL COUNTED (BEAKER) (test camn=3387) RBC MORPHOLOGY (BEAKER) (test dhyn=496) Normal WBC MORPHOLOGY (BEAKER) (test brdd=858) Normal PLT MORPHOLOGY (BEAKER) (test ompo=510) Normal PLT COMMENT (CELLAVSION)(BEAKER) (test Decreased platelets. uqgh=8414) FLOW [id number] 08:03:00Flow Cytometry Report Case: [id number] Authorizing Provider: Thelma Cristobal MD Collected: 05/20/2018 [id number] Ordering Location: [address] Received: 2017 0519 SERVICE Pathologist: Tito Hoffmann MD Specimen: Other This addendum is to provide a detailed immunoprofile of the blast population. The myeloblasts demonstrate the following immunoprofile:POSITIVE: CD34, CD45(DIM), MPO, CD33, CD13, IM04pUBWKUEDA: CD19, cCD3, cCD79A, CD3, CD117, CD14, CD16, CD64, CD36, CD56, CD10, TDTAddendum electronically signed by Tito Hoffmann MD on 05/22/2018 at 8:03 AMBONE MARROW, FLOW CYTOMETRY:NO MONOCLONAL B CELL POPULATION.NO ABNORMALT CELL POPULATION.BLASTS ACCOUNT FOR 2.8% OF ANALYZED EVENTS.CORRELATION WITH MORPHOLOGIC FINDINGS REQUIRED. [id number] marrowCD8 , surface-Mullen, CD56, surface-Lambda, CD5, CD19, CD10, CD3, CD20, CD4, CD45, CD14, CD13, CD33, CD117, WE09Vjqpgsoh Viability: 99.3% Blasts: The dim CD45+ CD34+ blasts comprise 2.8% of total cells. The majority of these cells express CD13 and CD33 (myeloblasts). Lymphocytes: Bright CD45+ lymphocytes comprise 89.5% of total cells. T cells show a CD4:CD8 ratio of 4.2. B cells are polytypic with a kappa:lambda ratio of 1.0. Myeloid/monocytic populations: As identified by CD45 and lightscatter characteristics, granulocytes comprise the majority of cells analyzed, and monocytes comprise 2.4% of total cells. The remaining events analyzed represent nonviable cells, non-hematolymphoid cells, and/or debris. These tests were developed and their performance characteristics determined by [facility]. They have not been cleared or approved by the U.S. Food and Drug Administration. The FDA has determined that such clearance or approval is not necessary. It should not be regarded as investigational or for research. This laboratory is certified under the Clinical Laboratory Improvement Amendments of 1988 ("CLIA") as qualified to perform high-complexity clinical testing.[id number] 06:28:00 Test Item Value Reference Range Comments MAGNESIUM (BEAKER) (test ivzi=642) 1.6 mg/dL 1.6-2.6 BASIC METABOLIC [id number] 06:28:00 Test Item Value Reference Range Comments SODIUM (BEAKER) (test 136 meq/L 136-145 lshc=271) POTASSIUM (BEAKER) (test 3.4 meq/L 3.5-5.1 cclr=502) CHLORIDE (BEAKER) (test 103 meq/L 98-107 khcr=635) CO2 (BEAKER) (test 27 meq/L 22-29 yqqc=186) BLOOD UREA NITROGEN 12 mg/dL 7-21 (BEAKER) (test qxzd=190) CREATININE (BEAKER) (test 0.76 mg/dL 0.57-1.25 truw=392) GLUCOSE RANDOM (BEAKER) 97 mg/dL 70-105 (test zese=373) CALCIUM (BEAKER) (test 8.5 mg/dL 8.4-10.2 jsjf=920) EGFR (BEAKER) (test 104 mL/min/1.73 sq m ESTIMATED GFR IS NOT whog=7871) ACCURATE CREATININE CLEARANCE IN PREDICTING GLOMERULAR FILTRATION RATE. ESTIMATED GFR IS NOT APPLICABLE FOR DIALYSIS PATIENTS. FLOW CYTOMETRY [id number] 19:19:00 Test Item Value Reference Range Comments FLOW CYTOMETRY RESULT POINTER (MAMIE) See Separate Report (test ozbf=9390) FLOW CYTOMETRY AP CASE # (BEDOUG) (test [id number] fcnk=1307) CBC WITH PLATELET COUNT + MANUAL [id number] 11:52:00 Test Item Value Reference Range Comments WHITE BLOOD CELL COUNT (BEAKER) (test jzym=238) 0.3 K/ L 3.5-10.5 RED BLOOD CELL COUNT (BEAKER) (test tfvl=434) 2.29 M/ L 4.63-6.08 HEMOGLOBIN (BEAKER) (test dnkk=443) 7.1 GM/DL 13.7-17.5 HEMATOCRIT (BEAKER) (test lxkj=975) 20.5 % 40.1-51.0 MEAN CORPUSCULAR VOLUME (BEAKER) (test kcdo=435) 89.5 fL 79.0-92.2 MEAN CORPUSCULAR HEMOGLOBIN (BEAKER) (test 31.0 pg 25.7-32.2 ejns=621) MEAN CORPUSCULAR HEMOGLOBIN CONC (BEAKER) (test 34.6 GM/DL 32.3-36.5 wvlk=079) RED CELL DISTRIBUTION WIDTH (BEAKER) (test 14.5 % 11.6-14.4 yhpg=133) PLATELET COUNT (BEAKER) (test ptju=551) 17 K/CU MM 150-450 MEAN PLATELET VOLUME (BEAKER) (test rbgh=055) 12.0 fL 9.4-12.4 NUCLEATED RED BLOOD CELLS (BEAKER) (test 0 /100 WBC 0-0 uqvf=400) (MANUAL DIFFERENTIAL)2018-05-21 11:52:00 Test Item Value Reference Range Comments LYMPHOCYTES - REL (DIFF) (BEAKER) (test qwqp=3955) 95 % MONOCYTES - REL (DIFF) (BEAKER) (test tpdy=5504) 2 % ATYPICAL LYMPHOCYTE - REL (DIFF) (BEAKER) (test 3 % 0-0 xpkg=175) LYMPHOCYTES - ABS (DIFF) (BEAKER) (test flnq=5313) 0.29 K/ L 1.48-4.50 MONOCYTES - ABS (DIFF) (BEAKER) (test dbly=3665) 0.01 K/ L 0.00-1.30 ATYPICAL LYMPHOCYTES - ABS (DIFF) (BEAKER) (test 0.01 K/ L 0.00-0.00 wfco=288) TOTAL COUNTED (BEAKER) (test zozj=3032) 100 WBC MORPHOLOGY (BEAKER) (test ltyx=237) Normal PLT MORPHOLOGY (BEAKER) (test qnts=440) Normal RBC MORPHOLOGY (BEAKER) (test oyda=108) Normal BLOOD [id number] 10:01:00 Test Item Value Reference Range Comments CULTURE (BEAKER) (test ziob=6596) No growth in 5 days [id number] 06:23:00 Test Item Value Reference Range Comments MAGNESIUM (BEAKER) (test cmki=376) 1.8 mg/dL 1.6-2.6 BASIC METABOLIC [id number] 06:23:00 Test Item Value Reference Range Comments SODIUM (BEAKER) (test 137 meq/L 136-145 ikky=240) POTASSIUM (BEAKER) (test 3.7 meq/L 3.5-5.1 ydhh=481) CHLORIDE (BEAKER) (test 104 meq/L 98-107 bqeg=601) CO2 (BEAKER) (test 26 meq/L 22-29 ccfh=660) BLOOD UREA NITROGEN 11 mg/dL 7-21 (BEAKER) (test ctuz=633) CREATININE (BEAKER) (test 0.76 mg/dL 0.57-1.25 etxh=751) GLUCOSE RANDOM (BEAKER) 105 mg/dL 70-105 (test zjxp=795) CALCIUM (BEAKER) (test 8.2 mg/dL 8.4-10.2 jehf=956) EGFR (BEAKER) (test 104 mL/min/1.73 sq m ESTIMATED GFR IS NOT jgww=2228) ACCURATE CREATININE CLEARANCE IN PREDICTING GLOMERULAR FILTRATION RATE. ESTIMATED GFR IS NOT APPLICABLE FOR DIALYSIS PATIENTS. CT, BIOPSY, BONE [id number] 18:54:00Reason for exam:->leukemia-assess response to therapyFINAL REPORT INDICATION:62-year-old male with pancytopenia and acute myelogenous leukemia. TECHNIQUE:CT-guided bone marrow aspiration.CT-guided bone core biopsy. The exam was performed according to our department dose-optimization protocol, which includes automated exposure control, adjustments of mA and kV according to patient size. Iterative reconstructions are also sometimesemployed. FINDINGS: The procedure was explained to the patient and informed consent was signed. The patient was positioned on the table for access to the iliac bone posteriorly. Timeout was performed. Procedural sedation was used for a total of fentanyl 75 mcg IV and Versed 1.5 mg IV. The department of radiology nurse was present at the time of procedure. Monitored cardiorespiratory function during conscious sedation was performed under the radiologist supervision. Total monitoring time was approximately 30 minutes. The patient's skin was prepped and draped in standard sterile fashion. 1% lidocainewas used for local anesthesia. Under CT guidance a 13 gauge needle biopsy device was advanced into right iliac bone. A core bone biopsy was performed and then 8 cc of bone marrow was aspirated. The samples were passed to the forest pathology associate professor who confirmed an adequate sample. Patient tolerated the procedure well and was transferred to recovery. IMPRESSION: CT-guided bone marrow aspiration.CT-guided bone core biopsy. Signed : Alfredo Duenas MDReport Verified Date/Time: 05/20/2018 18:54:11 Reading Location: [facility] C013X Ortho Consult Reading Room BONE MARROW PROCESS. 17:35:00 Test Item Value Reference Range Comments ANATOMIC CASE# (BEAKER) (test oboa=9047) [id number] ORDERED BY DOCTOR# (BEAKER) (test xvbp=0078) Dr. Kapoor PERFORMED BY DOCTOR# (BEAKER) (test sxdn=1382) Dr. Duenas CLOT RECEIVED? (BEAKER) (test kkiv=3494) Yes BIOPSY RECEIVED? (BEAKER) (test hyeg=7239) Yes CULTURE RECEIVED? (BEAKER) (test agzj=3633) No FLOW RECEIVED? (BEAKER) (test haxe=5461) Yes CYTOGENICS? (BEAKER) (test gyop=5343) Yes MOLECULAR GENETICS? (BEAKER) (test jplf=8735) Yes CBC W/PLT COUNT & AUTO [id number] 11:52:00 Test Item Value Reference Range Comments WHITE BLOOD CELL COUNT (BEAKER) (test bbxy=755) 0.4 K/ L 3.5-10.5 RED BLOOD CELL COUNT (BEAKER) (test aitx=337) 2.63 M/ L 4.63-6.08 HEMOGLOBIN (BEAKER) (test gmle=293) 8.3 GM/DL 13.7-17.5 HEMATOCRIT (BEAKER) (test lmzk=456) 23.5 % 40.1-51.0 MEAN CORPUSCULAR VOLUME (BEAKER) (test kqtn=553) 89.4 fL 79.0-92.2 MEAN CORPUSCULAR HEMOGLOBIN (BEAKER) (test 31.6 pg 25.7-32.2 vfsl=469) MEAN CORPUSCULAR HEMOGLOBIN CONC (BEAKER) (test 35.3 GM/DL 32.3-36.5 adzv=904) RED CELL DISTRIBUTION WIDTH (BEAKER) (test 15.0 % 11.6-14.4 clyr=690) PLATELET COUNT (BEAKER) (test cxku=909) 19 K/CU MM 150-450 MEAN PLATELET VOLUME (BEAKER) (test yszt=986) 10.6 fL 9.4-12.4 NUCLEATED RED BLOOD CELLS (BEAKER) (test 0 /100 WBC 0-0 bnhm=719) (CELLAVISION MANUAL DIFF)2018-05-20 11:52:00 Test Item Value Reference Range Comments LYMPHOCYTES - REL (CELLAVISION)(BEAKER) (test 98 % lbpm=5796) MONOCYTES - REL (CELLAVISION)(BEAKER) (test 2 % nhve=3297) LYMPHOCYTES - ABS (CELLAVISION)(BEAKER) (test 0.39 K/ul 1.32-3.57 lwko=9850) MONOCYTES - ABS (CELLAVISION)(BEAKER) (test 0.01 K/uL 0.30-0.82 gccs=4646) TOTAL COUNTED (BEAKER) (test xiay=3361) 100 WBC MORPHOLOGY (BEAKER) (test aopb=191) Normal PLT MORPHOLOGY (BEAKER) (test boyn=055) Normal ANISOCYTOSIS (BEAKER) (test guwe=122) 1+ few [id number] 06:44:00 Test Item Value Reference Range Comments MAGNESIUM (BEAKER) (test krye=957) 1.6 mg/dL 1.6-2.6 BASIC METABOLIC [id number] 06:44:00 Test Item Value Reference Range Comments SODIUM (BEAKER) (test 138 meq/L 136-145 tccb=259) POTASSIUM (BEAKER) (test 3.4 meq/L 3.5-5.1 rvtw=989) CHLORIDE (BEAKER) (test 105 meq/L 98-107 ijor=211) CO2 (BEAKER) (test 29 meq/L 22-29 yiwk=322) BLOOD UREA NITROGEN 14 mg/dL 7-21 (BEAKER) (test evbd=026) CREATININE (BEAKER) (test 0.78 mg/dL 0.57-1.25 dwnv=398) GLUCOSE RANDOM (BEAKER) 101 mg/dL 70-105 (test pouo=294) CALCIUM (BEAKER) (test 8.1 mg/dL 8.4-10.2 mtml=931) EGFR (BEAKER) (test 101 mL/min/1.73 sq m ESTIMATED GFR IS NOT niyq=6310) ACCURATE CREATININE CLEARANCE IN PREDICTING GLOMERULAR FILTRATION RATE. ESTIMATED GFR IS NOT APPLICABLE FOR DIALYSIS PATIENTS. PROTHROMBIN [id number] 06:31:00 Test Item Value Reference Range Comments PROTIME (BEAKER) (test bnax=414) 14.3 seconds 11.7-14.7 INR (BEAKER) (test fdke=982) 1.1 <=5.9 RECOMMENDED COUMADIN/WARFARIN INR THERAPY RANGESSTANDARD DOSE: 2.0 - 3.0 Includes: PROPHYLAXIS forvenous thrombosis, systemic embolization; TREATMENT for venous thrombosis and/or pulmonary embolus.HIGH RISK: Target INR is 2.5-3.5 for patients with mechanical heart valves.CBC W/PLT COUNT & AUTO [id number] 13:09:00 Test Item Value Reference Range Comments WHITE BLOOD CELL COUNT (BEAKER) (test ivgt=299) 0.2 K/ L 3.5-10.5 RED BLOOD CELL COUNT (BEAKER) (test jigc=981) 2.03 M/ L 4.63-6.08 HEMOGLOBIN (BEAKER) (test qihs=884) 6.6 GM/DL 13.7-17.5 HEMATOCRIT (BEAKER) (test eiby=258) 18.7 % 40.1-51.0 MEAN CORPUSCULAR VOLUME (BEAKER) (test dkyd=521) 92.1 fL 79.0-92.2 MEAN CORPUSCULAR HEMOGLOBIN (BEAKER) (test 32.5 pg 25.7-32.2 rzyg=042) MEAN CORPUSCULAR HEMOGLOBIN CONC (BEAKER) (test 35.3 GM/DL 32.3-36.5 lgmr=944) RED CELL DISTRIBUTION WIDTH (BEAKER) (test 14.9 % 11.6-14.4 xllx=862) PLATELET COUNT (BEAKER) (test arwr=090) 12 K/CU MM 150-450 MEAN PLATELET VOLUME (BEAKER) (test udou=684) 10.7 fL 9.4-12.4 NUCLEATED RED BLOOD CELLS (BEAKER) (test 0 /100 WBC 0-0 zrmw=350) (MANUAL DIFFERENTIAL)2018-05-19 13:09:00 Test Item Value Reference Range Comments NEUTROPHILS - REL (DIFF) (BEAKER) (test uyjg=1793) 1 % LYMPHOCYTES - REL (DIFF) (BEAKER) (test gmvb=4000) 93 % MONOCYTES - REL (DIFF) (BEAKER) (test tksq=3686) 3 % BANDS - REL (DIFF) (BEAKER) (test lxqv=7838) 0 % 0-10 ATYPICAL LYMPHOCYTE - REL (DIFF) (BEAKER) (test 3 % 0-0 ukyq=276) NEUTROPHILS - ABS (DIFF) (BEAKER) (test sjgt=8700) 0.00 K/ L 1.80-8.00 LYMPHOCYTES - ABS (DIFF) (BEAKER) (test layf=1581) 0.19 K/ L 1.48-4.50 MONOCYTES - ABS (DIFF) (BEAKER) (test kqxy=6096) 0.01 K/ L 0.00-1.30 BANDS-ABS (DIFF) (BEAKER) (test tjcz=3986) 0.0 K/ L 0.0-0.8 ATYPICAL LYMPHOCYTES - ABS (DIFF) (BEAKER) (test 0.01 K/ L 0.00-0.00 efdc=287) TOTAL COUNTED (BEAKER) (test xire=4263) 100 BANDS + SEGMENTED NEUTROPHILS (BEAKER) (test 0.00 wxqn=7243) WBC MORPHOLOGY (BEAKER) (test ywri=415) Normal PLT MORPHOLOGY (BEAKER) (test txtn=901) Normal RBC MORPHOLOGY (BEAKER) (test hytr=146) Normal SPUTUM CULTURE + GRAM [id number] 10:09:00 Test Item Value Reference Range Comments CULTURE (BEAKER) (test 3+ Normal respiratory edith llbf=7317) present GRAM STAIN RESULT (BEAKER) No WBCs (test lklc=4936) GRAM STAIN RESULT (BEAKER) No epithelial cells (test tuij=83823) GRAM STAIN RESULT (BEAKER) No organisms seen (test iunv=78985) BASIC METABOLIC [id number] 05:57:00 Test Item Value Reference Range Comments SODIUM (BEAKER) (test 138 meq/L 136-145 nicv=416) POTASSIUM (BEAKER) (test 3.4 meq/L 3.5-5.1 myio=032) CHLORIDE (BEAKER) (test 106 meq/L 98-107 cnsn=241) CO2 (BEAKER) (test 26 meq/L 22-29 gdnw=990) BLOOD UREA NITROGEN 14 mg/dL 7-21 (BEAKER) (test xhdw=723) CREATININE (BEAKER) (test 0.83 mg/dL 0.57-1.25 cucb=949) GLUCOSE RANDOM (BEAKER) 104 mg/dL 70-105 (test mqmj=636) CALCIUM (BEAKER) (test 7.9 mg/dL 8.4-10.2 ssbd=853) EGFR (BEAKER) (test 94 mL/min/1.73 sq m ESTIMATED GFR IS NOT cjfs=7383) ACCURATE CREATININE CLEARANCE IN PREDICTING GLOMERULAR FILTRATION RATE. ESTIMATED GFR IS NOT APPLICABLE FOR DIALYSIS PATIENTS. CBC W/PLT COUNT & AUTO [id number] 13:13:00 Test Item Value Reference Range Comments WHITE BLOOD CELL COUNT (BEAKER) (test iktc=242) 0.3 K/ L 3.5-10.5 RED BLOOD CELL COUNT (BEAKER) (test biuc=484) 2.22 M/ L 4.63-6.08 HEMOGLOBIN (BEAKER) (test mmab=130) 7.2 GM/DL 13.7-17.5 HEMATOCRIT (BEAKER) (test swwo=269) 20.6 % 40.1-51.0 MEAN CORPUSCULAR VOLUME (BEAKER) (test hhrl=693) 92.8 fL 79.0-92.2 MEAN CORPUSCULAR HEMOGLOBIN (BEAKER) (test 32.4 pg 25.7-32.2 frkr=562) MEAN CORPUSCULAR HEMOGLOBIN CONC (BEAKER) (test 35.0 GM/DL 32.3-36.5 lfit=974) RED CELL DISTRIBUTION WIDTH (BEAKER) (test 15.2 % 11.6-14.4 fkxf=693) PLATELET COUNT (BEAKER) (test gvew=707) 9 K/CU MM 150-450 MEAN PLATELET VOLUME (BEAKER) (test ofws=282) 9.6 fL 9.4-12.4 NUCLEATED RED BLOOD CELLS (BEAKER) (test 0 /100 WBC 0-0 lbli=681) (MANUAL DIFFERENTIAL)2018-05-18 13:13:00 Test Item Value Reference Range Comments NEUTROPHILS - REL (DIFF) (BEAKER) (test mmal=2810) 2 % LYMPHOCYTES - REL (DIFF) (BEAKER) (test gxaz=8606) 98 % NEUTROPHILS - ABS (DIFF) (BEAKER) (test pdzm=3223) 0.01 K/ L 1.80-8.00 LYMPHOCYTES - ABS (DIFF) (BEAKER) (test zbqo=0821) 0.29 K/ L 1.48-4.50 TOTAL COUNTED (BEAKER) (test eaei=2261) 100 WBC MORPHOLOGY (BEAKER) (test wkvw=175) Normal PLT MORPHOLOGY (BEAKER) (test rhso=384) Normal RBC MORPHOLOGY (BEAKER) (test nzxw=702) Normal BLOOD [id number] 12:35:00 Test Item Value Reference Range Comments CULTURE (BEAKER) (test CITROBACTER KOSERI From Aerobic And cqol=4773) Anaerobic Bottles Citrobacter koseri Amikacin (test code=1) Aztreonam (test code=32) Cefepime (test code=51) Cefoxitin (test code=68) Ceftazidime (test code=27) Ceftriaxone (test code=52) Ertapenem (test code=38) Gentamicin (test code=18) Levofloxacin (test code=22) Meropenem (test code=34) Piperacillin + Tazobactam (test code=29) Tetracycline (test code=2) Tobramycin (test code=25) Trimethoprim + Sulfamethoxazole (test code=47) CULTURE (BEAKER) (test From Aerobic Bottle fhyg=2464) Only Viridans Streptococcus GRAM STAIN RESULT (BEAKER) From aerobic and (test beck=1956) anaerobic bottles: gram negative rods GRAM STAIN RESULT (BEAKER) gram positive cocci (test xtjx=512364) in clusters GRAM STAIN RESULT (BEAKER) gram positive cocci (test zhrh=470215) in chains, pairs and clusters VANCOMYCIN LEVEL, [id number] 09:49:00 Test Item Value Reference Range Comments VANCOMYCIN TROUGH (BEAKER) (test zdwn=631) 26.7 ug/mL 10.0-20.0 BASIC METABOLIC [id number] 07:21:00 Test Item Value Reference Range Comments SODIUM (BEAKER) (test 137 meq/L 136-145 rmsc=943) POTASSIUM (BEAKER) (test 3.5 meq/L 3.5-5.1 sgvc=532) CHLORIDE (BEAKER) (test 103 meq/L 98-107 wpvw=343) CO2 (BEAKER) (test 27 meq/L 22-29 arbq=487) BLOOD UREA NITROGEN 19 mg/dL 7-21 (BEAKER) (test sdlw=288) CREATININE (BEAKER) (test 1.03 mg/dL 0.57-1.25 mdvo=326) GLUCOSE RANDOM (BEAKER) 114 mg/dL 70-105 (test yfne=060) CALCIUM (BEAKER) (test 8.2 mg/dL 8.4-10.2 ofpj=432) EGFR (BEAKER) (test 73 mL/min/1.73 sq m ESTIMATED GFR IS NOT arju=7284) ACCURATE CREATININE CLEARANCE IN PREDICTING GLOMERULAR FILTRATION RATE. ESTIMATED GFR IS NOT APPLICABLE FOR DIALYSIS PATIENTS. CBC W/PLT COUNT & AUTO [id number] 10:19:00 Test Item Value Reference Range Comments WHITE BLOOD CELL COUNT (BEAKER) (test jmcf=272) 0.2 K/ L 3.5-10.5 RED BLOOD CELL COUNT (BEAKER) (test ufgy=362) 2.39 M/ L 4.63-6.08 HEMOGLOBIN (BEAKER) (test bsfo=916) 7.4 GM/DL 13.7-17.5 HEMATOCRIT (BEAKER) (test lbph=022) 22.1 % 40.1-51.0 MEAN CORPUSCULAR VOLUME (BEAKER) (test ehra=250) 92.5 fL 79.0-92.2 MEAN CORPUSCULAR HEMOGLOBIN (BEAKER) (test 31.0 pg 25.7-32.2 gvsa=184) MEAN CORPUSCULAR HEMOGLOBIN CONC (BEAKER) (test 33.5 GM/DL 32.3-36.5 adae=405) RED CELL DISTRIBUTION WIDTH (BEAKER) (test 15.5 % 11.6-14.4 uyvo=299) PLATELET COUNT (BEAKER) (test swfw=433) 18 K/CU MM 150-450 MEAN PLATELET VOLUME (BEAKER) (test xjjz=925) 9.3 fL 9.4-12.4 NUCLEATED RED BLOOD CELLS (BEAKER) (test 0 /100 WBC 0-0 nhnr=479) (CELLAVISION MANUAL DIFF)2018-05-17 10:19:00 Test Item Value Reference Range Comments NEUTROPHILS - REL (CELLAVISION)(BEAKER) (test 1 % bypf=3865) LYMPHOCYTES - REL (CELLAVISION)(BEAKER) (test 82 % mnjv=6653) ATYPICAL LYMPHOCYTES - REL (CELLAVISION)(BEAKER) 17 % 0-0 (test shdx=8234) NEUTROPHILS - ABS (CELLAVISION)(BEAKER) (test 0.00 K/ul 1.78-5.38 zwxk=7808) LYMPHOCYTES - ABS (CELLAVISION)(BEAKER) (test 0.16 K/ul 1.32-3.57 eqlg=5451) ATYPICAL LYMPHOCYTES - ABS (CELLAVISION)(BEAKER) 0.03 K/uL 0.00-0.00 (test slyk=9573) TOTAL COUNTED (BEAKER) (test xsyu=7396) 100 WBC MORPHOLOGY (BEAKER) (test ktxo=475) Normal PLT MORPHOLOGY (BEAKER) (test hqqd=255) Normal ANISOCYTOSIS (BEAKER) (test jdfb=710) 1+ few MICROCYTES (BEAKER) (test jqhl=602) 1+ few OVALOCYTES (BEAKER) (test pxwq=512) 1+ few PLATELET CONCENTRATION (CELLAVISION)(BEAKER) (test Decreased eizz=1350) Received comment: User comments: Slide comments:VITAMIN B12 AND [id number] 08:00:00 Test Item Value Reference Range Comments VITAMIN B12 (BEAKER) (test kzur=595) 1372 pg/mL 213-816 FOLATE (BEAKER) (test cwdf=845) 8.9 ng/mL >=7.0 BASIC METABOLIC [id number] 06:48:00 Test Item Value Reference Range Comments SODIUM (BEAKER) (test 136 meq/L 136-145 spvq=847) POTASSIUM (BEAKER) (test 3.8 meq/L 3.5-5.1 exzh=807) CHLORIDE (BEAKER) (test 100 meq/L 98-107 ixnl=538) CO2 (BEAKER) (test 28 meq/L 22-29 zbov=257) BLOOD UREA NITROGEN 18 mg/dL 7-21 (BEAKER) (test gxad=048) CREATININE (BEAKER) (test 1.13 mg/dL 0.57-1.25 wrcd=503) GLUCOSE RANDOM (BEAKER) 123 mg/dL 70-105 (test yysb=146) CALCIUM (BEAKER) (test 8.2 mg/dL 8.4-10.2 kddt=408) EGFR (BEAKER) (test 66 mL/min/1.73 sq m ESTIMATED GFR IS NOT czxo=4099) ACCURATE CREATININE CLEARANCE IN PREDICTING GLOMERULAR FILTRATION RATE. ESTIMATED GFR IS NOT APPLICABLE FOR DIALYSIS PATIENTS. BLOOD CULTURE IDENTIFICATION [id number] 21:58:00 Test Item Value Reference Range Comments LISTERIA MONOCYTOGENES (test Not detected Not detected ydmo=[id number]) STAPHYLOCOCCUS (test Not detected Not detected zekh=0669146) STAPHYLOCOCCUS AUREUS (test Not detected Not detected vvuv=3197033) STREPTOCOCCUS (test Detected Not detected First line therapy: jjqi=1628983) VancomycinDe-escalate based on susceptibilities Reference Range: Not Detected STREPTOCOCCUS AGALACTIAE Not detected Not detected (GROUP B) (test rrrx=6759149) STREPTOCOCCUS PNEUMONIAE Not detected Not detected (test seum=4369099) STREPTOCOCCUS PYOGENES (GROUP Not detected Not detected A) (test cdxp=6544074) ACINETOBACTER BAUMANNII (test Not detected Not detected hjdv=1092757) HAEMOPHILUS INFLUENZAE (test Not detected Not detected cnru=9005745) NEISSERIA MENINGITIDIS (test Not detected Not detected venl=8184960) ENTEROBACTERIACEAE (test Detected Not detected hytj=6535109) ENTEROBACTER CLOACOE COMPLEX Not detected Not detected (test knjc=1619926) KLEBSIELLA OXYTOCA (test Not detected Not detected htnq=8676990) KLEBSIELLA PNEUMONIAE (test Not detected Not detected phvo=2518) PROTEUS (test cptu=5295564) Not detected Not detected SERRATIA MARCESCENS (test Not detected Not detected mifu=7940113) COBY ALBICANS (test Not detected Not detected axiu=0815002) COBY GLABRATA (test Not detected Not detected qymm=5943310) COBY KRUSEI (test Not detected Not detected ajgm=7272235) COBY PARAPSILOSIS (test Not detected Not detected lcip=[id number]) COBY TROPICALIS (test Not detected Not detected snxy=[id number]) ESCHERICHIA COLI (test Not detected Not detected ttnd=[id number]) METHICILLIN-RESISTANCE GENE Not detected (test bzvc=5369029) VANCOMYCIN-RESISTANCE GENE Not detected (test idmb=[id number]) CARBAPENEM-RESISTANCE GENE Not detected Not detected (test fcpa=4025196) ENTEROCOCCUS-BEAKER (test Not detected Not detected ypxn=[id number]) PSEUDOMONAS AERUGINOSA-BEAKER Not detected Not detected (test hrrp=[id number]) Other bacteria and resistance markers not targeted by this PCR panel cannot be excluded; therefore clinical correlation and follow up of serology, culture results, and other molecular studies is required. The results are not intended to be used as the sole means for clinical diagnosis or patient management decisions. This sample was tested at the [facility] using the [employer] Blood Culture ID Panel. It is FDA cleared and has been verified and approved by the [facility] for clinical use. This laboratory is CLIA-certified and College ofAmerican Pathologists (CAP)-accredited to perform high complexity testing.URINALYSIS W/ REFLEX URINE [id number] 18:03:00 Test Item Value Reference Range Comments COLOR (BEAKER) (test udyp=862) Light Yellow CLARITY (BEAKER) (test boqh=070) Clear SPECIFIC GRAVITY UA (BEAKER) (test atip=501) 1.004 1.001-1.035 PH UA (BEAKER) (test fplh=098) 5.0 5.0-8.0 PROTEIN UA (BEAKER) (test wjen=351) Negative Negative GLUCOSE UA (BEAKER) (test tsqq=617) Negative Negative KETONES UA (BEAKER) (test mlcq=858) Negative Negative BILIRUBIN UA (BEAKER) (test zdai=488) Negative Negative BLOOD UA (BEAKER) (test svyc=463) Negative Negative NITRITE UA (BEAKER) (test rqfy=511) Negative Negative LEUKOCYTE ESTERASE UA (BEAKER) (test sbng=100) Negative Negative UROBILINOGEN UA (BEAKER) (test eexx=960) 0.2 mg/dL 0.2-1.0 RBC UA (BEAKER) (test csoe=802) < /HPF WBC UA (BEAKER) (test msvp=763) < /HPF BACTERIA (BEAKER) (test agpc=542) Rare SQUAMOUS EPITHELIAL (BEAKER) (test ijjh=325) < /HPF SOURCE(BEAKER) (test fkbe=0807) C. DIFFICILE [facility] [id number] 14:50:00 Test Item Value Reference Range Comments CDT TOXIN (test Negative Negative xlaz=[id number]) CDT GDH ANTIGEN (test Negative Negative No indication of Clostridium wdlw=[id number]) difficile infection and no colonization. Discontinue enteric isolation and therapy. Testing performed by [employer] Rapid Cassette Assay. For GDH, published sensitivity of the assay is 98.7% compared to cytotoxicity testing. For Toxin AB, published sensitivity is 87.8% and specificity 99.4% compared to cytotoxicity testing.Verification of kit performance was done by the [facility] prior to clinical use.CBC W/PLT COUNT & AUTO [id number] 10:17:00 Test Item Value Reference Range Comments WHITE BLOOD CELL COUNT (BEAKER) (test fetq=361) 0.2 K/ L 3.5-10.5 RED BLOOD CELL COUNT (BEAKER) (test wuty=059) 2.56 M/ L 4.63-6.08 HEMOGLOBIN (BEAKER) (test idfv=249) 8.0 GM/DL 13.7-17.5 HEMATOCRIT (BEAKER) (test fddf=556) 23.7 % 40.1-51.0 MEAN CORPUSCULAR VOLUME (BEAKER) (test mlrk=726) 92.6 fL 79.0-92.2 MEAN CORPUSCULAR HEMOGLOBIN (BEAKER) (test 31.3 pg 25.7-32.2 girp=573) MEAN CORPUSCULAR HEMOGLOBIN CONC (BEAKER) (test 33.8 GM/DL 32.3-36.5 irwo=994) RED CELL DISTRIBUTION WIDTH (BEAKER) (test 15.6 % 11.6-14.4 cjds=509) PLATELET COUNT (BEAKER) (test vkrj=089) 8 K/CU MM 150-450 MEAN PLATELET VOLUME (BEAKER) (test elje=018) 9.1 fL 9.4-12.4 NUCLEATED RED BLOOD CELLS (BEAKER) (test 0 /100 WBC 0-0 ywpp=783) (CELLAVISION MANUAL DIFF)2018-05-16 10:17:00 Test Item Value Reference Range Comments LYMPHOCYTES - REL (CELLAVISION)(BEAKER) (test 100 % bekd=9245) LYMPHOCYTES - ABS (CELLAVISION)(BEAKER) (test 0.20 K/ul 1.32-3.57 zbai=0272) TOTAL COUNTED (BEAKER) (test tryl=5524) 100 WBC MORPHOLOGY (BEAKER) (test kemu=237) Normal PLT MORPHOLOGY (BEAKER) (test volt=538) Normal HYPOCHROMIA (BEAKER) (test cwsz=829) 1+ few ANISOCYTOSIS (BEAKER) (test dstn=017) 1+ few MACROCYTES (BEAKER) (test wgdu=831) 1+ few POIKILOCYTES (BEAKER) (test ccdh=445) 1+ few OVALOCYTES (BEAKER) (test fcxo=506) 1+ few ARTIFACT (CELLAVISION)(BEAKER) (test ohez=2267) Present PLATELET CONCENTRATION (CELLAVISION)(BEAKER) (test Decreased bsaz=1669) Received comment: User comments: Slide comments:LACTIC ACID, VENOUS, WHOLE [id number] 09:14:00 Test Item Value Reference Range Comments LACTATE BLOOD VENOUS (2) (BEAKER) (test 2.0 mmol/L 0.5-2.2 kuoe=0542) RAD, CHEST, 1 VIEW, NON [id number] 07:53:00Reason for exam:->cough, feverShould this be performed at the bedside?->YesFINAL REPORT History: Cough, fever Comparison: 05/04/2018 Findings: A right central venous catheter is present, with its tip extending into the right neck, in the region of the right jugular vein, with the tip of the catheter not imaged. The lungs are clear. No pleural effusionsor pneumothorax. The heart shadow is normal in size. The thoracic aorta is mildly tortuous. Degenerative changes are present in the acromioclavicular joints. Impression: 1. No evidence of acute cardiopulmonary disease. 2. Right central venous catheter tip is in the region of the right jugular vein. Signed: Yamileth Sheehan Verified Date/Time: 07:53:57 Reading Location: [address] Reading Room BASIC METABOLIC [id number] 05:27:00 Test Item Value Reference Range Comments SODIUM (BEAKER) (test 137 meq/L 136-145 xqnv=504) POTASSIUM (BEAKER) (test 3.7 meq/L 3.5-5.1 asgx=308) CHLORIDE (BEAKER) (test 101 meq/L 98-107 zdbp=047) CO2 (BEAKER) (test 27 meq/L 22-29 tljm=780) BLOOD UREA NITROGEN 28 mg/dL 7-21 (BEAKER) (test yekj=018) CREATININE (BEAKER) (test 1.20 mg/dL 0.57-1.25 xcid=968) GLUCOSE RANDOM (BEAKER) 133 mg/dL 70-105 (test pydo=920) CALCIUM (BEAKER) (test 8.2 mg/dL 8.4-10.2 cwip=186) EGFR (BEAKER) (test 61 mL/min/1.73 sq m ESTIMATED GFR IS NOT zwvy=7660) ACCURATE CREATININE CLEARANCE IN PREDICTING GLOMERULAR FILTRATION RATE. ESTIMATED GFR IS NOT APPLICABLE FOR DIALYSIS PATIENTS. CBC W/PLT COUNT & AUTO [id number] 12:30:00 Test Item Value Reference Range Comments WHITE BLOOD CELL COUNT (BEAKER) (test ewca=041) 0.2 K/ L 3.5-10.5 RED BLOOD CELL COUNT (BEAKER) (test ihpz=839) 2.31 M/ L 4.63-6.08 HEMOGLOBIN (BEAKER) (test daxd=786) 7.4 GM/DL 13.7-17.5 HEMATOCRIT (BEAKER) (test jmnq=825) 21.7 % 40.1-51.0 MEAN CORPUSCULAR VOLUME (BEAKER) (test skrg=279) 93.9 fL 79.0-92.2 MEAN CORPUSCULAR HEMOGLOBIN (BEAKER) (test 32.0 pg 25.7-32.2 ewju=412) MEAN CORPUSCULAR HEMOGLOBIN CONC (BEAKER) (test 34.1 GM/DL 32.3-36.5 nkow=822) RED CELL DISTRIBUTION WIDTH (BEAKER) (test 16.0 % 11.6-14.4 xfcb=358) PLATELET COUNT (BEAKER) (test rdue=188) 14 K/CU MM 150-450 MEAN PLATELET VOLUME (BEAKER) (test hcyi=996) 10.6 fL 9.4-12.4 NUCLEATED RED BLOOD CELLS (BEAKER) (test 0 /100 WBC 0-0 brzw=643) (MANUAL DIFFERENTIAL)2018-05-15 12:30:00 Test Item Value Reference Range Comments NEUTROPHILS - REL (DIFF) (BEAKER) (test xmej=6349) 2 % LYMPHOCYTES - REL (DIFF) (BEAKER) (test wfcd=1389) 92 % MONOCYTES - REL (DIFF) (BEAKER) (test tjmb=0302) 0 % EOSINOPHILS - REL (DIFF) (BEAKER) (test bfxx=4680) 0 % BASOPHILS - REL (DIFF) (BEAKER) (test xqcl=3700) 0 % ATYPICAL LYMPHOCYTE - REL (DIFF) (BEAKER) (test 6 % 0-0 prpr=406) NEUTROPHILS - ABS (DIFF) (BEAKER) (test ywui=3599) 0.00 K/ L 1.80-8.00 LYMPHOCYTES - ABS (DIFF) (BEAKER) (test yacy=1138) 0.18 K/ L 1.48-4.50 MONOCYTES - ABS (DIFF) (BEAKER) (test educ=8135) 0.00 K/ L 0.00-1.30 EOSINOPHILS - ABS (DIFF) (BEAKER) (test iizk=5343) 0.00 K/ L 0.00-0.50 BASOPHILS - ABS (DIFF) (BEAKER) (test umao=5273) 0.00 K/ L 0.00-0.20 ATYPICAL LYMPHOCYTES - ABS (DIFF) (BEAKER) (test 0.01 K/ L 0.00-0.00 hsdb=645) TOTAL COUNTED (BEAKER) (test oecd=6231) 100 WBC MORPHOLOGY (BEAKER) (test jjwt=400) Normal PLT MORPHOLOGY (BEAKER) (test dhrz=659) Normal RBC MORPHOLOGY (BEAKER) (test gyok=398) Normal URIC [id number] 07:39:00 Test Item Value Reference Range Comments URIC ACID (BEAKER) (test wdlt=478) 3.5 mg/dL 2.6-7.2 BASIC METABOLIC [id number] 07:39:00 Test Item Value Reference Range Comments SODIUM (BEAKER) (test 137 meq/L 136-145 szwr=813) POTASSIUM (BEAKER) (test 4.3 meq/L 3.5-5.1 iywa=612) CHLORIDE (BEAKER) (test 103 meq/L 98-107 yuit=899) CO2 (BEAKER) (test 26 meq/L 22-29 qgbp=925) BLOOD UREA NITROGEN 21 mg/dL 7-21 (BEAKER) (test iebi=987) CREATININE (BEAKER) (test 0.90 mg/dL 0.57-1.25 sett=832) GLUCOSE RANDOM (BEAKER) 169 mg/dL 70-105 (test coja=276) CALCIUM (BEAKER) (test 8.1 mg/dL 8.4-10.2 mqoz=421) EGFR (BEAKER) (test 86 mL/min/1.73 sq m ESTIMATED GFR IS NOT kygl=0509) ACCURATE CREATININE CLEARANCE IN PREDICTING GLOMERULAR FILTRATION RATE. ESTIMATED GFR IS NOT APPLICABLE FOR DIALYSIS PATIENTS. LACTATE DEHYDROGENASE (LDH)2018-05-15 07:39:00 Test Item Value Reference Range Comments LACTATE DEHYDROGENASE (BEAKER) (test iyyc=177) 461 U/L 125-220 CBC W/PLT COUNT & AUTO [id number] 10:07:00 Test Item Value Reference Range Comments WHITE BLOOD CELL COUNT (BEAKER) (test ahju=859) 0.2 K/ L 3.5-10.5 RED BLOOD CELL COUNT (BEAKER) (test kzvc=740) 2.18 M/ L 4.63-6.08 HEMOGLOBIN (BEAKER) (test gezi=496) 7.3 GM/DL 13.7-17.5 HEMATOCRIT (BEAKER) (test chhy=824) 20.6 % 40.1-51.0 MEAN CORPUSCULAR VOLUME (BEAKER) (test oznf=213) 94.5 fL 79.0-92.2 MEAN CORPUSCULAR HEMOGLOBIN (BEAKER) (test 33.5 pg 25.7-32.2 wakk=819) MEAN CORPUSCULAR HEMOGLOBIN CONC (BEAKER) (test 35.4 GM/DL 32.3-36.5 pkxt=794) RED CELL DISTRIBUTION WIDTH (BEAKER) (test 16.3 % 11.6-14.4 aiqt=036) PLATELET COUNT (BEAKER) (test rzog=698) 21 K/CU MM 150-450 MEAN PLATELET VOLUME (BEAKER) (test agka=537) 10.1 fL 9.4-12.4 NUCLEATED RED BLOOD CELLS (BEAKER) (test 0 /100 WBC 0-0 gmdf=047) (MANUAL DIFFERENTIAL)2018-05-14 10:07:00 Test Item Value Reference Range Comments NEUTROPHILS - REL (DIFF) (BEAKER) (test qjjv=1343) 9 % LYMPHOCYTES - REL (DIFF) (BEAKER) (test fzri=3888) 83 % ATYPICAL LYMPHOCYTE - REL (DIFF) (BEAKER) (test 8 % 0-0 hwgy=230) NEUTROPHILS - ABS (DIFF) (BEAKER) (test nsol=5983) 0.02 K/ L 1.80-8.00 LYMPHOCYTES - ABS (DIFF) (BEAKER) (test hisl=2810) 0.17 K/ L 1.48-4.50 ATYPICAL LYMPHOCYTES - ABS (DIFF) (BEAKER) (test 0.02 K/ L 0.00-0.00 cdbi=738) TOTAL COUNTED (BEAKER) (test bieb=3561) 100 WBC MORPHOLOGY (BEAKER) (test vafp=309) Normal PLT MORPHOLOGY (BEAKER) (test zivl=995) Normal RBC MORPHOLOGY (BEAKER) (test sgcl=347) Normal BASIC METABOLIC [id number] 05:43:00 Test Item Value Reference Range Comments SODIUM (BEAKER) (test 137 meq/L 136-145 pvow=540) POTASSIUM (BEAKER) (test 4.2 meq/L 3.5-5.1 dswc=744) CHLORIDE (BEAKER) (test 107 meq/L 98-107 lvzf=422) CO2 (BEAKER) (test 23 meq/L 22-29 lbes=428) BLOOD UREA NITROGEN 19 mg/dL 7-21 (BEAKER) (test laec=611) CREATININE (BEAKER) (test 0.81 mg/dL 0.57-1.25 oepw=168) GLUCOSE RANDOM (BEAKER) 160 mg/dL 70-105 (test wwnr=137) CALCIUM (BEAKER) (test 7.4 mg/dL 8.4-10.2 iapo=161) EGFR (BEAKER) (test 97 mL/min/1.73 sq m ESTIMATED GFR IS NOT iulv=0622) ACCURATE CREATININE CLEARANCE IN PREDICTING GLOMERULAR FILTRATION RATE. ESTIMATED GFR IS NOT APPLICABLE FOR DIALYSIS PATIENTS. URIC [id number] 05:41:00 Test Item Value Reference Range Comments URIC ACID (BEAKER) (test ruky=173) 3.1 mg/dL 2.6-7.2 LACTATE DEHYDROGENASE (LDH)2018-05-14 05:41:00 Test Item Value Reference Range Comments LACTATE DEHYDROGENASE (BEAKER) (test bwnc=374) 378 U/L 125-220 CBC W/PLT COUNT & AUTO [id number] 10:48:00 Test Item Value Reference Range Comments WHITE BLOOD CELL COUNT (BEAKER) (test fmsp=820) 0.3 K/ L 3.5-10.5 RED BLOOD CELL COUNT (BEAKER) (test xjwm=053) 2.46 M/ L 4.63-6.08 HEMOGLOBIN (BEAKER) (test jgos=804) 7.9 GM/DL 13.7-17.5 HEMATOCRIT (BEAKER) (test cacg=439) 23.2 % 40.1-51.0 MEAN CORPUSCULAR VOLUME (BEAKER) (test acss=851) 94.3 fL 79.0-92.2 MEAN CORPUSCULAR HEMOGLOBIN (BEAKER) (test 32.1 pg 25.7-32.2 mgfn=495) MEAN CORPUSCULAR HEMOGLOBIN CONC (BEAKER) (test 34.1 GM/DL 32.3-36.5 bpar=880) RED CELL DISTRIBUTION WIDTH (BEAKER) (test 16.3 % 11.6-14.4 itrw=819) PLATELET COUNT (BEAKER) (test rzdy=978) 32 K/CU MM 150-450 MEAN PLATELET VOLUME (BEAKER) (test zgpy=844) 10.1 fL 9.4-12.4 NUCLEATED RED BLOOD CELLS (BEAKER) (test 0 /100 WBC 0-0 upuy=221) (MANUAL DIFFERENTIAL)2018-05-13 10:48:00 Test Item Value Reference Range Comments NEUTROPHILS - REL (DIFF) (BEAKER) (test ovhh=7232) 20 % LYMPHOCYTES - REL (DIFF) (BEAKER) (test avuq=2598) 80 % NEUTROPHILS - ABS (DIFF) (BEAKER) (test hdhv=0283) 0.06 K/ L 1.80-8.00 LYMPHOCYTES - ABS (DIFF) (BEAKER) (test jnqm=0315) 0.24 K/ L 1.48-4.50 TOTAL COUNTED (BEAKER) (test fvvi=5182) 50 WBC MORPHOLOGY (BEAKER) (test yxcn=630) Normal PLT MORPHOLOGY (BEAKER) (test ralv=111) Normal ANISOCYTOSIS (BEAKER) (test etkb=571) 1+ few MICROCYTES (BEAKER) (test mhfd=889) 1+ few BASIC METABOLIC [id number] 07:42:00 Test Item Value Reference Range Comments SODIUM (BEAKER) (test 134 meq/L 136-145 llef=943) POTASSIUM (BEAKER) (test 4.6 meq/L 3.5-5.1 gwgk=540) CHLORIDE (BEAKER) (test 104 meq/L 98-107 omza=613) CO2 (BEAKER) (test 23 meq/L 22-29 zfgv=534) BLOOD UREA NITROGEN 20 mg/dL 7-21 (BEAKER) (test depe=060) CREATININE (BEAKER) (test 0.85 mg/dL 0.57-1.25 udgd=484) GLUCOSE RANDOM (BEAKER) 153 mg/dL 70-105 (test zomr=696) CALCIUM (BEAKER) (test 7.7 mg/dL 8.4-10.2 erkf=917) EGFR (BEAKER) (test 91 mL/min/1.73 sq m ESTIMATED GFR IS NOT hzfk=6112) ACCURATE CREATININE CLEARANCE IN PREDICTING GLOMERULAR FILTRATION RATE. ESTIMATED GFR IS NOT APPLICABLE FOR DIALYSIS PATIENTS. URIC [id number] 07:41:00 Test Item Value Reference Range Comments URIC ACID (BEAKER) (test cgob=404) 3.0 mg/dL 2.6-7.2 LACTATE DEHYDROGENASE (LDH)2018-05-13 07:41:00 Test Item Value Reference Range Comments LACTATE DEHYDROGENASE (BEAKER) (test tldl=069) 447 U/L 125-220 CBC W/PLT COUNT & AUTO [id number] 10:09:00 Test Item Value Reference Range Comments WHITE BLOOD CELL COUNT (BEAKER) (test kaad=568) 0.3 K/ L 3.5-10.5 RED BLOOD CELL COUNT (BEAKER) (test bwcg=615) 2.37 M/ L 4.63-6.08 HEMOGLOBIN (BEAKER) (test ajyn=959) 7.6 GM/DL 13.7-17.5 HEMATOCRIT (BEAKER) (test sfnm=666) 22.4 % 40.1-51.0 MEAN CORPUSCULAR VOLUME (BEAKER) (test wmwl=451) 94.5 fL 79.0-92.2 MEAN CORPUSCULAR HEMOGLOBIN (BEAKER) (test 32.1 pg 25.7-32.2 qabe=207) MEAN CORPUSCULAR HEMOGLOBIN CONC (BEAKER) (test 33.9 GM/DL 32.3-36.5 zhxl=578) RED CELL DISTRIBUTION WIDTH (BEAKER) (test 16.6 % 11.6-14.4 mqjv=699) PLATELET COUNT (BEAKER) (test dvvx=011) 9 K/CU MM 150-450 MEAN PLATELET VOLUME (BEAKER) (test rbda=600) 9.8 fL 9.4-12.4 NUCLEATED RED BLOOD CELLS (BEAKER) (test 0 /100 WBC 0-0 jhht=278) (MANUAL DIFFERENTIAL)2018-05-12 10:09:00 Test Item Value Reference Range Comments NEUTROPHILS - REL (DIFF) (BEAKER) (test tcnq=5060) 25 % LYMPHOCYTES - REL (DIFF) (BEAKER) (test gjfv=0394) 72 % MONOCYTES - REL (DIFF) (BEAKER) (test imuq=9364) 3 % NEUTROPHILS - ABS (DIFF) (BEAKER) (test vwiy=2800) 0.08 K/ L 1.80-8.00 LYMPHOCYTES - ABS (DIFF) (BEAKER) (test gxfy=2893) 0.22 K/ L 1.48-4.50 MONOCYTES - ABS (DIFF) (BEAKER) (test pjea=5846) 0.01 K/ L 0.00-1.30 TOTAL COUNTED (BEAKER) (test muwc=2045) 100 PLT MORPHOLOGY (BEAKER) (test wghj=357) Normal RBC MORPHOLOGY (BEAKER) (test cbvi=088) Normal ATYPICAL LYMPHS(BEAKER) (test azrg=1882) Present BASIC METABOLIC [id number] 05:47:00 Test Item Value Reference Range Comments SODIUM (BEAKER) (test 136 meq/L 136-145 dxoq=537) POTASSIUM (BEAKER) (test 5.0 meq/L 3.5-5.1 tbhq=615) CHLORIDE (BEAKER) (test 108 meq/L 98-107 zvav=245) CO2 (BEAKER) (test 23 meq/L 22-29 vdym=965) BLOOD UREA NITROGEN 22 mg/dL 7-21 (BEAKER) (test lvvk=773) CREATININE (BEAKER) (test 0.83 mg/dL 0.57-1.25 nvje=865) GLUCOSE RANDOM (BEAKER) 194 mg/dL 70-105 (test vjyy=092) CALCIUM (BEAKER) (test 7.6 mg/dL 8.4-10.2 zykd=813) EGFR (BEAKER) (test 94 mL/min/1.73 sq m ESTIMATED GFR IS NOT bhqg=6546) ACCURATE CREATININE CLEARANCE IN PREDICTING GLOMERULAR FILTRATION RATE. ESTIMATED GFR IS NOT APPLICABLE FOR DIALYSIS PATIENTS. URIC [id number] 05:45:00 Test Item Value Reference Range Comments URIC ACID (BEAKER) (test lxcg=696) 2.9 mg/dL 2.6-7.2 LACTATE DEHYDROGENASE (LDH)2018-05-12 05:45:00 Test Item Value Reference Range Comments LACTATE DEHYDROGENASE (BEAKER) (test gajd=577) 454 U/L 125-220 CBC W/PLT COUNT & AUTO [id number] 14:15:00 Test Item Value Reference Range Comments WHITE BLOOD CELL COUNT (BEAKER) (test tfyn=406) 0.3 K/ L 3.5-10.5 RED BLOOD CELL COUNT (BEAKER) (test ptva=129) 2.48 M/ L 4.63-6.08 HEMOGLOBIN (BEAKER) (test bpwv=668) 7.9 GM/DL 13.7-17.5 HEMATOCRIT (BEAKER) (test fguz=086) 23.4 % 40.1-51.0 MEAN CORPUSCULAR VOLUME (BEAKER) (test upne=467) 94.4 fL 79.0-92.2 MEAN CORPUSCULAR HEMOGLOBIN (BEAKER) (test 31.9 pg 25.7-32.2 bsro=662) MEAN CORPUSCULAR HEMOGLOBIN CONC (BEAKER) (test 33.8 GM/DL 32.3-36.5 lcan=197) RED CELL DISTRIBUTION WIDTH (BEAKER) (test 17.2 % 11.6-14.4 dqpq=709) PLATELET COUNT (BEAKER) (test jcqy=676) 13 K/CU MM 150-450 MEAN PLATELET VOLUME (BEAKER) (test bqan=530) 10.4 fL 9.4-12.4 NUCLEATED RED BLOOD CELLS (BEAKER) (test 0 /100 WBC 0-0 okbn=317) (MANUAL DIFFERENTIAL)2018-05-11 14:15:00 Test Item Value Reference Range Comments NEUTROPHILS - REL (DIFF) (BEAKER) (test vpue=7061) 35 % LYMPHOCYTES - REL (DIFF) (BEAKER) (test avxs=7563) 64 % BANDS - REL (DIFF) (BEAKER) (test afyy=5558) 1 % 0-10 NEUTROPHILS - ABS (DIFF) (BEAKER) (test qfop=8441) 0.11 K/ L 1.80-8.00 LYMPHOCYTES - ABS (DIFF) (BEAKER) (test famc=7496) 0.19 K/ L 1.48-4.50 BANDS-ABS (DIFF) (BEAKER) (test outg=7906) 0.0 K/ L 0.0-0.8 TOTAL COUNTED (BEAKER) (test ypvv=4617) 100 BANDS + SEGMENTED NEUTROPHILS (BEAKER) (test 0.11 mmfh=9961) WBC MORPHOLOGY (BEAKER) (test ibxf=921) Normal PLT MORPHOLOGY (BEAKER) (test opgi=910) Normal ANISOCYTOSIS (BEAKER) (test smbs=756) 1+ few MICROCYTES (BEAKER) (test ywbx=742) 1+ few [id number] 06:57:00 Test Item Value Reference Range Comments PHOSPHORUS (BEAKER) (test fjvt=180) 2.8 mg/dL 2.3-4.7 [id number] 06:57:00 Test Item Value Reference Range Comments MAGNESIUM (BEAKER) (test fmau=806) 2.2 mg/dL 1.6-2.6 LACTATE DEHYDROGENASE (LDH)2018-05-11 06:57:00 Test Item Value Reference Range Comments LACTATE DEHYDROGENASE (BEAKER) (test zvkv=218) 539 U/L 125-220 CBC W/PLT COUNT & AUTO [id number] 11:13:00 Test Item Value Reference Range Comments WHITE BLOOD CELL COUNT (BEAKER) (test xosd=982) 0.4 K/ L 3.5-10.5 RED BLOOD CELL COUNT (BEAKER) (test udvi=897) 2.45 M/ L 4.63-6.08 HEMOGLOBIN (BEAKER) (test xtgb=797) 7.8 GM/DL 13.7-17.5 HEMATOCRIT (BEAKER) (test deqj=341) 23.1 % 40.1-51.0 MEAN CORPUSCULAR VOLUME (BEAKER) (test znne=370) 94.3 fL 79.0-92.2 MEAN CORPUSCULAR HEMOGLOBIN (BEAKER) (test 31.8 pg 25.7-32.2 rxwe=446) MEAN CORPUSCULAR HEMOGLOBIN CONC (BEAKER) (test 33.8 GM/DL 32.3-36.5 zzfb=970) RED CELL DISTRIBUTION WIDTH (BEAKER) (test 17.2 % 11.6-14.4 liro=170) PLATELET COUNT (BEAKER) (test tthy=741) 20 K/CU MM 150-450 MEAN PLATELET VOLUME (BEAKER) (test hvxs=989) 9.7 fL 9.4-12.4 NUCLEATED RED BLOOD CELLS (BEAKER) (test 0 /100 WBC 0-0 nnci=853) (MANUAL DIFFERENTIAL)2018-05-10 11:13:00 Test Item Value Reference Range Comments NEUTROPHILS - REL (DIFF) (BEAKER) (test fdom=2257) 50 % LYMPHOCYTES - REL (DIFF) (BEAKER) (test vwvp=0940) 36 % MONOCYTES - REL (DIFF) (BEAKER) (test real=2632) 4 % EOSINOPHILS - REL (DIFF) (BEAKER) (test inrc=6286) 0 % BASOPHILS - REL (DIFF) (BEAKER) (test madj=9380) 1 % PROMYELOCYTES-REL (DIFF) (BEAKER) (test fedg=391) 1 % 0-0 BANDS - REL (DIFF) (BEAKER) (test mssg=8567) 2 % 0-10 BLASTS - REL (DIFF) (BEAKER) (test gamz=4066) 3 % 0-0 ATYPICAL LYMPHOCYTE - REL (DIFF) (BEAKER) (test 3 % 0-0 lbyh=818) NEUTROPHILS - ABS (DIFF) (BEAKER) (test kwyy=1106) 0.20 K/ L 1.80-8.00 LYMPHOCYTES - ABS (DIFF) (BEAKER) (test nzfy=9015) 0.14 K/ L 1.48-4.50 MONOCYTES - ABS (DIFF) (BEAKER) (test qfbw=3052) 0.02 K/ L 0.00-1.30 EOSINOPHILS - ABS (DIFF) (BEAKER) (test xdon=5211) 0.00 K/ L 0.00-0.50 BASOPHILS - ABS (DIFF) (BEAKER) (test gwmo=3000) 0.00 K/ L 0.00-0.20 PROMYELOCYTES - ABS (DIFF) (BEAKER) (test 0.00 K/ L 0.00-0.00 edfn=324) BANDS-ABS (DIFF) (BEAKER) (test mgkf=6232) 0.0 K/ L 0.0-0.8 BLASTS - ABS (DIFF) (BEAKER) (test ygua=1123) 0.01 K/ L 0.00-0.00 ATYPICAL LYMPHOCYTES - ABS (DIFF) (BEAKER) (test 0.01 K/ L 0.00-0.00 zfys=273) TOTAL COUNTED (BEAKER) (test zpjt=5113) 100 BANDS + SEGMENTED NEUTROPHILS (BEAKER) (test 0.21 yaxw=8923) WBC MORPHOLOGY (BEAKER) (test tkpw=623) Normal PLT MORPHOLOGY (BEAKER) (test ofwy=301) Normal ANISOCYTOSIS (BEAKER) (test yibc=901) 1+ few TEAR DROP CELLS (BEAKER) (test ocqm=450) 1+ few [id number] 06:54:00 Test Item Value Reference Range Comments PHOSPHORUS (BEAKER) (test pzmm=634) 2.9 mg/dL 2.3-4.7 [id number] 06:54:00 Test Item Value Reference Range Comments MAGNESIUM (BEAKER) (test gong=700) 2.1 mg/dL 1.6-2.6 HEPATIC FUNCTION [id number] 06:54:00 Test Item Value Reference Range Comments TOTAL PROTEIN (BEAKER) (test vokq=438) 5.7 gm/dL 6.0-8.3 ALBUMIN (BEAKER) (test dzim=8561) 2.7 g/dL 3.5-5.0 BILIRUBIN TOTAL (BEAKER) (test gwpy=341) 0.5 mg/dL 0.2-1.2 BILIRUBIN DIRECT (BEAKER) (test ghju=594) 0.3 mg/dL 0.1-0.5 ALKALINE PHOSPHATASE (BEAKER) (test dwbv=449) 37 U/L 40-150 AST (SGOT) (BEAKER) (test fltg=398) 59 U/L 5-34 ALT (SGPT) (BEAKER) (test phyl=747) 95 U/L 6-55 LACTATE DEHYDROGENASE (LDH)2018-05-10 06:54:00 Test Item Value Reference Range Comments LACTATE DEHYDROGENASE (BEAKER) (test rwti=194) 676 U/L 125-220 CBC W/PLT COUNT & AUTO [id number] 10:30:00 Test Item Value Reference Range Comments WHITE BLOOD CELL COUNT (BEAKER) (test svmt=373) 0.6 K/ L 3.5-10.5 RED BLOOD CELL COUNT (BEAKER) (test mlbj=464) 2.50 M/ L 4.63-6.08 HEMOGLOBIN (BEAKER) (test ujmw=164) 8.1 GM/DL 13.7-17.5 HEMATOCRIT (BEAKER) (test zlvc=309) 23.4 % 40.1-51.0 MEAN CORPUSCULAR VOLUME (BEAKER) (test xrzp=134) 93.6 fL 79.0-92.2 MEAN CORPUSCULAR HEMOGLOBIN (BEAKER) (test 32.4 pg 25.7-32.2 cfxs=128) MEAN CORPUSCULAR HEMOGLOBIN CONC (BEAKER) (test 34.6 GM/DL 32.3-36.5 xqoj=527) RED CELL DISTRIBUTION WIDTH (BEAKER) (test 17.1 % 11.6-14.4 ujwm=245) PLATELET COUNT (BEAKER) (test xbrt=110) 20 K/CU MM 150-450 MEAN PLATELET VOLUME (BEAKER) (test lqex=815) 11.1 fL 9.4-12.4 NUCLEATED RED BLOOD CELLS (BEAKER) (test 0 /100 WBC 0-0 wofn=964) (MANUAL DIFFERENTIAL)2018-05-09 10:30:00 Test Item Value Reference Range Comments NEUTROPHILS - REL (DIFF) (BEAKER) (test etdo=9573) 29 % LYMPHOCYTES - REL (DIFF) (BEAKER) (test uwco=2308) 40 % MONOCYTES - REL (DIFF) (BEAKER) (test nkis=0624) 9 % METAMYELOCYTES-REL (DIFF) (BEAKER) (test tdkk=483) 1 % 0-0 MYELOCYTES-REL (DIFF) (BEAKER) (test pupc=3670) 3 % 0-0 BLASTS - REL (DIFF) (BEAKER) (test srkb=7511) 18 % 0-0 NEUTROPHILS - ABS (DIFF) (BEAKER) (test wttx=9254) 0.17 K/ L 1.80-8.00 LYMPHOCYTES - ABS (DIFF) (BEAKER) (test mkja=4980) 0.24 K/ L 1.48-4.50 MONOCYTES - ABS (DIFF) (BEAKER) (test sahy=3174) 0.05 K/ L 0.00-1.30 METAMYELOCTYES - ABS (DIFF) (BEAKER) (test 0.01 K/ L 0.00-0.00 moec=793) BLASTS - ABS (DIFF) (BEAKER) (test txgb=7973) 0.11 K/ L 0.00-0.00 MYELOCYTES-ABS (DIFF) (BEAKER) (test qwbj=1249) 0.02 K/ L 0.00-0.00 TOTAL COUNTED (BEAKER) (test mfwy=2590) 100 WBC MORPHOLOGY (BEAKER) (test idnr=295) Normal PLT MORPHOLOGY (BEAKER) (test kyyu=009) Normal ANISOCYTOSIS (BEAKER) (test jlob=217) 1+ few AYE CELLS (BEAKER) (test qkxv=276) 1+ few MICROCYTES (BEAKER) (test rvmn=940) 1+ few POIKILOCYTES (BEAKER) (test znin=083) 3+ many POLYCHROMATOPHILLIC RBCS(BEAKER) (test ytbk=705) 1+ few URIC [id number] 07:07:00 Test Item Value Reference Range Comments URIC ACID (BEAKER) (test bljs=909) 3.9 mg/dL 2.6-7.2 [id number] 07:07:00 Test Item Value Reference Range Comments MAGNESIUM (BEAKER) (test clau=133) 1.9 mg/dL 1.6-2.6 [id number] 07:07:00 Test Item Value Reference Range Comments PHOSPHORUS (BEAKER) (test sdmy=543) 2.4 mg/dL 2.3-4.7 COMPREHENSIVE METABOLIC [id number] 07:07:00 Test Item Value Reference Range Comments TOTAL PROTEIN (BEAKER) 6.0 gm/dL 6.0-8.3 (test tzuq=318) ALBUMIN (BEAKER) (test 2.8 g/dL 3.5-5.0 hebq=5039) ALKALINE PHOSPHATASE 44 U/L 40-150 (BEAKER) (test tbzc=392) BILIRUBIN TOTAL (BEAKER) 0.6 mg/dL 0.2-1.2 (test vkxa=620) SODIUM (BEAKER) (test 138 meq/L 136-145 zohb=391) POTASSIUM (BEAKER) (test 4.2 meq/L 3.5-5.1 tyhg=271) CHLORIDE (BEAKER) (test 111 meq/L 98-107 lcoy=669) CO2 (BEAKER) (test 19 meq/L 22-29 wyxb=810) BLOOD UREA NITROGEN 29 mg/dL 7-21 (BEAKER) (test qqep=064) CREATININE (BEAKER) (test 0.98 mg/dL 0.57-1.25 rxhj=175) GLUCOSE RANDOM (BEAKER) 217 mg/dL 70-105 (test gpud=833) CALCIUM (BEAKER) (test 8.0 mg/dL 8.4-10.2 ulir=963) AST (SGOT) (BEAKER) (test 59 U/L 5-34 upqf=640) ALT (SGPT) (BEAKER) (test 77 U/L 6-55 msdz=626) EGFR (BEAKER) (test 78 mL/min/1.73 sq m ESTIMATED GFR IS NOT mxoe=2123) ACCURATE CREATININE CLEARANCE IN PREDICTING GLOMERULAR FILTRATION RATE. ESTIMATED GFR IS NOT APPLICABLE FOR DIALYSIS PATIENTS. LACTATE DEHYDROGENASE (LDH)2018-05-09 07:07:00 Test Item Value Reference Range Comments LACTATE DEHYDROGENASE (BEAKER) (test pigo=417) 846 U/L 125-220 ANG, TUNNELED CATHETER [id number] 17:20:00Reason for exam:->Double lumen for leukemia chemotherapyReason for exam:->PRATHER OR GROSHONReason for exam:->THIS IS FOR CHEMOFINAL REPORT Tunneled central venous catheter insertion History: Chemotherapy access Modality: Sonography and fluoroscopy. Sedation: Versed 1.0 mg and fentanyl 50 mcg was given intravenously for conscious sedation. Vital signs were monitored throughout the procedure by a nurse, and remained stable. Physician intra-service time was 15minutes. Video Editing Internship: Axel. Group President: Juanito. Approach: Right internal jugular vein Estimated blood loss: < 5 cc. Specimen: None. Fluoroscopy Time: 2.0 min. Dose (Ka,r): 71.9 mGy. Technique: Informed written consent was obtained. Discussion of risks, benefits, and alternatives were made with the patient. The patient expressed understanding and agreed to proceed. All elements maximal sterile barrier technique was utilized for this procedure, including utilization of sterile scrub solution for skin prep, a large sterile sheet to cover the areas of the patient that were not prepped, and hand hygiene, mask, head covering, and sterile gown for performing radiologist and scrub technologist. The skin was anesthetized with 2% lidocaine.Ultrasound evaluation showed a patent and compressible right internal jugular vein vein, which was punctured under direct real-time ultrasound guidance with a micropuncture needle. An ultrasound image was saved to PACS. A 0.018 inch wire was placed through the needle into the right atrium. A subcutaneous tunnel was created in the right anteriorchest wall by blunt dissection. A 7 [place] dual-lumen Prather catheter was brought through the tunnel. A peel-away sheath was placed in the right IJ vein and the catheter was advanced through the sheath , with its distal tip terminating in the right atrium. The peel-away sheath was removed. The portswere flushed and aspirated easily following placement. The catheter was sutured to the skin with 2-0 silk to secure its placement. The small jugular incision site was closed using resorbable suture. Vital signs were monitored throughout the procedure by a nurse, and remained stable. The patient tolerated the procedure well and left the department in the same condition. Results: Spot radiograph of the chest demonstrates the new tunneled central venous catheter to lie in the expected position with its tip overlying the superior right atrium. Impression : Successful, uncomplicated placement of a right internal jugular tunneled central venous catheter. Signed: Van Funes MDReport Verified Date/Time: 05/08/201817:20:03 Reading Location: [place] [id number] Angio Body Reading Room CBC W/PLT COUNT & AUTO [id number] 09:29:00 Test Item Value Reference Range Comments WHITE BLOOD CELL COUNT (BEAKER) (test ydst=325) 1.4 K/ L 3.5-10.5 RED BLOOD CELL COUNT (BEAKER) (test xcxb=839) 2.72 M/ L 4.63-6.08 HEMOGLOBIN (BEAKER) (test vtlp=912) 8.7 GM/DL 13.7-17.5 HEMATOCRIT (BEAKER) (test mjdh=578) 25.4 % 40.1-51.0 MEAN CORPUSCULAR VOLUME (BEAKER) (test luij=441) 93.4 fL 79.0-92.2 MEAN CORPUSCULAR HEMOGLOBIN (BEAKER) (test 32.0 pg 25.7-32.2 gqgs=457) MEAN CORPUSCULAR HEMOGLOBIN CONC (BEAKER) (test 34.3 GM/DL 32.3-36.5 bief=794) RED CELL DISTRIBUTION WIDTH (BEAKER) (test 17.5 % 11.6-14.4 damr=280) PLATELET COUNT (BEAKER) (test pvsl=100) 23 K/CU MM 150-450 MEAN PLATELET VOLUME (BEAKER) (test bprp=278) 10.0 fL 9.4-12.4 NUCLEATED RED BLOOD CELLS (BEAKER) (test 0 /100 WBC 0-0 qwzd=625) (MANUAL DIFFERENTIAL)2018-05-08 09:29:00 Test Item Value Reference Range Comments NEUTROPHILS - REL (DIFF) (BEAKER) (test 33 % yrih=4207) LYMPHOCYTES - REL (DIFF) (BEAKER) (test 20 % iqye=0478) MONOCYTES - REL (DIFF) (BEAKER) (test fzbk=2425) 5 % MYELOCYTES-REL (DIFF) (BEAKER) (test ktqk=8449) 1 % 0-0 BANDS - REL (DIFF) (BEAKER) (test poit=2652) 1 % 0-10 BLASTS - REL (DIFF) (BEAKER) (test bwpv=0285) 38 % 0-0 ATYPICAL LYMPHOCYTE - REL (DIFF) (BEAKER) (test 2 % 0-0 hnep=407) NEUTROPHILS - ABS (DIFF) (BEAKER) (test 0.46 K/ L 1.80-8.00 eeko=6867) LYMPHOCYTES - ABS (DIFF) (BEAKER) (test 0.28 K/ L 1.48-4.50 szhe=0358) MONOCYTES - ABS (DIFF) (BEAKER) (test opue=2406) 0.07 K/ L 0.00-1.30 BANDS-ABS (DIFF) (BEAKER) (test rkwm=7804) 0.0 K/ L 0.0-0.8 BLASTS - ABS (DIFF) (BEAKER) (test rndl=4712) 0.53 K/ L 0.00-0.00 ATYPICAL LYMPHOCYTES - ABS (DIFF) (BEAKER) (test 0.03 K/ L 0.00-0.00 bedj=573) MYELOCYTES-ABS (DIFF) (BEAKER) (test jnwn=1382) 0.01 K/ L 0.00-0.00 TOTAL COUNTED (BEAKER) (test lnkk=5019) 100 BANDS + SEGMENTED NEUTROPHILS (BEAKER) (test 0.48 lzsb=5364) MANUAL NRBC PER 100 CELLS (BEAKER) (test 1 /100 WBC 0-0 nlmq=4808) WBC MORPHOLOGY (BEAKER) (test xpbc=972) Normal PLT MORPHOLOGY (BEAKER) (test riza=154) Normal RBC MORPHOLOGY (BEAKER) (test cfif=991) Normal [id number] 08:56:00 Test Item Value Reference Range Comments PHOSPHORUS (BEAKER) (test mypl=808) 2.7 mg/dL 2.3-4.7 BASIC METABOLIC [id number] 08:56:00 Test Item Value Reference Range Comments SODIUM (BEAKER) (test 138 meq/L 136-145 jqtf=154) POTASSIUM (BEAKER) (test 4.1 meq/L 3.5-5.1 pzxn=851) CHLORIDE (BEAKER) (test 108 meq/L 98-107 rdcv=295) CO2 (BEAKER) (test 22 meq/L 22-29 kzzf=128) BLOOD UREA NITROGEN 21 mg/dL 7-21 (BEAKER) (test wvcd=121) CREATININE (BEAKER) (test 1.13 mg/dL 0.57-1.25 ginh=435) GLUCOSE RANDOM (BEAKER) 201 mg/dL 70-105 (test ywcv=847) CALCIUM (BEAKER) (test 8.9 mg/dL 8.4-10.2 djxh=837) EGFR (BEAKER) (test 66 mL/min/1.73 sq m ESTIMATED GFR IS NOT sahh=8854) ACCURATE CREATININE CLEARANCE IN PREDICTING GLOMERULAR FILTRATION RATE. ESTIMATED GFR IS NOT APPLICABLE FOR DIALYSIS PATIENTS. CBC W/PLT COUNT & AUTO [id number] 13:59:00 Test Item Value Reference Range Comments WHITE BLOOD CELL COUNT (BEAKER) 4.0 K/ L 3.5-10.5 This is a corrected result. (test wtty=889) Previous result was 3.9 K/ L on 05/07/2018 at 0553 ORTHODONTIC TECHNICIAN ASSISTANT RED BLOOD CELL COUNT (BEAKER) 2.76 M/ L 4.63-6.08 This is a corrected result. (test zkay=978) Previous result was 2.72 M/ L on 05/07/2018 at 0553 ORTHODONTIC TECHNICIAN ASSISTANT HEMOGLOBIN (BEAKER) (test 8.7 GM/DL 13.7-17.5 This is a corrected result. mogm=063) Previous result was 8.8 GM/DL on 05/07/2018 at 0553 ORTHODONTIC TECHNICIAN ASSISTANT HEMATOCRIT (BEAKER) (test 25.7 % 40.1-51.0 This is a corrected result. plkx=926) Previous result was 25.4 % on 05/07/2018 at 0553 ORTHODONTIC TECHNICIAN ASSISTANT MEAN CORPUSCULAR VOLUME 93.1 fL 79.0-92.2 This is a corrected result. (BEAKER) (test eppj=905) Previous result was 93.4 fL on 05/07/2018 at 0553 ORTHODONTIC TECHNICIAN ASSISTANT MEAN CORPUSCULAR HEMOGLOBIN 31.5 pg 25.7-32.2 This is a corrected result. (BEAKER) (test qsul=857) Previous result was 32.4 pg on 05/07/2018 at 0553 ORTHODONTIC TECHNICIAN ASSISTANT MEAN CORPUSCULAR HEMOGLOBIN 33.9 GM/DL 32.3-36.5 This is a corrected result. CONC (BEAKER) (test butw=694) Previous result was 34.6 GM/DL on 05/07/2018 at 0553 ORTHODONTIC TECHNICIAN ASSISTANT RED CELL DISTRIBUTION WIDTH 17.2 % 11.6-14.4 (BEAKER) (test hhjo=673) PLATELET COUNT (BEAKER) (test 23 K/CU MM 150-450 This is a corrected result. pymq=259) Previous result was 27 K/CU MM on 05/07/2018 at 0553 ORTHODONTIC TECHNICIAN ASSISTANT MEAN PLATELET VOLUME (BEAKER) 9.3 fL 9.4-12.4 This is a corrected result. (test lvdd=945) Previous result was 9.7 fL on 05/07/2018 at 0553 ORTHODONTIC TECHNICIAN ASSISTANT NUCLEATED RED BLOOD CELLS 0 /100 WBC 0-0 (BEAKER) (test tklu=149) (CELLAVISION MANUAL DIFF)2018-05-07 13:59:00 Test Item Value Reference Range Comments NEUTROPHILS - REL (CELLAVISION)(BEAKER) (test 19 % obkk=0274) LYMPHOCYTES - REL (CELLAVISION)(BEAKER) (test 33 % cyon=5747) MONOCYTES - REL (CELLAVISION)(BEAKER) (test 2 % vqma=1911) BLASTS - REL (CELLAVISION)(BEAKER) (test 46 % 0-0 mqns=1241) ATYPICAL LYMPHOCYTES - REL (CELLAVISION)(BEAKER) 1 % 0-0 (test jpwl=1622) NEUTROPHILS - ABS (CELLAVISION)(BEAKER) (test 0.76 K/ul 1.78-5.38 ahjp=0229) LYMPHOCYTES - ABS (CELLAVISION)(BEAKER) (test 1.32 K/ul 1.32-3.57 lhak=4065) MONOCYTES - ABS (CELLAVISION)(BEAKER) (test 0.08 K/uL 0.30-0.82 ortr=6579) BLASTS - ABS (CELLAVISION)(BEAKER) (test 1.84 K/uL 0.00-0.00 xopj=2028) ATYPICAL LYMPHOCYTES - ABS (CELLAVISION)(BEAKER) 0.04 K/uL 0.00-0.00 (test zerq=8094) TOTAL COUNTED (BEAKER) (test rcmt=7855) 100 MANUAL NRBC PER 100 CELLS (BEAKER) (test 1 /100 WBC 0-0 zrcj=3619) WBC MORPHOLOGY (BEAKER) (test eohw=239) Normal PLT MORPHOLOGY (BEAKER) (test hhzb=523) Normal ANISOCYTOSIS (BEAKER) (test earx=858) 1+ few MICROCYTES (BEAKER) (test utww=247) 1+ few ARTIFACT (CELLAVISION)(BEAKER) (test uqza=6717) Present PLATELET CONCENTRATION (CELLAVISION)(BEAKER) Decreased (test tfow=4605) Received comment: User comments: Slide comments:[id number] 06:22:00 Test Item Value Reference Range Comments PHOSPHORUS (BEAKER) (test iukj=942) 1.6 mg/dL 2.3-4.7 [id number] 06:22:00 Test Item Value Reference Range Comments MAGNESIUM (BEAKER) (test otcr=149) 1.6 mg/dL 1.6-2.6 BASIC METABOLIC [id number] 06:22:00 Test Item Value Reference Range Comments SODIUM (BEAKER) (test 136 meq/L 136-145 fqod=891) POTASSIUM (BEAKER) (test 3.4 meq/L 3.5-5.1 azhc=944) CHLORIDE (BEAKER) (test 107 meq/L 98-107 mxxa=225) CO2 (BEAKER) (test 21 meq/L 22-29 pnkb=264) BLOOD UREA NITROGEN 19 mg/dL 7-21 (BEAKER) (test tamc=892) CREATININE (BEAKER) (test 1.09 mg/dL 0.57-1.25 izij=075) GLUCOSE RANDOM (BEAKER) 123 mg/dL 70-105 (test muea=798) CALCIUM (BEAKER) (test 8.5 mg/dL 8.4-10.2 ixcb=589) EGFR (BEAKER) (test 69 mL/min/1.73 sq m ESTIMATED GFR IS NOT oqne=3633) ACCURATE CREATININE CLEARANCE IN PREDICTING GLOMERULAR FILTRATION RATE. ESTIMATED GFR IS NOT APPLICABLE FOR DIALYSIS PATIENTS. HEPATIC FUNCTION [id number] 06:22:00 Test Item Value Reference Range Comments TOTAL PROTEIN (BEAKER) (test anax=651) 6.3 gm/dL 6.0-8.3 ALBUMIN (BEAKER) (test hdvw=7327) 3.0 g/dL 3.5-5.0 BILIRUBIN TOTAL (BEAKER) (test bwai=864) 1.0 mg/dL 0.2-1.2 BILIRUBIN DIRECT (BEAKER) (test fhdi=392) 0.5 mg/dL 0.1-0.5 ALKALINE PHOSPHATASE (BEAKER) (test offm=929) 41 U/L 40-150 AST (SGOT) (BEAKER) (test xfxn=769) 22 U/L 5-34 ALT (SGPT) (BEAKER) (test ayxc=887) 19 U/L 6-55 (CELLAVISION MANUAL DIFF)2018-05-06 10:36:00 Test Item Value Reference Range Comments TOTAL COUNTED (BEAKER) (test 100 This is an appended report. zqda=1017) These results have been appended to a previously final verified report. RBC MORPHOLOGY (BEAKER) (test Normal znhw=005) WBC MORPHOLOGY (BEAKER) (test Normal skhr=256) PLT MORPHOLOGY (BEAKER) (test Normal zobs=000) NEUTROPHILS - REL 20 % This is an appended report. (CELLAVISION)(BEAKER) (test These results have been vwmr=6821) appended to a previously final verified report. LYMPHOCYTES - REL 40 % This is an appended report. (CELLAVISION)(LuckyLabsAKER) (test These results have been mdxw=9032) appended to a previously final verified report. MONOCYTES - REL 9 % This is an appended report. (CELLAVISION)(BEAKER) (test These results have been bpha=5378) appended to a previously final verified report. BASOPHILS - REL 1 % This is an appended report. (CELLAVISION)(BEAKER) (test These results have been zepv=9685) appended to a previously final verified report. BANDS - REL 5 % 0-10 This is an appended report. (CELLAVISION)(BEAKER) (test These results have been wmpg=4945) appended to a previously final verified report. BLASTS - REL 25 % 0-0 This is an appended report. (CELLAVISION)(BEAKER) (test These results have been ydgh=5302) appended to a previously final verified report. NEUTROPHILS - ABS 0.78 K/ul This is an appended report. (CELLAVISION)(BEAKER) (test These results have been gjig=2786) appended to a previously final verified report. LYMPHOCYTES - ABS 1.56 K/ul This is an appended report. (CELLAVISION)(BEAKER) (test These results have been fpyo=9421) appended to a previously final verified report. MONOCYTES - ABS 0.35 K/uL This is an appended report. (CELLAVISION)(BEAKER) (test These results have been ptni=0231) appended to a previously final verified report. BASOPHILS - ABS 0.04 K/uL This is an appended report. (CELLAVISION)(BEAKER) (test These results have been vnjj=5205) appended to a previously final verified report. BANDS - ABS 0.20 K/uL 0.00-0.80 This is an appended report. (CELLAVISION)(BEAKER) (test These results have been ahap=0150) appended to a previously final verified report. BLASTS - ABS 0.98 K/uL 0.00-0.00 This is an appended report. (CELLAVISION)(BEAKER) (test These results have been rcfi=2632) appended to a previously final verified report. CBC W/PLT COUNT & AUTO [id number] 09:47:00 Test Item Value Reference Range Comments WHITE BLOOD CELL COUNT (BEAKER) (test uqsf=658) 3.9 K/ L 3.5-10.5 RED BLOOD CELL COUNT (BEAKER) (test jyah=716) 2.97 M/ L 4.63-6.08 HEMOGLOBIN (BEAKER) (test qpgz=864) 9.5 GM/DL 13.7-17.5 HEMATOCRIT (BEAKER) (test iucn=908) 27.4 % 40.1-51.0 MEAN CORPUSCULAR VOLUME (BEAKER) (test rvvi=124) 92.3 fL 79.0-92.2 MEAN CORPUSCULAR HEMOGLOBIN (BEAKER) (test 32.0 pg 25.7-32.2 owwa=696) MEAN CORPUSCULAR HEMOGLOBIN CONC (BEAKER) (test 34.7 GM/DL 32.3-36.5 dlhc=273) RED CELL DISTRIBUTION WIDTH (BEAKER) (test 16.8 % 11.6-14.4 avvl=444) PLATELET COUNT (BEAKER) (test xbdk=500) 29 K/CU MM 150-450 MEAN PLATELET VOLUME (BEAKER) (test cihd=507) 9.8 fL 9.4-12.4 NUCLEATED RED BLOOD CELLS (BEAKER) (test 1 /100 WBC 0-0 dsrx=832) VITAMIN B12 AND [id number] 06:03:00 Test Item Value Reference Range Comments VITAMIN B12 (BEAKER) (test kdow=728) 245 pg/mL 213-816 FOLATE (BEAKER) (test zmhs=602) 4.1 ng/mL >=7.0 HEPATITIS B SURFACE [id number] 05:53:00 Test Item Value Reference Range Comments HEPATITIS B SURFACE ANTIBODY (BEAKER) (test < mIU/mL <8.0 ujxm=894) HEPATITIS B SURFACE [id number] 05:50:00 Test Item Value Reference Range Comments HEPATITIS B SURFACE ANTIGEN (2) (BEAKER) (test Nonreactive Nonreactive ozlb=9958) HEPATITIS C [id number] 05:50:00 Test Item Value Reference Range Comments HEPATITIS C ANTIBODY (BEAKER) (test eiqv=905) Nonreactive Nonreactive HEPATITIS B CORE ANTIBODY, [id number] 05:50:00 Test Item Value Reference Range Comments HEPATITIS B CORE TOTAL ANTIBODY (BEAKER) (test Nonreactive Nonreactive gdvc=634) HIV-1 ANTIGEN WITH HIV-1/2 [id number] 05:50:00 Test Item Value Reference Range Comments HIV-1 ANTIGEN WITH HIV 1\\T\\2 ANTIBODY (2) Nonreactive Nonreactive (BEAKER) (test uwfv=3402) URIC [id number] 05:39:00 Test Item Value Reference Range Comments URIC ACID (BEAKER) (test hawl=293) 4.3 mg/dL 2.6-7.2 [id number] 05:39:00 Test Item Value Reference Range Comments MAGNESIUM (BEAKER) (test exzk=547) 1.7 mg/dL 1.6-2.6 [id number] 05:39:00 Test Item Value Reference Range Comments PHOSPHORUS (BEAKER) (test ovym=474) 2.2 mg/dL 2.3-4.7 BASIC METABOLIC [id number] 05:39:00 Test Item Value Reference Range Comments SODIUM (BEAKER) (test 139 meq/L 136-145 fgpq=201) POTASSIUM (BEAKER) (test 3.5 meq/L 3.5-5.1 bthn=165) CHLORIDE (BEAKER) (test 106 meq/L 98-107 dyfx=237) CO2 (BEAKER) (test 27 meq/L 22-29 mfde=283) BLOOD UREA NITROGEN 15 mg/dL 7-21 (BEAKER) (test louw=773) CREATININE (BEAKER) (test 1.00 mg/dL 0.57-1.25 disw=144) GLUCOSE RANDOM (BEAKER) 111 mg/dL 70-105 (test vmrb=890) CALCIUM (BEAKER) (test 9.1 mg/dL 8.4-10.2 usty=980) EGFR (BEAKER) (test 76 mL/min/1.73 sq m ESTIMATED GFR IS NOT rarb=5515) ACCURATE CREATININE CLEARANCE IN PREDICTING GLOMERULAR FILTRATION RATE. ESTIMATED GFR IS NOT APPLICABLE FOR DIALYSIS PATIENTS. HEPATIC FUNCTION [id number] 05:39:00 Test Item Value Reference Range Comments TOTAL PROTEIN (BEAKER) (test zcxt=857) 6.6 gm/dL 6.0-8.3 ALBUMIN (BEAKER) (test ghxh=7332) 3.3 g/dL 3.5-5.0 BILIRUBIN TOTAL (BEAKER) (test xcjg=864) 1.0 mg/dL 0.2-1.2 BILIRUBIN DIRECT (BEAKER) (test tnxz=204) 0.5 mg/dL 0.1-0.5 ALKALINE PHOSPHATASE (BEAKER) (test mzce=352) 37 U/L 40-150 AST (SGOT) (BEAKER) (test wsnv=532) 17 U/L 5-34 ALT (SGPT) (BEAKER) (test tdwp=838) 13 U/L 6-55 LACTATE DEHYDROGENASE (LDH)2018-05-06 05:39:00 Test Item Value Reference Range Comments LACTATE DEHYDROGENASE (BEAKER) (test sebp=381) 1011 U/L 125-220 [id number] 05:19:00 Test Item Value Reference Range Comments PROTIME (BEAKER) (test uoaa=734) 16.8 seconds 11.7-14.7 INR (BEAKER) (test busd=444) 1.4 <=5.9 PARTIAL THROMBOPLASTIN TIME (BEAKER) (test 44.8 seconds 22.5-36.0 mxfw=796) RECOMMENDED COUMADIN/WARFARIN INR THERAPY RANGESSTANDARD DOSE: 2.0 - 3.0 Includes: PROPHYLAXIS forvenous thrombosis, systemic embolization; TREATMENT for venous thrombosis and/or pulmonary embolus.HIGH RISK: Target INR is 2.5-3.5 for patients with mechanical heart valves.[id number] 05:18:00 Test Item Value Reference Range Comments FIBRINOGEN LEVEL (MAMIE) (test xigj=465) 859 mg/dl 225-434 FLOW CYTOMETRY [id number] 17:25:00 Test Item Value Reference Range Comments FLOW CYTOMETRY RESULT POINTER (MAMIE) See Separate Report (test ypxl=8503) FLOW CYTOMETRY AP CASE # (MAMIE) (test [id number] dmai=2022) FLOW [id number] 15:35:00Flow Cytometry Report Case: [id number] Authorizing Provider: Willem Kapoor MD Collected: 05/05/2018 1000 Ordering Location: [address] Received: 05/05/2018 1036 SERVICE Pathologist: Ash Puentes MD Specimen: Other BONE MARROW ASPIRATE, FLOW CYTOMETRY:-INCREASED BLASTS(41%) CONSISTENT WITH INVOLVEMENT BY ACUTE MYELOID LEUKEMIA-NO ABERRANT T LYMPHOCYTE POPULATION-NO MONOTYPIC B LYMPHOCYTE POPULATION-SEE COMMENTElectronically signedby Ash Puentes MD on 05/05/2018 at 3 :35 PMFlow cytometric evaluation of the bone marrow aspirate demonstrates increased blasts. The phenotype is consistent with acute myeloid leukemia. There was no evidence of an aberrant B or T lymphocyte process. Please correlate with bone marrow biopsy report([id number]) findings.[id number] year old man undergoing bone marrow evaluation for possible involvement by leukemiaBone marrow aspiratecytoplasmic (c) MPO, cCD79a, CD34, CD19, CD7, CD3, cCD3, CD45, CD16, CD13,CD117, CD11b, CD10, CD36, CD64, CD33, CD14, HLA-DR, cTdT, CD56.Specimen Viability: 97.8% Number of Events Acquired: [id number] myeloblast population identified (41.0% of cellularity)POSITIVE: FW31atb, cytoplasmic (c) MPO, CD34, CD19(partial), CD13, CD117, CD11b(partial), CD36( subpopulation), CD64(partial), CD33, HLA-DRNEGATIVE: cCD79a, CD7, CD3, cCD3, CD16, CD10, CD14, cTdT, CD56 In addition, the following populations are identified: Blasts: The increased, aberrant myeloblast populationis described above. Lymphocytes: Bright CD45+ lymphocytes comprise 11.7% of total cells. Myeloid/monocytic populations: As identified by CD45 and light scatter characteristics, granulocytes comprise 23.4% of cells analyzed, and monocytes comprise 1.3% of total cells. The remaining events analyzed represent nonviable cells, non-hematolymphoid cells, and debris.These tests were developed and their performance characteristics determined by [facility] They have not been cleared orapproved by the U.S. Food and Drug Administration. The FDA has determined that such clearance or approval is not necessary. It should not be regarded as investigational or for research. This laboratoryis certified under the Clinical Laboratory Improvement Amendments of 1988 ("CLIA") as qualified to perform high-complexity clinical testing.CT, BIOPSY, BONE [id number] 11:09:00Reason for exam:->pancytopenia- probable leukemiaFINAL REPORT CT guided bone marrow aspiration and biopsy History: pancytopenia-probable leukemia Modality: CT, CT fluoroscopy Anesthesia: 1% lidocaine local Approach: Right dorsal percutaneous Consent: Informed written consent was obtained from the patient. Sedation: Moderate sedation was administered. 2 mg of Versed and 100 mcg of fentanyl IV was used for moderate sedation monitored under my direction. Total intraservice time of sedation was 15 minutes. The patient's vital signs were monitored throughout the procedure and recorded in the patient's medical record by the nurse. Technique: The patient was placed in the prone position in the CT scanner. A safe window to the right iliac bone was localized using CT and CT fluoroscopy. This exam was performed according to our departmental dose optimization program which includes automated exposure control, adjustment of the mA and/or kV according to patient size and/or use of iterative reconstructive technique. After the usualsterile preparation and application of local anesthesia, using a right dorsal percutaneous approach,a 10 cm 12 gauge [place] bone biopsy needle was advanced into the right iliac bone using CT guidance. Approximately 10 cc of marrow aspirates were obtained. Subsequently, a 2 cm core biopsy sample was obtained. The samples were collected by cytopathology for further analysis. Disposition: The patient tolerated the procedure well, without immediate complications. The patient left CT in stable condition. Impression: 1. Technically successful CT guided bone marrow aspiration and biopsy Signed: Robbie Rouse MDReport Verified Date/Time: 2017 11:09:19 Reading Location: [facility] C013X Ortho Consult Reading Room BONE MARROW PROCESS.2018-05-05 10:35:00 Test Item Value Reference Range Comments ANATOMIC CASE# (BEAKER) (test mdhh=9762) [id number] ORDERED BY DOCTOR# (BEAKER) (test alhl=9188) Emelia PERFORMED BY DOCTOR# (BEAKER) (test ywgt=4768) Ester CLOT RECEIVED? (BEAKER) (test qlbn=8671) Yes BIOPSY RECEIVED? (BEAKER) (test tfkw=4346) Yes CULTURE RECEIVED? (BEAKER) (test hucp=8792) No FLOW RECEIVED? (BEAKER) (test ggzj=0114) Yes CYTOGENICS? (BEAKER) (test taom=3061) Yes MOLECULAR GENETICS? (BEAKER) (test hbtf=6164) Yes Good collection by Dr Rouse. Slides are [facility] W/PLT COUNT & AUTO [id number] 10:01:00 Test Item Value Reference Range Comments WHITE BLOOD CELL COUNT (BEAKER) (test ignc=230) 3.4 K/ L 3.5-10.5 RED BLOOD CELL COUNT (BEAKER) (test zojs=438) 3.53 M/ L 4.63-6.08 HEMOGLOBIN (BEAKER) (test jjxn=357) 11.4 GM/DL 13.7-17.5 HEMATOCRIT (BEAKER) (test lkhs=602) 32.8 % 40.1-51.0 MEAN CORPUSCULAR VOLUME (BEAKER) (test ypzm=520) 92.9 fL 79.0-92.2 MEAN CORPUSCULAR HEMOGLOBIN (BEAKER) (test 32.3 pg 25.7-32.2 qnzt=663) MEAN CORPUSCULAR HEMOGLOBIN CONC (BEAKER) (test 34.8 GM/DL 32.3-36.5 qhnd=677) RED CELL DISTRIBUTION WIDTH (BEAKER) (test 17.0 % 11.6-14.4 szax=027) PLATELET COUNT (BEAKER) (test mytf=282) 30 K/CU MM 150-450 MEAN PLATELET VOLUME (BEAKER) (test qctx=028) 9.5 fL 9.4-12.4 NUCLEATED RED BLOOD CELLS (BEAKER) (test 0 /100 WBC 0-0 gvdm=709) (CELLAVISION MANUAL DIFF)2018-05-05 10:01:00 Test Item Value Reference Range Comments NEUTROPHILS - REL (CELLAVISION)(BEAKER) (test 30 % hzlk=2543) LYMPHOCYTES - REL (CELLAVISION)(BEAKER) (test 34 % jlaf=6686) MONOCYTES - REL (CELLAVISION)(BEAKER) (test 2 % hfkc=7345) BASOPHILS - REL (CELLAVISION)(BEAKER) (test 1 % rrhh=4842) BANDS - REL (CELLAVISION)(BEAKER) (test 6 % 0-10 ioat=9734) BLASTS - REL (CELLAVISION)(BEAKER) (test 21 % 0-0 mrdp=3987) ATYPICAL LYMPHOCYTES - REL (CELLAVISION)(BEAKER) 6 % 0-0 (test shqv=9516) NEUTROPHILS - ABS (CELLAVISION)(BEAKER) (test 1.02 K/ul 1.78-5.38 qkeh=9915) LYMPHOCYTES - ABS (CELLAVISION)(BEAKER) (test 1.16 K/ul 1.32-3.57 olge=4754) MONOCYTES - ABS (CELLAVISION)(BEAKER) (test 0.07 K/uL 0.30-0.82 eflh=5415) BASOPHILS - ABS (CELLAVISION)(BEAKER) (test 0.03 K/uL 0.01-0.08 dqtm=3010) BANDS - ABS (CELLAVISION)(BEAKER) (test 0.20 K/uL 0.00-0.80 muru=1957) BLASTS - ABS (CELLAVISION)(BEAKER) (test 0.71 K/uL 0.00-0.00 faky=8084) ATYPICAL LYMPHOCYTES - ABS (CELLAVISION)(BEAKER) 0.20 K/uL 0.00-0.00 (test bxvr=1030) TOTAL COUNTED (BEAKER) (test zsca=4587) 100 MANUAL NRBC PER 100 CELLS (BEAKER) (test 3 /100 WBC 0-0 qlkz=5366) WBC MORPHOLOGY (BEAKER) (test mras=200) Normal PLT MORPHOLOGY (BEAKER) (test njod=094) Normal POLYCHROMATOPHILLIC RBCS(BEAKER) (test vhfy=071) 1+ few ARTIFACT (CELLAVISION)(BEAKER) (test onfl=0790) Present PLATELET CONCENTRATION (CELLAVISION)(BEAKER) Decreased (test vgxr=5051) Received comment: User comments: Slide comments:URINALYSIS W/ [id number] 08:47:00 Test Item Value Reference Range Comments COLOR (BEAKER) (test sbuf=974) Yellow CLARITY (BEAKER) (test oplk=563) Clear SPECIFIC GRAVITY UA (BEAKER) (test wzsx=915) 1.027 1.001-1.035 PH UA (BEAKER) (test rrbd=350) 6.0 5.0-8.0 PROTEIN UA (BEAKER) (test krlm=396) 20 mg/dL Negative GLUCOSE UA (BEAKER) (test pfdi=805) Negative Negative KETONES UA (BEAKER) (test ttpk=871) Negative Negative BILIRUBIN UA (BEAKER) (test hrxi=181) Negative Negative BLOOD UA (BEAKER) (test rxkn=521) Trace Negative NITRITE UA (BEAKER) (test jkud=586) Negative Negative LEUKOCYTE ESTERASE UA (BEAKER) (test suvo=047) Negative Negative UROBILINOGEN UA (BEAKER) (test ulwn=680) 3.0 mg/dL 0.2-1.0 RBC UA (BEAKER) (test jpij=444) 3 /HPF WBC UA (BEAKER) (test yljr=340) 1 /HPF SQUAMOUS EPITHELIAL (BEAKER) (test hxtj=444) < /HPF SOURCE(BEAKER) (test ehdp=7965) Urine, Voided [id number] 07:45:00 Test Item Value Reference Range Comments PHOSPHORUS (BEAKER) (test gmfw=721) 2.0 mg/dL 2.3-4.7 [id number] 07:45:00 Test Item Value Reference Range Comments MAGNESIUM (BEAKER) (test gkqp=495) 1.8 mg/dL 1.6-2.6 BASIC METABOLIC [id number] 07:45:00 Test Item Value Reference Range Comments SODIUM (BEAKER) (test 138 meq/L 136-145 gyar=402) POTASSIUM (BEAKER) (test 3.7 meq/L 3.5-5.1 xnln=687) CHLORIDE (BEAKER) (test 106 meq/L 98-107 rwqu=583) CO2 (BEAKER) (test 25 meq/L 22-29 fjow=509) BLOOD UREA NITROGEN 13 mg/dL 7-21 (BEAKER) (test gxgt=668) CREATININE (BEAKER) (test 1.06 mg/dL 0.57-1.25 jybd=430) GLUCOSE RANDOM (BEAKER) 125 mg/dL 70-105 (test vmkr=755) CALCIUM (BEAKER) (test 9.3 mg/dL 8.4-10.2 srjy=048) EGFR (BEAKER) (test 71 mL/min/1.73 sq m ESTIMATED GFR IS NOT ebaq=3579) ACCURATE CREATININE CLEARANCE IN PREDICTING GLOMERULAR FILTRATION RATE. ESTIMATED GFR IS NOT APPLICABLE FOR DIALYSIS PATIENTS. HEPATIC FUNCTION [id number] 07:45:00 Test Item Value Reference Range Comments TOTAL PROTEIN (BEAKER) (test xcok=644) 7.0 gm/dL 6.0-8.3 ALBUMIN (BEAKER) (test oxfd=8807) 3.7 g/dL 3.5-5.0 BILIRUBIN TOTAL (BEAKER) (test ngub=899) 1.2 mg/dL 0.2-1.2 BILIRUBIN DIRECT (BEAKER) (test tuyz=538) 0.5 mg/dL 0.1-0.5 ALKALINE PHOSPHATASE (BEAKER) (test vqlc=069) 37 U/L 40-150 AST (SGOT) (BEAKER) (test dhgg=317) 16 U/L 5-34 ALT (SGPT) (BEAKER) (test okpa=371) 15 U/L 6-55 LACTATE DEHYDROGENASE (LDH)2018-05-05 07:45:00 Test Item Value Reference Range Comments LACTATE DEHYDROGENASE (BEAKER) (test mijb=814) 962 U/L 125-220 RAD, CHEST, 1 VIEW, NON [id number] 04:10:00Reason for exam:->dyspnea, chest painShould this be performed at the bedside?->YesFINAL REPORT Chest, 1 view. History: Chest pain and dyspnea Comparison: Noneavailable. Findings: The cardiomediastinal silhouette and pulmonary vasculature are within normal limits for a portable exam. The lungs are clear without evidence of consolidation or effusion. The soft tissues and osseous structures are intact. IMPRESSION: No acute cardiopulmonary abnormality. Signed : Eb Samaniego Verified Date/Time: 05/05/2018 04:10:12 Reading Location: [address] Transitional Reading Room URIC [id number] 22:31:00 Test Item Value Reference Range Comments URIC ACID ([facility]) (test feib=281) 5.6 mg/dL 2.6-7.2 PERIPHERAL BLOOD SMEAR - PATHOLOGIST [id number] 20:58:00 Test Item Value Reference Range Comments PERIPHERAL SMR REVIEW Circulating blasts present. No ([facility]) (test qawn=6737) Jono rods identified. Defer final interpretation to flow cytometry and bone marrow studies. Reported to Dr. Mari Moreno [id number] Tito Hoffmann, (BEAKER) (test yyge=9854) Alessio(electronic signature) TROPONIN [id number] 20:16:00 Test Item Value Reference Range Comments TROPONIN I ([facility]) (test frlt=348) 0.01 ng/mL 0.00-0.03 Troponin I (TnI) levels must be interpreted in the context of the presenting symptoms and the clinical findings. Elevated TnI levels indicate myocardial damage, but are not specific for ischemic heart disease. Elevated TnI levels are seen in patients with other cardiac conditions (including myocarditis and congestive heart failure), and slight TnI elevations occur in patients with other conditions, including sepsis, renal failure, acidosis, acute neurological disease, and persistent tachyarrhythmia.CBC W/PLT COUNT & AUTO [id number] 20:11:00 Test Item Value Reference Range Comments WHITE BLOOD CELL COUNT (BEAKER) (test ihws=954) 3.2 K/ L 3.5-10.5 RED BLOOD CELL COUNT (AKER) (test ovdi=262) 3.21 M/ L 4.63-6.08 HEMOGLOBIN (BEAKER) (test kxcq=972) 10.2 GM/DL 13.7-17.5 HEMATOCRIT (BEAKER) (test xwip=033) 30.1 % 40.1-51.0 MEAN CORPUSCULAR VOLUME (BEAKER) (test boaj=052) 93.8 fL 79.0-92.2 MEAN CORPUSCULAR HEMOGLOBIN (BEAKER) (test 31.8 pg 25.7-32.2 oohj=356) MEAN CORPUSCULAR HEMOGLOBIN CONC (BEAKER) (test 33.9 GM/DL 32.3-36.5 tfej=479) RED CELL DISTRIBUTION WIDTH (BEAKER) (test 17.0 % 11.6-14.4 qyfq=800) PLATELET COUNT (BEAKER) (test gtnh=539) 30 K/CU MM 150-450 MEAN PLATELET VOLUME (BEAKER) (test edxu=932) 9.6 fL 9.4-12.4 NUCLEATED RED BLOOD CELLS (BEAKER) (test 0 /100 WBC 0-0 uspk=342) (CELLAVISION MANUAL DIFF)2018-05-04 20:11:00 Test Item Value Reference Range Comments NEUTROPHILS - REL (CELLAVISION)(BEAKER) (test 27 % ggkt=4182) LYMPHOCYTES - REL (CELLAVISION)(BEAKER) (test 39 % cwrk=6152) MONOCYTES - REL (CELLAVISION)(BEAKER) (test 1 % qfgm=4856) BASOPHILS - REL (CELLAVISION)(BEAKER) (test 1 % cgrw=8315) BANDS - REL (CELLAVISION)(BEAKER) (test pzee=7906) 2 % 0-10 BLASTS - REL (CELLAVISION)(BEAKER) (test 29 % 0-0 dadz=3755) NEUTROPHILS - ABS (CELLAVISION)(BEAKER) (test 0.86 K/ul 1.78-5.38 hqjy=1624) LYMPHOCYTES - ABS (CELLAVISION)(BEAKER) (test 1.25 K/ul 1.32-3.57 otfx=9553) MONOCYTES - ABS (CELLAVISION)(BEAKER) (test 0.03 K/uL 0.30-0.82 bemp=5590) BASOPHILS - ABS (CELLAVISION)(BEAKER) (test 0.03 K/uL 0.01-0.08 srsq=2786) BANDS - ABS (CELLAVISION)(BEAKER) (test kbsq=7656) 0.06 K/uL 0.00-0.80 BLASTS - ABS (CELLAVISION)(BEAKER) (test 0.93 K/uL 0.00-0.00 wuhc=7949) TOTAL COUNTED (BEAKER) (test ytkr=7449) 100 PLT MORPHOLOGY (BEAKER) (test ktyd=365) Normal SMUDGE CELLS (BEAKER) (test igwi=5079) Present ANISOCYTOSIS (BEAKER) (test owww=843) 1+ few MICROCYTES (BEAKER) (test anol=052) 1+ few ARTIFACT (CELLAVISION)(BEAKER) (test jhma=3835) Present PLATELET CONCENTRATION (CELLAVISION)(BEAKER) (test Decreased lrdo=0259) Received comment: User comments: Slide comments:HEPATIC FUNCTION [id number] 20:10:00 Test Item Value Reference Range Comments TOTAL PROTEIN (BEAKER) (test tdrm=490) 7.2 gm/dL 6.0-8.3 ALBUMIN (BEAKER) (test tdxi=7416) 3.9 g/dL 3.5-5.0 BILIRUBIN TOTAL (BEAKER) (test pdwi=000) 1.3 mg/dL 0.2-1.2 BILIRUBIN DIRECT (BEAKER) (test vmjz=148) 0.5 mg/dL 0.1-0.5 ALKALINE PHOSPHATASE (BEAKER) (test ojmy=119) 38 U/L 40-150 AST (SGOT) (BEAKER) (test chiu=470) 17 U/L 5-34 ALT (SGPT) (BEAKER) (test livk=442) 15 U/L 6-55 BASIC METABOLIC [id number] 20:10:00 Test Item Value Reference Range Comments SODIUM (BEAKER) (test 138 meq/L 136-145 xkog=148) POTASSIUM (BEAKER) (test 3.8 meq/L 3.5-5.1 fuwg=543) CHLORIDE (BEAKER) (test 107 meq/L 98-107 uumn=938) CO2 (BEAKER) (test 22 meq/L 22-29 pshl=343) BLOOD UREA NITROGEN 14 mg/dL 7-21 (BEAKER) (test qahq=625) CREATININE (BEAKER) (test 0.99 mg/dL 0.57-1.25 dije=647) GLUCOSE RANDOM (BEAKER) 110 mg/dL 70-105 (test kyys=271) CALCIUM (BEAKER) (test 9.4 mg/dL 8.4-10.2 xzsj=660) EGFR (BEAKER) (test 77 mL/min/1.73 sq m ESTIMATED GFR IS NOT qsxh=5813) ACCURATE CREATININE CLEARANCE IN PREDICTING GLOMERULAR FILTRATION RATE. ESTIMATED GFR IS NOT APPLICABLE FOR DIALYSIS PATIENTS. PROTHROMBIN [id number] 19:42:00 Test Item Value Reference Range Comments PROTIME (BEAKER) (test wigb=725) 16.0 seconds 11.7-14.7 INR (BEAKER) (test xqxc=220) 1.3 <=5.9 RECOMMENDED COUMADIN/WARFARIN INR THERAPY RANGESSTANDARD DOSE: 2.0 - 3.0 Includes: PROPHYLAXIS forvenous thrombosis, systemic embolization; TREATMENT for venous thrombosis and/or pulmonary embolus.HIGH RISK: Target INR is 2.5-3.5 for patients with mechanical heart valves.
[2018-07-25 11:00] LABS: Absolute Lymphocytes (CBC) 0.1 K/uL (0.7-4.9); Eosinophils % 2.8 % (0-4.4); Hematocrit 27.9 % (39.6-49.0); Lymphocytes % 81.4 % (15.3-44.8); MPV 9.1 fL (7.6-11.3); Monocytes % 1.3 % (3.3-12.3); RBC Red Blood Cell Count 3.06 M/uL (4.33-5.43)
[2018-07-25 11:03] LABS: Protime INR 0.98
--- NOTE | 2018-07-25 11:08 | RAD REPORT ---
EXAM DESCRIPTION: RAD - Chest Single View - 07/25/2018 10:57 am CLINICAL HISTORY: thoracic back pain Chest pain. COMPARISON: Chest Single View dated 05/04/2018 FINDINGS: Portable technique limits examination quality. The lungs are grossly clear. The heart is normal in size. No displaced fractures.Right-sided venous c atheter its tip in the SVC. IMPRESSION: No acute intrathoracic process suspected.
[2018-07-25 11:18] LABS: Albumin 3.3 g/dL (3.4-5.0); Bilirubin Direct 0.3 mg/dL (0-0.2); Bilirubin Total 1.1 mg/dL (0.2-1.0); Magnesium 1.5 mg/dL (1.8-2.4); Protein, Total 7.1 g/dL (6.4-8.2); Troponin (Emerg Dept Use Only) 0.03 ng/mL (0.0-0.045)
[2018-07-25 11:41] LABS: Platelet Estimate DECR
[2018-07-25 11:42] LABS: Blood Morphology Comment NOTED (NOT SEEN); Teardrop Cell 1+
[2018-07-25] MEDS ORDERED: POTASSIUM 25 MEQ EFFERV TAB ONE (11:50)
[2018-07-25] MEDS ORDERED: MAGNESIUM SULFATE 1 gm IVPB 1 GM/100 ML BAG IV ONE (11:50)
--- NOTE | 2018-07-25 12:00 | RAD REPORT ---
EXAM DESCRIPTION: CT - Angio Aorta For Dissection - 07/25/2018 11:54 am CLINICAL HISTORY: Chest pain radiating to the back. thoracic back pain, lower abdominal pain COMPARISON: No comparisons TECHNIQUE: CT angiography of the aorta was performed with MIPs. All CT scans are performed using dose optimization technique as appropriate and may include automated exposure control or mA/KV adjustment according to patient size. FINDINGS: A left aortic arch is present with normal branching pattern of the great vessels.No acute aortic finding is seen such as aneurysm, penetrating ulcer or dissection. The celiac axis, SMA, ENE and renal arteries are widely patent. No evidence of pulmonary embolism. The lungs are clear. The liver demonstrates no focal mass or biliary dilatation.The gallbladder appears distended.The sple en, pancreas, adrenal glands and kidneys are within normal limits for arterial phase imaging. No bowel obstruction, free fluid or abscess.No pathologic enlarged lymphadenopathy identified. No fracture or worrisome bone lesion seen. IMPRESSION: No acute aortic finding is demonstrated. The gallbladder appears distended. Followup gallbladder ultrasound may be of value.
--- NOTE | 2018-07-25 13:58 | RAD REPORT ---
EXAM DESCRIPTION: US - Abdomen Exam Limited - 07/25/2018 1:36 pm CLINICAL HISTORY: Abdominal pain, back pain COMPARISON: None. FINDINGS: No gallstones, sludge or other abnormalities within the gallbladder lumen. There is no wal l thickening or pericholecystic fluid. No common duct stone or biliary tree dilatation identified. IMPRESSION: Normal gallbladder and biliary tree ultrasound.
--- NOTE | 2018-07-25 14:02 | ER ---
Nurse's Notes [facility] Name: Sheldon Jaramillo Age: 62 yrs Sex: Male : 1955 Arrival Date: 07/25/2018 Time: 10:29 Bed 19 Private MD: Diagnosis: Strain of muscle and tendon of back wall of thorax;Generalized abdominal pain;Diarrhea, unspecified Presentation: 07/25 10:30 Presenting complaint: EMS states: called out for upper back pain in between shoulder em blades that radiates to front of chest that started at 0600 today, reports nausea and vomiting, rates pain 8/10. Transition of care: patient was not received from another setting of care. Onset of symptoms. Risk Assessment: Do you want to hurt yourself or someone else? Patient reports no desire to harm self or others. Initial Sepsis Screen: Does the patient meet any 2 criteria? No. Patient's initial sepsis screen is negative. Does the patient have a suspected source of infection? No. Patient's initial sepsis screen is negative. Care prior to arrival: None. 10:30 Method Of Arrival: EMS: [facility] em 10:35 Acuity: LEXIS 3 hb Historical: - Allergies: 10:34 No Known Allergies; em - Home Meds: 10:34 Simvastatin Oral [Active]; Folic Acid Oral [Active]; Metoprolol Tartrate Oral [Active]; em - PMHx: 10:34 Hypertension; Myocardial infarction; Leukemia; Hyperlipidemia; em - PSHx: 10:34 Heart stents; em - Immunization history:: Adult Immunizations up to date. - Social history:: Smoking status: Patient/guardian denies using tobacco. - Ebola Screening: : Patient negative for fever greater than or equal to 101.5 degrees Fahrenheit, and additional compatible Ebola Virus Disease symptoms Patient denies exposure to infectious person Patient denies travel to an Ebola-affected area in the 21 days before illness onset No symptoms or risks identified at this time. Screenin:30 Abuse screen: Denies threats or abuse. Nutritional screening: No deficits noted. em Tuberculosis screening: No symptoms or risk factors identified. Fall Risk None identified. Assessment: 10:34 General: Appears in no apparent distress. comfortable, Behavior is calm, cooperative, em Denies fever. Pain: Complains of pain in thoracic area Pain currently is 8 out of 10 on a pain scale. Pain began 4 hours ago. Neuro: Level of Consciousness is awake, alert, obeys commands, Oriented to person, place, time, situation. Cardiovascular: Reports chest pain, Denies shortness of breath, Capillary refill < 3 seconds Patient's skin is warm and dry. Rhythm is sinus rhythm. Respiratory: Airway is patent Respiratory effort is even, unlabored, Respiratory pattern is regular, symmetrical, Breath sounds are clear bilaterally. GI: Abdomen is obese, Reports nausea, vomiting. Derm: Skin is intact, is healthy with good turgor, Skin is pink, warm \T\ dry. Musculoskeletal: Range of motion: intact in all extremities. 10:42 Reassessment: I agree with previous assessment. hb 11:34 Reassessment: Patient appears in no apparent distress at this time. Patient and/or em family updated on plan of care and expected duration. Pain level reassessed. Patient is alert, oriented x 3, equal unlabored respirations, skin warm/dry/pink. wheeled to CT via stretcher. 12:21 Reassessment: Patient appears in no apparent distress at this time. Patient and/or em family updated on plan of care and expected duration. Pain level reassessed. Patient is alert, oriented x 3, equal unlabored respirations, skin warm/dry/pink. T/S sent to lab, rates pain 2/10 Patient states feeling better. 13:13 Reassessment: Patient appears in no apparent distress at this time. Patient and/or em family updated on plan of care and expected duration. Pain level reassessed. Patient is alert, oriented x 3, equal unlabored respirations, skin warm/dry/pink. pt ambulated about 20 ft with assistance tolerated well, provider notified. 14:22 Reassessment: Patient appears in no apparent distress at this time. Patient and/or em family updated on plan of care and expected duration. Pain level reassessed. Patient is alert, oriented x 3, equal unlabored respirations, skin warm/dry/pink. Patient states feeling better. Vital Signs: 10:34 BP 161 / 79; Pulse 79; Resp 14; Pulse Ox 100% on R/A; Weight 147.42 kg; Height 5 ft. 5 em in. (165.10 cm); Pain 8/10; 10:58 Temp 98.1(O); em 11:35 BP 143 / 81; Pulse 77; Resp 18; Pulse Ox 99% on R/A; em 12:29 BP 143 / 74; Pulse 77; Resp 16; Pulse Ox 100% on R/A; Pain 2/10; em 13:30 BP 138 / 74; Pulse 74; Resp 19; Pulse Ox 100% on R/A; em 14:33 BP 137 / 68; Pulse 79; Resp 18; Pulse Ox 98% on R/A; em 10:34 Body Mass Index 54.08 (147.42 kg, 165.10 cm) em ED Course: 10:29 Patient arrived in ED. em 10:31 Ronald Devi PA is PHCP. jmm 10:31 Florentino Arteaga MD is Attending Physician. jmm 10:34 Arm band placed on. em 10:34 Patient has correct armband on for positive identification. Placed in gown. Bed in low em position. Call light in reach. Side rails up X2. monitoring coordinator on. Pulse ox on. NIBP on. 10:35 Triage completed. hb 10:43 EKG done, by ED staff, reviewed by Ronald BENTLEY. dh3 10:50 Initial lab(s) drawn, by id, sent to lab. Inserted saline lock: 20 gauge in left em antecubital area, using aseptic technique. Blood collected. 10:51 Radiology exam delayed due to lab results not completed at this time. (BUN/Creatinine). kw1 10:52 Conrad Ventura LVN is Primary Nurse. em 10:56 XRAY Chest (1 view) In Process Unspecified. EDMS 11:54 CT completed. Patient tolerated procedure well. Patient moved back from CT. kw1 11:54 CT Aorta for Dissection In Process Unspecified. EDMS 13:37 US Abdomen Limited In Process Unspecified. EDMS 14:32 No provider procedures requiring assistance completed. IV discontinued, intact, em bleeding controlled, No redness/swelling at site. Pressure dressing applied. Administered Medications: 12:15 Drug: K-Lyte Effervescent Tablet 50 mEq Route: PO; em 13:15 Follow up: Response: No adverse reaction em 12:15 Drug: Magnesium Sulfate 1 grams Route: IVPB; Infused Over: 1 hrs; Site: left em antecubital; 13:15 Follow up: Response: No adverse reaction; IV Status: Completed infusion; IV Intake: em 100ml Intake: 13:15 IV: 100ml; Total: 100ml. em Outcome: 14:01 Discharge ordered by . trudy 14:32 Discharged to home ambulatory, with family. em 14:32 Condition: good 14:32 Discharge instructions given to patient, family, Instructed on discharge instructions, follow up and referral plans. medication usage, Demonstrated understanding of instructions, follow-up care, medications, Prescriptions given X 1. 14:34 Patient left the ED. em Signatures: Dispatcher [employer] EDRonald Prasad PA PA jmm Munoz, Edgar, DIGESTER CAPPER DIGESTER CAPPER em Josey Pierce, RN RN Yessy Ornelas [facility] Caridad Jarquin kw1
--- NOTE | 2018-07-25 14:02 | EDPHYS ---
Physician Documentation [facility] Name: Sheldon Jaramillo Age: 62 yrs Sex: Male : 1955 Arrival Date: 07/25/2018 Time: 10:29 Bed 19 Private MD: ED Physician Florentino Arteaga HPI: 07/25 10:42 This 62 yrs old Male presents to ER via EMS with complaints of Back Pain, jmm Chest Pain. 10:42 The patient presents with pain that is acute, with no known mechanism of injury. Onset: jmm The symptoms/episode began/occurred at 06:00. The pain does not radiate. This is a 62 year old male with history of OR, leukemia, htn, hlp that presents to the ED with complaints of thoracic back pain beginning this morning at 0600. Patient denies chest pain, denies shortness of breath. [place] complain of left sided abdominal pain with diarrhea and one episode of vomiting. Denies fever. Patient recently finished a round of chemotherapy. . Historical: - Allergies: 10:34 No Known Allergies; em - Home Meds: 10:34 Simvastatin Oral [Active]; Folic Acid Oral [Active]; Metoprolol Tartrate Oral [Active]; em - PMHx: 10:34 Hypertension; Myocardial infarction; Leukemia; Hyperlipidemia; em - PSHx: 10:34 Heart stents; em - Immunization history:: Adult Immunizations up to date. - Social history:: Smoking status: Patient/guardian denies using tobacco. - Ebola Screening: : Patient negative for fever greater than or equal to 101.5 degrees Fahrenheit, and additional compatible Ebola Virus Disease symptoms Patient denies exposure to infectious person Patient denies travel to an Ebola-affected area in the 21 days before illness onset No symptoms or risks identified at this time. ROS: 10:42 Constitutional: Negative for fever, chills, and weight loss, Neck: Negative for injury, jmm pain, and swelling, Cardiovascular: Negative for chest pain, palpitations, and edema, Respiratory: Negative for shortness of breath, cough, wheezing, and pleuritic chest pain. 10:42 Abdomen/GI: Positive for abdominal pain. 10:42 Back: Positive for pain at rest. 10:42 All other systems are negative. Exam: 10:42 Constitutional: This is a well developed, well nourished patient who is awake, alert, jmm and in no acute distress. Head/Face: atraumatic. Eyes: EOMI, no conjunctival erythema appreciated ENT: Moist Mucus Membranes Neck: Trachea midline, Supple Chest/axilla: Normal chest wall appearance and motion. Cardiovascular: Regular rate and rhythm. No edema appreciated Respiratory: Normal respirations, no respiratory distress appreciated 10:42 Constitutional: The patient appears in no acute distress, alert, awake. 10:42 Cardiovascular: Rate: normal, Rhythm: regular, Pulses: no pulse deficits are appreciated. 10:42 Abdomen/GI: Inspection: abdomen appears normal, Bowel sounds: normal, Palpation: abdomen is soft and non-tender, in all quadrants. 10:42 Back: pain, is absent, ROM is normal. 10:42 Musculoskeletal/extremity: ROM: intact in all extremities. 10:42 Neuro: Orientation: is normal, Mentation: is normal, Memory: is normal. 10:42 Psych: Behavior/mood is pleasant, cooperative. Vital Signs: 10:34 BP 161 / 79; Pulse 79; Resp 14; Pulse Ox 100% on R/A; Weight 147.42 kg; Height 5 ft. 5 em in. (165.10 cm); Pain 8/10; 10:58 Temp 98.1(O); em 11:35 BP 143 / 81; Pulse 77; Resp 18; Pulse Ox 99% on R/A; em 12:29 BP 143 / 74; Pulse 77; Resp 16; Pulse Ox 100% on R/A; Pain 2/10; em 13:30 BP 138 / 74; Pulse 74; Resp 19; Pulse Ox 100% on R/A; em 14:33 BP 137 / 68; Pulse 79; Resp 18; Pulse Ox 98% on R/A; em 10:34 Body Mass Index 54.08 (147.42 kg, 165.10 cm) em MDM: 10:32 Patient medically screened. damari 13:59 Data reviewed: vital signs, nurses notes. Counseling: I had a detailed discussion with trudy the patient and/or guardian regarding: the historical points, exam findings, and any diagnostic results supporting the discharge/admit diagnosis, lab results, radiology results, the need for outpatient follow up, to return to the emergency department if symptoms worsen or persist or if there are any questions or concerns that arise at home. ED course: I discussed the cbc results with Dr. Webster whom is the host and hostess [employer] commerce consultant. Advised to have the patient follow up in clinic on Friday. Patient is given return precautions for fever or any signs of bleeding. CT aorta negative. Patient is given strict return precautions. Patient denies chest pain or shortness of breath. . 07/25 10:32 Order name: Basic Metabolic Panel; Complete Time: 11:26 [facility] 07/25 10:32 Order name: CBC with Diff; Complete Time: 11:48 [facility] 07/25 10:32 Order name: LFT's; Complete Time: 11: [facility] 07/25 10:32 Order name: Magnesium; Complete Time: 11: [facility] 07/25 10:32 Order name: NT PRO-BNP; Complete Time: 11: [facility] 07/25 10:32 Order name: PT-INR; Complete Time: 11: [facility] 07/25 10:32 Order name: Troponin (emerg Dept Use Only); Complete Time: 11: [facility] 07/25 10:32 Order name: XRAY Chest (1 view); Complete Time: 11: [facility] 07/25 10:32 Order name: CT Aorta for Dissection; Complete Time: 12:01 [facility] 07/25 11:23 Order name: Manual Differential; Complete Time: 11:48 [facility] 07/25 11:36 Order name: Type And Screen; Complete Time: 13:49 [facility] 07/25 12:02 Order name: US Abdomen Limited; Complete Time: 13:58 [facility] 07/25 10:32 Order name: EKG; Complete Time: 10:33 [facility] 07/25 10:32 Order name: Cardiac monitoring; Complete Time: 10:44 [facility] 07/25 10:32 Order name: EKG - Nurse/Tech; Complete Time: 10:44 [facility] 07/25 10:32 Order name: IV Saline Lock; Complete Time: 10:58 [facility] 07/25 10:32 Order name: Labs collected and sent; Complete Time: 10:58 [facility] 07/25 10:32 Order name: O2 Per Protocol; Complete Time: 10:44 [facility] 07/25 10:32 Order name: O2 Sat Monitoring; Complete Time: 10:44 jm Administered Medications: 12:15 Drug: K-Lyte Effervescent Tablet 50 mEq Route: PO; em 13:15 Follow up: Response: No adverse reaction em 12:15 Drug: Magnesium Sulfate 1 grams Route: IVPB; Infused Over: 1 hrs; Site: left em antecubital; 13:15 Follow up: Response: No adverse reaction; IV Status: Completed infusion; IV Intake: em 100ml Disposition: 07/25/18 14:01 Discharged to Home. Impression: Strain of muscle and tendon of back wall of thorax, Generalized abdominal pain, Diarrhea, unspecified. - Condition is Stable. - Discharge Instructions: Abdominal Pain, Adult, Food Choices to Help Relieve Diarrhea, Adult, Thoracic Strain. - Prescriptions for orphenadrine citrate 100 mg Oral Tablet Sustained Release - take 1 tablet by ORAL route 2 times per day As needed; 20 tablet. - Medication Reconciliation Form, Thank You Letter, Antibiotic Education, Prescription Opioid Use form. - Follow up: Private Physician; When: 1 - 2 days; Reason: Recheck today's complaints, Continuance of care, Re-evaluation by your physician. Addendum: 07/27/2018 07:40 Co-signature as Attending Physician, Florentino Arteaga MD I agree with the assessment and c bird plan of care. Signatures: Dispatcher [employer] Florentino Mcclendon MD MD cha Mickail, Joel, PA PA m Conrad Ventura, STRE[employer]USHER DRIVER [employer]IVER em Corrections: (The following items were deleted from the chart) 07/25 14:34 14:01 07/25/2018 14:01 Discharged to Home. Impression: Strain of muscle and tendon of em back wall of thorax; Generalized abdominal pain; Diarrhea, unspecified. Condition is Stable. Forms are Medication Reconciliation Form, Thank You Letter, Antibiotic Education, Prescription Opioid Use. Follow up: Private Physician; When: 1 - 2 days; Reason: Recheck today's complaints, Continuance of care, Re-evaluation by your physician. [email or web address]
--- NOTE | 2018-07-25 18:31 | EKG ---
Test Date: 2018-07-25 Test Time: 10:37:32 Paleobotanist: BRITTNEY MEASUREMENT RESULTS: Intervals: Rate: 78 IL: 130 QRSD: 122 QT: 434 QTc: 494 Indian: P: 26 IL: 130 QRS: -38 T: -13 INTERPRETIVE STATEMENTS: Normal sinus rhythm Left axis deviation Right bundle branch block Abnormal ECG Compared to ECG 05/04/2018 11:30:20 Left-axis deviation now present Ventricular premature complex(es) no longer present Electronically Signed On 07-25-18 18:31:11 SUSPENDER CUTTER by Murali Persaud
== END 2018-07-25 14:34 | disposition home or self-care (01) ==
LOC: ER 10:21
DX: S29.012A Strain of muscle and tendon of back wall of thorax, initial encounter (principal); R07.9 Chest pain, unspecified; R10.9 Unspecified abdominal pain; R19.7 Diarrhea, unspecified; I10 Essential (primary) hypertension; E78.5 Hyperlipidemia, unspecified; I25.2 Old myocardial infarction; C95.90 Leukemia, unspecified not having achieved remission
CPT/HCPCS: 36415; 71045; 71275; 74175; 76705; 80048; 80076; 83735; 83880; 84484; 85025; 85610; 86850; 86900; 86901; 93005; 96365; 99285; J3475; Q9967

== ENCOUNTER 2018-07-27 19:39 | Inpatient (IN) | payer BC ==
--- OUTSIDE RECORDS SUMMARY | 2018-07-27 19:51 | XMS REPORT ---
:1955 [facility] Address [address] [place] [address] Care Team Providers Name Role Phone JANEE [...] Comments WHITE BLOOD CELL COUNT (BEAKER) (test ndjc=923) 2.2 K/ L 3.5-10.5 RED BLOOD CELL COUNT (BEAKER) (test ddle=680) 2.25 M/ L 4.63-6.08 HEMOGLOBIN (BEAKER) (test tzbo=355) 7.4 GM/DL 13.7-17.5 HEMATOCRIT (BEAKER) (test ggcp=752) 22.1 % 40.1-51.0 MEAN CORPUSCULAR VOLUME (BEAKER) (test pzzj=681) 98.2 fL 79.0-92.2 MEAN CORPUSCULAR HEMOGLOBIN (BEAKER) (test tgqd=047) 32.9 pg 25.7-32.2 MEAN CORPUSCULAR HEMOGLOBIN CONC (BEAKER) (test mvxl=103) 33.5 GM/DL 32.3- 36.5 RED CELL DISTRIBUTION WIDTH (BEAKER) (test xjhj=909) 19.9 % 11.6-14.4 PLATELET COUNT (BEAKER) (test ecgy=105) 58 K/CU MM 150-450 MEAN PLATELET VOLUME (BEAKER) (test zelr=078) 9.7 fL 9.4-12.4 NUCLEATED RED BLOOD CELLS (BEAKER) (test waoq=992) 0 /100 WBC 0-0 (CELLAVISION MANUAL DIFF)2018-07-20 10:08:00 Test Item Value Reference Range Comments NEUTROPHILS - REL (CELLAVISION)(BEAKER) (test 100 % rowi=5098) NEUTROPHILS - ABS (CELLAVISION)(BEAKER) (test 2.20 K/ul 1.78-5.38 avuu=8612) TOTAL COUNTED (BEAKER) (test vmzq=6293) 100 WBC MORPHOLOGY (BEAKER) (test vayf=387) Normal PLT MORPHOLOGY (BEAKER) (test pcip=387) Normal POLYCHROMATOPHILLIC RBCS(BEAKER) (test yixi=045) 1+ few HYPOCHROMIA (BEAKER) (test hwzz=228) 1+ few TEAR DROP CELLS (BEAKER) (test jkzb=759) 1+ few ARTIFACT (CELLAVISION)(BEAKER) (test cusj=0840) Present PLATELET CONCENTRATION (CELLAVISION)(BEAKER) (test Decreased kqlr=0934) Received comment: User comments: Slide comments:CBC W/PLT COUNT & AUTO [id number] 06:03:00 Test Item Value Reference Range Comments WHITE BLOOD CELL COUNT (BEAKER) (test zcpg=668) 2.8 K/ L 3.5-10.5 RED BLOOD CELL COUNT (BEAKER) (test byyi=832) 2.18 M/ L 4.63-6.08 HEMOGLOBIN (BEAKER) (test uggg=126) 7.2 GM/DL 13.7-17.5 HEMATOCRIT (BEAKER) (test erya=183) 21.7 % 40.1-51.0 MEAN CORPUSCULAR VOLUME (BEAKER) (test tzes=446) 99.5 fL 79.0-92.2 MEAN CORPUSCULAR HEMOGLOBIN (BEAKER) (test 33.0 pg 25.7-32.2 mzkl=004) MEAN CORPUSCULAR HEMOGLOBIN CONC (BEAKER) (test 33.2 GM/DL 32.3-36.5 dxij=280) RED CELL DISTRIBUTION WIDTH (BEAKER) (test 20.6 % 11.6-14.4 drcl=937) PLATELET COUNT (BEAKER) (test cnra=180) 63 K/CU MM 150-450 MEAN PLATELET VOLUME (BEAKER) (test lkhe=491) 9.9 fL 9.4-12.4 NUCLEATED RED BLOOD CELLS (BEAKER) (test 0 /100 WBC 0-0 glta=846) NEUTROPHILS RELATIVE PERCENT (BEAKER) (test 95 % bjku=913) LYMPHOCYTES RELATIVE PERCENT (BEAKER) (test 2 % rfux=428) MONOCYTES RELATIVE PERCENT (BEAKER) (test 2 % zolp=040) EOSINOPHILS RELATIVE PERCENT (BEAKER) (test 0 % owtj=531) BASOPHILS RELATIVE PERCENT (BEAKER) (test 0 % uctz=251) NEUTROPHILS ABSOLUTE COUNT (BEAKER) (test 2.64 K/ L 1.78-5.38 fyoh=231) LYMPHOCYTES ABSOLUTE COUNT (BEAKER) (test 0.06 K/ L 1.32-3.57 qxmm=593) MONOCYTES ABSOLUTE COUNT (BEAKER) (test gzlp=617) 0.05 K/ L 0.30-0.82 EOSINOPHILS ABSOLUTE COUNT (BEAKER) (test 0.00 K/ L 0.04-0.54 qggd=329) BASOPHILS ABSOLUTE COUNT (BEAKER) (test ejmx=117) 0.00 K/ L 0.01-0.08 IMMATURE GRANULOCYTES-RELATIVE PERCENT (BEAKER) 1 % 0-1 (test zysm=1321) [id number] 07:27:00 Test Item Value Reference Range Comments PHOSPHORUS (BEAKER) (test odqt=066) 2.6 mg/dL 2.3-4.7 [id number] 07:27:00 Test Item Value Reference Range Comments MAGNESIUM (BEAKER) (test xrgl=254) 1.6 mg/dL 1.6-2.6 BASIC METABOLIC [id number] 07:27:00 Test Item Value Reference Range Comments SODIUM (BEAKER) (test 138 meq/L 136-145 rudf=340) POTASSIUM (BEAKER) (test 3.9 meq/L 3.5-5.1 bria=341) CHLORIDE (BEAKER) (test 109 meq/L 98-107 cvig=519) CO2 (BEAKER) (test 22 meq/L 22-29 buru=917) BLOOD UREA NITROGEN 14 mg/dL 7-21 (BEAKER) (test upam=169) CREATININE (BEAKER) (test 0.81 mg/dL 0.57-1.25 yntv=763) GLUCOSE RANDOM (BEAKER) 141 mg/dL 70-105 (test waua=048) CALCIUM (BEAKER) (test 8.6 mg/dL 8.4-10.2 lccp=001) EGFR (BEAKER) (test 97 mL/min/1.73 sq m ESTIMATED GFR IS NOT mxpe=3238) ACCURATE CREATININE CLEARANCE IN PREDICTING GLOMERULAR FILTRATION RATE. ESTIMATED GFR IS NOT APPLICABLE FOR DIALYSIS PATIENTS. HEPATIC FUNCTION [id number] 07:27:00 Test Item Value Reference Range Comments TOTAL PROTEIN (BEAKER) (test kpwc=042) 5.7 gm/dL 6.0-8.3 ALBUMIN (BEAKER) (test xjhy=8106) 3.0 g/dL 3.5-5.0 BILIRUBIN TOTAL (BEAKER) (test yigm=775) 0.7 mg/dL 0.2-1.2 BILIRUBIN DIRECT (BEAKER) (test yfcn=162) 0.4 mg/dL 0.1-0.5 ALKALINE PHOSPHATASE (BEAKER) (test wnzo=939) 42 U/L 40-150 AST (SGOT) (BEAKER) (test bhvy=955) 13 U/L 5-34 ALT (SGPT) (BEAKER) (test jrlw=434) 10 U/L 6-55 CALCIUM, [id number] 07:02:00 Test Item Value Reference Range Comments CALCIUM IONIZED (BEAKER) (test lfmp=775) 0.96 mmol/L 1.12-1.27 PH, BLOOD (BEAKER) (test gyrv=8229) 7.47 CBC W/PLT COUNT & AUTO [id number] 06:48:00 Test Item Value Reference Range Comments WHITE BLOOD CELL COUNT (BEAKER) (test vtxl=632) 4.3 K/ L 3.5-10.5 RED BLOOD CELL COUNT (BEAKER) (test kfny=108) 2.37 M/ L 4.63-6.08 HEMOGLOBIN (BEAKER) (test bplr=709) 7.7 GM/DL 13.7-17.5 HEMATOCRIT (BEAKER) (test mbtk=425) 23.7 % 40.1-51.0 MEAN CORPUSCULAR VOLUME (BEAKER) (test fbeo=174) 100.0 fL 79.0-92.2 MEAN CORPUSCULAR HEMOGLOBIN (BEAKER) (test 32.5 pg 25.7-32.2 lxwz=941) MEAN CORPUSCULAR HEMOGLOBIN CONC (BEAKER) (test 32.5 GM/DL 32.3-36.5 phyd=779) RED CELL DISTRIBUTION WIDTH (BEAKER) (test 21.4 % 11.6-14.4 yjsp=355) PLATELET COUNT (BEAKER) (test zhsk=928) 72 K/CU MM 150-450 MEAN PLATELET VOLUME (BEAKER) (test smdy=222) 9.8 fL 9.4-12.4 NUCLEATED RED BLOOD CELLS (BEAKER) (test 0 /100 WBC 0-0 iorq=053) NEUTROPHILS RELATIVE PERCENT (BEAKER) (test 94 % bzml=756) LYMPHOCYTES RELATIVE PERCENT (BEAKER) (test 3 % bawm=430) MONOCYTES RELATIVE PERCENT (BEAKER) (test 2 % hrxa=307) EOSINOPHILS RELATIVE PERCENT (BEAKER) (test 0 % usci=139) BASOPHILS RELATIVE PERCENT (BEAKER) (test 0 % iswe=088) NEUTROPHILS ABSOLUTE COUNT (BEAKER) (test 4.03 K/ L 1.78-5.38 ijjz=210) LYMPHOCYTES ABSOLUTE COUNT (BEAKER) (test 0.13 K/ L 1.32-3.57 bxgc=597) MONOCYTES ABSOLUTE COUNT (BEAKER) (test eivh=022) 0.10 K/ L 0.30-0.82 EOSINOPHILS ABSOLUTE COUNT (BEAKER) (test 0.00 K/ L 0.04-0.54 uayv=091) BASOPHILS ABSOLUTE COUNT (BEAKER) (test plfy=263) 0.00 K/ L 0.01-0.08 IMMATURE GRANULOCYTES-RELATIVE PERCENT (BEAKER) 1 % 0-1 (test nxgn=3434) [id number] 07:10:00 Test Item Value Reference Range Comments PHOSPHORUS (BEAKER) (test oxeg=885) 2.2 mg/dL 2.3-4.7 [id number] 07:10:00 Test Item Value Reference Range Comments MAGNESIUM (BEAKER) (test bbez=739) 1.9 mg/dL 1.6-2.6 BASIC METABOLIC [id number] 07:10:00 Test Item Value Reference Range Comments SODIUM (BEAKER) (test 138 meq/L 136-145 qfom=158) POTASSIUM (BEAKER) (test 3.6 meq/L 3.5-5.1 yevd=806) CHLORIDE (BEAKER) (test 107 meq/L 98-107 engg=230) CO2 (BEAKER) (test 25 meq/L 22-29 hjps=858) BLOOD UREA NITROGEN 8 mg/dL 7-21 (BEAKER) (test dvnq=125) CREATININE (BEAKER) (test 0.86 mg/dL 0.57-1.25 ifks=302) GLUCOSE RANDOM (BEAKER) 156 mg/dL 70-105 (test iohy=457) CALCIUM (BEAKER) (test 8.6 mg/dL 8.4-10.2 wrdt=030) EGFR (BEAKER) (test 90 mL/min/1.73 sq m ESTIMATED GFR IS NOT mtyx=1300) ACCURATE CREATININE CLEARANCE IN PREDICTING GLOMERULAR FILTRATION RATE. ESTIMATED GFR IS NOT APPLICABLE FOR DIALYSIS PATIENTS. HEPATIC FUNCTION [id number] 07:10:00 Test Item Value Reference Range Comments TOTAL PROTEIN (BEAKER) (test fkzk=823) 6.1 gm/dL 6.0-8.3 ALBUMIN (BEAKER) (test ekgd=7667) 3.1 g/dL 3.5-5.0 BILIRUBIN TOTAL (BEAKER) (test ducv=342) 1.3 mg/dL 0.2-1.2 BILIRUBIN DIRECT (BEAKER) (test yhqn=495) 0.5 mg/dL 0.1-0.5 ALKALINE PHOSPHATASE (BEAKER) (test qwju=621) 48 U/L 40-150 AST (SGOT) (BEAKER) (test bjcl=827) 15 U/L 5-34 ALT (SGPT) (BEAKER) (test sykh=946) 10 U/L 6-55 CALCIUM, [id number] 06:50:00 Test Item Value Reference Range Comments CALCIUM IONIZED (BEAKER) (test wkak=376) 1.07 mmol/L 1.12-1.27 PH, BLOOD (BEAKER) (test rina=6011) 7.37 CBC W/PLT COUNT & AUTO [id number] 06:18:00 Test Item Value Reference Range Comments WHITE BLOOD CELL COUNT (BEAKER) (test vtxb=137) 4.5 K/ L 3.5-10.5 RED BLOOD CELL COUNT (BEAKER) (test oevm=376) 2.58 M/ L 4.63-6.08 HEMOGLOBIN (BEAKER) (test kusd=309) 8.4 GM/DL 13.7-17.5 HEMATOCRIT (BEAKER) (test ibws=072) 25.4 % 40.1-51.0 MEAN CORPUSCULAR VOLUME (BEAKER) (test osbk=025) 98.4 fL 79.0-92.2 MEAN CORPUSCULAR HEMOGLOBIN (BEAKER) (test 32.6 pg 25.7-32.2 azyf=372) MEAN CORPUSCULAR HEMOGLOBIN CONC (BEAKER) (test 33.1 GM/DL 32.3-36.5 viok=957) RED CELL DISTRIBUTION WIDTH (BEAKER) (test 21.7 % 11.6-14.4 xhtw=100) PLATELET COUNT (BEAKER) (test btml=536) 73 K/CU MM 150-450 MEAN PLATELET VOLUME (BEAKER) (test alll=696) 10.1 fL 9.4-12.4 NUCLEATED RED BLOOD CELLS (BEAKER) (test 0 /100 WBC 0-0 csza=200) NEUTROPHILS RELATIVE PERCENT (BEAKER) (test 88 % ueiv=534) LYMPHOCYTES RELATIVE PERCENT (BEAKER) (test 5 % pome=941) MONOCYTES RELATIVE PERCENT (BEAKER) (test 3 % lyqm=646) EOSINOPHILS RELATIVE PERCENT (BEAKER) (test 0 % lbgi=946) BASOPHILS RELATIVE PERCENT (BEAKER) (test 0 % juqt=366) NEUTROPHILS ABSOLUTE COUNT (BEAKER) (test 3.99 K/ L 1.78-5.38 jcag=873) LYMPHOCYTES ABSOLUTE COUNT (BEAKER) (test 0.21 K/ L 1.32-3.57 pcuq=251) MONOCYTES ABSOLUTE COUNT (BEAKER) (test bips=883) 0.12 K/ L 0.30-0.82 EOSINOPHILS ABSOLUTE COUNT (BEAKER) (test 0.01 K/ L 0.04-0.54 uzis=867) BASOPHILS ABSOLUTE COUNT (BEAKER) (test pwwd=776) 0.01 K/ L 0.01-0.08 IMMATURE GRANULOCYTES-RELATIVE PERCENT (BEAKER) 4 % 0-1 (test elkf=3937) [id number] 22:57:00 Test Item Value Reference Range Comments POTASSIUM (BEAKER) (test sern=663) 3.2 meq/L 3.5-5.1 [id number] 22:57:00 Test Item Value Reference Range Comments MAGNESIUM (BEAKER) (test rycj=720) 1.4 mg/dL 1.6-2.6 CALCIUM, [id number] 07:37:00 Test Item Value Reference Range Comments CALCIUM IONIZED (BEAKER) (test evql=849) 0.94 mmol/L 1.12-1.27 PH, BLOOD (BEAKER) (test bsls=3851) 7.47 [id number] 06:51:00 Test Item Value Reference Range Comments PHOSPHORUS (BEAKER) (test ymze=256) 2.8 mg/dL 2.3-4.7 [id number] 06:51:00 Test Item Value Reference Range Comments MAGNESIUM (BEAKER) (test pbql=945) 1.1 mg/dL 1.6-2.6 BASIC METABOLIC [id number] 06:51:00 Test Item Value Reference Range Comments SODIUM (BEAKER) (test 140 meq/L 136-145 tlhi=782) POTASSIUM (BEAKER) (test 2.9 meq/L 3.5-5.1 gwzr=752) CHLORIDE (BEAKER) (test 108 meq/L 98-107 wvem=821) CO2 (BEAKER) (test 25 meq/L 22-29 ldca=391) BLOOD UREA NITROGEN 10 mg/dL 7-21 (BEAKER) (test zrrp=802) CREATININE (BEAKER) (test 0.85 mg/dL 0.57-1.25 vxgj=004) GLUCOSE RANDOM (BEAKER) 99 mg/dL 70-105 (test xegu=370) CALCIUM (BEAKER) (test 8.4 mg/dL 8.4-10.2 qqqr=662) EGFR (BEAKER) (test 91 mL/min/1.73 sq m ESTIMATED GFR IS NOT lekk=2263) ACCURATE CREATININE CLEARANCE IN PREDICTING GLOMERULAR FILTRATION RATE. ESTIMATED GFR IS NOT APPLICABLE FOR DIALYSIS PATIENTS. HEPATIC FUNCTION [id number] 06:51:00 Test Item Value Reference Range Comments TOTAL PROTEIN (BEAKER) (test shnt=205) 5.6 gm/dL 6.0-8.3 ALBUMIN (BEAKER) (test wjts=5010) 2.9 g/dL 3.5-5.0 BILIRUBIN TOTAL (BEAKER) (test mvyx=034) 0.7 mg/dL 0.2-1.2 BILIRUBIN DIRECT (BEAKER) (test ntlu=291) 0.3 mg/dL 0.1-0.5 ALKALINE PHOSPHATASE (BEAKER) (test gugm=547) 43 U/L 40-150 AST (SGOT) (BEAKER) (test quvs=320) 13 U/L 5-34 ALT (SGPT) (BEAKER) (test deym=168) 9 U/L 6-55 CBC W/PLT COUNT & AUTO [id number] 06:09:00 Test Item Value Reference Range Comments WHITE BLOOD CELL COUNT (BEAKER) (test yrlh=520) 4.1 K/ L 3.5-10.5 RED BLOOD CELL COUNT (BEAKER) (test suzq=908) 2.11 M/ L 4.63-6.08 HEMOGLOBIN (BEAKER) (test yuec=726) 6.9 GM/DL 13.7-17.5 HEMATOCRIT (BEAKER) (test dlie=873) 21.4 % 40.1-51.0 MEAN CORPUSCULAR VOLUME (BEAKER) (test aanz=702) 101.4 fL 79.0-92.2 MEAN CORPUSCULAR HEMOGLOBIN (BEAKER) (test 32.7 pg 25.7-32.2 ksgy=740) MEAN CORPUSCULAR HEMOGLOBIN CONC (BEAKER) (test 32.2 GM/DL 32.3-36.5 tcbz=011) RED CELL DISTRIBUTION WIDTH (BEAKER) (test 22.6 % 11.6-14.4 obvm=835) PLATELET COUNT (BEAKER) (test ihhr=790) 79 K/CU MM 150-450 MEAN PLATELET VOLUME (BEAKER) (test siuw=689) 10.0 fL 9.4-12.4 NUCLEATED RED BLOOD CELLS (BEAKER) (test 1 /100 WBC 0-0 qucz=226) NEUTROPHILS RELATIVE PERCENT (BEAKER) (test 66 % agbc=835) LYMPHOCYTES RELATIVE PERCENT (BEAKER) (test 17 % zdvj=601) MONOCYTES RELATIVE PERCENT (BEAKER) (test 16 % qbin=425) EOSINOPHILS RELATIVE PERCENT (BEAKER) (test 0 % pzfy=774) BASOPHILS RELATIVE PERCENT (BEAKER) (test 1 % wbay=406) NEUTROPHILS ABSOLUTE COUNT (BEAKER) (test 2.69 K/ L 1.78-5.38 pehn=019) LYMPHOCYTES ABSOLUTE COUNT (BEAKER) (test 0.68 K/ L 1.32-3.57 imxg=228) MONOCYTES ABSOLUTE COUNT (BEAKER) (test yieb=088) 0.67 K/ L 0.30-0.82 EOSINOPHILS ABSOLUTE COUNT (BEAKER) (test 0.01 K/ L 0.04-0.54 vqfw=632) BASOPHILS ABSOLUTE COUNT (BEAKER) (test juav=806) 0.02 K/ L 0.01-0.08 IMMATURE GRANULOCYTES-RELATIVE PERCENT (BEAKER) 1 % 0-1 (test eovt=4463) COMPREHENSIVE METABOLIC [id number] 18:09:00 Test Item Value Reference Range Comments TOTAL PROTEIN (BEAKER) 6.4 gm/dL 6.0-8.3 (test suih=820) ALBUMIN (BEAKER) (test 3.3 g/dL 3.5-5.0 mhhl=6856) ALKALINE PHOSPHATASE 55 U/L 40-150 (BEAKER) (test czze=619) BILIRUBIN TOTAL (BEAKER) 0.7 mg/dL 0.2-1.2 (test kplh=715) SODIUM (BEAKER) (test 143 meq/L 136-145 gkno=496) POTASSIUM (BEAKER) (test 3.1 meq/L 3.5-5.1 sbwd=162) CHLORIDE (BEAKER) (test 107 meq/L 98-107 ssqs=083) CO2 (BEAKER) (test 27 meq/L 22-29 soww=870) BLOOD UREA NITROGEN 13 mg/dL 7-21 (BEAKER) (test uzck=628) CREATININE (BEAKER) (test 0.88 mg/dL 0.57-1.25 ridj=067) GLUCOSE RANDOM (BEAKER) 121 mg/dL 70-105 (test zrbr=632) CALCIUM (BEAKER) (test 8.9 mg/dL 8.4-10.2 atkw=216) AST (SGOT) (BEAKER) (test 16 U/L 5-34 onao=564) ALT (SGPT) (BEAKER) (test 12 U/L 6-55 rhgo=340) EGFR (BEAKER) (test 88 mL/min/1.73 sq m ESTIMATED GFR IS NOT gpzq=9818) ACCURATE CREATININE CLEARANCE IN PREDICTING GLOMERULAR FILTRATION RATE. ESTIMATED GFR IS NOT APPLICABLE FOR DIALYSIS PATIENTS. URIC [id number] 17:38:00 Test Item Value Reference Range Comments URIC ACID (BEAKER) (test zdcx=239) 5.3 mg/dL 2.6-7.2 [id number] 17:38:00 Test Item Value Reference Range Comments MAGNESIUM (BEAKER) (test yvcr=620) 1.3 mg/dL 1.6-2.6 CBC W/PLT COUNT & AUTO [id number] 17:25:00 Test Item Value Reference Range Comments WHITE BLOOD CELL COUNT (BEAKER) (test vakj=016) 4.1 K/ L 3.5-10.5 RED BLOOD CELL COUNT (BEAKER) (test avyh=498) 2.25 M/ L 4.63-6.08 HEMOGLOBIN (BEAKER) (test npyf=360) 7.5 GM/DL 13.7-17.5 HEMATOCRIT (BEAKER) (test zzfc=803) 22.3 % 40.1-51.0 MEAN CORPUSCULAR VOLUME (BEAKER) (test svwk=105) 99.1 fL 79.0-92.2 MEAN CORPUSCULAR HEMOGLOBIN (BEAKER) (test 33.3 pg 25.7-32.2 yrrm=342) MEAN CORPUSCULAR HEMOGLOBIN CONC (BEAKER) (test 33.6 GM/DL 32.3-36.5 rcel=273) RED CELL DISTRIBUTION WIDTH (BEAKER) (test 22.5 % 11.6-14.4 fbhl=539) PLATELET COUNT (BEAKER) (test oprr=715) 86 K/CU MM 150-450 MEAN PLATELET VOLUME (BEAKER) (test xceh=387) 9.9 fL 9.4-12.4 NUCLEATED RED BLOOD CELLS (BEAKER) (test 1 /100 WBC 0-0 tqki=725) NEUTROPHILS RELATIVE PERCENT (BEAKER) (test 63 % ppen=941) LYMPHOCYTES RELATIVE PERCENT (BEAKER) (test 19 % wibc=724) MONOCYTES RELATIVE PERCENT (BEAKER) (test 16 % wwho=282) EOSINOPHILS RELATIVE PERCENT (BEAKER) (test 0 % pbrc=001) BASOPHILS RELATIVE PERCENT (BEAKER) (test 1 % kyec=497) NEUTROPHILS ABSOLUTE COUNT (BEAKER) (test 2.55 K/ L 1.78-5.38 ipae=954) LYMPHOCYTES ABSOLUTE COUNT (BEAKER) (test 0.78 K/ L 1.32-3.57 undc=176) MONOCYTES ABSOLUTE COUNT (BEAKER) (test hdjh=799) 0.64 K/ L 0.30-0.82 EOSINOPHILS ABSOLUTE COUNT (BEAKER) (test 0.01 K/ L 0.04-0.54 znmb=333) BASOPHILS ABSOLUTE COUNT (BEAKER) (test xpft=192) 0.03 K/ L 0.01-0.08 IMMATURE GRANULOCYTES-RELATIVE PERCENT (BEAKER) 1 % 0-1 (test tqlx=9020) ANG, REMOVAL OF TUNNELED CVC W/O [id number] 13:19:00Reason for exam:-> line infectionFINAL REPORT Right chest Tunneled Central Line Removal. History: Line infection Modality: None. Sedation: None Crossing Watchman: Van Funes MD. Ski Patrol: None. Approach: Right anterior chest. Estimated blood [...] Verified Date/Time : 06/30/2018 13:19:20 Reading Location: [place] [id number] Angio Body Reading Room BLOOD [id number] 19:01:00 Test Item Value Reference Range Comments CULTURE (BEAKER) (test xzva=0018) No growth in 5 days CATHETER TIP [id number] 11:18:00 Test Item Value Reference Range Comments CULTURE (BEAKER) (test <15 Colonies On Direct Plate idyj=1766) Coagulase negative Staphylococcus [id number] 07:10:00 Test Item Value Reference Range Comments PHOSPHORUS (BEAKER) (test fbyi=135) 3.5 mg/dL 2.3-4.7 [id number] 07:10:00 Test Item Value Reference Range Comments MAGNESIUM (BEAKER) (test wyjz=693) 1.6 mg/dL 1.6-2.6 BASIC METABOLIC [id number] 07:10:00 Test Item Value Reference Range Comments SODIUM (BEAKER) (test 135 meq/L 136-145 hrnn=860) POTASSIUM (BEAKER) (test 4.1 meq/L 3.5-5.1 gvev=460) CHLORIDE (BEAKER) (test 105 meq/L 98-107 xfvz=491) CO2 (BEAKER) (test 21 meq/L 22-29 uons=149) BLOOD UREA NITROGEN 31 mg/dL 7-21 (BEAKER) (test hglu=162) CREATININE (BEAKER) (test 1.43 mg/dL 0.57-1.25 sgcj=054) GLUCOSE RANDOM (BEAKER) 154 mg/dL 70-105 (test bbni=538) CALCIUM (BEAKER) (test 8.5 mg/dL 8.4-10.2 eutv=308) EGFR (BEAKER) (test 50 mL/min/1.73 sq m ESTIMATED GFR IS NOT ggrv=5484) ACCURATE CREATININE CLEARANCE IN PREDICTING GLOMERULAR FILTRATION RATE. ESTIMATED GFR IS NOT APPLICABLE FOR DIALYSIS PATIENTS. CBC W/PLT COUNT & AUTO [id number] 06:54:00 Test Item Value Reference Range Comments WHITE BLOOD CELL COUNT (BEAKER) (test xmpp=710) 2.7 K/ L 3.5-10.5 RED BLOOD CELL COUNT (BEAKER) (test xhrk=033) 2.57 M/ L 4.63-6.08 HEMOGLOBIN (BEAKER) (test tqon=800) 8.2 GM/DL 13.7-17.5 HEMATOCRIT (BEAKER) (test sgtf=671) 24.2 % 40.1-51.0 MEAN CORPUSCULAR VOLUME (BEAKER) (test dxwf=403) 94.2 fL 79.0-92.2 MEAN CORPUSCULAR HEMOGLOBIN (BEAKER) (test 31.9 pg 25.7-32.2 egpn=353) MEAN CORPUSCULAR HEMOGLOBIN CONC (BEAKER) (test 33.9 GM/DL 32.3-36.5 wubk=484) RED CELL DISTRIBUTION WIDTH (BEAKER) (test 16.7 % 11.6-14.4 omiu=892) PLATELET COUNT (BEAKER) (test ctrg=854) 88 K/CU MM 150-450 MEAN PLATELET VOLUME (BEAKER) (test kogz=508) 10.4 fL 9.4-12.4 NUCLEATED RED BLOOD CELLS (BEAKER) (test 0 /100 WBC 0-0 lard=024) NEUTROPHILS RELATIVE PERCENT (BEAKER) (test 96 % cdkf=482) LYMPHOCYTES RELATIVE PERCENT (BEAKER) (test 3 % sykm=926) MONOCYTES RELATIVE PERCENT (BEAKER) (test 0 % mqcm=509) EOSINOPHILS RELATIVE PERCENT (BEAKER) (test 0 % nmas=860) BASOPHILS RELATIVE PERCENT (BEAKER) (test 0 % gtjs=489) NEUTROPHILS ABSOLUTE COUNT (BEAKER) (test 2.54 K/ L 1.78-5.38 yevy=123) LYMPHOCYTES ABSOLUTE COUNT (BEAKER) (test 0.09 K/ L 1.32-3.57 fnbs=428) MONOCYTES ABSOLUTE COUNT (BEAKER) (test jmqf=940) 0.01 K/ L 0.30-0.82 EOSINOPHILS ABSOLUTE COUNT (BEAKER) (test 0.00 K/ L 0.04-0.54 qsvc=163) BASOPHILS ABSOLUTE COUNT (BEAKER) (test hvxa=894) 0.00 K/ L 0.01-0.08 IMMATURE GRANULOCYTES-RELATIVE PERCENT (BEAKER) 0 % 0-1 (test xdti=5532) WOUND CULTURE + GRAM [id number] 10:58:00 Test Item Value Reference Range Comments CULTURE (BEAKER) (test osxk=4373) No growth GRAM STAIN RESULT (BEAKER) (test No WBCs lxbz=9196) GRAM STAIN RESULT (BEAKER) (test No organisms seen auif=37377) [id number] 07:24:00 Test Item Value Reference Range Comments PHOSPHORUS (BEAKER) (test pjrj=696) 3.8 mg/dL 2.3-4.7 [id number] 07:24:00 Test Item Value Reference Range Comments MAGNESIUM (BEAKER) (test hrrb=465) 1.7 mg/dL 1.6-2.6 BASIC METABOLIC [id number] 07:24:00 Test Item Value Reference Range Comments SODIUM (BEAKER) (test 136 meq/L 136-145 zccb=689) POTASSIUM (BEAKER) (test 4.4 meq/L 3.5-5.1 pnvc=935) CHLORIDE (BEAKER) (test 105 meq/L 98-107 ksqf=168) CO2 (BEAKER) (test 22 meq/L 22-29 hdwt=744) BLOOD UREA NITROGEN 32 mg/dL 7-21 (BEAKER) (test jcqe=450) CREATININE (BEAKER) (test 1.53 mg/dL 0.57-1.25 nfcx=906) GLUCOSE RANDOM (BEAKER) 162 mg/dL 70-105 (test wzmj=753) CALCIUM (BEAKER) (test 8.5 mg/dL 8.4-10.2 yohd=833) EGFR (BEAKER) (test 46 mL/min/1.73 sq m ESTIMATED GFR IS NOT rqqb=8589) ACCURATE CREATININE CLEARANCE IN PREDICTING GLOMERULAR FILTRATION RATE. ESTIMATED GFR IS NOT APPLICABLE FOR DIALYSIS PATIENTS. CBC W/PLT COUNT & AUTO [id number] 06:48:00 Test Item Value Reference Range Comments WHITE BLOOD CELL COUNT (BEAKER) (test jezb=136) 3.6 K/ L 3.5-10.5 RED BLOOD CELL COUNT (BEAKER) (test yphp=314) 2.23 M/ L 4.63-6.08 HEMOGLOBIN (BEAKER) (test dyfz=789) 7.2 GM/DL 13.7-17.5 HEMATOCRIT (BEAKER) (test gcfr=913) 21.7 % 40.1-51.0 MEAN CORPUSCULAR VOLUME (BEAKER) (test jdci=175) 97.3 fL 79.0-92.2 MEAN CORPUSCULAR HEMOGLOBIN (BEAKER) (test 32.3 pg 25.7-32.2 gzvs=592) MEAN CORPUSCULAR HEMOGLOBIN CONC (BEAKER) (test 33.2 GM/DL 32.3-36.5 tasd=612) RED CELL DISTRIBUTION WIDTH (BEAKER) (test 17.5 % 11.6-14.4 hrsx=859) PLATELET COUNT (BEAKER) (test hmaa=835) 93 K/CU MM 150-450 MEAN PLATELET VOLUME (BEAKER) (test djnc=646) 10.2 fL 9.4-12.4 NUCLEATED RED BLOOD CELLS (BEAKER) (test 0 /100 WBC 0-0 xfnm=067) NEUTROPHILS RELATIVE PERCENT (BEAKER) (test 95 % zuhi=534) LYMPHOCYTES RELATIVE PERCENT (BEAKER) (test 3 % iqvm=246) MONOCYTES RELATIVE PERCENT (BEAKER) (test 1 % cpne=056) EOSINOPHILS RELATIVE PERCENT (BEAKER) (test 0 % lkql=656) BASOPHILS RELATIVE PERCENT (BEAKER) (test 0 % wzih=861) NEUTROPHILS ABSOLUTE COUNT (BEAKER) (test 3.43 K/ L 1.78-5.38 prpt=654) LYMPHOCYTES ABSOLUTE COUNT (BEAKER) (test 0.12 K/ L 1.32-3.57 hpol=066) MONOCYTES ABSOLUTE COUNT (BEAKER) (test rhrc=581) 0.03 K/ L 0.30-0.82 EOSINOPHILS ABSOLUTE COUNT (BEAKER) (test 0.00 K/ L 0.04-0.54 qybg=995) BASOPHILS ABSOLUTE COUNT (BEAKER) (test efug=464) 0.00 K/ L 0.01-0.08 IMMATURE GRANULOCYTES-RELATIVE PERCENT (BEAKER) 1 % 0-1 (test pgwp=5956) RAD, CHEST, 1 VIEW, NON [id number] 17:35:00Reason for exam:->check picc placement Should this [...] and neck probably ventricular shunt. Signed: Alfredo [place] Verified Date/Time : 06/17/2018 17:35:29 Reading Location: [facility] [id number] Consult Reading Room CBC W/PLT COUNT & AUTO [id number] 07:00:00 Test Item Value Reference Range Comments WHITE BLOOD CELL COUNT (BEAKER) (test apsi=814) 8.8 K/ L 3.5-10.5 RED BLOOD CELL COUNT (BEAKER) (test rtel=383) 2.34 M/ L 4.63-6.08 HEMOGLOBIN (BEAKER) (test rmoy=211) 7.6 GM/DL 13.7-17.5 HEMATOCRIT (BEAKER) (test twkr=097) 22.7 % 40.1-51.0 MEAN CORPUSCULAR VOLUME (BEAKER) (test xjou=833) 97.0 fL 79.0-92.2 MEAN CORPUSCULAR HEMOGLOBIN (BEAKER) (test 32.5 pg 25.7-32.2 ipez=505) MEAN CORPUSCULAR HEMOGLOBIN CONC (BEAKER) (test 33.5 GM/DL 32.3-36.5 rzmo=046) RED CELL DISTRIBUTION WIDTH (BEAKER) (test 17.5 % 11.6-14.4 fjvq=268) PLATELET COUNT (BEAKER) (test hyka=069) 123 K/CU MM 150-450 MEAN PLATELET VOLUME (BEAKER) (test caxs=773) 10.2 fL 9.4-12.4 NUCLEATED RED BLOOD CELLS (BEAKER) (test 0 /100 WBC 0-0 sedb=201) NEUTROPHILS RELATIVE PERCENT (BEAKER) (test 94 % vilo=453) LYMPHOCYTES RELATIVE PERCENT (BEAKER) (test 3 % fsww=785) MONOCYTES RELATIVE PERCENT (BEAKER) (test 2 % gagi=854) EOSINOPHILS RELATIVE PERCENT (BEAKER) (test 0 % qxib=325) BASOPHILS RELATIVE PERCENT (BEAKER) (test 0 % jkjj=305) NEUTROPHILS ABSOLUTE COUNT (BEAKER) (test 8.31 K/ L 1.78-5.38 fage=293) LYMPHOCYTES ABSOLUTE COUNT (BEAKER) (test 0.24 K/ L 1.32-3.57 pkxv=712) MONOCYTES ABSOLUTE COUNT (BEAKER) (test 0.16 K/ L 0.30-0.82 tldi=444) EOSINOPHILS ABSOLUTE COUNT (BEAKER) (test 0.00 K/ L 0.04-0.54 wbmt=646) BASOPHILS ABSOLUTE COUNT (BEAKER) (test 0.01 K/ L 0.01-0.08 ardu=450) IMMATURE GRANULOCYTES-RELATIVE PERCENT (BEAKER) 1 % 0-1 (test lmjf=3833) [id number] 06:43:00 Test Item Value Reference Range Comments PHOSPHORUS (BEAKER) (test bstg=345) 3.7 mg/dL 2.3-4.7 [id number] 06:43:00 Test Item Value Reference Range Comments MAGNESIUM (BEAKER) (test nhqu=766) 2.1 mg/dL 1.6-2.6 COMPREHENSIVE METABOLIC [id number] 06:43:00 Test Item Value Reference Range Comments TOTAL PROTEIN (BEAKER) 6.1 gm/dL 6.0-8.3 (test wfxy=328) ALBUMIN (BEAKER) (test 3.1 g/dL 3.5-5.0 jawn=9370) ALKALINE PHOSPHATASE 39 U/L 40-150 (BEAKER) (test tiyk=360) BILIRUBIN TOTAL (BEAKER) 0.6 mg/dL 0.2-1.2 (test juxe=377) SODIUM (BEAKER) (test 135 meq/L 136-145 balz=977) POTASSIUM (BEAKER) (test 4.1 meq/L 3.5-5.1 yglo=822) CHLORIDE (BEAKER) (test 104 meq/L 98-107 bkyl=507) CO2 (BEAKER) (test 24 meq/L 22-29 jxoo=567) BLOOD UREA NITROGEN 26 mg/dL 7-21 (BEAKER) (test wrfg=960) CREATININE (BEAKER) (test 1.59 mg/dL 0.57-1.25 pkej=950) GLUCOSE RANDOM (BEAKER) 158 mg/dL 70-105 (test ximb=504) CALCIUM (BEAKER) (test 8.4 mg/dL 8.4-10.2 ovuy=272) AST (SGOT) (BEAKER) (test 14 U/L 5-34 oeth=785) ALT (SGPT) (BEAKER) (test 11 U/L 6-55 tqfe=903) EGFR (BEAKER) (test 44 mL/min/1.73 sq m ESTIMATED GFR IS NOT hbbx=7690) ACCURATE CREATININE CLEARANCE IN PREDICTING GLOMERULAR FILTRATION RATE. ESTIMATED GFR IS NOT APPLICABLE FOR DIALYSIS PATIENTS. [id number] 07:03:00 Test Item Value Reference Range Comments PHOSPHORUS (BEAKER) (test iwjg=895) 2.5 mg/dL 2.3-4.7 [id number] 07:03:00 Test Item Value Reference Range Comments MAGNESIUM (BEAKER) (test fail=021) 1.3 mg/dL 1.6-2.6 BASIC METABOLIC [id number] 07:03:00 Test Item Value Reference Range Comments SODIUM (BEAKER) (test 136 meq/L 136-145 rfwx=872) POTASSIUM (BEAKER) (test 4.1 meq/L 3.5-5.1 lgsa=805) CHLORIDE (BEAKER) (test 104 meq/L 98-107 yhzd=172) CO2 (BEAKER) (test 23 meq/L 22-29 kgxi=295) BLOOD UREA NITROGEN 24 mg/dL 7-21 (BEAKER) (test qqhu=464) CREATININE (BEAKER) (test 1.75 mg/dL 0.57-1.25 mcxr=507) GLUCOSE RANDOM (BEAKER) 169 mg/dL 70-105 (test ztyg=723) CALCIUM (BEAKER) (test 8.5 mg/dL 8.4-10.2 pwrx=268) EGFR (BEAKER) (test 40 mL/min/1.73 sq m ESTIMATED GFR IS NOT wsgk=2585) ACCURATE CREATININE CLEARANCE IN PREDICTING GLOMERULAR FILTRATION RATE. ESTIMATED GFR IS NOT APPLICABLE FOR DIALYSIS PATIENTS. CALCIUM, [id number] 07:02:00 Test Item Value Reference Range Comments CALCIUM IONIZED (BEAKER) (test nvov=382) 1.03 mmol/L 1.12-1.27 PH, BLOOD (BEAKER) (test nori=2901) 7.38 CBC W/PLT COUNT & AUTO [id number] 06:33:00 Test Item Value Reference Range Comments WHITE BLOOD CELL COUNT (BEAKER) (test lbni=218) 12.3 K/ L 3.5-10.5 RED BLOOD CELL COUNT (BEAKER) (test eqnm=127) 2.42 M/ L 4.63-6.08 HEMOGLOBIN (BEAKER) (test caad=692) 7.8 GM/DL 13.7-17.5 HEMATOCRIT (BEAKER) (test ntvf=759) 23.6 % 40.1-51.0 MEAN CORPUSCULAR VOLUME (BEAKER) (test ntkd=884) 97.5 fL 79.0-92.2 MEAN CORPUSCULAR HEMOGLOBIN (BEAKER) (test 32.2 pg 25.7-32.2 ynvu=985) MEAN CORPUSCULAR HEMOGLOBIN CONC (BEAKER) (test 33.1 GM/DL 32.3-36.5 uvvs=882) RED CELL DISTRIBUTION WIDTH (BEAKER) (test 17.5 % 11.6-14.4 nrua=525) PLATELET COUNT (BEAKER) (test vhhk=786) 102 K/CU MM 150-450 MEAN PLATELET VOLUME (BEAKER) (test ymou=863) 10.2 fL 9.4-12.4 NUCLEATED RED BLOOD CELLS (BEAKER) (test 0 /100 WBC 0-0 bpaf=579) NEUTROPHILS RELATIVE PERCENT (BEAKER) (test 91 % kapx=869) LYMPHOCYTES RELATIVE PERCENT (BEAKER) (test 5 % rqde=720) MONOCYTES RELATIVE PERCENT (BEAKER) (test 2 % qqtu=207) EOSINOPHILS RELATIVE PERCENT (BEAKER) (test 0 % fbrw=424) BASOPHILS RELATIVE PERCENT (BEAKER) (test 1 % kqpx=622) NEUTROPHILS ABSOLUTE COUNT (BEAKER) (test 11.11 K/ L 1.78-5.38 jlwr=255) LYMPHOCYTES ABSOLUTE COUNT (BEAKER) (test 0.56 K/ L 1.32-3.57 gbaq=665) MONOCYTES ABSOLUTE COUNT (BEAKER) (test 0.19 K/ L 0.30-0.82 zvpk=387) EOSINOPHILS ABSOLUTE COUNT (BEAKER) (test 0.01 K/ L 0.04-0.54 tsnc=724) BASOPHILS ABSOLUTE COUNT (BEAKER) (test 0.07 K/ L 0.01-0.08 opfy=957) IMMATURE GRANULOCYTES-RELATIVE PERCENT (BEAKER) 3 % 0-1 (test tyss=9264) [id number] 15:15:00 Test Item Value Reference Range Comments MAGNESIUM (BEAKER) (test nrvs=512) 1.3 mg/dL 1.6-2.6 BASIC METABOLIC [id number] 15:15:00 Test Item Value Reference Range Comments SODIUM (BEAKER) (test 141 meq/L 136-145 fwpp=367) POTASSIUM (BEAKER) (test 3.6 meq/L 3.5-5.1 rami=226) CHLORIDE (BEAKER) (test 105 meq/L 98-107 nrxf=836) CO2 (BEAKER) (test 24 meq/L 22-29 ithj=196) BLOOD UREA NITROGEN 25 mg/dL 7-21 (BEAKER) (test qlqf=871) CREATININE (BEAKER) (test 1.89 mg/dL 0.57-1.25 ecdc=334) GLUCOSE RANDOM (BEAKER) 117 mg/dL 70-105 (test gtoc=329) CALCIUM (BEAKER) (test 8.6 mg/dL 8.4-10.2 minl=808) EGFR (BEAKER) (test 36 mL/min/1.73 sq m ESTIMATED GFR IS NOT ffhg=6642) ACCURATE CREATININE CLEARANCE IN PREDICTING GLOMERULAR FILTRATION RATE. ESTIMATED GFR IS NOT APPLICABLE FOR DIALYSIS PATIENTS. HEPATIC FUNCTION [id number] 15:15:00 Test Item Value Reference Range Comments TOTAL PROTEIN (BEAKER) (test zbgh=409) 6.8 gm/dL 6.0-8.3 ALBUMIN (BEAKER) (test uetr=9079) 3.5 g/dL 3.5-5.0 BILIRUBIN TOTAL (BEAKER) (test qhgv=569) 0.5 mg/dL 0.2-1.2 BILIRUBIN DIRECT (BEAKER) (test fijz=492) 0.2 mg/dL 0.1-0.5 ALKALINE PHOSPHATASE (BEAKER) (test smhb=568) 47 U/L 40-150 AST (SGOT) (BEAKER) (test ubxh=085) 22 U/L 5-34 ALT (SGPT) (BEAKER) (test hisv=897) 19 U/L 6-55 CBC W/PLT COUNT & AUTO [id number] 15:08:00 Test Item Value Reference Range Comments WHITE BLOOD CELL COUNT (BEAKER) (test ucip=985) 12.5 K/ L 3.5-10.5 RED BLOOD CELL COUNT (BEAKER) (test snvk=610) 2.74 M/ L 4.63-6.08 HEMOGLOBIN (BEAKER) (test kfdg=367) 8.8 GM/DL 13.7-17.5 HEMATOCRIT (BEAKER) (test wpfm=488) 26.5 % 40.1-51.0 MEAN CORPUSCULAR VOLUME (BEAKER) (test wset=319) 96.7 fL 79.0-92.2 MEAN CORPUSCULAR HEMOGLOBIN (BEAKER) (test 32.1 pg 25.7-32.2 upmg=484) MEAN CORPUSCULAR HEMOGLOBIN CONC (BEAKER) (test 33.2 GM/DL 32.3-36.5 gsfu=506) RED CELL DISTRIBUTION WIDTH (BEAKER) (test 17.8 % 11.6-14.4 qibz=580) PLATELET COUNT (BEAKER) (test aypa=982) 129 K/CU MM 150-450 MEAN PLATELET VOLUME (BEAKER) (test mxzy=650) 9.8 fL 9.4-12.4 NUCLEATED RED BLOOD CELLS (BEAKER) (test 0 /100 WBC 0-0 vzho=776) NEUTROPHILS RELATIVE PERCENT (BEAKER) (test 73 % vojc=194) LYMPHOCYTES RELATIVE PERCENT (BEAKER) (test 11 % neax=276) MONOCYTES RELATIVE PERCENT (BEAKER) (test 12 % qzvj=689) EOSINOPHILS RELATIVE PERCENT (BEAKER) (test 1 % naml=483) BASOPHILS RELATIVE PERCENT (BEAKER) (test 2 % fneg=681) NEUTROPHILS ABSOLUTE COUNT (BEAKER) (test 9.17 K/ L 1.78-5.38 hooj=119) LYMPHOCYTES ABSOLUTE COUNT (BEAKER) (test 1.36 K/ L 1.32-3.57 osjo=413) MONOCYTES ABSOLUTE COUNT (BEAKER) (test 1.46 K/ L 0.30-0.82 ihvj=218) EOSINOPHILS ABSOLUTE COUNT (BEAKER) (test 0.07 K/ L 0.04-0.54 dufk=398) BASOPHILS ABSOLUTE COUNT (BEAKER) (test 0.23 K/ L 0.01-0.08 vrcv=622) IMMATURE GRANULOCYTES-RELATIVE PERCENT (BEAKER) 2 % 0-1 (test xitu=1580) ANTI-NEUTROPHIL CYTOPLASMIC AB (ANCA)2018-06-11 13:44:00 Test Item Value Reference Range Comments PROTEINASE-3 AB (QUEST) <1.0 AI <1.0 <1.0 AI No Antibody (test fclk=[id number]) Detected> or=1.0 AI Antibody Detected Autoantibodies to proteinase-3 (KY-3) are accepted as characteristic forgranulomatosis with polyangiitis (GPA, Konrad's), and are detectable in 95%of the histologically proven cases. The cytoplasmic IFA pattern, (c-ANCA), isbased largely on autoantibody to KY-3 which serves as the primary antigen.These autoantibodies are present in active disease. MYELOPEROXIDASE AB (QUEST) <1.0 AI <1.0 <1.0 AI No Antibody (test yuys=9869022) Detected> or=1.0 AI Antibody Detected Autoantibodies to myeloperoxidase (MPO) are commonly associated with thefollowing small-vessel vasculitides: microscopic polyangiitis, polyarteritisnodosa, Churg-Susanna syndrome, necrotizing and crescentic glomerulonephritisand occasionally granulomatosis with polyangiitis (GPA, Konrad's). Theperinuclear IFA pattern, (p-ANCA) is based largely on autoantibodyto myeloperoxidase which serves as the primary antigen. These autoantibodiesare present in active disease. Performing Lab [facility] [address] [place] [address] Coby Jimenez MD, PhD, MBABONE MARROW [id number] 13:50:00Bone Marrow Pathology Report Case: [id number] Authorizing Provider: Thelma Cristobal MD Collected: 06/03/2018 1045 Ordering Location: [address] Received: 06/03/2018 1100 SERVICE Pathologist: Radha [...] BLOOD:- ANEMIA Signing Pathologist Direct Phone Line: [phone] signed by Radha Edmond MD on 06/05/2018 [...] Preliminary results discussed with Dr. Webster 06/04/2018. 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 [...] CD34 Immunohistochemistry technical testing was performed at [facility], Pathology Laboratory where it was developed and [...] clinical laboratory testing.CBC W/PLT COUNT & AUTO [id number] 07:55:00 Test Item Value Reference Range Comments WHITE BLOOD CELL COUNT (BEAKER) (test apwm=623) 8.1 K/ L 3.5-10.5 RED BLOOD CELL COUNT (BEAKER) (test xbum=741) 2.47 M/ L 4.63-6.08 HEMOGLOBIN (BEAKER) (test bdiz=278) 7.9 GM/DL 13.7-17.5 HEMATOCRIT (BEAKER) (test xnjv=907) 23.6 % 40.1-51.0 MEAN CORPUSCULAR VOLUME (BEAKER) (test sgcv=751) 95.5 fL 79.0-92.2 MEAN CORPUSCULAR HEMOGLOBIN (BEAKER) (test 32.0 pg 25.7-32.2 dwvg=870) MEAN CORPUSCULAR HEMOGLOBIN CONC (BEAKER) (test 33.5 GM/DL 32.3-36.5 elbq=865) RED CELL DISTRIBUTION WIDTH (BEAKER) (test 15.4 % 11.6-14.4 pokk=424) PLATELET COUNT (BEAKER) (test auxt=467) 151 K/CU MM 150-450 MEAN PLATELET VOLUME (BEAKER) (test ygww=711) 10.1 fL 9.4-12.4 NUCLEATED RED BLOOD CELLS (BEAKER) (test 0 /100 WBC 0-0 rxib=343) NEUTROPHILS RELATIVE PERCENT (BEAKER) (test 63 % fxxa=444) LYMPHOCYTES RELATIVE PERCENT (BEAKER) (test 15 % htgi=956) MONOCYTES RELATIVE PERCENT (BEAKER) (test 18 % zkau=764) EOSINOPHILS RELATIVE PERCENT (BEAKER) (test 0 % cntp=990) BASOPHILS RELATIVE PERCENT (BEAKER) (test 3 % hccr=688) NEUTROPHILS ABSOLUTE COUNT (BEAKER) (test 5.05 K/ L 1.78-5.38 vbde=125) LYMPHOCYTES ABSOLUTE COUNT (BEAKER) (test 1.17 K/ L 1.32-3.57 chvl=438) MONOCYTES ABSOLUTE COUNT (BEAKER) (test 1.49 K/ L 0.30-0.82 bscu=227) EOSINOPHILS ABSOLUTE COUNT (BEAKER) (test 0.01 K/ L 0.04-0.54 updp=936) BASOPHILS ABSOLUTE COUNT (BEAKER) (test 0.20 K/ L 0.01-0.08 qzxp=441) IMMATURE GRANULOCYTES-RELATIVE PERCENT (BEAKER) 2 % 0-1 (test twck=1544) CALCIUM, [id number] 06:58:00 Test Item Value Reference Range Comments CALCIUM IONIZED (BEAKER) (test oece=316) 0.96 mmol/L 1.12-1.27 PH, BLOOD (BEAKER) (test gqtj=8017) 7.49 [id number] 06:15:00 Test Item Value Reference Range Comments PHOSPHORUS (BEAKER) (test tekw=342) 4.5 mg/dL 2.3-4.7 [id number] 06:15:00 Test Item Value Reference Range Comments MAGNESIUM (BEAKER) (test nbyq=088) 1.5 mg/dL 1.6-2.6 COMPREHENSIVE METABOLIC [id number] 06:15:00 Test Item Value Reference Range Comments TOTAL PROTEIN (BEAKER) 6.2 gm/dL 6.0-8.3 (test ncdn=050) ALBUMIN (BEAKER) (test 3.0 g/dL 3.5-5.0 wdgr=7790) ALKALINE PHOSPHATASE 43 U/L 40-150 (BEAKER) (test gtkr=959) BILIRUBIN TOTAL (BEAKER) 0.7 mg/dL 0.2-1.2 (test npuq=681) SODIUM (BEAKER) (test 132 meq/L 136-145 fuvu=158) POTASSIUM (BEAKER) (test 3.9 meq/L 3.5-5.1 ocgc=072) CHLORIDE (BEAKER) (test 99 meq/L 98-107 bbal=290) CO2 (BEAKER) (test 23 meq/L 22-29 qnpu=735) BLOOD UREA NITROGEN 36 mg/dL 7-21 (BEAKER) (test mbtm=752) CREATININE (BEAKER) (test 2.59 mg/dL 0.57-1.25 ngix=025) GLUCOSE RANDOM (BEAKER) 96 mg/dL 70-105 (test zbif=576) CALCIUM (BEAKER) (test 8.5 mg/dL 8.4-10.2 wmun=843) AST (SGOT) (BEAKER) (test 28 U/L 5-34 zmbx=494) ALT (SGPT) (BEAKER) (test 17 U/L 6-55 olwj=857) EGFR (BEAKER) (test 25 mL/min/1.73 sq m ESTIMATED GFR IS NOT avet=2213) ACCURATE CREATININE CLEARANCE IN PREDICTING GLOMERULAR FILTRATION RATE. ESTIMATED GFR IS NOT APPLICABLE FOR DIALYSIS PATIENTS. [id number] 05:59:00 Test Item Value Reference Range Comments PROTIME (BEAKER) (test qjay=583) 14.0 seconds 11.7-14.7 INR (BEAKER) (test jyoe=811) 1.1 <=5.9 PARTIAL THROMBOPLASTIN TIME (BEAKER) (test 25.9 seconds 22.5-36.0 jcub=526) RECOMMENDED COUMADIN/WARFARIN INR THERAPY RANGESSTANDARD DOSE: 2.0 - 3.0 Includes: PROPHYLAXIS forvenous thrombosis, systemic embolization; TREATMENT for venous thrombosis and/or pulmonary embolus.HIGH RISK: Target INR is 2.5-3.5 for patients with mechanical heart valves.CBC WITH PLATELET COUNT + MANUAL [id number] 13:12:00 Test Item Value Reference Range Comments WHITE BLOOD CELL COUNT (BEAKER) (test oopc=214) 7.3 K/ L 3.5-10.5 RED BLOOD CELL COUNT (BEAKER) (test lzrr=377) 2.76 M/ L 4.63-6.08 HEMOGLOBIN (BEAKER) (test hnrz=507) 8.6 GM/DL 13.7-17.5 HEMATOCRIT (BEAKER) (test csvx=843) 26.3 % 40.1-51.0 MEAN CORPUSCULAR VOLUME (BEAKER) (test erkh=873) 95.3 fL 79.0-92.2 MEAN CORPUSCULAR HEMOGLOBIN (BEAKER) (test 31.2 pg 25.7-32.2 qxmr=757) MEAN CORPUSCULAR HEMOGLOBIN CONC (BEAKER) (test 32.7 GM/DL 32.3-36.5 dkvp=321) RED CELL DISTRIBUTION WIDTH (BEAKER) (test 15.4 % 11.6-14.4 pmgr=493) PLATELET COUNT (BEAKER) (test rhnv=372) 176 K/CU MM 150-450 MEAN PLATELET VOLUME (BEAKER) (test nagt=924) 9.4 fL 9.4-12.4 NUCLEATED RED BLOOD CELLS (BEAKER) (test 0 /100 WBC 0-0 xcxv=214) (CELLAVISION MANUAL DIFF)2018-06-08 13:12:00 Test Item Value Reference Range Comments NEUTROPHILS - REL (CELLAVISION)(BEAKER) (test 63 % zwxo=9020) LYMPHOCYTES - REL (CELLAVISION)(BEAKER) (test 12 % geul=1499) MONOCYTES - REL (CELLAVISION)(BEAKER) (test 20 % ykvo=1800) BANDS - REL (CELLAVISION)(BEAKER) (test iswk=1779) 5 % 0-10 NEUTROPHILS - ABS (CELLAVISION)(BEAKER) (test 4.60 K/ul 1.78-5.38 ulqi=8068) LYMPHOCYTES - ABS (CELLAVISION)(BEAKER) (test 0.88 K/ul 1.32-3.57 enbz=0969) MONOCYTES - ABS (CELLAVISION)(BEAKER) (test 1.46 K/uL 0.30-0.82 nmzh=5152) BANDS - ABS (CELLAVISION)(BEAKER) (test jgvj=0970) 0.37 K/uL 0.00-0.80 TOTAL COUNTED (BEAKER) (test yleu=3935) 100 WBC MORPHOLOGY (BEAKER) (test zhne=539) Normal PLT MORPHOLOGY (BEAKER) (test maem=374) Normal POLYCHROMATOPHILLIC RBCS(BEAKER) (test dmgx=593) 1+ few ANISOCYTOSIS (BEAKER) (test whra=785) 1+ few COMPREHENSIVE METABOLIC [id number] 06:22:00 Test Item Value Reference Range Comments TOTAL PROTEIN (BEAKER) 6.9 gm/dL 6.0-8.3 Specimen slightly (test hzja=845) hemolyzed ALBUMIN (BEAKER) (test 3.2 g/dL 3.5-5.0 Specimen slightly hayv=3657) hemolyzed ALKALINE PHOSPHATASE 46 U/L 40-150 (BEAKER) (test zmev=513) BILIRUBIN TOTAL (BEAKER) 0.8 mg/dL 0.2-1.2 Specimen slightly (test xdfq=367) hemolyzed SODIUM (BEAKER) (test 137 meq/L 136-145 jzvp=021) POTASSIUM (BEAKER) (test 4.4 meq/L 3.5-5.1 Specimen slightly stmh=503) hemolyzed CHLORIDE (BEAKER) (test 102 meq/L 98-107 gtkk=351) CO2 (BEAKER) (test 23 meq/L 22-29 yxxd=659) BLOOD UREA NITROGEN 41 mg/dL 7-21 (BEAKER) (test kdkj=300) CREATININE (BEAKER) (test 2.97 mg/dL 0.57-1.25 Specimen slightly cycu=040) hemolyzed GLUCOSE RANDOM (BEAKER) 96 mg/dL 70-105 (test hxwl=926) CALCIUM (BEAKER) (test 9.7 mg/dL 8.4-10.2 kjsh=569) AST (SGOT) (BEAKER) (test 39 U/L 5-34 Specimen slightly juoa=121) hemolyzed ALT (SGPT) (BEAKER) (test 21 U/L 6-55 Specimen slightly eokx=157) hemolyzed EGFR (BEAKER) (test 22 mL/min/1.73 sq m ESTIMATED GFR IS NOT dfla=7699) ACCURATE CREATININE CLEARANCE IN PREDICTING GLOMERULAR FILTRATION RATE. ESTIMATED GFR IS NOT APPLICABLE FOR DIALYSIS PATIENTS. CBC W/PLT COUNT & AUTO [id number] 06:09:00 Test Item Value Reference Range Comments WHITE BLOOD CELL COUNT (BEAKER) (test fvzz=023) 7.3 K/ L 3.5-10.5 RED BLOOD CELL COUNT (BEAKER) (test rcal=872) 2.76 M/ L 4.63-6.08 HEMOGLOBIN (BEAKER) (test hmld=401) 8.6 GM/DL 13.7-17.5 HEMATOCRIT (BEAKER) (test bgys=994) 26.3 % 40.1-51.0 MEAN CORPUSCULAR VOLUME (BEAKER) (test drcl=500) 95.3 fL 79.0-92.2 MEAN CORPUSCULAR HEMOGLOBIN (BEAKER) (test 31.2 pg 25.7-32.2 crdg=503) MEAN CORPUSCULAR HEMOGLOBIN CONC (BEAKER) (test 32.7 GM/DL 32.3-36.5 yopu=334) RED CELL DISTRIBUTION WIDTH (BEAKER) (test 15.4 % 11.6-14.4 vniy=703) PLATELET COUNT (BEAKER) (test chkg=626) 176 K/CU MM 150-450 MEAN PLATELET VOLUME (BEAKER) (test uson=636) 9.4 fL 9.4-12.4 NUCLEATED RED BLOOD CELLS (BEAKER) (test 0 /100 WBC 0-0 eunj=970) NEUTROPHILS RELATIVE PERCENT (BEAKER) (test 61 % htkc=267) LYMPHOCYTES RELATIVE PERCENT (BEAKER) (test 15 % jklg=272) MONOCYTES RELATIVE PERCENT (BEAKER) (test 20 % ybme=365) EOSINOPHILS RELATIVE PERCENT (BEAKER) (test 0 % krmo=447) BASOPHILS RELATIVE PERCENT (BEAKER) (test 3 % quhd=332) NEUTROPHILS ABSOLUTE COUNT (BEAKER) (test 4.44 K/ L 1.78-5.38 ikgy=560) LYMPHOCYTES ABSOLUTE COUNT (BEAKER) (test 1.11 K/ L 1.32-3.57 vxbh=425) MONOCYTES ABSOLUTE COUNT (BEAKER) (test 1.44 K/ L 0.30-0.82 phbr=450) EOSINOPHILS ABSOLUTE COUNT (BEAKER) (test 0.00 K/ L 0.04-0.54 zqvb=180) BASOPHILS ABSOLUTE COUNT (BEAKER) (test 0.22 K/ L 0.01-0.08 lbkf=837) IMMATURE GRANULOCYTES-RELATIVE PERCENT (BEAKER) 2 % 0-1 (test vqqu=8783) [id number] 05:53:00 Test Item Value Reference Range Comments PROTIME (BEAKER) (test tcrm=309) 13.3 seconds 11.7-14.7 INR (BEAKER) (test pkyo=588) 1.0 <=5.9 PARTIAL THROMBOPLASTIN TIME (BEAKER) (test 26.8 seconds 22.5-36.0 czjj=411) RECOMMENDED COUMADIN/WARFARIN INR THERAPY RANGESSTANDARD DOSE: 2.0 - 3.0 Includes: PROPHYLAXIS forvenous thrombosis, systemic embolization; TREATMENT for venous thrombosis and/or pulmonary embolus.HIGH RISK: Target INR is 2.5-3.5 for patients with mechanical heart valves.CT, CHEST, WITHOUT [id number] 15:57:00FINAL REPORT INDICATION: Persistent cough. COMPARISON:Chest radiograph [...] MDReport Verified Date/Time: 06/07/2018 15:57:09 Reading Location: [address] Ortho Consult Reading Room 03:57 PMCBC WITH PLATELET COUNT + MANUAL [id number] 11:07:00 Test Item Value Reference Range Comments WHITE BLOOD CELL COUNT (BEAKER) (test clqt=357) 6.9 K/ L 3.5-10.5 RED BLOOD CELL COUNT (BEAKER) (test rpvl=455) 2.95 M/ L 4.63-6.08 HEMOGLOBIN (BEAKER) (test fxmb=415) 9.1 GM/DL 13.7-17.5 HEMATOCRIT (BEAKER) (test xbqw=356) 27.9 % 40.1-51.0 MEAN CORPUSCULAR VOLUME (BEAKER) (test piso=781) 94.6 fL 79.0-92.2 MEAN CORPUSCULAR HEMOGLOBIN (BEAKER) (test 30.8 pg 25.7-32.2 jyez=635) MEAN CORPUSCULAR HEMOGLOBIN CONC (BEAKER) (test 32.6 GM/DL 32.3-36.5 oevq=156) RED CELL DISTRIBUTION WIDTH (BEAKER) (test 15.5 % 11.6-14.4 tszi=418) PLATELET COUNT (BEAKER) (test wtii=465) 231 K/CU MM 150-450 MEAN PLATELET VOLUME (BEAKER) (test zmho=057) 9.5 fL 9.4-12.4 NUCLEATED RED BLOOD CELLS (BEAKER) (test 0 /100 WBC 0-0 frud=331) CBC W/PLT COUNT & AUTO [id number] 11:07:00 Test Item Value Reference Range Comments WHITE BLOOD CELL COUNT (BEAKER) (test muca=218) 6.9 K/ L 3.5-10.5 RED BLOOD CELL COUNT (BEAKER) (test iajm=454) 2.95 M/ L 4.63-6.08 HEMOGLOBIN (BEAKER) (test jiip=568) 9.1 GM/DL 13.7-17.5 HEMATOCRIT (BEAKER) (test rjue=365) 27.9 % 40.1-51.0 MEAN CORPUSCULAR VOLUME (BEAKER) (test nxmp=035) 94.6 fL 79.0-92.2 MEAN CORPUSCULAR HEMOGLOBIN (BEAKER) (test 30.8 pg 25.7-32.2 rpzv=441) MEAN CORPUSCULAR HEMOGLOBIN CONC (BEAKER) (test 32.6 GM/DL 32.3-36.5 erir=495) RED CELL DISTRIBUTION WIDTH (BEAKER) (test 15.5 % 11.6-14.4 xcrj=566) PLATELET COUNT (BEAKER) (test duud=768) 231 K/CU MM 150-450 MEAN PLATELET VOLUME (BEAKER) (test bcub=592) 9.5 fL 9.4-12.4 NUCLEATED RED BLOOD CELLS (BEAKER) (test 0 /100 WBC 0-0 sizz=515) (CELLAVISION MANUAL DIFF)2018-06-07 11:07:00 Test Item Value Reference Range Comments NEUTROPHILS - REL (CELLAVISION)(BEAKER) (test 54 % vvjo=7415) LYMPHOCYTES - REL (CELLAVISION)(BEAKER) (test 25 % smpv=3805) MONOCYTES - REL (CELLAVISION)(BEAKER) (test 17 % oflo=8602) BASOPHILS - REL (CELLAVISION)(BEAKER) (test 2 % kitr=5292) MYELOCYTES - REL (CELLAVISION)(BEAKER) (test 1 % 0-0 hdab=2956) BANDS - REL (CELLAVISION)(BEAKER) (test 1 % 0-10 mnat=2818) NEUTROPHILS - ABS (CELLAVISION)(BEAKER) (test 3.73 K/ul 1.78-5.38 kcke=2281) LYMPHOCYTES - ABS (CELLAVISION)(BEAKER) (test 1.73 K/ul 1.32-3.57 oqga=0880) MONOCYTES - ABS (CELLAVISION)(BEAKER) (test 1.17 K/uL 0.30-0.82 rckl=4179) BASOPHILS - ABS (CELLAVISION)(BEAKER) (test 0.14 K/uL 0.01-0.08 nlas=3000) MYELOCYTES-ABS (CELLAVISION)(BEAKER) (test 0.07 K/uL 0.00-0.00 ywdo=2572) BANDS - ABS (CELLAVISION)(BEAKER) (test 0.07 K/uL 0.00-0.80 iejf=6657) TOTAL COUNTED (BEAKER) (test iabv=9976) 100 WBC MORPHOLOGY (BEAKER) (test jjqd=757) Normal PLT MORPHOLOGY (BEAKER) (test ekiy=648) Normal ANISOCYTOSIS (BEAKER) (test rxre=937) 2+ moderate MICROCYTES (BEAKER) (test asoo=082) 1+ few ARTIFACT (CELLAVISION)(BEAKER) (test phid=6383) Present PLATELET CONCENTRATION (CELLAVISION)(BEAKER) Adequate (test twej=2134) Received comment: User comments: Slide comments:URINALYSIS W/ [id number] 07:56:00 Test Item Value Reference Range Comments COLOR (BEAKER) (test lelj=029) Light Yellow CLARITY (BEAKER) (test vbpt=020) Clear SPECIFIC GRAVITY UA (BEAKER) (test dbel=555) 1.010 1.001-1.035 PH UA (BEAKER) (test htyc=762) 6.0 5.0-8.0 PROTEIN UA (BEAKER) (test mbfo=632) Negative Negative GLUCOSE UA (BEAKER) (test sbqq=303) Negative Negative KETONES UA (BEAKER) (test tkwn=198) Negative Negative BILIRUBIN UA (BEAKER) (test zcpc=969) Negative Negative BLOOD UA (BEAKER) (test mujs=625) Negative Negative NITRITE UA (BEAKER) (test dsdt=452) Negative Negative LEUKOCYTE ESTERASE UA (BEAKER) (test gauf=463) Negative Negative UROBILINOGEN UA (BEAKER) (test yamp=006) 0.2 mg/dL 0.2-1.0 RBC UA (BEAKER) (test qeww=489) 0 /HPF WBC UA (BEAKER) (test jxug=137) 2 /HPF SQUAMOUS EPITHELIAL (BEAKER) (test eidk=266) < /HPF SOURCE(BEAKER) (test czxw=6500) Urine, Voided COMPLEMENT COMPONENT [id number] 07:56:00 Test Item Value Reference Range Comments C4 COMPLEMENT (BEAKER) (test jyvg=127) 46 mg/dL 15-57 COMPLEMENT COMPONENT [id number] 07:56:00 Test Item Value Reference Range Comments C3 COMPLEMENT (BEAKER) (test surr=468) 207 mg/dL 82-193 CREATININE, RANDOM [id number] 07:31:00 Test Item Value Reference Range Comments CREATININE URINE (BEAKER) (test uukv=442) 85.3 mg/dL Reference Range: No NormalsSODIUM, RANDOM [id number] 07:31:00 Test Item Value Reference Range Comments SODIUM URINE (BEAKER) (test yfvv=798) 84 meq/L Reference Range: No NormalsUREA NITROGEN, RANDOM [id number] 07:31:00 Test Item Value Reference Range Comments UREA NITROGEN URINE (BEAKER) (test lbbg=023) 517 mg/dL Reference Range: No NormalsCOMPREHENSIVE METABOLIC [id number] 07:03:00 Test Item Value Reference Range Comments TOTAL PROTEIN (BEAKER) 7.0 gm/dL 6.0-8.3 (test dwhy=371) ALBUMIN (BEAKER) (test 3.3 g/dL 3.5-5.0 vtge=3335) ALKALINE PHOSPHATASE 50 U/L 40-150 (BEAKER) (test wnrv=813) BILIRUBIN TOTAL (BEAKER) 0.8 mg/dL 0.2-1.2 (test bzwu=387) SODIUM (BEAKER) (test 140 meq/L 136-145 nzlu=340) POTASSIUM (BEAKER) (test 4.0 meq/L 3.5-5.1 gprv=582) CHLORIDE (BEAKER) (test 101 meq/L 98-107 zclk=345) CO2 (BEAKER) (test 29 meq/L 22-29 jbwz=283) BLOOD UREA NITROGEN 43 mg/dL 7-21 (BEAKER) (test lauu=567) CREATININE (BEAKER) (test 3.07 mg/dL 0.57-1.25 pcsy=194) GLUCOSE RANDOM (BEAKER) 98 mg/dL 70-105 (test lrly=627) CALCIUM (BEAKER) (test 9.6 mg/dL 8.4-10.2 juct=506) AST (SGOT) (BEAKER) (test 34 U/L 5-34 aoaz=704) ALT (SGPT) (BEAKER) (test 19 U/L 6-55 stmj=987) EGFR (BEAKER) (test 21 mL/min/1.73 sq m ESTIMATED GFR IS NOT wjiq=8525) ACCURATE CREATININE CLEARANCE IN PREDICTING GLOMERULAR FILTRATION RATE. ESTIMATED GFR IS NOT APPLICABLE FOR DIALYSIS PATIENTS. PROTHROMBIN [id number] 06:34:00 Test Item Value Reference Range Comments PROTIME (BEAKER) (test kgte=668) 13.8 seconds 11.7-14.7 INR (BEAKER) (test wfsv=233) 1.1 <=5.9 RECOMMENDED COUMADIN/WARFARIN INR THERAPY RANGESSTANDARD DOSE: 2.0 - 3.0 Includes: PROPHYLAXIS forvenous thrombosis, systemic embolization; TREATMENT for venous thrombosis and/or pulmonary embolus.HIGH RISK: Target INR is 2.5-3.5 for patients with mechanical heart valves.CT, ABDOMEN, WITHOUT [id number] 02:35:00FINAL REPORT CLINICAL HISTORY: Acute renal [...] MDReport Verified Date/Time: 06/07/2018 02:35:08 Reading Location: [address] Reading Room Electronically signed by: HUMBERTO JO M.D. on 02:35 AMCBC WITH PLATELET COUNT + MANUAL [id number] 11:22:00 Test Item Value Reference Range Comments WHITE BLOOD CELL COUNT (BEAKER) (test ydgo=004) 5.2 K/ L 3.5-10.5 RED BLOOD CELL COUNT (BEAKER) (test hfsq=689) 2.69 M/ L 4.63-6.08 HEMOGLOBIN (BEAKER) (test klub=515) 8.5 GM/DL 13.7-17.5 HEMATOCRIT (BEAKER) (test iyvn=178) 25.5 % 40.1-51.0 MEAN CORPUSCULAR VOLUME (BEAKER) (test ffiw=872) 94.8 fL 79.0-92.2 MEAN CORPUSCULAR HEMOGLOBIN (BEAKER) (test 31.6 pg 25.7-32.2 kpuc=905) MEAN CORPUSCULAR HEMOGLOBIN CONC (BEAKER) (test 33.3 GM/DL 32.3-36.5 wxgy=272) RED CELL DISTRIBUTION WIDTH (BEAKER) (test 15.0 % 11.6-14.4 hmmg=372) PLATELET COUNT (BEAKER) (test qrtk=912) 167 K/CU MM 150-450 MEAN PLATELET VOLUME (BEAKER) (test dnom=014) 9.3 fL 9.4-12.4 NUCLEATED RED BLOOD CELLS (BEAKER) (test 1 /100 WBC 0-0 samr=992) (CELLAVISION MANUAL DIFF)2018-06-06 11:22:00 Test Item Value Reference Range Comments NEUTROPHILS - REL (CELLAVISION)(BEAKER) (test 58 % gkwt=5938) LYMPHOCYTES - REL (CELLAVISION)(BEAKER) (test 13 % xusq=0531) MONOCYTES - REL (CELLAVISION)(BEAKER) (test 28 % mzdb=7707) ATYPICAL LYMPHOCYTES - REL (CELLAVISION)(BEAKER) 1 % 0-0 (test bqcj=0859) NEUTROPHILS - ABS (CELLAVISION)(BEAKER) (test 3.02 K/ul 1.78-5.38 hkty=5730) LYMPHOCYTES - ABS (CELLAVISION)(BEAKER) (test 0.68 K/ul 1.32-3.57 dcxl=2560) MONOCYTES - ABS (CELLAVISION)(BEAKER) (test 1.46 K/uL 0.30-0.82 bqcz=5561) ATYPICAL LYMPHOCYTES - ABS (CELLAVISION)(BEAKER) 0.05 K/uL 0.00-0.00 (test oeuf=1980) TOTAL COUNTED (BEAKER) (test hdgj=6831) 100 MANUAL NRBC PER 100 CELLS (BEAKER) (test 1 /100 WBC 0-0 mdkp=3151) WBC MORPHOLOGY (BEAKER) (test irnu=521) Normal PLT MORPHOLOGY (BEAKER) (test eomi=605) Normal POLYCHROMATOPHILLIC RBCS(BEAKER) (test vbru=338) 1+ few PLATELET CONCENTRATION (CELLAVISION)(BEAKER) Adequate (test kgry=9910) Received comment: User comments: Slide comments:CBC WITH PLATELET COUNT + MANUAL [id number] 11:35:00 Test Item Value Reference Range Comments WHITE BLOOD CELL COUNT (BEAKER) (test atod=845) 5.9 K/ L 3.5-10.5 RED BLOOD CELL COUNT (BEAKER) (test edgv=144) 2.80 M/ L 4.63-6.08 HEMOGLOBIN (BEAKER) (test mnon=117) 8.6 GM/DL 13.7-17.5 HEMATOCRIT (BEAKER) (test wgcd=154) 26.1 % 40.1-51.0 MEAN CORPUSCULAR VOLUME (BEAKER) (test jgje=070) 93.2 fL 79.0-92.2 MEAN CORPUSCULAR HEMOGLOBIN (BEAKER) (test 30.7 pg 25.7-32.2 fuox=721) MEAN CORPUSCULAR HEMOGLOBIN CONC (BEAKER) (test 33.0 GM/DL 32.3-36.5 ycya=561) RED CELL DISTRIBUTION WIDTH (BEAKER) (test 15.3 % 11.6-14.4 ljxm=516) PLATELET COUNT (BEAKER) (test ujxy=723) 180 K/CU MM 150-450 MEAN PLATELET VOLUME (BEAKER) (test frgl=440) 9.9 fL 9.4-12.4 NUCLEATED RED BLOOD CELLS (BEAKER) (test 1 /100 WBC 0-0 inzw=752) (CELLAVISION MANUAL DIFF)2018-06-05 11:35:00 Test Item Value Reference Range Comments NEUTROPHILS - REL (CELLAVISION)(BEAKER) (test 60 % sjav=4829) LYMPHOCYTES - REL (CELLAVISION)(BEAKER) (test 19 % tler=6814) MONOCYTES - REL (CELLAVISION)(BEAKER) (test 18 % cehq=2734) BASOPHILS - REL (CELLAVISION)(BEAKER) (test 1 % rwti=0696) MYELOCYTES - REL (CELLAVISION)(BEAKER) (test 2 % 0-0 isne=8131) NEUTROPHILS - ABS (CELLAVISION)(BEAKER) (test 3.54 K/ul 1.78-5.38 svbk=6743) LYMPHOCYTES - ABS (CELLAVISION)(BEAKER) (test 1.12 K/ul 1.32-3.57 gpzz=5942) MONOCYTES - ABS (CELLAVISION)(BEAKER) (test 1.06 K/uL 0.30-0.82 dnhm=8815) BASOPHILS - ABS (CELLAVISION)(BEAKER) (test 0.06 K/uL 0.01-0.08 xvem=5500) MYELOCYTES-ABS (CELLAVISION)(BEAKER) (test 0.12 K/uL 0.00-0.00 wilz=5251) TOTAL COUNTED (BEAKER) (test ielp=3843) 100 WBC MORPHOLOGY (BEAKER) (test vmmc=055) Normal PLT MORPHOLOGY (BEAKER) (test jlxq=247) Normal ANISOCYTOSIS (BEAKER) (test jzci=644) 2+ moderate MICROCYTES (BEAKER) (test hcmz=838) 2+ moderate ARTIFACT (CELLAVISION)(BEAKER) (test ibjz=4697) Present PLATELET CONCENTRATION (CELLAVISION)(BEAKER) Adequate (test gkzv=3288) Received comment: User comments: Slide comments:BASIC METABOLIC [id number] 08:15:00 Test Item Value Reference Range Comments SODIUM (BEAKER) (test 140 meq/L 136-145 mngu=254) POTASSIUM (BEAKER) (test 4.0 meq/L 3.5-5.1 bbms=785) CHLORIDE (BEAKER) (test 100 meq/L 98-107 gsjr=640) CO2 (BEAKER) (test 31 meq/L 22-29 lppt=638) BLOOD UREA NITROGEN 36 mg/dL 7-21 (BEAKER) (test gpqk=093) CREATININE (BEAKER) (test 2.87 mg/dL 0.57-1.25 upsp=454) GLUCOSE RANDOM (BEAKER) 94 mg/dL 70-105 (test ssyk=458) CALCIUM (BEAKER) (test 9.3 mg/dL 8.4-10.2 wjhr=082) EGFR (BEAKER) (test 22 mL/min/1.73 sq m ESTIMATED GFR IS NOT pkao=4151) ACCURATE CREATININE CLEARANCE IN PREDICTING GLOMERULAR FILTRATION RATE. ESTIMATED GFR IS NOT APPLICABLE FOR DIALYSIS PATIENTS. [id number] 07:44:00 Test Item Value Reference Range Comments MAGNESIUM (BEAKER) (test jhzy=533) 1.8 mg/dL 1.6-2.6 CBC WITH PLATELET COUNT + MANUAL [id number] 11:37:00 Test Item Value Reference Range Comments WHITE BLOOD CELL COUNT (BEAKER) (test rica=510) 5.2 K/ L 3.5-10.5 RED BLOOD CELL COUNT (BEAKER) (test rvwg=364) 2.81 M/ L 4.63-6.08 HEMOGLOBIN (BEAKER) (test hddf=456) 8.6 GM/DL 13.7-17.5 HEMATOCRIT (BEAKER) (test rbrm=551) 26.0 % 40.1-51.0 MEAN CORPUSCULAR VOLUME (BEAKER) (test zuvy=093) 92.5 fL 79.0-92.2 MEAN CORPUSCULAR HEMOGLOBIN (BEAKER) (test 30.6 pg 25.7-32.2 frbq=716) MEAN CORPUSCULAR HEMOGLOBIN CONC (BEAKER) (test 33.1 GM/DL 32.3-36.5 nftv=731) RED CELL DISTRIBUTION WIDTH (BEAKER) (test 14.8 % 11.6-14.4 uhrr=373) PLATELET COUNT (BEAKER) (test xshv=833) 206 K/CU MM 150-450 MEAN PLATELET VOLUME (BEAKER) (test qvvt=490) 9.6 fL 9.4-12.4 NUCLEATED RED BLOOD CELLS (BEAKER) (test 1 /100 WBC 0-0 dqtr=973) (CELLAVISION MANUAL DIFF)2018-06-04 11:37:00 Test Item Value Reference Range Comments NEUTROPHILS - REL (CELLAVISION)(BEAKER) (test 41 % sgwn=6756) LYMPHOCYTES - REL (CELLAVISION)(BEAKER) (test 17 % snzk=4322) MONOCYTES - REL (CELLAVISION)(BEAKER) (test 29 % xflf=8508) BASOPHILS - REL (CELLAVISION)(BEAKER) (test 2 % ehdy=1432) METAMYELOCYTES - REL (CELLAVISION)(BEAKER) (test 1 % 0-0 dubb=3333) BANDS - REL (CELLAVISION)(BEAKER) (test xapc=3052) 10 % 0-10 NEUTROPHILS - ABS (CELLAVISION)(BEAKER) (test 2.13 K/ul 1.78-5.38 gofq=7231) LYMPHOCYTES - ABS (CELLAVISION)(BEAKER) (test 0.88 K/ul 1.32-3.57 ibnt=4120) MONOCYTES - ABS (CELLAVISION)(BEAKER) (test 1.51 K/uL 0.30-0.82 nwhm=9182) BASOPHILS - ABS (CELLAVISION)(BEAKER) (test 0.10 K/uL 0.01-0.08 yxfu=1506) METAMYELOCYTES - ABS (CELLAVISION)(BEAKER) (test 0.05 K/uL 0.00-0.00 zbqa=4573) BANDS - ABS (CELLAVISION)(BEAKER) (test qzbv=7068) 0.52 K/uL 0.00-0.80 TOTAL COUNTED (BEAKER) (test pnto=6371) 100 WBC MORPHOLOGY (BEAKER) (test hoix=702) Normal PLT MORPHOLOGY (BEAKER) (test aokz=787) Normal POLYCHROMATOPHILLIC RBCS(BEAKER) (test kimf=139) 1+ few ANISOCYTOSIS (BEAKER) (test ipjs=417) 1+ few ARTIFACT (CELLAVISION)(BEAKER) (test iptj=1792) Present PLATELET CONCENTRATION (CELLAVISION)(BEAKER) (test Adequate jxqh=4562) Received comment: User comments: Slide comments:BASIC METABOLIC [id number] 05:47:00 Test Item Value Reference Range Comments SODIUM (BEAKER) (test 141 meq/L 136-145 lvbz=637) POTASSIUM (BEAKER) (test 4.2 meq/L 3.5-5.1 xsvf=108) CHLORIDE (BEAKER) (test 103 meq/L 98-107 ldjk=572) CO2 (BEAKER) (test 29 meq/L 22-29 pzuf=375) BLOOD UREA NITROGEN 35 mg/dL 7-21 (BEAKER) (test ynmg=011) CREATININE (BEAKER) (test 2.76 mg/dL 0.57-1.25 yyom=115) GLUCOSE RANDOM (BEAKER) 89 mg/dL 70-105 (test eyiq=424) CALCIUM (BEAKER) (test 9.1 mg/dL 8.4-10.2 wwsl=652) EGFR (BEAKER) (test 23 mL/min/1.73 sq m ESTIMATED GFR IS NOT lszf=1196) ACCURATE CREATININE CLEARANCE IN PREDICTING GLOMERULAR FILTRATION RATE. ESTIMATED GFR IS NOT APPLICABLE FOR DIALYSIS PATIENTS. [id number] 05:45:00 Test Item Value Reference Range Comments MAGNESIUM (BEAKER) (test gabk=388) 1.6 mg/dL 1.6-2.6 BLOOD [id number] 01:00:00 Test Item Value Reference Range Comments CULTURE (BEAKER) (test kqbv=0962) No growth in 5 days FLOW CYTOMETRY [id number] 18:29:00 Test Item Value Reference Range Comments FLOW CYTOMETRY RESULT POINTER (BEAKER) See Separate Report (test lmoh=2180) FLOW CYTOMETRY AP CASE # (MAMIE) (test [id number] tcui=8738) FLOW [id number] 15:06:00Flow Cytometry Report Case: [id number] Authorizing Provider: Thelma Cristobal MD Collected: 06/03/2018 1045 Ordering Location: [address] Received: 2018 1121 SERVICE Pathologist: Radha Edmond MD Specimen: Other BONE MARROW, FLOWCYTOMETRY:-NO INCREASED OR ABERRANT MYELOBLAST POPULATION -SEE COMMENT Less than 1% myeloblasts are identified, which do NOT show aberrant expression of CD79a, CD19, nor CD11b, which were noted on the leukemic population previously ([id number]). See M19-1 for correlation with the morphologic and other features. [id number] chemotherapy for AMLBone marrowcytoplasmic (c) MPO, cCD79a, CD34, CD19, CD7, CD3, cCD3, CD45, CD16, CD13 , CD117, CD11b, CD10, CD36, CD64, CD33, CD14, HLA-DR, cTdT, QY73Ifsaftmk Viability: 97.4% Number of Events Acquired: [id number] The following populations are identified: Blasts: the [...] developed and their performance characteristics determined by [facility]. They have not been cleared or approved by the U.S. Food and Drug Administration. The FDA has determined that such clearance or approval is not necessary. It should not be regarded as investigational or for research. This laboratory is certified under the Clinical Laboratory Improvement Amendments of 1988 ("CLIA") as qualified to perform high-complexity clinical testing.BLOOD [id number] 13:01:00 Test Item Value Reference Range Comments CULTURE (BEAKER) (test ksbu=0268) No growth in 5 days BONE MARROW PROCESS.2018-06-03 11:16:00 Test Item Value Reference Range Comments ANATOMIC CASE# (BEAKER) (test vcdq=0578) [id number] ORDERED BY DOCTOR# (BEDOUG) (test aqzs=0948) [place] PERFORMED BY DOCTOR# (BEDOUG) (test gxeu=6827) [place]ster CLOT RECEIVED? (BEAKER) (test wljn=9111) Yes BIOPSY RECEIVED? (BEAKER) (test zyia=8898) Yes CULTURE RECEIVED? (BEAKER) (test hnzo=7259) No FLOW RECEIVED? (BEAKER) (test rppj=7414) Yes CYTOGENICS? (BEAKER) (test hykp=1580) Yes MOLECULAR GENETICS? (BEAKER) (test hzjq=9357) Hold Good collection but slides not great no partical by Dr Grimaldo WITH PLATELET COUNT + MANUAL [id number] 11:02:00 Test Item Value Reference Range Comments WHITE BLOOD CELL COUNT (BEAKER) (test qarg=821) 6.3 K/ L 3.5-10.5 RED BLOOD CELL COUNT (BEAKER) (test tfyf=608) 2.20 M/ L 4.63-6.08 HEMOGLOBIN (BEAKER) (test kgtv=501) 6.9 GM/DL 13.7-17.5 HEMATOCRIT (BEAKER) (test qyxs=396) 20.6 % 40.1-51.0 MEAN CORPUSCULAR VOLUME (BEAKER) (test kwab=366) 93.6 fL 79.0-92.2 MEAN CORPUSCULAR HEMOGLOBIN (BEAKER) (test 31.4 pg 25.7-32.2 dgig=793) MEAN CORPUSCULAR HEMOGLOBIN CONC (BEAKER) (test 33.5 GM/DL 32.3-36.5 cocu=101) RED CELL DISTRIBUTION WIDTH (BEAKER) (test 14.6 % 11.6-14.4 ocwj=449) PLATELET COUNT (BEAKER) (test hczx=997) 148 K/CU MM 150-450 MEAN PLATELET VOLUME (BEAKER) (test ehgo=357) 9.8 fL 9.4-12.4 NUCLEATED RED BLOOD CELLS (BEAKER) (test 1 /100 WBC 0-0 lkaf=903) (CELLAVISION MANUAL DIFF)2018-06-03 11:02:00 Test Item Value Reference Range Comments NEUTROPHILS - REL (CELLAVISION)(BEAKER) (test 53 % oonl=7782) LYMPHOCYTES - REL (CELLAVISION)(BEAKER) (test 14 % yodu=7599) MONOCYTES - REL (CELLAVISION)(BEAKER) (test 21 % jjzt=1782) BASOPHILS - REL (CELLAVISION)(BEAKER) (test 1 % vjkm=3070) METAMYELOCYTES - REL (CELLAVISION)(BEAKER) (test 1 % 0-0 jmqp=2499) MYELOCYTES - REL (CELLAVISION)(BEAKER) (test 2 % 0-0 ydkj=3150) PROMYELOCYTES - REL (CELLAVSION)(BEAKER) (test 1 % 0-0 nyui=2019) BANDS - REL (CELLAVISION)(BEAKER) (test 6 % 0-10 lbdl=5377) ATYPICAL LYMPHOCYTES - REL (CELLAVISION)(BEAKER) 1 % 0-0 (test jlzj=9252) NEUTROPHILS - ABS (CELLAVISION)(BEAKER) (test 3.34 K/ul 1.78-5.38 luis=3931) LYMPHOCYTES - ABS (CELLAVISION)(BEAKER) (test 0.88 K/ul 1.32-3.57 rjdd=0756) MONOCYTES - ABS (CELLAVISION)(BEAKER) (test 1.32 K/uL 0.30-0.82 nyyj=4091) BASOPHILS - ABS (CELLAVISION)(BEAKER) (test 0.06 K/uL 0.01-0.08 fsly=1211) METAMYELOCYTES - ABS (CELLAVISION)(BEAKER) (test 0.06 K/uL 0.00-0.00 bjwi=7286) MYELOCYTES-ABS (CELLAVISION)(BEAKER) (test 0.13 K/uL 0.00-0.00 euga=1440) PROMYELOCYTES - ABS (CELLAVISION)(BEAKER) (test 0.06 K/uL 0.00-0.00 ouuv=8390) BANDS - ABS (CELLAVISION)(BEAKER) (test 0.38 K/uL 0.00-0.80 xvck=1395) ATYPICAL LYMPHOCYTES - ABS (CELLAVISION)(BEAKER) 0.06 K/uL 0.00-0.00 (test cbvv=4425) TOTAL COUNTED (BEAKER) (test dxnm=8789) 100 MANUAL NRBC PER 100 CELLS (BEAKER) (test 2 /100 WBC 0-0 kgkm=4051) SMUDGE CELLS (BEAKER) (test rpgu=1874) Present GIANT PLATELETS (BEAKER) (test qzpj=639) Present POLYCHROMATOPHILLIC RBCS(BEAKER) (test pzxd=625) 1+ few ANISOCYTOSIS (BEAKER) (test hpbb=369) 2+ moderate MICROCYTES (BEAKER) (test ydgv=882) 1+ few PLATELET CONCENTRATION (CELLAVISION)(BEAKER) Adequate (test qwdr=8712) Received comment: User comments: Slide comments:CT, BIOPSY, BONE [id number] 10:58:00Reason for exam:->AML, s/p induction , [...] biopsy Signed: Robbie Rouse MDReport Verified Date/Time: 06/03/2018 10:58:26 Reading Location: [address] Consult Reading Room Electronically signed by: ROBBIE ROUSE M.D.on 06/03/2018 10:58 [id number] 09:11:00 Test Item Value Reference Range Comments PROTIME (BEAKER) (test yufj=124) 14.0 seconds 11.7-14.7 INR (BEAKER) (test sxgw=143) 1.1 <=5.9 PARTIAL THROMBOPLASTIN TIME (BEAKER) (test 34.0 seconds 22.5-36.0 jlwp=322) RECOMMENDED COUMADIN/WARFARIN INR THERAPY RANGESSTANDARD DOSE: 2.0 - 3.0 Includes: PROPHYLAXIS forvenous thrombosis, systemic embolization; TREATMENT for venous thrombosis and/or pulmonary embolus.HIGH RISK: Target INR is 2.5-3.5 for patients with mechanical heart valves.RAD, CHEST, 1 VIEW, NON [id number] 08:04:00Reason for exam:->SOBShould this be performed [...] Verified Date/Time: 06/03/2018 08:04: 26 Reading Location: [facility] Radiology Reading Room BASIC METABOLIC [id number] 06:47:00 Test Item Value Reference Range Comments SODIUM (BEAKER) (test 141 meq/L 136-145 bzlc=973) POTASSIUM (BEAKER) (test 4.1 meq/L 3.5-5.1 qovs=171) CHLORIDE (BEAKER) (test 105 meq/L 98-107 sazp=891) CO2 (BEAKER) (test 27 meq/L 22-29 zxiw=568) BLOOD UREA NITROGEN 36 mg/dL 7-21 (BEAKER) (test uvag=064) CREATININE (BEAKER) (test 2.62 mg/dL 0.57-1.25 vena=006) GLUCOSE RANDOM (BEAKER) 97 mg/dL 70-105 (test hxys=014) CALCIUM (BEAKER) (test 8.4 mg/dL 8.4-10.2 saem=001) EGFR (BEAKER) (test 25 mL/min/1.73 sq m ESTIMATED GFR IS NOT gmrd=4365) ACCURATE CREATININE CLEARANCE IN PREDICTING GLOMERULAR FILTRATION RATE. ESTIMATED GFR IS NOT APPLICABLE FOR DIALYSIS PATIENTS. [id number] 06:42:00 Test Item Value Reference Range Comments MAGNESIUM (BEAKER) (test odgk=001) 1.7 mg/dL 1.6-2.6 B-TYPE NATRIURETIC FACTOR (BNP)2018-06-03 06:40:00 Test Item Value Reference Range Comments B-TYPE NATRIURETIC PEPTIDE (BEAKER) (test 106 pg/mL 0-100 ctml=915) CBC WITH PLATELET COUNT + MANUAL [id number] 13:39:00 Test Item Value Reference Range Comments WHITE BLOOD CELL COUNT (BEAKER) (test zhvy=547) 6.6 K/ L 3.5-10.5 RED BLOOD CELL COUNT (BEAKER) (test zagj=821) 2.27 M/ L 4.63-6.08 HEMOGLOBIN (BEAKER) (test irzb=325) 7.1 GM/DL 13.7-17.5 HEMATOCRIT (BEAKER) (test eucm=291) 21.0 % 40.1-51.0 MEAN CORPUSCULAR VOLUME (BEAKER) (test utio=544) 92.5 fL 79.0-92.2 MEAN CORPUSCULAR HEMOGLOBIN (BEAKER) (test 31.3 pg 25.7-32.2 atbr=815) MEAN CORPUSCULAR HEMOGLOBIN CONC (BEAKER) (test 33.8 GM/DL 32.3-36.5 qpyx=314) RED CELL DISTRIBUTION WIDTH (BEAKER) (test 14.4 % 11.6-14.4 ncpp=682) PLATELET COUNT (BEAKER) (test fnhi=890) 150 K/CU MM 150-450 MEAN PLATELET VOLUME (BEAKER) (test txgm=889) 9.7 fL 9.4-12.4 NUCLEATED RED BLOOD CELLS (BEAKER) (test 2 /100 WBC 0-0 ktsh=071) (CELLAVISION MANUAL DIFF)2018-06-02 13:39:00 Test Item Value Reference Range Comments NEUTROPHILS - REL (CELLAVISION)(BEAKER) (test 45 % wibz=9728) LYMPHOCYTES - REL (CELLAVISION)(BEAKER) (test 19 % pwrr=0268) MONOCYTES - REL (CELLAVISION)(BEAKER) (test 21 % vwto=3969) METAMYELOCYTES - REL (CELLAVISION)(BEAKER) (test 4 % 0-0 njdm=0706) MYELOCYTES - REL (CELLAVISION)(BEAKER) (test 1 % 0-0 aebk=8864) BANDS - REL (CELLAVISION)(BEAKER) (test 9 % 0-10 vwrn=0726) ATYPICAL LYMPHOCYTES - REL (CELLAVISION)(BEAKER) 1 % 0-0 (test nvza=1759) NEUTROPHILS - ABS (CELLAVISION)(BEAKER) (test 2.97 K/ul 1.78-5.38 pvug=4640) LYMPHOCYTES - ABS (CELLAVISION)(BEAKER) (test 1.25 K/ul 1.32-3.57 jgjj=0858) MONOCYTES - ABS (CELLAVISION)(BEAKER) (test 1.39 K/uL 0.30-0.82 rqom=3554) METAMYELOCYTES - ABS (CELLAVISION)(BEAKER) (test 0.26 K/uL 0.00-0.00 bhph=2584) MYELOCYTES-ABS (CELLAVISION)(BEAKER) (test 0.07 K/uL 0.00-0.00 xrsd=3092) BANDS - ABS (CELLAVISION)(BEAKER) (test 0.59 K/uL 0.00-0.80 dyzy=3810) ATYPICAL LYMPHOCYTES - ABS (CELLAVISION)(BEAKER) 0.07 K/uL 0.00-0.00 (test fxwl=4825) TOTAL COUNTED (BEAKER) (test ftkr=5754) 100 PLT MORPHOLOGY (BEAKER) (test zljl=803) Normal SMUDGE CELLS (BEAKER) (test uzzr=6269) Present POLYCHROMATOPHILLIC RBCS(BEAKER) (test xddd=546) 1+ few ANISOCYTOSIS (BEAKER) (test uubv=599) 2+ moderate MICROCYTES (BEAKER) (test mmue=145) 2+ moderate OVALOCYTES (BEAKER) (test nuah=994) 1+ few TEAR DROP CELLS (BEAKER) (test owfv=456) 1+ few PLATELET CONCENTRATION (CELLAVISION)(BEAKER) Adequate (test jkkq=0008) Received comment: User comments: Slide comments:BASIC METABOLIC [id number] 07:14:00 Test Item Value Reference Range Comments SODIUM (BEAKER) (test 140 meq/L 136-145 wbdb=825) POTASSIUM (BEAKER) (test 3.8 meq/L 3.5-5.1 tgsu=906) CHLORIDE (BEAKER) (test 106 meq/L 98-107 oypd=514) CO2 (BEAKER) (test 25 meq/L 22-29 tyii=250) BLOOD UREA NITROGEN 37 mg/dL 7-21 (BEAKER) (test vkps=356) CREATININE (BEAKER) (test 2.41 mg/dL 0.57-1.25 yuip=930) GLUCOSE RANDOM (BEAKER) 104 mg/dL 70-105 (test lhqy=020) CALCIUM (BEAKER) (test 8.4 mg/dL 8.4-10.2 yavq=787) EGFR (BEAKER) (test 27 mL/min/1.73 sq m ESTIMATED GFR IS NOT rtgu=8117) ACCURATE CREATININE CLEARANCE IN PREDICTING GLOMERULAR FILTRATION RATE. ESTIMATED GFR IS NOT APPLICABLE FOR DIALYSIS PATIENTS. [id number] 07:02:00 Test Item Value Reference Range Comments MAGNESIUM (BEAKER) (test gfbl=296) 1.5 mg/dL 1.6-2.6 CBC WITH PLATELET COUNT + MANUAL [id number] 15:14:00 Test Item Value Reference Range Comments WHITE BLOOD CELL COUNT (BEAKER) (test hrdd=548) 7.3 K/ L 3.5-10.5 RED BLOOD CELL COUNT (BEAKER) (test yaia=875) 2.32 M/ L 4.63-6.08 HEMOGLOBIN (BEAKER) (test piks=694) 7.3 GM/DL 13.7-17.5 HEMATOCRIT (BEAKER) (test puxs=123) 21.1 % 40.1-51.0 MEAN CORPUSCULAR VOLUME (BEAKER) (test qjnh=440) 90.9 fL 79.0-92.2 MEAN CORPUSCULAR HEMOGLOBIN (BEAKER) (test 31.5 pg 25.7-32.2 xpax=869) MEAN CORPUSCULAR HEMOGLOBIN CONC (BEAKER) (test 34.6 GM/DL 32.3-36.5 hurf=571) RED CELL DISTRIBUTION WIDTH (BEAKER) (test 14.6 % 11.6-14.4 pnuu=019) PLATELET COUNT (BEAKER) (test dmnj=835) 123 K/CU MM 150-450 MEAN PLATELET VOLUME (BEAKER) (test osbv=843) 10.1 fL 9.4-12.4 NUCLEATED RED BLOOD CELLS (BEAKER) (test 2 /100 WBC 0-0 hnge=966) (CELLAVISION MANUAL DIFF)2018-06-01 15:14:00 Test Item Value Reference Range Comments NEUTROPHILS - REL (CELLAVISION)(BEAKER) (test 28 % tgno=1232) LYMPHOCYTES - REL (CELLAVISION)(BEAKER) (test 20 % myah=6505) MONOCYTES - REL (CELLAVISION)(BEAKER) (test 32 % bgjs=9795) METAMYELOCYTES - REL (CELLAVISION)(BEAKER) (test 4 % 0-0 wqln=7379) MYELOCYTES - REL (CELLAVISION)(BEAKER) (test 3 % 0-0 jfpz=0199) BANDS - REL (CELLAVISION)(BEAKER) (test 11 % 0-10 exwd=6361) ATYPICAL LYMPHOCYTES - REL (CELLAVISION)(BEAKER) 1 % 0-0 (test ohdh=7035) NEUTROPHILS - ABS (CELLAVISION)(BEAKER) (test 2.04 K/ul 1.78-5.38 ngir=7096) LYMPHOCYTES - ABS (CELLAVISION)(BEAKER) (test 1.46 K/ul 1.32-3.57 memv=0227) MONOCYTES - ABS (CELLAVISION)(BEAKER) (test 2.34 K/uL 0.30-0.82 kloq=3196) METAMYELOCYTES - ABS (CELLAVISION)(BEAKER) (test 0.29 K/uL 0.00-0.00 lzth=5460) MYELOCYTES-ABS (CELLAVISION)(BEAKER) (test 0.22 K/uL 0.00-0.00 jtmt=8647) BANDS - ABS (CELLAVISION)(BEAKER) (test 0.80 K/uL 0.00-0.80 jell=0540) ATYPICAL LYMPHOCYTES - ABS (CELLAVISION)(BEAKER) 0.07 K/uL 0.00-0.00 (test ojyb=0747) TOTAL COUNTED (BEAKER) (test tqzw=5555) 100 MANUAL NRBC PER 100 CELLS (BEAKER) (test 4 /100 WBC 0-0 iohp=6224) PLT MORPHOLOGY (BEAKER) (test jyda=051) Normal SMUDGE CELLS (BEAKER) (test sakg=4655) Present POLYCHROMATOPHILLIC RBCS(BEAKER) (test zzvj=893) 3+ many ANISOCYTOSIS (BEAKER) (test ygrc=771) 2+ moderate MICROCYTES (BEAKER) (test zmsj=913) 1+ few POIKILOCYTES (BEAKER) (test nyxe=405) 1+ few ARTIFACT (CELLAVISION)(BEAKER) (test qivr=1275) Present PLATELET CONCENTRATION (CELLAVISION)(BEAKER) Decreased (test ethw=7914) Received comment: User comments: Slide comments:BONE MARROW [id number] 13:39 :00Bone Marrow Pathology Report Case: [id number] Authorizing Provider: Willem Kapoor MD Collected: 05/05/2018 1000 Ordering Location: [address] Received: 05/05/2018 1020 SERVICE Pathologist: Ash Puentes MD Specimens: A) - Iliac Crest, Right B) - C) - Bone Marrow Addendum: This addendum is created to report the [facility] [employer] Comprehensive DNA Panel and the [employer] results for the FLT3 Mutation Analysis Panel and Oncologic chromosomal study:Oncologic Chromosomal Study is ABNORMAL. 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 Clinical correlation is recommended. Please see attachedscanned [facility] [employer] and [employer] reports for details. Addendum electronically signed by [...] MACROCYTIC ANEMIA-THROMBOCYTOPENIA Signing Pathologist Direct Phone Line: [phone] signed by Ash Puentes MD on 05/06/2018 [...] mild lymphocytosis(19.0%) is noted. The corresponding flow cytometry([id number]) of the aspirate demonstrated increased blasts with a phenotypic consistent with acute myeloid leukemia. There was no evidence of an aberrant B or T lymphocyte process. The peripheral blood was remarkably for pancytopenia and circulating blasts. Clinical correlation is recommended.Oncologic chromosomal study, FLT3 molecular study and NGS Hematologic malignancy panel are pending. The results will be submitted as an addendum when available.42139; 01980; 52906 x 2; 91813; [id number] x 1; 75524 v7Hzyrk iliac crest bone marrow The specimen is [...] AdequateMARROW DIFFERENTIAL COUNT: Number of cells counted: 74465.5 % Blasts 0.00 % Promyelocytes 2.00 % [...] evaluated on the bone marrow biopsy:CD34: Increased demrpfIH343: Markedly increased blasts(compared to E-cadherin, essentially all [...] technical testing was performed at [facility] where it was developed and [...] the bone marrow biopsy:CD34, CD117 , CD61, [facility] [id number] 06:08:00 Test Item Value Reference Range Comments SODIUM (BEAKER) (test 140 meq/L 136-145 qxdj=290) POTASSIUM (BEAKER) (test 3.8 meq/L 3.5-5.1 crou=581) CHLORIDE (BEAKER) (test 106 meq/L 98-107 myrz=467) CO2 (BEAKER) (test 28 meq/L 22-29 xqao=512) BLOOD UREA NITROGEN 38 mg/dL 7-21 (BEAKER) (test dphw=745) CREATININE (BEAKER) (test 2.56 mg/dL 0.57-1.25 agbt=150) GLUCOSE RANDOM (BEAKER) 99 mg/dL 70-105 (test puwt=325) CALCIUM (BEAKER) (test 8.3 mg/dL 8.4-10.2 jwjx=218) EGFR (BEAKER) (test 26 mL/min/1.73 sq m ESTIMATED GFR IS NOT oecw=2217) ACCURATE CREATININE CLEARANCE IN PREDICTING GLOMERULAR FILTRATION RATE. ESTIMATED GFR IS NOT APPLICABLE FOR DIALYSIS PATIENTS. [id number] 06:04:00 Test Item Value Reference Range Comments MAGNESIUM (BEAKER) (test nmwx=768) 1.6 mg/dL 1.6-2.6 URIC [id number] 15:26:00 Test Item Value Reference Range Comments URIC ACID (BEAKER) (test ytij=409) 6.4 mg/dL 2.6-7.2 [id number] 15:26:00 Test Item Value Reference Range Comments PHOSPHORUS (BEAKER) (test simq=159) 2.7 mg/dL 2.3-4.7 BASIC METABOLIC [id number] 12:17:00 Test Item Value Reference Range Comments SODIUM (BEAKER) (test 139 meq/L 136-145 jxck=318) POTASSIUM (BEAKER) (test 3.6 meq/L 3.5-5.1 gkni=082) CHLORIDE (BEAKER) (test 105 meq/L 98-107 xssx=463) CO2 (BEAKER) (test 27 meq/L 22-29 ucsw=601) BLOOD UREA NITROGEN 34 mg/dL 7-21 (BEAKER) (test uybs=670) CREATININE (BEAKER) (test 2.60 mg/dL 0.57-1.25 qucr=424) GLUCOSE RANDOM (BEAKER) 123 mg/dL 70-105 (test zfwu=722) CALCIUM (BEAKER) (test 8.4 mg/dL 8.4-10.2 dwui=614) EGFR (BEAKER) (test 25 mL/min/1.73 sq m ESTIMATED GFR IS NOT mqvg=1214) ACCURATE CREATININE CLEARANCE IN PREDICTING GLOMERULAR FILTRATION RATE. ESTIMATED GFR IS NOT APPLICABLE FOR DIALYSIS PATIENTS. CBC WITH PLATELET COUNT + MANUAL [id number] 08:24:00 Test Item Value Reference Range Comments WHITE BLOOD CELL COUNT (BEAKER) (test plsn=812) 9.0 K/ L 3.5-10.5 RED BLOOD CELL COUNT (BEAKER) (test zvnp=514) 2.63 M/ L 4.63-6.08 HEMOGLOBIN (BEAKER) (test cjts=222) 8.3 GM/DL 13.7-17.5 HEMATOCRIT (BEAKER) (test jfee=062) 23.5 % 40.1-51.0 MEAN CORPUSCULAR VOLUME (BEAKER) (test cwsz=679) 89.4 fL 79.0-92.2 MEAN CORPUSCULAR HEMOGLOBIN (BEAKER) (test 31.6 pg 25.7-32.2 fyuz=692) MEAN CORPUSCULAR HEMOGLOBIN CONC (BEAKER) (test 35.3 GM/DL 32.3-36.5 hugo=551) RED CELL DISTRIBUTION WIDTH (BEAKER) (test 14.1 % 11.6-14.4 jcig=329) PLATELET COUNT (BEAKER) (test xsqj=597) 126 K/CU MM 150-450 MEAN PLATELET VOLUME (BEAKER) (test hhls=986) 10.2 fL 9.4-12.4 NUCLEATED RED BLOOD CELLS (BEAKER) (test 2 /100 WBC 0-0 xkfr=945) (CELLAVISION MANUAL DIFF)2018-05-31 08:24:00 Test Item Value Reference Range Comments NEUTROPHILS - REL (CELLAVISION)(BEAKER) (test 32 % buse=2105) LYMPHOCYTES - REL (CELLAVISION)(BEAKER) (test 15 % rvem=2091) MONOCYTES - REL (CELLAVISION)(BEAKER) (test 34 % qxxp=6558) METAMYELOCYTES - REL (CELLAVISION)(BEAKER) (test 2 % 0-0 vwrt=9483) MYELOCYTES - REL (CELLAVISION)(BEAKER) (test 2 % 0-0 pnqe=1625) BANDS - REL (CELLAVISION)(BEAKER) (test 11 % 0-10 kmhu=4492) BLASTS - REL (CELLAVISION)(BEAKER) (test 1 % 0-0 fzdi=4852) ATYPICAL LYMPHOCYTES - REL (CELLAVISION)(BEAKER) 2 % 0-0 (test ojcq=6304) NEUTROPHILS - ABS (CELLAVISION)(BEAKER) (test 2.88 K/ul 1.78-5.38 gamu=4032) LYMPHOCYTES - ABS (CELLAVISION)(BEAKER) (test 1.35 K/ul 1.32-3.57 rmyl=4491) MONOCYTES - ABS (CELLAVISION)(BEAKER) (test 3.06 K/uL 0.30-0.82 vbnu=8856) METAMYELOCYTES - ABS (CELLAVISION)(BEAKER) (test 0.18 K/uL 0.00-0.00 tpyg=0825) MYELOCYTES-ABS (CELLAVISION)(BEAKER) (test 0.18 K/uL 0.00-0.00 wylr=9484) BANDS - ABS (CELLAVISION)(BEAKER) (test 0.99 K/uL 0.00-0.80 htqn=9994) BLASTS - ABS (CELLAVISION)(BEAKER) (test 0.09 K/uL 0.00-0.00 hcps=1191) ATYPICAL LYMPHOCYTES - ABS (CELLAVISION)(BEAKER) 0.18 K/uL 0.00-0.00 (test altt=7784) TOTAL COUNTED (BEAKER) (test coyq=6723) 100 MANUAL NRBC PER 100 CELLS (BEAKER) (test 4 /100 WBC 0-0 xwkm=0122) WBC MORPHOLOGY (BEAKER) (test xqrs=308) Normal PLT MORPHOLOGY (BEAKER) (test qnfm=567) Normal ANISOCYTOSIS (BEAKER) (test eear=948) 1+ few MICROCYTES (BEAKER) (test rwbm=065) 1+ few ARTIFACT (CELLAVISION)(BEAKER) (test qqly=8334) Present PLATELET CONCENTRATION (CELLAVISION)(BEAKER) Decreased (test pmmz=1711) Received comment: User comments: Slide comments:EOSINOPHIL SMEAR, [id number] 12:47:00 Test Item Value Reference Range Comments EOSINOPHIL SMEAR, URINE (BEAKER) (test No EOS seen No EOS seen xknc=7451) CBC WITH PLATELET COUNT + MANUAL [id number] 11:18:00 Test Item Value Reference Range Comments WHITE BLOOD CELL COUNT (BEAKER) (test nxts=315) 8.6 K/ L 3.5-10.5 RED BLOOD CELL COUNT (BEAKER) (test qxep=893) 2.10 M/ L 4.63-6.08 HEMOGLOBIN (BEAKER) (test jced=806) 6.6 GM/DL 13.7-17.5 HEMATOCRIT (BEAKER) (test ocru=803) 18.8 % 40.1-51.0 MEAN CORPUSCULAR VOLUME (BEAKER) (test lxmd=672) 89.5 fL 79.0-92.2 MEAN CORPUSCULAR HEMOGLOBIN (BEAKER) (test 31.4 pg 25.7-32.2 otoh=745) MEAN CORPUSCULAR HEMOGLOBIN CONC (BEAKER) (test 35.1 GM/DL 32.3-36.5 baol=335) RED CELL DISTRIBUTION WIDTH (BEAKER) (test 14.4 % 11.6-14.4 bnmy=110) PLATELET COUNT (BEAKER) (test hcqg=821) 84 K/CU MM 150-450 MEAN PLATELET VOLUME (BEAKER) (test smiz=536) 10.3 fL 9.4-12.4 NUCLEATED RED BLOOD CELLS (BEAKER) (test 1 /100 WBC 0-0 pmrw=169) (MANUAL DIFFERENTIAL)2018-05-30 11:18:00 Test Item Value Reference Range Comments NEUTROPHILS - REL (DIFF) (BEAKER) (test 13 % owja=4766) LYMPHOCYTES - REL (DIFF) (BEAKER) (test 14 % wvhc=4567) MONOCYTES - REL (DIFF) (BEAKER) (test wwqu=1739) 49 % METAMYELOCYTES-REL (DIFF) (BEAKER) (test 6 % 0-0 dtei=601) MYELOCYTES-REL (DIFF) (BEAKER) (test cxmn=7936) 2 % 0-0 PROMYELOCYTES-REL (DIFF) (BEAKER) (test 1 % 0-0 psbr=980) BANDS - REL (DIFF) (BEAKER) (test mesp=7306) 12 % 0-10 BLASTS - REL (DIFF) (BEAKER) (test ltvg=5474) 3 % 0-0 NEUTROPHILS - ABS (DIFF) (BEAKER) (test 1.12 K/ L 1.80-8.00 ghcr=6595) LYMPHOCYTES - ABS (DIFF) (BEAKER) (test 1.20 K/ L 1.48-4.50 ytst=2401) MONOCYTES - ABS (DIFF) (BEAKER) (test lmdp=7136) 4.21 K/ L 0.00-1.30 METAMYELOCTYES - ABS (DIFF) (BEAKER) (test 0.52 K/ L 0.00-0.00 qhsg=111) PROMYELOCYTES - ABS (DIFF) (BEAKER) (test 0.09 K/ L 0.00-0.00 yont=698) BANDS-ABS (DIFF) (BEAKER) (test igpf=6014) 1.0 K/ L 0.0-0.8 BLASTS - ABS (DIFF) (BEAKER) (test dpcy=2764) 0.26 K/ L 0.00-0.00 MYELOCYTES-ABS (DIFF) (BEAKER) (test kcjc=9432) 0.17 K/ L 0.00-0.00 TOTAL COUNTED (BEAKER) (test cqno=8083) 100 BANDS + SEGMENTED NEUTROPHILS (BEAKER) (test 2.15 udtw=5826) MANUAL NRBC PER 100 CELLS (BEAKER) (test 2 /100 WBC 0-0 ivnb=5473) WBC MORPHOLOGY (BEAKER) (test hlvo=517) Normal PLT MORPHOLOGY (BEAKER) (test rayu=866) Normal ACANTHOCYTES (BEAKER) (test wowc=623) 1+ few ANISOCYTOSIS (BEAKER) (test fesg=621) 1+ few HYPOCHROMIA (BEAKER) (test tqwy=416) 2+ moderate MACROCYTES (BEAKER) (test mymy=052) 1+ few OVALOCYTES (BEAKER) (test mcse=330) 1+ few POIKILOCYTES (BEAKER) (test bhqc=904) 1+ few POLYCHROMATOPHILLIC RBCS(BEAKER) (test ujrl=133) 1+ few B-TYPE NATRIURETIC FACTOR (BNP)2018-05-30 07:16:00 Test Item Value Reference Range Comments B-TYPE NATRIURETIC PEPTIDE (BEAKER) (test snxo=818) 72 pg/mL 0-100 BASIC METABOLIC [id number] 07:02:00 Test Item Value Reference Range Comments SODIUM (BEAKER) (test 136 meq/L 136-145 eqch=953) POTASSIUM (BEAKER) (test 3.6 meq/L 3.5-5.1 pghj=879) CHLORIDE (BEAKER) (test 103 meq/L 98-107 konn=135) CO2 (BEAKER) (test 28 meq/L 22-29 ovry=614) BLOOD UREA NITROGEN 32 mg/dL 7-21 (BEAKER) (test wxlx=122) CREATININE (BEAKER) (test 2.43 mg/dL 0.57-1.25 jflb=183) GLUCOSE RANDOM (BEAKER) 102 mg/dL 70-105 (test bici=166) CALCIUM (BEAKER) (test 8.6 mg/dL 8.4-10.2 mixi=236) EGFR (BEAKER) (test 27 mL/min/1.73 sq m ESTIMATED GFR IS NOT pocb=3140) ACCURATE CREATININE CLEARANCE IN PREDICTING GLOMERULAR FILTRATION RATE. ESTIMATED GFR IS NOT APPLICABLE FOR DIALYSIS PATIENTS. [id number] 07:01:00 Test Item Value Reference Range Comments MAGNESIUM (BEAKER) (test tuwh=554) 1.8 mg/dL 1.6-2.6 BILIRUBIN, ADULT [id number] 07:01:00 Test Item Value Reference Range Comments BILIRUBIN TOTAL (BEAKER) (test jrku=719) 1.0 mg/dL 0.2-1.2 BILIRUBIN, [id number] 07:01:00 Test Item Value Reference Range Comments BILIRUBIN DIRECT (BEAKER) (test rxvj=804) 0.4 mg/dL 0.1-0.5 LACTATE DEHYDROGENASE (LDH)2018-05-30 07:01:00 Test Item Value Reference Range Comments LACTATE DEHYDROGENASE (BEAKER) (test pgtw=542) 733 U/L 125-220 U/S, RENAL, [id number] 22:34:00Reason for exam:->acute renal failureShould this be [...] Nunez MDReport Verified Date/Time: 05/29/2018 22:34:59 Reading Location:[facility] C013W Consult Reading Room Electronically signed by: DEXTER NUNEZ M.D. on 10:34 PMEOSINOPHIL SMEAR, [id number] 14:05:00 Test Item Value Reference Range Comments EOSINOPHIL SMEAR, URINE (BEAKER) (test No EOS seen No EOS seen tbgp=1670) VANCOMYCIN LEVEL, [id number] 13:33:00 Test Item Value Reference Range Comments VANCOMYCIN TROUGH (BEAKER) (test klue=513) 46.3 ug/mL 10.0-20.0 CREATINE KINASE (CK)2018-05-29 12:34:00 Test Item Value Reference Range Comments CREATINE KINASE TOTAL (BEAKER) (test etnz=583) 246 U/L 29-200 CREATININE, RANDOM [id number] 11:40:00 Test Item Value Reference Range Comments CREATININE URINE (BEAKER) (test xmik=149) 188.6 mg/dL Reference Range: No NormalsSODIUM, RANDOM [id number] 11:40:00 Test Item Value Reference Range Comments SODIUM URINE (BEAKER) (test woig=275) 34 meq/L Reference Range: No NormalsUREA NITROGEN, RANDOM [id number] 11:40:00 Test Item Value Reference Range Comments UREA NITROGEN URINE (BEAKER) (test rvpb=744) 422 mg/dL Reference Range: No NormalsURINALYSIS W/ REFLEX URINE [id number] 11:29:00 Test Item Value Reference Range Comments COLOR (BEAKER) (test vmiy=839) Yellow CLARITY (BEAKER) (test fplt=375) Hazy SPECIFIC GRAVITY UA (BEAKER) (test kdda=659) 1.013 1.001-1.035 PH UA (BEAKER) (test dqjt=241) 5.5 5.0-8.0 PROTEIN UA (BEAKER) (test llbl=189) 30 mg/dL Negative GLUCOSE UA (BEAKER) (test woze=730) Negative Negative KETONES UA (BEAKER) (test refy=515) Trace Negative BILIRUBIN UA (BEAKER) (test ajmn=830) Negative Negative BLOOD UA (BEAKER) (test vucc=219) Trace Negative NITRITE UA (BEAKER) (test fecj=344) Negative Negative LEUKOCYTE ESTERASE UA (BEAKER) (test acdr=396) Negative Negative UROBILINOGEN UA (BEAKER) (test yddv=832) 3.0 mg/dL 0.2-1.0 RBC UA (BEAKER) (test zfce=535) 0 /HPF WBC UA (BEAKER) (test hyuf=976) < /HPF BACTERIA (BEAKER) (test jzud=821) Moderate SQUAMOUS EPITHELIAL (BEAKER) (test xxnf=962) 1 /HPF YEAST (BEAKER) (test dlhs=3350) Occasional SOURCE(BEAKER) (test wdvk=9485) CBC WITH PLATELET COUNT + MANUAL [id number] 10:49:00 Test Item Value Reference Range Comments WHITE BLOOD CELL COUNT (BEAKER) (test vzvs=346) 7.1 K/ L 3.5-10.5 RED BLOOD CELL COUNT (BEAKER) (test pbji=874) 2.25 M/ L 4.63-6.08 HEMOGLOBIN (BEAKER) (test mrjs=263) 7.0 GM/DL 13.7-17.5 HEMATOCRIT (BEAKER) (test vnni=251) 20.0 % 40.1-51.0 MEAN CORPUSCULAR VOLUME (BEAKER) (test hbmo=036) 88.9 fL 79.0-92.2 MEAN CORPUSCULAR HEMOGLOBIN (BEAKER) (test 31.1 pg 25.7-32.2 ozbh=817) MEAN CORPUSCULAR HEMOGLOBIN CONC (BEAKER) (test 35.0 GM/DL 32.3-36.5 mmzk=613) RED CELL DISTRIBUTION WIDTH (BEAKER) (test 14.3 % 11.6-14.4 steg=531) PLATELET COUNT (BEAKER) (test cvqg=500) 62 K/CU MM 150-450 MEAN PLATELET VOLUME (BEAKER) (test ebhn=299) 9.8 fL 9.4-12.4 NUCLEATED RED BLOOD CELLS (BEAKER) (test 1 /100 WBC 0-0 tqts=414) (CELLAVISION MANUAL DIFF)2018-05-29 10:49:00 Test Item Value Reference Range Comments NEUTROPHILS - REL (CELLAVISION)(BEAKER) (test 10 % fbce=2209) LYMPHOCYTES - REL (CELLAVISION)(BEAKER) (test 13 % yzun=1561) MONOCYTES - REL (CELLAVISION)(BEAKER) (test 58 % cldr=0717) METAMYELOCYTES - REL (CELLAVISION)(BEAKER) (test 2 % 0-0 qhqz=5879) MYELOCYTES - REL (CELLAVISION)(BEAKER) (test 4 % 0-0 lfsm=3649) BANDS - REL (CELLAVISION)(BEAKER) (test 5 % 0-10 igsj=4177) BLASTS - REL (CELLAVISION)(BEAKER) (test 8 % 0-0 ypqj=7131) NEUTROPHILS - ABS (CELLAVISION)(BEAKER) (test 0.71 K/ul 1.78-5.38 cngv=5625) LYMPHOCYTES - ABS (CELLAVISION)(BEAKER) (test 0.92 K/ul 1.32-3.57 pcrd=4765) MONOCYTES - ABS (CELLAVISION)(BEAKER) (test 4.12 K/uL 0.30-0.82 orwq=9400) METAMYELOCYTES - ABS (CELLAVISION)(BEAKER) (test 0.14 K/uL 0.00-0.00 qsou=3458) MYELOCYTES-ABS (CELLAVISION)(BEAKER) (test 0.28 K/uL 0.00-0.00 drzu=0698) BANDS - ABS (CELLAVISION)(BEAKER) (test 0.36 K/uL 0.00-0.80 nlhi=9336) BLASTS - ABS (CELLAVISION)(BEAKER) (test 0.57 K/uL 0.00-0.00 cozy=8736) TOTAL COUNTED (BEAKER) (test kkuy=3933) 100 MANUAL NRBC PER 100 CELLS (BEAKER) (test 1 /100 WBC 0-0 lzzx=4202) WBC MORPHOLOGY (BEAKER) (test nffg=469) Normal PLT MORPHOLOGY (BEAKER) (test ndbp=907) Normal ANISOCYTOSIS (BEAKER) (test dmfn=476) 2+ moderate MICROCYTES (BEAKER) (test tycn=116) 2+ moderate POIKILOCYTES (BEAKER) (test dodx=099) 1+ few ARTIFACT (CELLAVISION)(BEAKER) (test cggf=9878) Present PLATELET CONCENTRATION (CELLAVISION)(BEAKER) Decreased (test qtls=9003) Received comment: User comments: Slide comments:BASIC METABOLIC [id number] 10:26:00 Test Item Value Reference Range Comments SODIUM (BEAKER) (test 135 meq/L 136-145 vhvz=450) POTASSIUM (BEAKER) (test 3.5 meq/L 3.5-5.1 wjhn=722) CHLORIDE (BEAKER) (test 101 meq/L 98-107 npia=397) CO2 (BEAKER) (test 25 meq/L 22-29 wxby=790) BLOOD UREA NITROGEN 29 mg/dL 7-21 (BEAKER) (test alhd=624) CREATININE (BEAKER) (test 2.27 mg/dL 0.57-1.25 mbtk=977) GLUCOSE RANDOM (BEAKER) 122 mg/dL 70-105 (test cxod=121) CALCIUM (BEAKER) (test 8.3 mg/dL 8.4-10.2 vjul=102) EGFR (BEAKER) (test 29 mL/min/1.73 sq m ESTIMATED GFR IS NOT kctv=2002) ACCURATE CREATININE CLEARANCE IN PREDICTING GLOMERULAR FILTRATION RATE. ESTIMATED GFR IS NOT APPLICABLE FOR DIALYSIS PATIENTS. BASIC METABOLIC [id number] 07:27:00 Test Item Value Reference Range Comments SODIUM (BEAKER) (test 136 meq/L 136-145 kcao=595) POTASSIUM (BEAKER) (test 3.9 meq/L 3.5-5.1 spdc=924) CHLORIDE (BEAKER) (test 103 meq/L 98-107 oguz=814) CO2 (BEAKER) (test 28 meq/L 22-29 blqj=213) BLOOD UREA NITROGEN 27 mg/dL 7-21 (BEAKER) (test qipk=734) CREATININE (BEAKER) (test 2.14 mg/dL 0.57-1.25 lrbu=531) GLUCOSE RANDOM (BEAKER) 109 mg/dL 70-105 (test qhaf=084) CALCIUM (BEAKER) (test 8.7 mg/dL 8.4-10.2 qriy=433) EGFR (BEAKER) (test 31 mL/min/1.73 sq m ESTIMATED GFR IS NOT dlmm=0850) ACCURATE CREATININE CLEARANCE IN PREDICTING GLOMERULAR FILTRATION RATE. ESTIMATED GFR IS NOT APPLICABLE FOR DIALYSIS PATIENTS. [id number] 06:21:00 Test Item Value Reference Range Comments MAGNESIUM (BEAKER) (test zwwj=158) 2.1 mg/dL 1.6-2.6 CBC WITH PLATELET COUNT + MANUAL [id number] 13:50:00 Test Item Value Reference Range Comments WHITE BLOOD CELL COUNT (BEAKER) (test cmhl=072) 6.5 K/ L 3.5-10.5 RED BLOOD CELL COUNT (BEAKER) (test txvd=202) 2.43 M/ L 4.63-6.08 HEMOGLOBIN (BEAKER) (test adgl=341) 7.6 GM/DL 13.7-17.5 HEMATOCRIT (BEAKER) (test aunn=704) 21.4 % 40.1-51.0 MEAN CORPUSCULAR VOLUME (BEAKER) (test cvur=170) 88.1 fL 79.0-92.2 MEAN CORPUSCULAR HEMOGLOBIN (BEAKER) (test 31.3 pg 25.7-32.2 itmp=551) MEAN CORPUSCULAR HEMOGLOBIN CONC (BEAKER) (test 35.5 GM/DL 32.3-36.5 mxqm=497) RED CELL DISTRIBUTION WIDTH (BEAKER) (test 14.0 % 11.6-14.4 pvsd=288) PLATELET COUNT (BEAKER) (test uumz=803) 52 K/CU MM 150-450 MEAN PLATELET VOLUME (BEAKER) (test jiuk=367) 10.4 fL 9.4-12.4 NUCLEATED RED BLOOD CELLS (BEAKER) (test 0 /100 WBC 0-0 zmcz=176) (CELLAVISION MANUAL DIFF)2018-05-28 13:50:00 Test Item Value Reference Range Comments NEUTROPHILS - REL (CELLAVISION)(BEAKER) (test 5 % extw=0491) LYMPHOCYTES - REL (CELLAVISION)(BEAKER) (test 19 % offr=5723) MONOCYTES - REL (CELLAVISION)(BEAKER) (test 68 % cogx=9832) MYELOCYTES - REL (CELLAVISION)(BEAKER) (test 2 % 0-0 rjqj=7749) BLASTS - REL (CELLAVISION)(BEAKER) (test 3 % 0-0 ppim=9517) ATYPICAL LYMPHOCYTES - REL (CELLAVISION)(BEAKER) 3 % 0-0 (test xwal=6928) NEUTROPHILS - ABS (CELLAVISION)(BEAKER) (test 0.33 K/ul 1.78-5.38 godw=0983) LYMPHOCYTES - ABS (CELLAVISION)(BEAKER) (test 1.24 K/ul 1.32-3.57 miob=0905) MONOCYTES - ABS (CELLAVISION)(BEAKER) (test 4.42 K/uL 0.30-0.82 tthk=1397) MYELOCYTES-ABS (CELLAVISION)(BEAKER) (test 0.13 K/uL 0.00-0.00 gzxy=3608) BLASTS - ABS (CELLAVISION)(BEAKER) (test 0.20 K/uL 0.00-0.00 wdqr=4992) ATYPICAL LYMPHOCYTES - ABS (CELLAVISION)(BEAKER) 0.20 K/uL 0.00-0.00 (test zciy=8498) TOTAL COUNTED (BEAKER) (test xigg=0068) 100 MANUAL NRBC PER 100 CELLS (BEAKER) (test 1 /100 WBC 0-0 drjc=2067) WBC MORPHOLOGY (BEAKER) (test dqdy=351) Normal PLT MORPHOLOGY (BEAKER) (test kpki=851) Normal POLYCHROMATOPHILLIC RBCS(BEAKER) (test xyyf=490) 1+ few ANISOCYTOSIS (BEAKER) (test tscq=130) 1+ few ARTIFACT (CELLAVISION)(BEAKER) (test fujx=1727) Present PLATELET CONCENTRATION (CELLAVISION)(BEAKER) Decreased (test mszh=2423) Received comment: User comments: Slide comments:BONE MARROW [id number] 11:25 :00Bone Marrow Pathology Report Case: [id number] Authorizing Provider: Thelma Cristobal MD Collected: 05/20/20181728 Ordering Location: [address] Received: 05/20/20181728 SERVICE Pathologist: Tito Hoffmann [...] CIRCULATING BLASTS. Signing Pathologist Direct Phone Line: [phone] signed by Tito Hoffmann MD on 05/22/2018 [...] will be issued in an addendum report. [id number]; [id number]; [id number] x 2;[id number]; [id number], [id number] MARROWSpecimen is received in three parts all [...] developed and its performance characteristics determined by [facility], Pathology Laboratory. It has not been cleared [...] to perform high complexity clinical laboratory testing.BLOOD [id number] 11:01:00 Test Item Value Reference Range Comments CULTURE (BEAKER) (test sciw=9428) No growth in 5 days BLOOD [id number] 11:01:00 Test Item Value Reference Range Comments CULTURE (BEAKER) (test sdoz=8264) No growth in 5 days [id number] 06:27:00 Test Item Value Reference Range Comments MAGNESIUM (BEAKER) (test wpfv=692) 1.8 mg/dL 1.6-2.6 BASIC METABOLIC [id number] 06:27:00 Test Item Value Reference Range Comments SODIUM (BEAKER) (test 136 meq/L 136-145 pfdo=606) POTASSIUM (BEAKER) (test 4.0 meq/L 3.5-5.1 jnej=533) CHLORIDE (BEAKER) (test 102 meq/L 98-107 flwh=538) CO2 (BEAKER) (test 28 meq/L 22-29 jaxt=999) BLOOD UREA NITROGEN 15 mg/dL 7-21 (BEAKER) (test lljw=437) CREATININE (BEAKER) (test 0.98 mg/dL 0.57-1.25 hqpb=662) GLUCOSE RANDOM (BEAKER) 119 mg/dL 70-105 (test xgtn=647) CALCIUM (BEAKER) (test 8.7 mg/dL 8.4-10.2 bqln=010) EGFR (BEAKER) (test 78 mL/min/1.73 sq m ESTIMATED GFR IS NOT awlc=1772) ACCURATE CREATININE CLEARANCE IN PREDICTING GLOMERULAR FILTRATION RATE. ESTIMATED GFR IS NOT APPLICABLE FOR DIALYSIS PATIENTS. CBC WITH PLATELET COUNT + MANUAL [id number] 10:57:00 Test Item Value Reference Range Comments WHITE BLOOD CELL COUNT (BEAKER) (test qjkh=129) 3.9 K/ L 3.5-10.5 RED BLOOD CELL COUNT (BEAKER) (test znox=355) 2.46 M/ L 4.63-6.08 HEMOGLOBIN (BEAKER) (test bwaq=914) 7.5 GM/DL 13.7-17.5 HEMATOCRIT (BEAKER) (test imdj=847) 21.5 % 40.1-51.0 MEAN CORPUSCULAR VOLUME (BEAKER) (test jumj=995) 87.4 fL 79.0-92.2 MEAN CORPUSCULAR HEMOGLOBIN (BEAKER) (test 30.5 pg 25.7-32.2 gjnz=197) MEAN CORPUSCULAR HEMOGLOBIN CONC (BEAKER) (test 34.9 GM/DL 32.3-36.5 xevo=832) RED CELL DISTRIBUTION WIDTH (BEAKER) (test 13.7 % 11.6-14.4 twtf=094) PLATELET COUNT (BEAKER) (test mjqe=670) 37 K/CU MM 150-450 MEAN PLATELET VOLUME (BEAKER) (test onze=805) 11.5 fL 9.4-12.4 NUCLEATED RED BLOOD CELLS (BEAKER) (test 0 /100 WBC 0-0 pccv=430) (CELLAVISION MANUAL DIFF)2018-05-27 10:57:00 Test Item Value Reference Range Comments NEUTROPHILS - REL (CELLAVISION)(BEAKER) (test 1 % lzgm=6693) LYMPHOCYTES - REL (CELLAVISION)(BEAKER) (test 28 % zwwp=5573) MONOCYTES - REL (CELLAVISION)(BEAKER) (test 64 % xher=8174) BLASTS - REL (CELLAVISION)(BEAKER) (test 4 % 0-0 uhcl=0987) ATYPICAL LYMPHOCYTES - REL (CELLAVISION)(BEAKER) 3 % 0-0 (test vwbz=6966) NEUTROPHILS - ABS (CELLAVISION)(BEAKER) (test 0.04 K/ul 1.78-5.38 fmof=8577) LYMPHOCYTES - ABS (CELLAVISION)(BEAKER) (test 1.09 K/ul 1.32-3.57 ifbp=1500) MONOCYTES - ABS (CELLAVISION)(BEAKER) (test 2.50 K/uL 0.30-0.82 ryds=4179) BLASTS - ABS (CELLAVISION)(BEAKER) (test 0.16 K/uL 0.00-0.00 fhli=6690) ATYPICAL LYMPHOCYTES - ABS (CELLAVISION)(BEAKER) 0.12 K/uL 0.00-0.00 (test zzjp=4804) TOTAL COUNTED (BEAKER) (test uzbt=4534) 100 WBC MORPHOLOGY (BEAKER) (test gjyt=471) Normal PLT MORPHOLOGY (BEAKER) (test qlrm=992) Normal POLYCHROMATOPHILLIC RBCS(BEAKER) (test hcwb=728) 1+ few ARTIFACT (CELLAVISION)(BEAKER) (test clir=5765) Present PLATELET CONCENTRATION (CELLAVISION)(BEAKER) (test Decreased nyyh=2550) Received comment: User comments: Slide comments:BASIC METABOLIC [id number] 07:18:00 Test Item Value Reference Range Comments SODIUM (BEAKER) (test 137 meq/L 136-145 xjjk=195) POTASSIUM (BEAKER) (test 3.8 meq/L 3.5-5.1 nmlg=128) CHLORIDE (BEAKER) (test 102 meq/L 98-107 azlq=379) CO2 (BEAKER) (test 30 meq/L 22-29 uoql=424) BLOOD UREA NITROGEN 12 mg/dL 7-21 (BEAKER) (test dbsv=858) CREATININE (BEAKER) (test 0.95 mg/dL 0.57-1.25 kluq=646) GLUCOSE RANDOM (BEAKER) 111 mg/dL 70-105 (test ugec=515) CALCIUM (BEAKER) (test 8.8 mg/dL 8.4-10.2 qlko=856) EGFR (BEAKER) (test 80 mL/min/1.73 sq m ESTIMATED GFR IS NOT gsme=9151) ACCURATE CREATININE CLEARANCE IN PREDICTING GLOMERULAR FILTRATION RATE. ESTIMATED GFR IS NOT APPLICABLE FOR DIALYSIS PATIENTS. CBC WITH PLATELET COUNT + MANUAL [id number] 12:06:00 Test Item Value Reference Range Comments WHITE BLOOD CELL COUNT (BEAKER) (test bcxp=020) 1.6 K/ L 3.5-10.5 RED BLOOD CELL COUNT (BEAKER) (test dsxk=188) 2.28 M/ L 4.63-6.08 HEMOGLOBIN (BEAKER) (test pndb=490) 7.3 GM/DL 13.7-17.5 HEMATOCRIT (BEAKER) (test erdd=498) 20.1 % 40.1-51.0 MEAN CORPUSCULAR VOLUME (BEAKER) (test iewj=375) 88.2 fL 79.0-92.2 MEAN CORPUSCULAR HEMOGLOBIN (BEAKER) (test 32.0 pg 25.7-32.2 mnrb=983) MEAN CORPUSCULAR HEMOGLOBIN CONC (BEAKER) (test 36.3 GM/DL 32.3-36.5 qnyl=008) RED CELL DISTRIBUTION WIDTH (BEAKER) (test 13.6 % 11.6-14.4 rzqf=320) PLATELET COUNT (BEAKER) (test uvtv=038) 25 K/CU MM 150-450 MEAN PLATELET VOLUME (BEAKER) (test esln=218) 11.6 fL 9.4-12.4 NUCLEATED RED BLOOD CELLS (BEAKER) (test 0 /100 WBC 0-0 wtyv=774) (CELLAVISION MANUAL DIFF)2018-05-26 12:06:00 Test Item Value Reference Range Comments LYMPHOCYTES - REL (CELLAVISION)(BEAKER) (test 47 % tanp=9741) MONOCYTES - REL (CELLAVISION)(BEAKER) (test 43 % clwo=9860) BANDS - REL (CELLAVISION)(BEAKER) (test 1 % 0-10 bpsx=3807) BLASTS - REL (CELLAVISION)(BEAKER) (test 5 % 0-0 dkub=3978) ATYPICAL LYMPHOCYTES - REL (CELLAVISION)(BEAKER) 4 % 0-0 (test hzsb=5284) LYMPHOCYTES - ABS (CELLAVISION)(BEAKER) (test 0.75 K/ul 1.32-3.57 vija=5658) MONOCYTES - ABS (CELLAVISION)(BEAKER) (test 0.69 K/uL 0.30-0.82 hxku=8812) BANDS - ABS (CELLAVISION)(BEAKER) (test 0.02 K/uL 0.00-0.80 dvzw=1973) BLASTS - ABS (CELLAVISION)(BEAKER) (test 0.08 K/uL 0.00-0.00 tnsr=7659) ATYPICAL LYMPHOCYTES - ABS (CELLAVISION)(BEAKER) 0.06 K/uL 0.00-0.00 (test cuat=5546) TOTAL COUNTED (BEAKER) (test ftem=4355) 100 MANUAL NRBC PER 100 CELLS (BEAKER) (test 1 /100 WBC 0-0 wqmz=0518) SMUDGE CELLS (BEAKER) (test lxpe=2637) Present GIANT PLATELETS (BEAKER) (test ybfh=566) Present POLYCHROMATOPHILLIC RBCS(BEAKER) (test lfak=192) 1+ few ANISOCYTOSIS (BEAKER) (test hzwl=250) 2+ moderate MICROCYTES (BEAKER) (test vouh=165) 1+ few ARTIFACT (CELLAVISION)(BEAKER) (test pwty=8101) Present PLATELET CONCENTRATION (CELLAVISION)(BEAKER) Decreased (test dpfm=1454) Received comment: User comments: Slide comments:[id number] 06:39:00 Test Item Value Reference Range Comments MAGNESIUM (BEAKER) (test lraf=821) 1.5 mg/dL 1.6-2.6 BASIC METABOLIC [id number] 06:39:00 Test Item Value Reference Range Comments SODIUM (BEAKER) (test 136 meq/L 136-145 setc=128) POTASSIUM (BEAKER) (test 3.6 meq/L 3.5-5.1 btwk=379) CHLORIDE (BEAKER) (test 102 meq/L 98-107 xicm=435) CO2 (BEAKER) (test 26 meq/L 22-29 dcqh=445) BLOOD UREA NITROGEN 9 mg/dL 7-21 (BEAKER) (test kpen=537) CREATININE (BEAKER) (test 0.80 mg/dL 0.57-1.25 bxtq=017) GLUCOSE RANDOM (BEAKER) 102 mg/dL 70-105 (test tmrr=946) CALCIUM (BEAKER) (test 8.4 mg/dL 8.4-10.2 gttx=254) EGFR (BEAKER) (test 98 mL/min/1.73 sq m ESTIMATED GFR IS NOT bncn=4679) ACCURATE CREATININE CLEARANCE IN PREDICTING GLOMERULAR FILTRATION RATE. ESTIMATED GFR IS NOT APPLICABLE FOR DIALYSIS PATIENTS. COBY ANTIGEN WITH REFLEX TO [id number] 12:25:00 Test Item Value Reference Range Comments COBY ANTIGEN (BEAKER) (test vrjv=5541) Negative CBC WITH PLATELET COUNT + MANUAL [id number] 11:50:00 Test Item Value Reference Range Comments WHITE BLOOD CELL COUNT (BEAKER) (test ttvk=231) 0.5 K/ L 3.5-10.5 RED BLOOD CELL COUNT (BEAKER) (test furg=467) 2.20 M/ L 4.63-6.08 HEMOGLOBIN (BEAKER) (test taxc=528) 7.1 GM/DL 13.7-17.5 HEMATOCRIT (BEAKER) (test apft=853) 19.3 % 40.1-51.0 MEAN CORPUSCULAR VOLUME (BEAKER) (test gfet=739) 87.7 fL 79.0-92.2 MEAN CORPUSCULAR HEMOGLOBIN (BEAKER) (test 32.3 pg 25.7-32.2 fxtd=070) MEAN CORPUSCULAR HEMOGLOBIN CONC (BEAKER) (test 36.8 GM/DL 32.3-36.5 uibg=082) RED CELL DISTRIBUTION WIDTH (BEAKER) (test 13.5 % 11.6-14.4 giyf=823) PLATELET COUNT (BEAKER) (test grta=375) 14 K/CU MM 150-450 MEAN PLATELET VOLUME (BEAKER) (test qina=706) 10.4 fL 9.4-12.4 NUCLEATED RED BLOOD CELLS (BEAKER) (test 0 /100 WBC 0-0 pdjb=543) (MANUAL DIFFERENTIAL)2018-05-25 11:50:00 Test Item Value Reference Range Comments NEUTROPHILS - REL (DIFF) (BEAKER) (test vsgr=1575) 0 % LYMPHOCYTES - REL (DIFF) (BEAKER) (test jiig=7005) 53 % MONOCYTES - REL (DIFF) (BEAKER) (test nzjx=1947) 29 % EOSINOPHILS - REL (DIFF) (BEAKER) (test eyuv=3886) 0 % BASOPHILS - REL (DIFF) (BEAKER) (test grmp=4096) 0 % BANDS - REL (DIFF) (BEAKER) (test wyvp=8626) 14 % 0-10 BLASTS - REL (DIFF) (BEAKER) (test hhwr=9357) 4 % 0-0 NEUTROPHILS - ABS (DIFF) (BEAKER) (test egza=2272) 0.00 K/ L 1.80-8.00 LYMPHOCYTES - ABS (DIFF) (BEAKER) (test bxvp=2306) 0.27 K/ L 1.48-4.50 MONOCYTES - ABS (DIFF) (BEAKER) (test xaxy=2882) 0.15 K/ L 0.00-1.30 EOSINOPHILS - ABS (DIFF) (BEAKER) (test jccs=9293) 0.00 K/ L 0.00-0.50 BASOPHILS - ABS (DIFF) (BEAKER) (test vlhs=3348) 0.00 K/ L 0.00-0.20 BANDS-ABS (DIFF) (BEAKER) (test orhc=6432) 0.1 K/ L 0.0-0.8 BLASTS - ABS (DIFF) (BEAKER) (test retj=6012) 0.02 K/ L 0.00-0.00 TOTAL COUNTED (BEAKER) (test ldla=1140) 100 BANDS + SEGMENTED NEUTROPHILS (BEAKER) (test 0.07 yvhr=2877) WBC MORPHOLOGY (BEAKER) (test uxwz=788) Normal PLT MORPHOLOGY (BEAKER) (test oohh=306) Normal RBC MORPHOLOGY (BEAKER) (test faft=040) Normal BASIC METABOLIC [id number] 06:26:00 Test Item Value Reference Range Comments SODIUM (BEAKER) (test 137 meq/L 136-145 nhwj=875) POTASSIUM (BEAKER) (test 3.6 meq/L 3.5-5.1 xxvj=256) CHLORIDE (BEAKER) (test 105 meq/L 98-107 qeov=631) CO2 (BEAKER) (test 26 meq/L 22-29 jygb=478) BLOOD UREA NITROGEN 12 mg/dL 7-21 (BEAKER) (test sgzw=621) CREATININE (BEAKER) (test 0.77 mg/dL 0.57-1.25 ruys=675) GLUCOSE RANDOM (BEAKER) 100 mg/dL 70-105 (test rwrg=187) CALCIUM (BEAKER) (test 8.2 mg/dL 8.4-10.2 eock=498) EGFR (BEAKER) (test 102 mL/min/1.73 sq m ESTIMATED GFR IS NOT pzbc=2720) ACCURATE CREATININE CLEARANCE IN PREDICTING GLOMERULAR FILTRATION RATE. ESTIMATED GFR IS NOT APPLICABLE FOR DIALYSIS PATIENTS. VANCOMYCIN LEVEL, [id number] 20:39:00 Test Item Value Reference Range Comments VANCOMYCIN TROUGH (BEAKER) (test tqzp=350) 17.9 ug/mL 10.0-20.0 CBC WITH PLATELET COUNT + MANUAL [id number] 11:24:00 Test Item Value Reference Range Comments WHITE BLOOD CELL COUNT (BEAKER) (test jcbw=824) 0.4 K/ L 3.5-10.5 RED BLOOD CELL COUNT (BEAKER) (test hkkg=068) 2.05 M/ L 4.63-6.08 HEMOGLOBIN (BEAKER) (test orsc=355) 6.4 GM/DL 13.7-17.5 HEMATOCRIT (BEAKER) (test jmba=278) 18.2 % 40.1-51.0 MEAN CORPUSCULAR VOLUME (BEAKER) (test eosx=599) 88.8 fL 79.0-92.2 MEAN CORPUSCULAR HEMOGLOBIN (BEAKER) (test 31.2 pg 25.7-32.2 qsor=349) MEAN CORPUSCULAR HEMOGLOBIN CONC (BEAKER) (test 35.2 GM/DL 32.3-36.5 hpja=984) RED CELL DISTRIBUTION WIDTH (BEAKER) (test 13.8 % 11.6-14.4 jimr=000) PLATELET COUNT (BEAKER) (test kytx=585) 13 K/CU MM 150-450 MEAN PLATELET VOLUME (BEAKER) (test lboj=922) 11.4 fL 9.4-12.4 NUCLEATED RED BLOOD CELLS (BEAKER) (test 0 /100 WBC 0-0 cvjt=869) (CELLAVISION MANUAL DIFF)2018-05-24 11:24:00 Test Item Value Reference Range Comments NEUTROPHILS - REL (CELLAVISION)(BEAKER) (test 1 % tljw=5564) LYMPHOCYTES - REL (CELLAVISION)(BEAKER) (test 92 % vtda=3807) BLASTS - REL (CELLAVISION)(BEAKER) (test 2 % 0-0 brky=6116) ATYPICAL LYMPHOCYTES - REL (CELLAVISION)(BEAKER) 5 % 0-0 (test whlm=3499) NEUTROPHILS - ABS (CELLAVISION)(BEAKER) (test 0.00 K/ul 1.78-5.38 yacz=0886) LYMPHOCYTES - ABS (CELLAVISION)(BEAKER) (test 0.37 K/ul 1.32-3.57 dfhf=7348) BLASTS - ABS (CELLAVISION)(BEAKER) (test 0.01 K/uL 0.00-0.00 ztnm=5116) ATYPICAL LYMPHOCYTES - ABS (CELLAVISION)(BEAKER) 0.02 K/uL 0.00-0.00 (test vzgw=0384) TOTAL COUNTED (BEAKER) (test osht=2717) 100 MANUAL NRBC PER 100 CELLS (BEAKER) (test 1 /100 WBC 0-0 qfqy=8160) WBC MORPHOLOGY (BEAKER) (test igln=557) Normal PLT MORPHOLOGY (BEAKER) (test irqk=263) Normal ANISOCYTOSIS (BEAKER) (test qdnm=597) 1+ few ARTIFACT (CELLAVISION)(BEAKER) (test zdcn=2561) Present PLATELET CONCENTRATION (CELLAVISION)(BEAKER) Decreased (test vkxb=7199) Received comment: User comments: Slide comments:[id number] 05:35:00 Test Item Value Reference Range Comments MAGNESIUM (BEAKER) (test auym=730) 1.6 mg/dL 1.6-2.6 BASIC METABOLIC [id number] 05:35:00 Test Item Value Reference Range Comments SODIUM (BEAKER) (test 136 meq/L 136-145 pwjp=920) POTASSIUM (BEAKER) (test 3.7 meq/L 3.5-5.1 bkkv=852) CHLORIDE (BEAKER) (test 105 meq/L 98-107 jyoc=498) CO2 (BEAKER) (test 26 meq/L 22-29 xtrf=191) BLOOD UREA NITROGEN 13 mg/dL 7-21 (BEAKER) (test yuvz=655) CREATININE (BEAKER) (test 0.79 mg/dL 0.57-1.25 amdr=011) GLUCOSE RANDOM (BEAKER) 99 mg/dL 70-105 (test clma=032) CALCIUM (BEAKER) (test 8.5 mg/dL 8.4-10.2 idlg=673) EGFR (BEAKER) (test 99 mL/min/1.73 sq m ESTIMATED GFR IS NOT burs=6601) ACCURATE CREATININE CLEARANCE IN PREDICTING GLOMERULAR FILTRATION RATE. ESTIMATED GFR IS NOT APPLICABLE FOR DIALYSIS PATIENTS. URINALYSIS W/ REFLEX URINE [id number] 19:57:00 Test Item Value Reference Range Comments COLOR (BEAKER) (test tuvw=364) Yellow CLARITY (BEAKER) (test xign=435) Hazy SPECIFIC GRAVITY UA (BEAKER) (test hxqo=888) 1.024 1.001-1.035 PH UA (BEAKER) (test hawl=026) 6.0 5.0-8.0 PROTEIN UA (BEAKER) (test iymr=093) 70 mg/dL Negative GLUCOSE UA (BEAKER) (test cogv=574) 30 mg/dL Negative KETONES UA (BEAKER) (test qvau=629) Trace Negative BILIRUBIN UA (BEAKER) (test trzt=696) Negative Negative BLOOD UA (BEAKER) (test fkkx=868) Small Negative NITRITE UA (BEAKER) (test ytzf=152) Negative Negative LEUKOCYTE ESTERASE UA (BEAKER) (test uxhr=177) Negative Negative UROBILINOGEN UA (BEAKER) (test iuxe=884) 0.2 mg/dL 0.2-1.0 RBC UA (BEAKER) (test wcaf=546) < /HPF WBC UA (BEAKER) (test drpo=800) 8 /HPF BACTERIA (BEAKER) (test ajkn=950) Few MUCUS (BEAKER) (test anvj=8827) Occasional WBC CASTS (BEAKER) (test lbpz=4808) 1 /LPF GRANULAR CASTS (BEAKER) (test uwhd=581) 1 /LPF SOURCE(BEAKER) (test kdrc=6996) RAD, CHEST, 1 VIEW, NON [id number] 15:26:00Reason for exam:->Neutropenic fever, possible pneumoniaShould this [...] [place] Verified Date/Time: 05/23/2018 15:26:06 Reading Location: [address] Ortho Consult Reading Room BLOOD [id number] 10:00:00 Test Item Value Reference Range Comments CULTURE (BEAKER) (test tdlg=2841) No growth in 5 days BLOOD [id number] 10:00:00 Test Item Value Reference Range Comments CULTURE (BEAKER) (test xasp=3375) No growth in 5 days CBC WITH PLATELET COUNT + MANUAL [id number] 08:54:00 Test Item Value Reference Range Comments WHITE BLOOD CELL COUNT (BEAKER) (test qepz=746) 0.3 K/ L 3.5-10.5 RED BLOOD CELL COUNT (BEAKER) (test ppeq=450) 2.31 M/ L 4.63-6.08 HEMOGLOBIN (BEAKER) (test kbqy=330) 7.2 GM/DL 13.7-17.5 HEMATOCRIT (BEAKER) (test rqpt=445) 20.4 % 40.1-51.0 MEAN CORPUSCULAR VOLUME (BEAKER) (test czwq=532) 88.3 fL 79.0-92.2 MEAN CORPUSCULAR HEMOGLOBIN (BEAKER) (test 31.2 pg 25.7-32.2 mufm=694) MEAN CORPUSCULAR HEMOGLOBIN CONC (BEAKER) (test 35.3 GM/DL 32.3-36.5 bnjy=953) RED CELL DISTRIBUTION WIDTH (BEAKER) (test 14.0 % 11.6-14.4 xdjd=385) PLATELET COUNT (BEAKER) (test sksl=573) 38 K/CU MM 150-450 MEAN PLATELET VOLUME (BEAKER) (test rhca=511) 11.0 fL 9.4-12.4 NUCLEATED RED BLOOD CELLS (BEAKER) (test 0 /100 WBC 0-0 fnsu=541) (MANUAL DIFFERENTIAL)2018-05-23 08:54:00 Test Item Value Reference Range Comments LYMPHOCYTES - REL (DIFF) (BEAKER) (test hqgg=8962) 95 % MONOCYTES - REL (DIFF) (BEAKER) (test fjxb=8107) 5 % LYMPHOCYTES - ABS (DIFF) (BEAKER) (test ptge=0498) 0.29 K/ L 1.48-4.50 MONOCYTES - ABS (DIFF) (BEAKER) (test uasu=9341) 0.02 K/ L 0.00-1.30 TOTAL COUNTED (BEAKER) (test kbwx=4610) 100 PLT MORPHOLOGY (BEAKER) (test tnqn=074) Normal ATYPICAL LYMPHS(BEAKER) (test hvnx=4236) Present MICROCYTES (BEAKER) (test zezm=078) 1+ few [id number] 06:59:00 Test Item Value Reference Range Comments MAGNESIUM (BEAKER) (test fkuh=581) 1.8 mg/dL 1.6-2.6 BASIC METABOLIC [id number] 06:59:00 Test Item Value Reference Range Comments SODIUM (BEAKER) (test 137 meq/L 136-145 rxig=190) POTASSIUM (BEAKER) (test 3.4 meq/L 3.5-5.1 jgyf=595) CHLORIDE (BEAKER) (test 104 meq/L 98-107 fztf=706) CO2 (BEAKER) (test 26 meq/L 22-29 oyrz=819) BLOOD UREA NITROGEN 13 mg/dL 7-21 (BEAKER) (test iwrj=946) CREATININE (BEAKER) (test 0.79 mg/dL 0.57-1.25 esei=938) GLUCOSE RANDOM (BEAKER) 116 mg/dL 70-105 (test sqwe=160) CALCIUM (BEAKER) (test 8.9 mg/dL 8.4-10.2 bxaj=602) EGFR (BEAKER) (test 99 mL/min/1.73 sq m ESTIMATED GFR IS NOT sygo=4194) ACCURATE CREATININE CLEARANCE IN PREDICTING GLOMERULAR FILTRATION RATE. ESTIMATED GFR IS NOT APPLICABLE FOR DIALYSIS PATIENTS. HEPATIC FUNCTION [id number] 06:59:00 Test Item Value Reference Range Comments TOTAL PROTEIN (BEAKER) (test bmmi=805) 6.5 gm/dL 6.0-8.3 ALBUMIN (BEAKER) (test bomo=4571) 3.0 g/dL 3.5-5.0 BILIRUBIN TOTAL (BEAKER) (test zdlg=453) 0.7 mg/dL 0.2-1.2 BILIRUBIN DIRECT (BEAKER) (test zgrz=447) 0.4 mg/dL 0.1-0.5 ALKALINE PHOSPHATASE (BEAKER) (test zbif=351) 47 U/L 40-150 AST (SGOT) (BEAKER) (test ktge=534) 48 U/L 5-34 ALT (SGPT) (BEAKER) (test pzrm=260) 35 U/L 6-55 CBC WITH PLATELET COUNT + MANUAL [id number] 16:01:00 Test Item Value Reference Range Comments WHITE BLOOD CELL COUNT (BEAKER) (test ojno=904) 0.3 K/ L 3.5-10.5 RED BLOOD CELL COUNT (BEAKER) (test wfwg=376) 2.22 M/ L 4.63-6.08 HEMOGLOBIN (BEAKER) (test zjmj=266) 7.0 GM/DL 13.7-17.5 HEMATOCRIT (BEAKER) (test ulne=129) 19.7 % 40.1-51.0 MEAN CORPUSCULAR VOLUME (BEAKER) (test pilf=923) 88.7 fL 79.0-92.2 MEAN CORPUSCULAR HEMOGLOBIN (BEAKER) (test 31.5 pg 25.7-32.2 ferq=782) MEAN CORPUSCULAR HEMOGLOBIN CONC (BEAKER) (test 35.5 GM/DL 32.3-36.5 uztu=827) RED CELL DISTRIBUTION WIDTH (BEAKER) (test 14.0 % 11.6-14.4 uvvm=925) PLATELET COUNT (BEAKER) (test gmnj=983) 7 K/CU MM 150-450 MEAN PLATELET VOLUME (BEAKER) (test vzvx=047) 14.3 fL 9.4-12.4 NUCLEATED RED BLOOD CELLS (BEAKER) (test 0 /100 WBC 0-0 eslo=496) Differential performed off of buffy coat smear.(CELLAVISION MANUAL DIFF) 16:01:00 Test Item Value Reference Range Comments LYMPHOCYTES - REL (CELLAVISION)(BEAKER) 98 % (test uprh=5686) MONOCYTES - REL (CELLAVISION)(BEAKER) 2 % (test ysin=3590) TOTAL COUNTED (BEAKER) (test azbk=7608) RBC MORPHOLOGY (BEAKER) (test fmsv=820) Normal WBC MORPHOLOGY (BEAKER) (test koze=141) Normal PLT MORPHOLOGY (BEAKER) (test xqlh=845) Normal PLT COMMENT (CELLAVSION)(BEAKER) (test Decreased platelets. byqx=3734) FLOW [id number] 08:03:00Flow Cytometry Report Case: [id number] Authorizing Provider: Thelma Cristobal MD Collected: 05/20/2018 [id number] Ordering Location: [address] Received: 2017 [id number] SERVICE Pathologist: Tito Hoffmann MD Specimen: Other This addendum is to provide a detailed immunoprofile of the blast population. The myeloblasts demonstrate the following immunoprofile:POSITIVE: CD34, CD45(DIM), MPO, CD33, CD13, GW40pNGEWLPBP: CD19, cCD3, cCD79A, CD3, CD117, CD14, CD16, CD64, CD36, CD56, CD10, TDTAddendum electronically signed by Tito Hoffmann MD on 05/22/2018 at 8:03 AMBONE MARROW, FLOW CYTOMETRY:NO MONOCLONAL B CELL POPULATION.NO ABNORMALT CELL POPULATION.BLASTS ACCOUNT FOR 2.8% OF ANALYZED EVENTS.CORRELATION WITH MORPHOLOGIC FINDINGS REQUIRED. 29255nusyppkpIbpn marrowCD8 , surface-Burlison, CD56, surface-Lambda, CD5, CD19, CD10, CD3, CD20, CD4, CD45, CD14, CD13, CD33, CD117, AQ45Mxwtjrih Viability: 99.3% Blasts: The dim CD45+ CD34+ [...] developed and their performance characteristics determined by [facility]. They have not been cleared or approved by the U.S. Food and Drug Administration. The FDA has determined that such clearance or approval is not necessary. It should not be regarded as investigational or for research. This laboratory is certified under the Clinical Laboratory Improvement Amendments of 1988 ("CLIA") as qualified to perform high-complexity clinical testing.[id number] 06:28:00 Test Item Value Reference Range Comments MAGNESIUM (BEAKER) (test gnlg=743) 1.6 mg/dL 1.6-2.6 BASIC METABOLIC [id number] 06:28:00 Test Item Value Reference Range Comments SODIUM (BEAKER) (test 136 meq/L 136-145 qsqp=201) POTASSIUM (BEAKER) (test 3.4 meq/L 3.5-5.1 fnxv=935) CHLORIDE (BEAKER) (test 103 meq/L 98-107 rvnz=853) CO2 (BEAKER) (test 27 meq/L 22-29 wsrn=741) BLOOD UREA NITROGEN 12 mg/dL 7-21 (BEAKER) (test hsyy=916) CREATININE (BEAKER) (test 0.76 mg/dL 0.57-1.25 lvde=353) GLUCOSE RANDOM (BEAKER) 97 mg/dL 70-105 (test bymd=934) CALCIUM (BEAKER) (test 8.5 mg/dL 8.4-10.2 mekv=142) EGFR (BEAKER) (test 104 mL/min/1.73 sq m ESTIMATED GFR IS NOT hqym=1793) ACCURATE CREATININE CLEARANCE IN PREDICTING GLOMERULAR FILTRATION RATE. ESTIMATED GFR IS NOT APPLICABLE FOR DIALYSIS PATIENTS. FLOW CYTOMETRY [id number] 19:19:00 Test Item Value Reference Range Comments FLOW CYTOMETRY RESULT POINTER (BEAKER) See Separate Report (test yhrk=1198) FLOW CYTOMETRY AP CASE # (BEAKER) (test [id number] krlx=8819) CBC WITH PLATELET COUNT + MANUAL [id number] 11:52:00 Test Item Value Reference Range Comments WHITE BLOOD CELL COUNT (BEAKER) (test vggp=118) 0.3 K/ L 3.5-10.5 RED BLOOD CELL COUNT (BEAKER) (test tudn=693) 2.29 M/ L 4.63-6.08 HEMOGLOBIN (BEAKER) (test bnhj=704) 7.1 GM/DL 13.7-17.5 HEMATOCRIT (BEAKER) (test mvtc=174) 20.5 % 40.1-51.0 MEAN CORPUSCULAR VOLUME (BEAKER) (test clog=057) 89.5 fL 79.0-92.2 MEAN CORPUSCULAR HEMOGLOBIN (BEAKER) (test 31.0 pg 25.7-32.2 rrlf=782) MEAN CORPUSCULAR HEMOGLOBIN CONC (BEAKER) (test 34.6 GM/DL 32.3-36.5 ivtu=314) RED CELL DISTRIBUTION WIDTH (BEAKER) (test 14.5 % 11.6-14.4 shds=216) PLATELET COUNT (BEAKER) (test wlwv=388) 17 K/CU MM 150-450 MEAN PLATELET VOLUME (BEAKER) (test fllq=637) 12.0 fL 9.4-12.4 NUCLEATED RED BLOOD CELLS (BEAKER) (test 0 /100 WBC 0-0 welc=374) (MANUAL DIFFERENTIAL)2018-05-21 11:52:00 Test Item Value Reference Range Comments LYMPHOCYTES - REL (DIFF) (BEAKER) (test acea=4399) 95 % MONOCYTES - REL (DIFF) (BEAKER) (test xjjo=1822) 2 % ATYPICAL LYMPHOCYTE - REL (DIFF) (BEAKER) (test 3 % 0-0 oawt=568) LYMPHOCYTES - ABS (DIFF) (BEAKER) (test mgne=5991) 0.29 K/ L 1.48-4.50 MONOCYTES - ABS (DIFF) (BEAKER) (test liys=9267) 0.01 K/ L 0.00-1.30 ATYPICAL LYMPHOCYTES - ABS (DIFF) (BEAKER) (test 0.01 K/ L 0.00-0.00 zgri=484) TOTAL COUNTED (BEAKER) (test tkgm=2459) 100 WBC MORPHOLOGY (BEAKER) (test xsfo=759) Normal PLT MORPHOLOGY (BEAKER) (test mhds=409) Normal RBC MORPHOLOGY (BEAKER) (test rjnj=401) Normal BLOOD [id number] 10:01:00 Test Item Value Reference Range Comments CULTURE (BEAKER) (test trqm=6331) No growth in 5 days [id number] 06:23:00 Test Item Value Reference Range Comments MAGNESIUM (BEAKER) (test rfjv=165) 1.8 mg/dL 1.6-2.6 BASIC METABOLIC [id number] 06:23:00 Test Item Value Reference Range Comments SODIUM (BEAKER) (test 137 meq/L 136-145 rizw=915) POTASSIUM (BEAKER) (test 3.7 meq/L 3.5-5.1 exyq=317) CHLORIDE (BEAKER) (test 104 meq/L 98-107 ezol=641) CO2 (BEAKER) (test 26 meq/L 22-29 rscd=367) BLOOD UREA NITROGEN 11 mg/dL 7-21 (BEAKER) (test jhmh=702) CREATININE (BEAKER) (test 0.76 mg/dL 0.57-1.25 yasv=511) GLUCOSE RANDOM (BEAKER) 105 mg/dL 70-105 (test snqk=525) CALCIUM (BEAKER) (test 8.2 mg/dL 8.4-10.2 zreu=482) EGFR (BEAKER) (test 104 mL/min/1.73 sq m ESTIMATED GFR IS NOT ugdd=4041) ACCURATE CREATININE CLEARANCE IN PREDICTING GLOMERULAR FILTRATION RATE. ESTIMATED GFR IS NOT APPLICABLE FOR DIALYSIS PATIENTS. CT, BIOPSY, BONE [id number] 18:54:00Reason for exam:->leukemia-assess response to therapyFINAL REPORT [...] aspirated. The samples were passed to the sterile processing technologist who confirmed an adequate sample. Patient tolerated the procedure well and was transferred to recovery. IMPRESSION: CT-guided bone marrow aspiration.CT-guided bone core biopsy. Signed : Alfredo Duenas MDReport Verified Date/Time: 05/20/2018 18:54:11 Reading Location: [address] Ortho Consult Reading Room BONE MARROW PROCESS. 17:35:00 Test Item Value Reference Range Comments ANATOMIC CASE# (BEAKER) (test gjln=4597) [id number] ORDERED BY DOCTOR# (BEDOUG) (test ddeo=1025) Dr. Kapoor PERFORMED BY DOCTOR# (BEAKER) (test zpjb=6237) Dr. Duenas CLOT RECEIVED? (BEAKER) (test jbid=4264) Yes BIOPSY RECEIVED? (BEAKER) (test krfr=5636) Yes CULTURE RECEIVED? (BEAKER) (test karz=7377) No FLOW RECEIVED? (BEAKER) (test tnjd=7618) Yes CYTOGENICS? (BEAKER) (test empq=9005) Yes MOLECULAR GENETICS? (BEAKER) (test bthz=6399) Yes CBC W/PLT COUNT & AUTO [id number] 11:52:00 Test Item Value Reference Range Comments WHITE BLOOD CELL COUNT (BEAKER) (test emwl=628) 0.4 K/ L 3.5-10.5 RED BLOOD CELL COUNT (BEAKER) (test cian=705) 2.63 M/ L 4.63-6.08 HEMOGLOBIN (BEAKER) (test fymp=146) 8.3 GM/DL 13.7-17.5 HEMATOCRIT (BEAKER) (test zacr=812) 23.5 % 40.1-51.0 MEAN CORPUSCULAR VOLUME (BEAKER) (test oysx=867) 89.4 fL 79.0-92.2 MEAN CORPUSCULAR HEMOGLOBIN (BEAKER) (test 31.6 pg 25.7-32.2 vpba=942) MEAN CORPUSCULAR HEMOGLOBIN CONC (BEAKER) (test 35.3 GM/DL 32.3-36.5 fbtl=557) RED CELL DISTRIBUTION WIDTH (BEAKER) (test 15.0 % 11.6-14.4 khtr=637) PLATELET COUNT (BEAKER) (test xrst=404) 19 K/CU MM 150-450 MEAN PLATELET VOLUME (BEAKER) (test tjgl=512) 10.6 fL 9.4-12.4 NUCLEATED RED BLOOD CELLS (BEAKER) (test 0 /100 WBC 0-0 sxcy=488) (CELLAVISION MANUAL DIFF)2018-05-20 11:52:00 Test Item Value Reference Range Comments LYMPHOCYTES - REL (CELLAVISION)(BEAKER) (test 98 % drbt=1923) MONOCYTES - REL (CELLAVISION)(BEAKER) (test 2 % vrpz=5673) LYMPHOCYTES - ABS (CELLAVISION)(BEAKER) (test 0.39 K/ul 1.32-3.57 nkyj=0834) MONOCYTES - ABS (CELLAVISION)(BEAKER) (test 0.01 K/uL 0.30-0.82 yxta=0937) TOTAL COUNTED (BEAKER) (test akmj=8480) 100 WBC MORPHOLOGY (BEAKER) (test itax=688) Normal PLT MORPHOLOGY (BEAKER) (test xmcr=278) Normal ANISOCYTOSIS (BEAKER) (test mmov=814) 1+ few [id number] 06:44:00 Test Item Value Reference Range Comments MAGNESIUM (BEAKER) (test axzj=307) 1.6 mg/dL 1.6-2.6 BASIC METABOLIC [id number] 06:44:00 Test Item Value Reference Range Comments SODIUM (BEAKER) (test 138 meq/L 136-145 cvzh=758) POTASSIUM (BEAKER) (test 3.4 meq/L 3.5-5.1 ssoz=672) CHLORIDE (BEAKER) (test 105 meq/L 98-107 gphg=379) CO2 (BEAKER) (test 29 meq/L 22-29 oees=826) BLOOD UREA NITROGEN 14 mg/dL 7-21 (BEAKER) (test dctp=169) CREATININE (BEAKER) (test 0.78 mg/dL 0.57-1.25 jpsh=048) GLUCOSE RANDOM (BEAKER) 101 mg/dL 70-105 (test lgkn=097) CALCIUM (BEAKER) (test 8.1 mg/dL 8.4-10.2 umkg=706) EGFR (BEAKER) (test 101 mL/min/1.73 sq m ESTIMATED GFR IS NOT ijgo=4426) ACCURATE CREATININE CLEARANCE IN PREDICTING GLOMERULAR FILTRATION RATE. ESTIMATED GFR IS NOT APPLICABLE FOR DIALYSIS PATIENTS. PROTHROMBIN [id number] 06:31:00 Test Item Value Reference Range Comments PROTIME (BEAKER) (test zlav=452) 14.3 seconds 11.7-14.7 INR (BEAKER) (test cpib=526) 1.1 <=5.9 RECOMMENDED COUMADIN/WARFARIN INR THERAPY RANGESSTANDARD DOSE: 2.0 - 3.0 Includes: PROPHYLAXIS forvenous thrombosis, systemic embolization; TREATMENT for venous thrombosis and/or pulmonary embolus.HIGH RISK: Target INR is 2.5-3.5 for patients with mechanical heart valves.CBC W/PLT COUNT & AUTO [id number] 13:09:00 Test Item Value Reference Range Comments WHITE BLOOD CELL COUNT (BEAKER) (test kfyw=113) 0.2 K/ L 3.5-10.5 RED BLOOD CELL COUNT (BEAKER) (test nbdm=653) 2.03 M/ L 4.63-6.08 HEMOGLOBIN (BEAKER) (test vwok=568) 6.6 GM/DL 13.7-17.5 HEMATOCRIT (BEAKER) (test hvne=260) 18.7 % 40.1-51.0 MEAN CORPUSCULAR VOLUME (BEAKER) (test scfd=983) 92.1 fL 79.0-92.2 MEAN CORPUSCULAR HEMOGLOBIN (BEAKER) (test 32.5 pg 25.7-32.2 tcit=807) MEAN CORPUSCULAR HEMOGLOBIN CONC (BEAKER) (test 35.3 GM/DL 32.3-36.5 udmk=491) RED CELL DISTRIBUTION WIDTH (BEAKER) (test 14.9 % 11.6-14.4 kytq=787) PLATELET COUNT (BEAKER) (test tuwa=413) 12 K/CU MM 150-450 MEAN PLATELET VOLUME (BEAKER) (test gdxv=087) 10.7 fL 9.4-12.4 NUCLEATED RED BLOOD CELLS (BEAKER) (test 0 /100 WBC 0-0 ozno=136) (MANUAL DIFFERENTIAL)2018-05-19 13:09:00 Test Item Value Reference Range Comments NEUTROPHILS - REL (DIFF) (BEAKER) (test tfze=2891) 1 % LYMPHOCYTES - REL (DIFF) (BEAKER) (test mmni=1510) 93 % MONOCYTES - REL (DIFF) (BEAKER) (test fuyv=6890) 3 % BANDS - REL (DIFF) (BEAKER) (test oclp=5982) 0 % 0-10 ATYPICAL LYMPHOCYTE - REL (DIFF) (BEAKER) (test 3 % 0-0 elrp=619) NEUTROPHILS - ABS (DIFF) (BEAKER) (test pesd=7187) 0.00 K/ L 1.80-8.00 LYMPHOCYTES - ABS (DIFF) (BEAKER) (test htqz=7947) 0.19 K/ L 1.48-4.50 MONOCYTES - ABS (DIFF) (BEAKER) (test mwpw=3979) 0.01 K/ L 0.00-1.30 BANDS-ABS (DIFF) (BEAKER) (test nitf=5136) 0.0 K/ L 0.0-0.8 ATYPICAL LYMPHOCYTES - ABS (DIFF) (BEAKER) (test 0.01 K/ L 0.00-0.00 syav=218) TOTAL COUNTED (BEAKER) (test mwyt=6927) 100 BANDS + SEGMENTED NEUTROPHILS (BEAKER) (test 0.00 iosy=5526) WBC MORPHOLOGY (BEAKER) (test dwej=381) Normal PLT MORPHOLOGY (BEAKER) (test jyof=915) Normal RBC MORPHOLOGY (BEAKER) (test harl=935) Normal SPUTUM CULTURE + GRAM [id number] 10:09:00 Test Item Value Reference Range Comments CULTURE (BEAKER) (test 3+ Normal respiratory edith lgar=5317) present GRAM STAIN RESULT (BEAKER) No WBCs (test oqnq=0848) GRAM STAIN RESULT (BEAKER) No epithelial cells (test fcvm=67470) GRAM STAIN RESULT (BEAKER) No organisms seen (test nrir=26205) BASIC METABOLIC [id number] 05:57:00 Test Item Value Reference Range Comments SODIUM (BEAKER) (test 138 meq/L 136-145 yxkx=178) POTASSIUM (BEAKER) (test 3.4 meq/L 3.5-5.1 zyia=136) CHLORIDE (BEAKER) (test 106 meq/L 98-107 kqfu=818) CO2 (BEAKER) (test 26 meq/L 22-29 dgqy=130) BLOOD UREA NITROGEN 14 mg/dL 7-21 (BEAKER) (test wcku=003) CREATININE (BEAKER) (test 0.83 mg/dL 0.57-1.25 hdbi=397) GLUCOSE RANDOM (BEAKER) 104 mg/dL 70-105 (test cnfg=541) CALCIUM (BEAKER) (test 7.9 mg/dL 8.4-10.2 viig=139) EGFR (BEAKER) (test 94 mL/min/1.73 sq m ESTIMATED GFR IS NOT lzyf=7489) ACCURATE CREATININE CLEARANCE IN PREDICTING GLOMERULAR FILTRATION RATE. ESTIMATED GFR IS NOT APPLICABLE FOR DIALYSIS PATIENTS. CBC W/PLT COUNT & AUTO [id number] 13:13:00 Test Item Value Reference Range Comments WHITE BLOOD CELL COUNT (BEAKER) (test jcgc=028) 0.3 K/ L 3.5-10.5 RED BLOOD CELL COUNT (BEAKER) (test btmw=470) 2.22 M/ L 4.63-6.08 HEMOGLOBIN (BEAKER) (test vgpw=846) 7.2 GM/DL 13.7-17.5 HEMATOCRIT (BEAKER) (test gojc=801) 20.6 % 40.1-51.0 MEAN CORPUSCULAR VOLUME (BEAKER) (test antx=280) 92.8 fL 79.0-92.2 MEAN CORPUSCULAR HEMOGLOBIN (BEAKER) (test 32.4 pg 25.7-32.2 zngx=476) MEAN CORPUSCULAR HEMOGLOBIN CONC (BEAKER) (test 35.0 GM/DL 32.3-36.5 bkad=514) RED CELL DISTRIBUTION WIDTH (BEAKER) (test 15.2 % 11.6-14.4 esoo=879) PLATELET COUNT (BEAKER) (test jbra=829) 9 K/CU MM 150-450 MEAN PLATELET VOLUME (BEAKER) (test tlht=692) 9.6 fL 9.4-12.4 NUCLEATED RED BLOOD CELLS (BEAKER) (test 0 /100 WBC 0-0 cckh=260) (MANUAL DIFFERENTIAL)2018-05-18 13:13:00 Test Item Value Reference Range Comments NEUTROPHILS - REL (DIFF) (BEAKER) (test trjr=2547) 2 % LYMPHOCYTES - REL (DIFF) (BEAKER) (test pljf=8596) 98 % NEUTROPHILS - ABS (DIFF) (BEAKER) (test lobw=6216) 0.01 K/ L 1.80-8.00 LYMPHOCYTES - ABS (DIFF) (BEAKER) (test xuvm=2240) 0.29 K/ L 1.48-4.50 TOTAL COUNTED (BEAKER) (test wysa=2497) 100 WBC MORPHOLOGY (BEAKER) (test rlvu=226) Normal PLT MORPHOLOGY (BEAKER) (test hzzw=458) Normal RBC MORPHOLOGY (BEAKER) (test qlmq=951) Normal BLOOD [id number] 12:35:00 Test Item Value Reference Range Comments CULTURE (BEAKER) (test CITROBACTER KOSERI From Aerobic And eznb=7750) Anaerobic Bottles Citrobacter koseri Amikacin (test code=1) Aztreonam (test code=32) Cefepime (test code=51) Cefoxitin (test code=68) Ceftazidime (test code=27) Ceftriaxone (test code=52) Ertapenem (test code=38) Gentamicin (test code=18) Levofloxacin (test code=22) Meropenem (test code=34) Piperacillin + Tazobactam (test code=29) Tetracycline (test code=2) Tobramycin (test code=25) Trimethoprim + Sulfamethoxazole (test code=47) CULTURE (BEAKER) (test From Aerobic Bottle caby=5727) Only Viridans Streptococcus GRAM STAIN RESULT (BEAKER) From aerobic and (test avfm=8750) anaerobic bottles: gram negative rods GRAM STAIN RESULT (BEAKER) gram positive cocci (test kkah=[id number]) in clusters GRAM STAIN RESULT (BEAKER) gram positive cocci (test rsbt=192111) in chains, pairs and clusters VANCOMYCIN LEVEL, [id number] 09:49:00 Test Item Value Reference Range Comments VANCOMYCIN TROUGH (BEAKER) (test vmik=430) 26.7 ug/mL 10.0-20.0 BASIC METABOLIC [id number] 07:21:00 Test Item Value Reference Range Comments SODIUM (BEAKER) (test 137 meq/L 136-145 njyx=971) POTASSIUM (BEAKER) (test 3.5 meq/L 3.5-5.1 srnt=629) CHLORIDE (BEAKER) (test 103 meq/L 98-107 ptpb=333) CO2 (BEAKER) (test 27 meq/L 22-29 svwn=295) BLOOD UREA NITROGEN 19 mg/dL 7-21 (BEAKER) (test aksx=985) CREATININE (BEAKER) (test 1.03 mg/dL 0.57-1.25 gjpx=984) GLUCOSE RANDOM (BEAKER) 114 mg/dL 70-105 (test ocag=716) CALCIUM (BEAKER) (test 8.2 mg/dL 8.4-10.2 hfbf=871) EGFR (BEAKER) (test 73 mL/min/1.73 sq m ESTIMATED GFR IS NOT iyye=9156) ACCURATE CREATININE CLEARANCE IN PREDICTING GLOMERULAR FILTRATION RATE. ESTIMATED GFR IS NOT APPLICABLE FOR DIALYSIS PATIENTS. CBC W/PLT COUNT & AUTO [id number] 10:19:00 Test Item Value Reference Range Comments WHITE BLOOD CELL COUNT (BEAKER) (test pwnr=200) 0.2 K/ L 3.5-10.5 RED BLOOD CELL COUNT (BEAKER) (test ljnj=769) 2.39 M/ L 4.63-6.08 HEMOGLOBIN (BEAKER) (test bkfs=704) 7.4 GM/DL 13.7-17.5 HEMATOCRIT (BEAKER) (test ovkz=212) 22.1 % 40.1-51.0 MEAN CORPUSCULAR VOLUME (BEAKER) (test aial=695) 92.5 fL 79.0-92.2 MEAN CORPUSCULAR HEMOGLOBIN (BEAKER) (test 31.0 pg 25.7-32.2 aseq=265) MEAN CORPUSCULAR HEMOGLOBIN CONC (BEAKER) (test 33.5 GM/DL 32.3-36.5 fdfo=162) RED CELL DISTRIBUTION WIDTH (BEAKER) (test 15.5 % 11.6-14.4 vbwu=783) PLATELET COUNT (BEAKER) (test zowu=132) 18 K/CU MM 150-450 MEAN PLATELET VOLUME (BEAKER) (test dhpz=195) 9.3 fL 9.4-12.4 NUCLEATED RED BLOOD CELLS (BEAKER) (test 0 /100 WBC 0-0 dwvp=535) (CELLAVISION MANUAL DIFF)2018-05-17 10:19:00 Test Item Value Reference Range Comments NEUTROPHILS - REL (CELLAVISION)(BEAKER) (test 1 % urje=1089) LYMPHOCYTES - REL (CELLAVISION)(BEAKER) (test 82 % nvkk=7188) ATYPICAL LYMPHOCYTES - REL (CELLAVISION)(BEAKER) 17 % 0-0 (test jvib=6179) NEUTROPHILS - ABS (CELLAVISION)(BEAKER) (test 0.00 K/ul 1.78-5.38 ksfz=7870) LYMPHOCYTES - ABS (CELLAVISION)(BEAKER) (test 0.16 K/ul 1.32-3.57 esbf=1589) ATYPICAL LYMPHOCYTES - ABS (CELLAVISION)(BEAKER) 0.03 K/uL 0.00-0.00 (test umrl=5304) TOTAL COUNTED (BEAKER) (test ybkv=3804) 100 WBC MORPHOLOGY (BEAKER) (test shbn=093) Normal PLT MORPHOLOGY (BEAKER) (test gqje=496) Normal ANISOCYTOSIS (BEAKER) (test xdyy=256) 1+ few MICROCYTES (BEAKER) (test qeny=644) 1+ few OVALOCYTES (BEAKER) (test rjdw=259) 1+ few PLATELET CONCENTRATION (CELLAVISION)(BEAKER) (test Decreased mlco=8273) Received comment: User comments: Slide comments:VITAMIN B12 AND [id number] 08:00:00 Test Item Value Reference Range Comments VITAMIN B12 (BEAKER) (test fbym=793) 1372 pg/mL 213-816 FOLATE (BEAKER) (test rgnt=785) 8.9 ng/mL >=7.0 BASIC METABOLIC [id number] 06:48:00 Test Item Value Reference Range Comments SODIUM (BEAKER) (test 136 meq/L 136-145 zfjm=292) POTASSIUM (BEAKER) (test 3.8 meq/L 3.5-5.1 mqir=630) CHLORIDE (BEAKER) (test 100 meq/L 98-107 bnnz=826) CO2 (BEAKER) (test 28 meq/L 22-29 lyku=773) BLOOD UREA NITROGEN 18 mg/dL 7-21 (BEAKER) (test brtv=097) CREATININE (BEAKER) (test 1.13 mg/dL 0.57-1.25 zneg=020) GLUCOSE RANDOM (BEAKER) 123 mg/dL 70-105 (test fbbs=506) CALCIUM (BEAKER) (test 8.2 mg/dL 8.4-10.2 oyzm=175) EGFR (BEAKER) (test 66 mL/min/1.73 sq m ESTIMATED GFR IS NOT lzyg=5077) ACCURATE CREATININE CLEARANCE IN PREDICTING GLOMERULAR FILTRATION RATE. ESTIMATED GFR IS NOT APPLICABLE FOR DIALYSIS PATIENTS. BLOOD CULTURE IDENTIFICATION [id number] 21:58:00 Test Item Value Reference Range Comments LISTERIA MONOCYTOGENES (test Not detected Not detected baxc=[id number]) STAPHYLOCOCCUS (test Not detected Not detected uiwc=5322521) STAPHYLOCOCCUS AUREUS (test Not detected Not detected kiqx=2745092) STREPTOCOCCUS (test Detected Not detected First line therapy: ccxd=[id number]) VancomycinDe-escalate based on susceptibilities Reference Range: Not Detected STREPTOCOCCUS AGALACTIAE Not detected Not detected (GROUP B) (test trhu=7208380) STREPTOCOCCUS PNEUMONIAE Not detected Not detected (test rile=0335951) STREPTOCOCCUS PYOGENES (GROUP Not detected Not detected A) (test szul=9570315) ACINETOBACTER BAUMANNII (test Not detected Not detected rajo=2117407) HAEMOPHILUS INFLUENZAE (test Not detected Not detected hitu=5258980) NEISSERIA MENINGITIDIS (test Not detected Not detected ngdx=6640790) ENTEROBACTERIACEAE (test Detected Not detected smxq=9878597) ENTEROBACTER CLOACOE COMPLEX Not detected Not detected (test msru=4720860) KLEBSIELLA OXYTOCA (test Not detected Not detected upgi=2404339) KLEBSIELLA PNEUMONIAE (test Not detected Not detected pnqy=1334) PROTEUS (test rety=7827091) Not detected Not detected SERRATIA MARCESCENS (test Not detected Not detected bwis=6461178) COBY ALBICANS (test Not detected Not detected uuan=9941546) COBY GLABRATA (test Not detected Not detected ovzh=7018716) COBY KRUSEI (test Not detected Not detected rkpo=2842200) COBY PARAPSILOSIS (test Not detected Not detected hkah=6986595) COBY TROPICALIS (test Not detected Not detected dvmn=8056512) ESCHERICHIA COLI (test Not detected Not detected lmfb=5889800) METHICILLIN-RESISTANCE GENE Not detected (test pvqn=1163053) VANCOMYCIN-RESISTANCE GENE Not detected (test fhtb=9689606) CARBAPENEM-RESISTANCE GENE Not detected Not detected (test mmad=9170207) ENTEROCOCCUS-BEAKER (test Not detected Not detected rvey=0661245) PSEUDOMONAS AERUGINOSA-BEAKER Not detected Not detected (test viwa=4140912) Other bacteria and resistance markers not targeted by this PCR panel cannot be excluded; therefore clinical correlation and follow up of serology, culture results, and other molecular studies is required. The results are not intended to be used as the sole means for clinical diagnosis or patient management decisions. This sample was tested at the [facility] using the [employer] Blood Culture ID Panel. It is FDA cleared and has been verified and approved by the [facility] for clinical use. This laboratory is CLIA-certified and College ofAmerican Pathologists (CAP)-accredited to perform high complexity testing.URINALYSIS W/ REFLEX URINE [id number] 18:03:00 Test Item Value Reference Range Comments COLOR (BEAKER) (test nryx=178) Light Yellow CLARITY (BEAKER) (test jfqb=141) Clear SPECIFIC GRAVITY UA (BEAKER) (test dqwp=317) 1.004 1.001-1.035 PH UA (BEAKER) (test rizm=791) 5.0 5.0-8.0 PROTEIN UA (BEAKER) (test vgoh=748) Negative Negative GLUCOSE UA (BEAKER) (test rapr=683) Negative Negative KETONES UA (BEAKER) (test uolr=048) Negative Negative BILIRUBIN UA (BEAKER) (test ifxc=364) Negative Negative BLOOD UA (BEAKER) (test vpbb=227) Negative Negative NITRITE UA (BEAKER) (test rswx=384) Negative Negative LEUKOCYTE ESTERASE UA (BEAKER) (test igti=668) Negative Negative UROBILINOGEN UA (BEAKER) (test glkv=520) 0.2 mg/dL 0.2-1.0 RBC UA (BEAKER) (test yccv=290) < /HPF WBC UA (BEAKER) (test ijdm=726) < /HPF BACTERIA (BEAKER) (test qgrg=402) Rare SQUAMOUS EPITHELIAL (BEAKER) (test tojp=908) < /HPF SOURCE(BEAKER) (test ijkl=0554) C. DIFFICILE GDH [id number] 14:50:00 Test Item Value Reference Range Comments CDT TOXIN (test Negative Negative jdcy=[id number]) CDT GDH ANTIGEN (test Negative Negative No indication of Clostridium xgka=[id number]) difficile infection and no colonization. Discontinue enteric isolation and therapy. Testing performed by [employer] Rapid Cassette Assay. For GDH, published sensitivity of the assay is 98.7% compared to cytotoxicity testing. For Toxin AB, published sensitivity is 87.8% and specificity 99.4% compared to cytotoxicity testing.Verification of kit performance was done by the [facility] prior to clinical use.CBC W/PLT COUNT & AUTO [id number] 10:17:00 Test Item Value Reference Range Comments WHITE BLOOD CELL COUNT (BEAKER) (test jikh=049) 0.2 K/ L 3.5-10.5 RED BLOOD CELL COUNT (BEAKER) (test nqrr=818) 2.56 M/ L 4.63-6.08 HEMOGLOBIN (BEAKER) (test dstz=201) 8.0 GM/DL 13.7-17.5 HEMATOCRIT (BEAKER) (test ssyr=594) 23.7 % 40.1-51.0 MEAN CORPUSCULAR VOLUME (BEAKER) (test gbal=237) 92.6 fL 79.0-92.2 MEAN CORPUSCULAR HEMOGLOBIN (BEAKER) (test 31.3 pg 25.7-32.2 jawn=145) MEAN CORPUSCULAR HEMOGLOBIN CONC (BEAKER) (test 33.8 GM/DL 32.3-36.5 xvjk=653) RED CELL DISTRIBUTION WIDTH (BEAKER) (test 15.6 % 11.6-14.4 pgzy=142) PLATELET COUNT (BEAKER) (test wtrm=716) 8 K/CU MM 150-450 MEAN PLATELET VOLUME (BEAKER) (test cxyn=657) 9.1 fL 9.4-12.4 NUCLEATED RED BLOOD CELLS (BEAKER) (test 0 /100 WBC 0-0 znwa=582) (CELLAVISION MANUAL DIFF)2018-05-16 10:17:00 Test Item Value Reference Range Comments LYMPHOCYTES - REL (CELLAVISION)(BEAKER) (test 100 % zdpb=4528) LYMPHOCYTES - ABS (CELLAVISION)(BEAKER) (test 0.20 K/ul 1.32-3.57 tlwk=8016) TOTAL COUNTED (BEAKER) (test aeew=0922) 100 WBC MORPHOLOGY (BEAKER) (test lnkt=192) Normal PLT MORPHOLOGY (BEAKER) (test cbnt=104) Normal HYPOCHROMIA (BEAKER) (test sesl=296) 1+ few ANISOCYTOSIS (BEAKER) (test glzo=474) 1+ few MACROCYTES (BEAKER) (test mctu=288) 1+ few POIKILOCYTES (BEAKER) (test hmca=085) 1+ few OVALOCYTES (BEAKER) (test wkzh=871) 1+ few ARTIFACT (CELLAVISION)(BEAKER) (test sffp=2212) Present PLATELET CONCENTRATION (CELLAVISION)(BEAKER) (test Decreased ocnz=2270) Received comment: User comments: Slide comments:LACTIC ACID, VENOUS, WHOLE [id number] 09:14:00 Test Item Value Reference Range Comments LACTATE BLOOD VENOUS (2) (BEAKER) (test 2.0 mmol/L 0.5-2.2 mvww=8982) RAD, CHEST, 1 VIEW, NON [id number] 07:53:00Reason for exam:->cough, feverShould this be performed [...] Yamileth Sheehan Verified Date/Time: 07:53:57 Reading Location: [address] Reading Room BASIC METABOLIC [id number] 05:27:00 Test Item Value Reference Range Comments SODIUM (BEAKER) (test 137 meq/L 136-145 yzyj=553) POTASSIUM (BEAKER) (test 3.7 meq/L 3.5-5.1 ufkc=793) CHLORIDE (BEAKER) (test 101 meq/L 98-107 qhjy=219) CO2 (BEAKER) (test 27 meq/L 22-29 kptv=796) BLOOD UREA NITROGEN 28 mg/dL 7-21 (BEAKER) (test kjux=455) CREATININE (BEAKER) (test 1.20 mg/dL 0.57-1.25 cmav=862) GLUCOSE RANDOM (BEAKER) 133 mg/dL 70-105 (test fjbk=308) CALCIUM (BEAKER) (test 8.2 mg/dL 8.4-10.2 ixho=442) EGFR (BEAKER) (test 61 mL/min/1.73 sq m ESTIMATED GFR IS NOT iskw=3213) ACCURATE CREATININE CLEARANCE IN PREDICTING GLOMERULAR FILTRATION RATE. ESTIMATED GFR IS NOT APPLICABLE FOR DIALYSIS PATIENTS. CBC W/PLT COUNT & AUTO [id number] 12:30:00 Test Item Value Reference Range Comments WHITE BLOOD CELL COUNT (BEAKER) (test dwgp=375) 0.2 K/ L 3.5-10.5 RED BLOOD CELL COUNT (BEAKER) (test amjq=681) 2.31 M/ L 4.63-6.08 HEMOGLOBIN (BEAKER) (test rela=789) 7.4 GM/DL 13.7-17.5 HEMATOCRIT (BEAKER) (test bitx=361) 21.7 % 40.1-51.0 MEAN CORPUSCULAR VOLUME (BEAKER) (test ijgy=524) 93.9 fL 79.0-92.2 MEAN CORPUSCULAR HEMOGLOBIN (BEAKER) (test 32.0 pg 25.7-32.2 savb=283) MEAN CORPUSCULAR HEMOGLOBIN CONC (BEAKER) (test 34.1 GM/DL 32.3-36.5 vjpm=456) RED CELL DISTRIBUTION WIDTH (BEAKER) (test 16.0 % 11.6-14.4 brxu=260) PLATELET COUNT (BEAKER) (test sbbe=754) 14 K/CU MM 150-450 MEAN PLATELET VOLUME (BEAKER) (test gcbf=441) 10.6 fL 9.4-12.4 NUCLEATED RED BLOOD CELLS (BEAKER) (test 0 /100 WBC 0-0 jkdq=075) (MANUAL DIFFERENTIAL)2018-05-15 12:30:00 Test Item Value Reference Range Comments NEUTROPHILS - REL (DIFF) (BEAKER) (test ljfu=1409) 2 % LYMPHOCYTES - REL (DIFF) (BEAKER) (test wlsc=1536) 92 % MONOCYTES - REL (DIFF) (BEAKER) (test rcvr=2090) 0 % EOSINOPHILS - REL (DIFF) (BEAKER) (test ovky=2717) 0 % BASOPHILS - REL (DIFF) (BEAKER) (test kqvs=2593) 0 % ATYPICAL LYMPHOCYTE - REL (DIFF) (BEAKER) (test 6 % 0-0 bkuf=979) NEUTROPHILS - ABS (DIFF) (BEAKER) (test kcnm=9587) 0.00 K/ L 1.80-8.00 LYMPHOCYTES - ABS (DIFF) (BEAKER) (test ruwp=2229) 0.18 K/ L 1.48-4.50 MONOCYTES - ABS (DIFF) (BEAKER) (test arnx=6203) 0.00 K/ L 0.00-1.30 EOSINOPHILS - ABS (DIFF) (BEAKER) (test ibjh=2749) 0.00 K/ L 0.00-0.50 BASOPHILS - ABS (DIFF) (BEAKER) (test tdvw=1416) 0.00 K/ L 0.00-0.20 ATYPICAL LYMPHOCYTES - ABS (DIFF) (BEAKER) (test 0.01 K/ L 0.00-0.00 quxp=296) TOTAL COUNTED (BEAKER) (test gpjd=8717) 100 WBC MORPHOLOGY (BEAKER) (test nqft=392) Normal PLT MORPHOLOGY (BEAKER) (test jocc=476) Normal RBC MORPHOLOGY (BEAKER) (test sqam=117) Normal URIC [id number] 07:39:00 Test Item Value Reference Range Comments URIC ACID (BEAKER) (test tucc=023) 3.5 mg/dL 2.6-7.2 BASIC METABOLIC [id number] 07:39:00 Test Item Value Reference Range Comments SODIUM (BEAKER) (test 137 meq/L 136-145 rhmt=974) POTASSIUM (BEAKER) (test 4.3 meq/L 3.5-5.1 xoml=168) CHLORIDE (BEAKER) (test 103 meq/L 98-107 yxij=673) CO2 (BEAKER) (test 26 meq/L 22-29 raws=440) BLOOD UREA NITROGEN 21 mg/dL 7-21 (BEAKER) (test qjsx=071) CREATININE (BEAKER) (test 0.90 mg/dL 0.57-1.25 wlkt=232) GLUCOSE RANDOM (BEAKER) 169 mg/dL 70-105 (test obkh=759) CALCIUM (BEAKER) (test 8.1 mg/dL 8.4-10.2 dnzr=709) EGFR (BEAKER) (test 86 mL/min/1.73 sq m ESTIMATED GFR IS NOT droy=9494) ACCURATE CREATININE CLEARANCE IN PREDICTING GLOMERULAR FILTRATION RATE. ESTIMATED GFR IS NOT APPLICABLE FOR DIALYSIS PATIENTS. LACTATE DEHYDROGENASE (LDH)2018-05-15 07:39:00 Test Item Value Reference Range Comments LACTATE DEHYDROGENASE (BEAKER) (test jzns=009) 461 U/L 125-220 CBC W/PLT COUNT & AUTO [id number] 10:07:00 Test Item Value Reference Range Comments WHITE BLOOD CELL COUNT (BEAKER) (test ayyc=427) 0.2 K/ L 3.5-10.5 RED BLOOD CELL COUNT (BEAKER) (test uoow=603) 2.18 M/ L 4.63-6.08 HEMOGLOBIN (BEAKER) (test zylg=725) 7.3 GM/DL 13.7-17.5 HEMATOCRIT (BEAKER) (test cusw=609) 20.6 % 40.1-51.0 MEAN CORPUSCULAR VOLUME (BEAKER) (test lbeh=656) 94.5 fL 79.0-92.2 MEAN CORPUSCULAR HEMOGLOBIN (BEAKER) (test 33.5 pg 25.7-32.2 lrvp=413) MEAN CORPUSCULAR HEMOGLOBIN CONC (BEAKER) (test 35.4 GM/DL 32.3-36.5 husv=216) RED CELL DISTRIBUTION WIDTH (BEAKER) (test 16.3 % 11.6-14.4 kacl=359) PLATELET COUNT (BEAKER) (test zzut=567) 21 K/CU MM 150-450 MEAN PLATELET VOLUME (BEAKER) (test zuqr=512) 10.1 fL 9.4-12.4 NUCLEATED RED BLOOD CELLS (BEAKER) (test 0 /100 WBC 0-0 ihom=623) (MANUAL DIFFERENTIAL)2018-05-14 10:07:00 Test Item Value Reference Range Comments NEUTROPHILS - REL (DIFF) (BEAKER) (test vpbw=5875) 9 % LYMPHOCYTES - REL (DIFF) (BEAKER) (test xgcc=5866) 83 % ATYPICAL LYMPHOCYTE - REL (DIFF) (BEAKER) (test 8 % 0-0 ldxw=392) NEUTROPHILS - ABS (DIFF) (BEAKER) (test skqw=2054) 0.02 K/ L 1.80-8.00 LYMPHOCYTES - ABS (DIFF) (BEAKER) (test wttw=7528) 0.17 K/ L 1.48-4.50 ATYPICAL LYMPHOCYTES - ABS (DIFF) (BEAKER) (test 0.02 K/ L 0.00-0.00 eapp=555) TOTAL COUNTED (BEAKER) (test mljh=9074) 100 WBC MORPHOLOGY (BEAKER) (test fzqu=214) Normal PLT MORPHOLOGY (BEAKER) (test tgya=519) Normal RBC MORPHOLOGY (BEAKER) (test hluu=749) Normal BASIC METABOLIC [id number] 05:43:00 Test Item Value Reference Range Comments SODIUM (BEAKER) (test 137 meq/L 136-145 qjwt=999) POTASSIUM (BEAKER) (test 4.2 meq/L 3.5-5.1 gkxs=566) CHLORIDE (BEAKER) (test 107 meq/L 98-107 jisl=228) CO2 (BEAKER) (test 23 meq/L 22-29 anke=394) BLOOD UREA NITROGEN 19 mg/dL 7-21 (BEAKER) (test lald=563) CREATININE (BEAKER) (test 0.81 mg/dL 0.57-1.25 laqv=604) GLUCOSE RANDOM (BEAKER) 160 mg/dL 70-105 (test rrig=617) CALCIUM (BEAKER) (test 7.4 mg/dL 8.4-10.2 cifh=900) EGFR (BEAKER) (test 97 mL/min/1.73 sq m ESTIMATED GFR IS NOT utmy=6015) ACCURATE CREATININE CLEARANCE IN PREDICTING GLOMERULAR FILTRATION RATE. ESTIMATED GFR IS NOT APPLICABLE FOR DIALYSIS PATIENTS. URIC [id number] 05:41:00 Test Item Value Reference Range Comments URIC ACID (BEAKER) (test fujo=374) 3.1 mg/dL 2.6-7.2 LACTATE DEHYDROGENASE (LDH)2018-05-14 05:41:00 Test Item Value Reference Range Comments LACTATE DEHYDROGENASE (BEAKER) (test sjow=415) 378 U/L 125-220 CBC W/PLT COUNT & AUTO [id number] 10:48:00 Test Item Value Reference Range Comments WHITE BLOOD CELL COUNT (BEAKER) (test lzrd=177) 0.3 K/ L 3.5-10.5 RED BLOOD CELL COUNT (BEAKER) (test ybtv=442) 2.46 M/ L 4.63-6.08 HEMOGLOBIN (BEAKER) (test cjva=523) 7.9 GM/DL 13.7-17.5 HEMATOCRIT (BEAKER) (test ccbf=368) 23.2 % 40.1-51.0 MEAN CORPUSCULAR VOLUME (BEAKER) (test wzrg=490) 94.3 fL 79.0-92.2 MEAN CORPUSCULAR HEMOGLOBIN (BEAKER) (test 32.1 pg 25.7-32.2 jvfr=339) MEAN CORPUSCULAR HEMOGLOBIN CONC (BEAKER) (test 34.1 GM/DL 32.3-36.5 ajna=053) RED CELL DISTRIBUTION WIDTH (BEAKER) (test 16.3 % 11.6-14.4 prwz=835) PLATELET COUNT (BEAKER) (test rain=007) 32 K/CU MM 150-450 MEAN PLATELET VOLUME (BEAKER) (test mjhz=993) 10.1 fL 9.4-12.4 NUCLEATED RED BLOOD CELLS (BEAKER) (test 0 /100 WBC 0-0 atiq=562) (MANUAL DIFFERENTIAL)2018-05-13 10:48:00 Test Item Value Reference Range Comments NEUTROPHILS - REL (DIFF) (BEAKER) (test ftpt=5773) 20 % LYMPHOCYTES - REL (DIFF) (BEAKER) (test dpyk=8358) 80 % NEUTROPHILS - ABS (DIFF) (BEAKER) (test wsvt=6150) 0.06 K/ L 1.80-8.00 LYMPHOCYTES - ABS (DIFF) (BEAKER) (test yjqo=2297) 0.24 K/ L 1.48-4.50 TOTAL COUNTED (BEAKER) (test xovt=0442) 50 WBC MORPHOLOGY (BEAKER) (test jgdl=469) Normal PLT MORPHOLOGY (BEAKER) (test dyfp=775) Normal ANISOCYTOSIS (BEAKER) (test evvu=798) 1+ few MICROCYTES (BEAKER) (test jwha=702) 1+ few BASIC METABOLIC [id number] 07:42:00 Test Item Value Reference Range Comments SODIUM (BEAKER) (test 134 meq/L 136-145 bpvd=986) POTASSIUM (BEAKER) (test 4.6 meq/L 3.5-5.1 jmuz=557) CHLORIDE (BEAKER) (test 104 meq/L 98-107 zhzn=984) CO2 (BEAKER) (test 23 meq/L 22-29 ujxt=880) BLOOD UREA NITROGEN 20 mg/dL 7-21 (BEAKER) (test tggv=290) CREATININE (BEAKER) (test 0.85 mg/dL 0.57-1.25 ewrp=853) GLUCOSE RANDOM (BEAKER) 153 mg/dL 70-105 (test rtdk=795) CALCIUM (BEAKER) (test 7.7 mg/dL 8.4-10.2 jatg=109) EGFR (BEAKER) (test 91 mL/min/1.73 sq m ESTIMATED GFR IS NOT etjj=1644) ACCURATE CREATININE CLEARANCE IN PREDICTING GLOMERULAR FILTRATION RATE. ESTIMATED GFR IS NOT APPLICABLE FOR DIALYSIS PATIENTS. URIC [id number] 07:41:00 Test Item Value Reference Range Comments URIC ACID (BEAKER) (test cene=861) 3.0 mg/dL 2.6-7.2 LACTATE DEHYDROGENASE (LDH)2018-05-13 07:41:00 Test Item Value Reference Range Comments LACTATE DEHYDROGENASE (BEAKER) (test bxmx=946) 447 U/L 125-220 CBC W/PLT COUNT & AUTO [id number] 10:09:00 Test Item Value Reference Range Comments WHITE BLOOD CELL COUNT (BEAKER) (test cndr=721) 0.3 K/ L 3.5-10.5 RED BLOOD CELL COUNT (BEAKER) (test lgac=810) 2.37 M/ L 4.63-6.08 HEMOGLOBIN (BEAKER) (test jqqg=316) 7.6 GM/DL 13.7-17.5 HEMATOCRIT (BEAKER) (test oton=699) 22.4 % 40.1-51.0 MEAN CORPUSCULAR VOLUME (BEAKER) (test flfu=401) 94.5 fL 79.0-92.2 MEAN CORPUSCULAR HEMOGLOBIN (BEAKER) (test 32.1 pg 25.7-32.2 ufqs=054) MEAN CORPUSCULAR HEMOGLOBIN CONC (BEAKER) (test 33.9 GM/DL 32.3-36.5 zpis=783) RED CELL DISTRIBUTION WIDTH (BEAKER) (test 16.6 % 11.6-14.4 jpwx=082) PLATELET COUNT (BEAKER) (test chwv=965) 9 K/CU MM 150-450 MEAN PLATELET VOLUME (BEAKER) (test stff=182) 9.8 fL 9.4-12.4 NUCLEATED RED BLOOD CELLS (BEAKER) (test 0 /100 WBC 0-0 lwjl=354) (MANUAL DIFFERENTIAL)2018-05-12 10:09:00 Test Item Value Reference Range Comments NEUTROPHILS - REL (DIFF) (BEAKER) (test puum=2483) 25 % LYMPHOCYTES - REL (DIFF) (BEAKER) (test doup=0267) 72 % MONOCYTES - REL (DIFF) (BEAKER) (test omop=3105) 3 % NEUTROPHILS - ABS (DIFF) (BEAKER) (test jbop=2601) 0.08 K/ L 1.80-8.00 LYMPHOCYTES - ABS (DIFF) (BEAKER) (test jmkn=4593) 0.22 K/ L 1.48-4.50 MONOCYTES - ABS (DIFF) (BEAKER) (test ikky=8984) 0.01 K/ L 0.00-1.30 TOTAL COUNTED (BEAKER) (test gazu=3899) 100 PLT MORPHOLOGY (BEAKER) (test ebtr=893) Normal RBC MORPHOLOGY (BEAKER) (test ctnd=013) Normal ATYPICAL LYMPHS(BEAKER) (test iyjg=8364) Present BASIC METABOLIC [id number] 05:47:00 Test Item Value Reference Range Comments SODIUM (BEAKER) (test 136 meq/L 136-145 swau=079) POTASSIUM (BEAKER) (test 5.0 meq/L 3.5-5.1 qhex=191) CHLORIDE (BEAKER) (test 108 meq/L 98-107 qqdm=263) CO2 (BEAKER) (test 23 meq/L 22-29 wzdk=364) BLOOD UREA NITROGEN 22 mg/dL 7-21 (BEAKER) (test nbmr=488) CREATININE (BEAKER) (test 0.83 mg/dL 0.57-1.25 oynr=536) GLUCOSE RANDOM (BEAKER) 194 mg/dL 70-105 (test xfhi=549) CALCIUM (BEAKER) (test 7.6 mg/dL 8.4-10.2 xphp=761) EGFR (BEAKER) (test 94 mL/min/1.73 sq m ESTIMATED GFR IS NOT qjer=0989) ACCURATE CREATININE CLEARANCE IN PREDICTING GLOMERULAR FILTRATION RATE. ESTIMATED GFR IS NOT APPLICABLE FOR DIALYSIS PATIENTS. URIC [id number] 05:45:00 Test Item Value Reference Range Comments URIC ACID (BEAKER) (test eyck=992) 2.9 mg/dL 2.6-7.2 LACTATE DEHYDROGENASE (LDH)2018-05-12 05:45:00 Test Item Value Reference Range Comments LACTATE DEHYDROGENASE (BEAKER) (test kolt=935) 454 U/L 125-220 CBC W/PLT COUNT & AUTO [id number] 14:15:00 Test Item Value Reference Range Comments WHITE BLOOD CELL COUNT (BEAKER) (test ziee=254) 0.3 K/ L 3.5-10.5 RED BLOOD CELL COUNT (BEAKER) (test buju=669) 2.48 M/ L 4.63-6.08 HEMOGLOBIN (BEAKER) (test eulh=622) 7.9 GM/DL 13.7-17.5 HEMATOCRIT (BEAKER) (test cdag=554) 23.4 % 40.1-51.0 MEAN CORPUSCULAR VOLUME (BEAKER) (test unwt=428) 94.4 fL 79.0-92.2 MEAN CORPUSCULAR HEMOGLOBIN (BEAKER) (test 31.9 pg 25.7-32.2 rljt=063) MEAN CORPUSCULAR HEMOGLOBIN CONC (BEAKER) (test 33.8 GM/DL 32.3-36.5 cdqy=580) RED CELL DISTRIBUTION WIDTH (BEAKER) (test 17.2 % 11.6-14.4 rsnd=791) PLATELET COUNT (BEAKER) (test zppc=658) 13 K/CU MM 150-450 MEAN PLATELET VOLUME (BEAKER) (test zkae=774) 10.4 fL 9.4-12.4 NUCLEATED RED BLOOD CELLS (BEAKER) (test 0 /100 WBC 0-0 iykw=969) (MANUAL DIFFERENTIAL)2018-05-11 14:15:00 Test Item Value Reference Range Comments NEUTROPHILS - REL (DIFF) (BEAKER) (test erax=4956) 35 % LYMPHOCYTES - REL (DIFF) (BEAKER) (test ureh=5996) 64 % BANDS - REL (DIFF) (BEAKER) (test djmu=9524) 1 % 0-10 NEUTROPHILS - ABS (DIFF) (BEAKER) (test gkha=2229) 0.11 K/ L 1.80-8.00 LYMPHOCYTES - ABS (DIFF) (BEAKER) (test fqhy=6144) 0.19 K/ L 1.48-4.50 BANDS-ABS (DIFF) (BEAKER) (test snbu=6546) 0.0 K/ L 0.0-0.8 TOTAL COUNTED (BEAKER) (test mjtw=3494) 100 BANDS + SEGMENTED NEUTROPHILS (BEAKER) (test 0.11 bmoz=6272) WBC MORPHOLOGY (BEAKER) (test isha=618) Normal PLT MORPHOLOGY (BEAKER) (test nwqj=560) Normal ANISOCYTOSIS (BEAKER) (test zswx=550) 1+ few MICROCYTES (BEAKER) (test iqnf=341) 1+ few [id number] 06:57:00 Test Item Value Reference Range Comments PHOSPHORUS (BEAKER) (test rxkm=915) 2.8 mg/dL 2.3-4.7 [id number] 06:57:00 Test Item Value Reference Range Comments MAGNESIUM (BEAKER) (test mrxd=878) 2.2 mg/dL 1.6-2.6 LACTATE DEHYDROGENASE (LDH)2018-05-11 06:57:00 Test Item Value Reference Range Comments LACTATE DEHYDROGENASE (BEAKER) (test dnml=516) 539 U/L 125-220 CBC W/PLT COUNT & AUTO [id number] 11:13:00 Test Item Value Reference Range Comments WHITE BLOOD CELL COUNT (BEAKER) (test uuwd=245) 0.4 K/ L 3.5-10.5 RED BLOOD CELL COUNT (BEAKER) (test bpcd=616) 2.45 M/ L 4.63-6.08 HEMOGLOBIN (BEAKER) (test zqco=101) 7.8 GM/DL 13.7-17.5 HEMATOCRIT (BEAKER) (test dokv=860) 23.1 % 40.1-51.0 MEAN CORPUSCULAR VOLUME (BEAKER) (test qvup=564) 94.3 fL 79.0-92.2 MEAN CORPUSCULAR HEMOGLOBIN (BEAKER) (test 31.8 pg 25.7-32.2 essw=154) MEAN CORPUSCULAR HEMOGLOBIN CONC (BEAKER) (test 33.8 GM/DL 32.3-36.5 gysb=270) RED CELL DISTRIBUTION WIDTH (BEAKER) (test 17.2 % 11.6-14.4 dfuq=602) PLATELET COUNT (BEAKER) (test flqj=768) 20 K/CU MM 150-450 MEAN PLATELET VOLUME (BEAKER) (test pfbo=007) 9.7 fL 9.4-12.4 NUCLEATED RED BLOOD CELLS (BEAKER) (test 0 /100 WBC 0-0 vahu=137) (MANUAL DIFFERENTIAL)2018-05-10 11:13:00 Test Item Value Reference Range Comments NEUTROPHILS - REL (DIFF) (BEAKER) (test hrxf=8137) 50 % LYMPHOCYTES - REL (DIFF) (BEAKER) (test nvpv=1827) 36 % MONOCYTES - REL (DIFF) (BEAKER) (test ilol=7952) 4 % EOSINOPHILS - REL (DIFF) (BEAKER) (test nhgt=1063) 0 % BASOPHILS - REL (DIFF) (BEAKER) (test ynjg=5475) 1 % PROMYELOCYTES-REL (DIFF) (BEAKER) (test aqfp=921) 1 % 0-0 BANDS - REL (DIFF) (BEAKER) (test yikx=5745) 2 % 0-10 BLASTS - REL (DIFF) (BEAKER) (test fohl=0409) 3 % 0-0 ATYPICAL LYMPHOCYTE - REL (DIFF) (BEAKER) (test 3 % 0-0 xpki=826) NEUTROPHILS - ABS (DIFF) (BEAKER) (test fpqh=0423) 0.20 K/ L 1.80-8.00 LYMPHOCYTES - ABS (DIFF) (BEAKER) (test hzxa=2553) 0.14 K/ L 1.48-4.50 MONOCYTES - ABS (DIFF) (BEAKER) (test potw=0874) 0.02 K/ L 0.00-1.30 EOSINOPHILS - ABS (DIFF) (BEAKER) (test gafz=4421) 0.00 K/ L 0.00-0.50 BASOPHILS - ABS (DIFF) (BEAKER) (test qgdg=1133) 0.00 K/ L 0.00-0.20 PROMYELOCYTES - ABS (DIFF) (BEAKER) (test 0.00 K/ L 0.00-0.00 uvki=561) BANDS-ABS (DIFF) (BEAKER) (test nfdp=3585) 0.0 K/ L 0.0-0.8 BLASTS - ABS (DIFF) (BEAKER) (test tofe=0099) 0.01 K/ L 0.00-0.00 ATYPICAL LYMPHOCYTES - ABS (DIFF) (BEAKER) (test 0.01 K/ L 0.00-0.00 bxaw=195) TOTAL COUNTED (BEAKER) (test rheu=4865) 100 BANDS + SEGMENTED NEUTROPHILS (BEAKER) (test 0.21 egns=6631) WBC MORPHOLOGY (BEAKER) (test zyuf=233) Normal PLT MORPHOLOGY (BEAKER) (test qfds=858) Normal ANISOCYTOSIS (BEAKER) (test qvif=498) 1+ few TEAR DROP CELLS (BEAKER) (test nwmr=684) 1+ few [id number] 06:54:00 Test Item Value Reference Range Comments PHOSPHORUS (BEAKER) (test fcaj=033) 2.9 mg/dL 2.3-4.7 [id number] 06:54:00 Test Item Value Reference Range Comments MAGNESIUM (BEAKER) (test lnkj=727) 2.1 mg/dL 1.6-2.6 HEPATIC FUNCTION [id number] 06:54:00 Test Item Value Reference Range Comments TOTAL PROTEIN (BEAKER) (test qkzz=798) 5.7 gm/dL 6.0-8.3 ALBUMIN (BEAKER) (test pyig=7441) 2.7 g/dL 3.5-5.0 BILIRUBIN TOTAL (BEAKER) (test jnjb=813) 0.5 mg/dL 0.2-1.2 BILIRUBIN DIRECT (BEAKER) (test apri=114) 0.3 mg/dL 0.1-0.5 ALKALINE PHOSPHATASE (BEAKER) (test xqex=686) 37 U/L 40-150 AST (SGOT) (BEAKER) (test wrak=120) 59 U/L 5-34 ALT (SGPT) (BEAKER) (test wrds=465) 95 U/L 6-55 LACTATE DEHYDROGENASE (LDH)2018-05-10 06:54:00 Test Item Value Reference Range Comments LACTATE DEHYDROGENASE (BEAKER) (test ztwj=793) 676 U/L 125-220 CBC W/PLT COUNT & AUTO [id number] 10:30:00 Test Item Value Reference Range Comments WHITE BLOOD CELL COUNT (BEAKER) (test ixzb=577) 0.6 K/ L 3.5-10.5 RED BLOOD CELL COUNT (BEAKER) (test vypb=618) 2.50 M/ L 4.63-6.08 HEMOGLOBIN (BEAKER) (test ujut=901) 8.1 GM/DL 13.7-17.5 HEMATOCRIT (BEAKER) (test jlka=099) 23.4 % 40.1-51.0 MEAN CORPUSCULAR VOLUME (BEAKER) (test jpmy=002) 93.6 fL 79.0-92.2 MEAN CORPUSCULAR HEMOGLOBIN (BEAKER) (test 32.4 pg 25.7-32.2 xbiw=178) MEAN CORPUSCULAR HEMOGLOBIN CONC (BEAKER) (test 34.6 GM/DL 32.3-36.5 ireu=746) RED CELL DISTRIBUTION WIDTH (BEAKER) (test 17.1 % 11.6-14.4 sdxq=080) PLATELET COUNT (BEAKER) (test xgse=321) 20 K/CU MM 150-450 MEAN PLATELET VOLUME (BEAKER) (test rngs=043) 11.1 fL 9.4-12.4 NUCLEATED RED BLOOD CELLS (BEAKER) (test 0 /100 WBC 0-0 iagp=730) (MANUAL DIFFERENTIAL)2018-05-09 10:30:00 Test Item Value Reference Range Comments NEUTROPHILS - REL (DIFF) (BEAKER) (test fcpl=4857) 29 % LYMPHOCYTES - REL (DIFF) (BEAKER) (test pdex=8293) 40 % MONOCYTES - REL (DIFF) (BEAKER) (test tmkj=2932) 9 % METAMYELOCYTES-REL (DIFF) (BEAKER) (test nbmy=491) 1 % 0-0 MYELOCYTES-REL (DIFF) (BEAKER) (test nfgc=7331) 3 % 0-0 BLASTS - REL (DIFF) (BEAKER) (test vegr=9619) 18 % 0-0 NEUTROPHILS - ABS (DIFF) (BEAKER) (test shem=3607) 0.17 K/ L 1.80-8.00 LYMPHOCYTES - ABS (DIFF) (BEAKER) (test ejqq=4536) 0.24 K/ L 1.48-4.50 MONOCYTES - ABS (DIFF) (BEAKER) (test fklt=5935) 0.05 K/ L 0.00-1.30 METAMYELOCTYES - ABS (DIFF) (BEAKER) (test 0.01 K/ L 0.00-0.00 mjcm=187) BLASTS - ABS (DIFF) (BEAKER) (test athz=2917) 0.11 K/ L 0.00-0.00 MYELOCYTES-ABS (DIFF) (BEAKER) (test vscc=8304) 0.02 K/ L 0.00-0.00 TOTAL COUNTED (BEAKER) (test dpxk=9910) 100 WBC MORPHOLOGY (BEAKER) (test hrpt=923) Normal PLT MORPHOLOGY (BEAKER) (test baeh=599) Normal ANISOCYTOSIS (BEAKER) (test rgrj=246) 1+ few AYE CELLS (BEAKER) (test fhtu=658) 1+ few MICROCYTES (BEAKER) (test eeso=941) 1+ few POIKILOCYTES (BEAKER) (test ydne=009) 3+ many POLYCHROMATOPHILLIC RBCS(BEAKER) (test jaxd=280) 1+ few URIC [id number] 07:07:00 Test Item Value Reference Range Comments URIC ACID (BEAKER) (test rzri=767) 3.9 mg/dL 2.6-7.2 [id number] 07:07:00 Test Item Value Reference Range Comments MAGNESIUM (BEAKER) (test nqts=443) 1.9 mg/dL 1.6-2.6 [id number] 07:07:00 Test Item Value Reference Range Comments PHOSPHORUS (BEAKER) (test qwht=545) 2.4 mg/dL 2.3-4.7 COMPREHENSIVE METABOLIC [id number] 07:07:00 Test Item Value Reference Range Comments TOTAL PROTEIN (BEAKER) 6.0 gm/dL 6.0-8.3 (test sohf=348) ALBUMIN (BEAKER) (test 2.8 g/dL 3.5-5.0 ewac=6055) ALKALINE PHOSPHATASE 44 U/L 40-150 (BEAKER) (test eyca=576) BILIRUBIN TOTAL (BEAKER) 0.6 mg/dL 0.2-1.2 (test icdo=432) SODIUM (BEAKER) (test 138 meq/L 136-145 mpjh=209) POTASSIUM (BEAKER) (test 4.2 meq/L 3.5-5.1 xfly=606) CHLORIDE (BEAKER) (test 111 meq/L 98-107 wfnz=633) CO2 (BEAKER) (test 19 meq/L 22-29 lkgl=411) BLOOD UREA NITROGEN 29 mg/dL 7-21 (BEAKER) (test mnyb=667) CREATININE (BEAKER) (test 0.98 mg/dL 0.57-1.25 fkuh=498) GLUCOSE RANDOM (BEAKER) 217 mg/dL 70-105 (test kiph=097) CALCIUM (BEAKER) (test 8.0 mg/dL 8.4-10.2 fsbb=437) AST (SGOT) (BEAKER) (test 59 U/L 5-34 pmle=832) ALT (SGPT) (BEAKER) (test 77 U/L 6-55 smsf=055) EGFR (BEAKER) (test 78 mL/min/1.73 sq m ESTIMATED GFR IS NOT rdli=7592) ACCURATE CREATININE CLEARANCE IN PREDICTING GLOMERULAR FILTRATION RATE. ESTIMATED GFR IS NOT APPLICABLE FOR DIALYSIS PATIENTS. LACTATE DEHYDROGENASE (LDH)2018-05-09 07:07:00 Test Item Value Reference Range Comments LACTATE DEHYDROGENASE (BEAKER) (test hdar=240) 846 U/L 125-220 ANG, TUNNELED CATHETER [id number] 17:20:00Reason for exam:->Double lumen for leukemia chemotherapyReason for exam:->PRATHER OR GROSHONReason for exam:->THIS IS FOR CHEMOFINAL REPORT Tunneled central venous catheter insertion History: Chemotherapy access Modality: Sonography and fluoroscopy. Sedation: Versed 1.0 mg and fentanyl 50 mcg was given intravenously for conscious sedation. Vital signs were monitored throughout the procedure by a nurse, and remained stable. Physician intra-service time was 15minutes. Crossing Watchman: Axel. Ski Patrol: Juanito. Approach: Right internal jugular vein Estimated [...] anteriorchest wall by blunt dissection. A 7 Bengali dual-lumen Prather catheter was brought through the [...] Funes MDReport Verified Date/Time: 05/08/201817:20:03 Reading Location: [place] [address] Angio Body Reading Room CBC W/PLT COUNT & AUTO [id number] 09:29:00 Test Item Value Reference Range Comments WHITE BLOOD CELL COUNT (BEAKER) (test bnsu=853) 1.4 K/ L 3.5-10.5 RED BLOOD CELL COUNT (BEAKER) (test uimf=753) 2.72 M/ L 4.63-6.08 HEMOGLOBIN (BEAKER) (test khit=772) 8.7 GM/DL 13.7-17.5 HEMATOCRIT (BEAKER) (test auyc=242) 25.4 % 40.1-51.0 MEAN CORPUSCULAR VOLUME (BEAKER) (test fjgq=034) 93.4 fL 79.0-92.2 MEAN CORPUSCULAR HEMOGLOBIN (BEAKER) (test 32.0 pg 25.7-32.2 gstd=773) MEAN CORPUSCULAR HEMOGLOBIN CONC (BEAKER) (test 34.3 GM/DL 32.3-36.5 iyju=962) RED CELL DISTRIBUTION WIDTH (BEAKER) (test 17.5 % 11.6-14.4 sjfq=223) PLATELET COUNT (BEAKER) (test tfwa=336) 23 K/CU MM 150-450 MEAN PLATELET VOLUME (BEAKER) (test pppj=353) 10.0 fL 9.4-12.4 NUCLEATED RED BLOOD CELLS (BEAKER) (test 0 /100 WBC 0-0 hdbv=181) (MANUAL DIFFERENTIAL)2018-05-08 09:29:00 Test Item Value Reference Range Comments NEUTROPHILS - REL (DIFF) (BEAKER) (test 33 % efyf=8666) LYMPHOCYTES - REL (DIFF) (BEAKER) (test 20 % epab=4865) MONOCYTES - REL (DIFF) (BEAKER) (test kjer=9319) 5 % MYELOCYTES-REL (DIFF) (BEAKER) (test uclg=8334) 1 % 0-0 BANDS - REL (DIFF) (BEAKER) (test skab=3839) 1 % 0-10 BLASTS - REL (DIFF) (BEAKER) (test ghey=4904) 38 % 0-0 ATYPICAL LYMPHOCYTE - REL (DIFF) (BEAKER) (test 2 % 0-0 xtnq=145) NEUTROPHILS - ABS (DIFF) (BEAKER) (test 0.46 K/ L 1.80-8.00 byrj=4868) LYMPHOCYTES - ABS (DIFF) (BEAKER) (test 0.28 K/ L 1.48-4.50 bzej=9743) MONOCYTES - ABS (DIFF) (BEAKER) (test xqho=2355) 0.07 K/ L 0.00-1.30 BANDS-ABS (DIFF) (BEAKER) (test ihrf=1519) 0.0 K/ L 0.0-0.8 BLASTS - ABS (DIFF) (BEAKER) (test cmrh=0122) 0.53 K/ L 0.00-0.00 ATYPICAL LYMPHOCYTES - ABS (DIFF) (BEAKER) (test 0.03 K/ L 0.00-0.00 zciu=959) MYELOCYTES-ABS (DIFF) (BEAKER) (test yvpj=6305) 0.01 K/ L 0.00-0.00 TOTAL COUNTED (BEAKER) (test suwa=0459) 100 BANDS + SEGMENTED NEUTROPHILS (BEAKER) (test 0.48 yqgg=3251) MANUAL NRBC PER 100 CELLS (BEAKER) (test 1 /100 WBC 0-0 capm=2409) WBC MORPHOLOGY (BEAKER) (test eayx=769) Normal PLT MORPHOLOGY (BEAKER) (test vxua=803) Normal RBC MORPHOLOGY (BEAKER) (test whrl=364) Normal [id number] 08:56:00 Test Item Value Reference Range Comments PHOSPHORUS (BEAKER) (test zsch=853) 2.7 mg/dL 2.3-4.7 BASIC METABOLIC [id number] 08:56:00 Test Item Value Reference Range Comments SODIUM (BEAKER) (test 138 meq/L 136-145 aiog=793) POTASSIUM (BEAKER) (test 4.1 meq/L 3.5-5.1 upss=013) CHLORIDE (BEAKER) (test 108 meq/L 98-107 vucs=477) CO2 (BEAKER) (test 22 meq/L 22-29 uvbu=082) BLOOD UREA NITROGEN 21 mg/dL 7-21 (BEAKER) (test opnw=916) CREATININE (BEAKER) (test 1.13 mg/dL 0.57-1.25 xzxk=839) GLUCOSE RANDOM (BEAKER) 201 mg/dL 70-105 (test qxyp=001) CALCIUM (BEAKER) (test 8.9 mg/dL 8.4-10.2 dytc=726) EGFR (BEAKER) (test 66 mL/min/1.73 sq m ESTIMATED GFR IS NOT jgjt=1800) ACCURATE CREATININE CLEARANCE IN PREDICTING GLOMERULAR FILTRATION RATE. ESTIMATED GFR IS NOT APPLICABLE FOR DIALYSIS PATIENTS. CBC W/PLT COUNT & AUTO [id number] 13:59:00 Test Item Value Reference Range Comments WHITE BLOOD CELL COUNT (BEAKER) 4.0 K/ L 3.5-10.5 This is a corrected result. (test ekvp=298) Previous result was 3.9 K/ L on 05/07/2018 at 0553 [employer] RED BLOOD CELL COUNT (BEAKER) 2.76 M/ L 4.63-6.08 This is a corrected result. (test znfe=504) Previous result was 2.72 M/ L on 05/07/2018 at 0553 [employer] HEMOGLOBIN (BEAKER) (test 8.7 GM/DL 13.7-17.5 This is a corrected result. phsd=413) Previous result was 8.8 GM/DL on 05/07/2018 at 0553 [employer] HEMATOCRIT (BEAKER) (test 25.7 % 40.1-51.0 This is a corrected result. zwls=035) Previous result was 25.4 % on 05/07/2018 at 0553 [employer] MEAN CORPUSCULAR VOLUME 93.1 fL 79.0-92.2 This is a corrected result. (BEAKER) (test wrbu=373) Previous result was 93.4 fL on 05/07/2018 at 0553 [employer] MEAN CORPUSCULAR HEMOGLOBIN 31.5 pg 25.7-32.2 This is a corrected result. (BEAKER) (test ykrz=543) Previous result was 32.4 pg on 05/07/2018 at 0553 [employer] MEAN CORPUSCULAR HEMOGLOBIN 33.9 GM/DL 32.3-36.5 This is a corrected result. CONC (BEAKER) (test lnxf=847) Previous result was 34.6 GM/DL on 05/07/2018 at 0553 [employer] RED CELL DISTRIBUTION WIDTH 17.2 % 11.6-14.4 (BEAKER) (test tqyh=456) PLATELET COUNT (BEAKER) (test 23 K/CU MM 150-450 This is a corrected result. ckbq=784) Previous result was 27 K/CU MM on 05/07/2018 at 0553 [employer] MEAN PLATELET VOLUME (BEAKER) 9.3 fL 9.4-12.4 This is a corrected result. (test mjjy=525) Previous result was 9.7 fL on 05/07/2018 at 0553 [employer] NUCLEATED RED BLOOD CELLS 0 /100 WBC 0-0 (BEAKER) (test evdy=219) (CELLAVISION MANUAL DIFF)2018-05-07 13:59:00 Test Item Value Reference Range Comments NEUTROPHILS - REL (CELLAVISION)(BEAKER) (test 19 % hymh=7114) LYMPHOCYTES - REL (CELLAVISION)(BEAKER) (test 33 % vmbo=2627) MONOCYTES - REL (CELLAVISION)(BEAKER) (test 2 % bvqe=5770) BLASTS - REL (CELLAVISION)(BEAKER) (test 46 % 0-0 cuyv=5996) ATYPICAL LYMPHOCYTES - REL (CELLAVISION)(BEAKER) 1 % 0-0 (test gxke=8987) NEUTROPHILS - ABS (CELLAVISION)(BEAKER) (test 0.76 K/ul 1.78-5.38 bicb=8068) LYMPHOCYTES - ABS (CELLAVISION)(BEAKER) (test 1.32 K/ul 1.32-3.57 azuq=7828) MONOCYTES - ABS (CELLAVISION)(BEAKER) (test 0.08 K/uL 0.30-0.82 njxh=4309) BLASTS - ABS (CELLAVISION)(BEAKER) (test 1.84 K/uL 0.00-0.00 lakz=8242) ATYPICAL LYMPHOCYTES - ABS (CELLAVISION)(BEAKER) 0.04 K/uL 0.00-0.00 (test vqqr=5414) TOTAL COUNTED (BEAKER) (test mylz=4558) 100 MANUAL NRBC PER 100 CELLS (BEAKER) (test 1 /100 WBC 0-0 mvap=1771) WBC MORPHOLOGY (BEAKER) (test htow=657) Normal PLT MORPHOLOGY (BEAKER) (test zdhp=040) Normal ANISOCYTOSIS (BEAKER) (test wfob=563) 1+ few MICROCYTES (BEAKER) (test epns=335) 1+ few ARTIFACT (CELLAVISION)(BEAKER) (test sakx=7444) Present PLATELET CONCENTRATION (CELLAVISION)(BEAKER) Decreased (test xepd=6034) Received comment: User comments: Slide comments:[id number] 06:22:00 Test Item Value Reference Range Comments PHOSPHORUS (BEAKER) (test ungr=712) 1.6 mg/dL 2.3-4.7 [id number] 06:22:00 Test Item Value Reference Range Comments MAGNESIUM (BEAKER) (test oizw=741) 1.6 mg/dL 1.6-2.6 BASIC METABOLIC [id number] 06:22:00 Test Item Value Reference Range Comments SODIUM (BEAKER) (test 136 meq/L 136-145 mimp=408) POTASSIUM (BEAKER) (test 3.4 meq/L 3.5-5.1 eatw=007) CHLORIDE (BEAKER) (test 107 meq/L 98-107 lcku=723) CO2 (BEAKER) (test 21 meq/L 22-29 wddt=504) BLOOD UREA NITROGEN 19 mg/dL 7-21 (BEAKER) (test bqky=568) CREATININE (BEAKER) (test 1.09 mg/dL 0.57-1.25 btkm=919) GLUCOSE RANDOM (BEAKER) 123 mg/dL 70-105 (test omzy=483) CALCIUM (BEAKER) (test 8.5 mg/dL 8.4-10.2 rgtf=158) EGFR (BEAKER) (test 69 mL/min/1.73 sq m ESTIMATED GFR IS NOT ewik=2239) ACCURATE CREATININE CLEARANCE IN PREDICTING GLOMERULAR FILTRATION RATE. ESTIMATED GFR IS NOT APPLICABLE FOR DIALYSIS PATIENTS. HEPATIC FUNCTION [id number] 06:22:00 Test Item Value Reference Range Comments TOTAL PROTEIN (BEAKER) (test asfp=036) 6.3 gm/dL 6.0-8.3 ALBUMIN (BEAKER) (test gxes=3061) 3.0 g/dL 3.5-5.0 BILIRUBIN TOTAL (BEAKER) (test ikdq=377) 1.0 mg/dL 0.2-1.2 BILIRUBIN DIRECT (BEAKER) (test ztyz=582) 0.5 mg/dL 0.1-0.5 ALKALINE PHOSPHATASE (BEAKER) (test msbu=966) 41 U/L 40-150 AST (SGOT) (BEAKER) (test haly=670) 22 U/L 5-34 ALT (SGPT) (BEAKER) (test qfai=991) 19 U/L 6-55 (CELLAVISION MANUAL DIFF)2018-05-06 10:36:00 Test Item Value Reference Range Comments TOTAL COUNTED (BEAKER) (test 100 This is an appended report. mvcq=5677) These results have been appended to a previously final verified report. RBC MORPHOLOGY (BEAKER) (test Normal ivlb=779) WBC MORPHOLOGY (BEAKER) (test Normal geuz=986) PLT MORPHOLOGY (BEAKER) (test Normal qdtm=824) NEUTROPHILS - REL 20 % This is an appended report. (CELLAVISION)(BEAKER) (test These results have been sgig=0090) appended to a previously final verified report. LYMPHOCYTES - REL 40 % This is an appended report. (CELLAVISION)(BEAKER) (test These results have been bxib=4815) appended to a previously final verified report. MONOCYTES - REL 9 % This is an appended report. (CELLAVISION)(BEAKER) (test These results have been mifi=5722) appended to a previously final verified report. BASOPHILS - REL 1 % This is an appended report. (CELLAVISION)(BEAKER) (test These results have been pvuh=4284) appended to a previously final verified report. BANDS - REL 5 % 0-10 This is an appended report. (CELLAVISION)(BEAKER) (test These results have been vwdz=0486) appended to a previously final verified report. BLASTS - REL 25 % 0-0 This is an appended report. (CELLAVISION)(BEAKER) (test These results have been ojta=0946) appended to a previously final verified report. NEUTROPHILS - ABS 0.78 K/ul This is an appended report. (CELLAVISION)(BEAKER) (test These results have been uwvp=4097) appended to a previously final verified report. LYMPHOCYTES - ABS 1.56 K/ul This is an appended report. (CELLAVISION)(BEAKER) (test These results have been pfdf=4511) appended to a previously final verified report. MONOCYTES - ABS 0.35 K/uL This is an appended report. (CELLAVISION)(BEAKER) (test These results have been lpjd=1965) appended to a previously final verified report. BASOPHILS - ABS 0.04 K/uL This is an appended report. (CELLAVISION)(BEAKER) (test These results have been rvzv=4542) appended to a previously final verified report. BANDS - ABS 0.20 K/uL 0.00-0.80 This is an appended report. (CELLAVISION)(BEAKER) (test These results have been moup=2837) appended to a previously final verified report. BLASTS - ABS 0.98 K/uL 0.00-0.00 This is an appended report. (CELLAVISION)(BEAKER) (test These results have been vblp=4713) appended to a previously final verified report. CBC W/PLT COUNT & AUTO [id number] 09:47:00 Test Item Value Reference Range Comments WHITE BLOOD CELL COUNT (BEAKER) (test vobe=285) 3.9 K/ L 3.5-10.5 RED BLOOD CELL COUNT (BEAKER) (test qzrm=970) 2.97 M/ L 4.63-6.08 HEMOGLOBIN (BEAKER) (test ptky=292) 9.5 GM/DL 13.7-17.5 HEMATOCRIT (BEAKER) (test fppi=728) 27.4 % 40.1-51.0 MEAN CORPUSCULAR VOLUME (BEAKER) (test gloz=490) 92.3 fL 79.0-92.2 MEAN CORPUSCULAR HEMOGLOBIN (BEAKER) (test 32.0 pg 25.7-32.2 khgc=648) MEAN CORPUSCULAR HEMOGLOBIN CONC (BEAKER) (test 34.7 GM/DL 32.3-36.5 ggde=511) RED CELL DISTRIBUTION WIDTH (BEAKER) (test 16.8 % 11.6-14.4 iwco=990) PLATELET COUNT (BEAKER) (test ibgp=809) 29 K/CU MM 150-450 MEAN PLATELET VOLUME (BEAKER) (test nrye=887) 9.8 fL 9.4-12.4 NUCLEATED RED BLOOD CELLS (BEAKER) (test 1 /100 WBC 0-0 ahle=947) VITAMIN B12 AND [id number] 06:03:00 Test Item Value Reference Range Comments VITAMIN B12 (BEAKER) (test qnox=784) 245 pg/mL 213-816 FOLATE (BEAKER) (test scnc=814) 4.1 ng/mL >=7.0 HEPATITIS B SURFACE [id number] 05:53:00 Test Item Value Reference Range Comments HEPATITIS B SURFACE ANTIBODY (BEAKER) (test < mIU/mL <8.0 obmd=825) HEPATITIS B SURFACE [id number] 05:50:00 Test Item Value Reference Range Comments HEPATITIS B SURFACE ANTIGEN (2) (BEAKER) (test Nonreactive Nonreactive dfgz=3118) HEPATITIS C [id number] 05:50:00 Test Item Value Reference Range Comments HEPATITIS C ANTIBODY (BEAKER) (test qkfq=532) Nonreactive Nonreactive HEPATITIS B CORE ANTIBODY, [id number] 05:50:00 Test Item Value Reference Range Comments HEPATITIS B CORE TOTAL ANTIBODY (BEAKER) (test Nonreactive Nonreactive kczh=969) HIV-1 ANTIGEN WITH HIV-1/2 [id number] 05:50:00 Test Item Value Reference Range Comments HIV-1 ANTIGEN WITH HIV 1\\T\\2 ANTIBODY (2) Nonreactive Nonreactive (BEAKER) (test rofn=7249) URIC [id number] 05:39:00 Test Item Value Reference Range Comments URIC ACID (BEAKER) (test gtie=156) 4.3 mg/dL 2.6-7.2 [id number] 05:39:00 Test Item Value Reference Range Comments MAGNESIUM (BEAKER) (test wdwz=733) 1.7 mg/dL 1.6-2.6 [id number] 05:39:00 Test Item Value Reference Range Comments PHOSPHORUS (BEAKER) (test tmqy=280) 2.2 mg/dL 2.3-4.7 BASIC METABOLIC [id number] 05:39:00 Test Item Value Reference Range Comments SODIUM (BEAKER) (test 139 meq/L 136-145 qmwx=723) POTASSIUM (BEAKER) (test 3.5 meq/L 3.5-5.1 kwkz=851) CHLORIDE (BEAKER) (test 106 meq/L 98-107 bnjt=022) CO2 (BEAKER) (test 27 meq/L 22-29 valf=821) BLOOD UREA NITROGEN 15 mg/dL 7-21 (BEAKER) (test jrki=890) CREATININE (BEAKER) (test 1.00 mg/dL 0.57-1.25 uiiw=494) GLUCOSE RANDOM (BEAKER) 111 mg/dL 70-105 (test ehaq=870) CALCIUM (BEAKER) (test 9.1 mg/dL 8.4-10.2 wjhh=668) EGFR (BEAKER) (test 76 mL/min/1.73 sq m ESTIMATED GFR IS NOT lrzh=2454) ACCURATE CREATININE CLEARANCE IN PREDICTING GLOMERULAR FILTRATION RATE. ESTIMATED GFR IS NOT APPLICABLE FOR DIALYSIS PATIENTS. HEPATIC FUNCTION [id number] 05:39:00 Test Item Value Reference Range Comments TOTAL PROTEIN (BEAKER) (test qowi=486) 6.6 gm/dL 6.0-8.3 ALBUMIN (BEAKER) (test cxuh=3171) 3.3 g/dL 3.5-5.0 BILIRUBIN TOTAL (BEAKER) (test cscd=497) 1.0 mg/dL 0.2-1.2 BILIRUBIN DIRECT (BEAKER) (test xeig=465) 0.5 mg/dL 0.1-0.5 ALKALINE PHOSPHATASE (BEAKER) (test brck=891) 37 U/L 40-150 AST (SGOT) (BEAKER) (test qqcu=663) 17 U/L 5-34 ALT (SGPT) (BEAKER) (test muat=194) 13 U/L 6-55 LACTATE DEHYDROGENASE (LDH)2018-05-06 05:39:00 Test Item Value Reference Range Comments LACTATE DEHYDROGENASE (BEAKER) (test rdee=803) 1011 U/L 125-220 [id number] 05:19:00 Test Item Value Reference Range Comments PROTIME (BEAKER) (test tblc=895) 16.8 seconds 11.7-14.7 INR (BEAKER) (test mqax=668) 1.4 <=5.9 PARTIAL THROMBOPLASTIN TIME (BEAKER) (test 44.8 seconds 22.5-36.0 uyfa=898) RECOMMENDED COUMADIN/WARFARIN INR THERAPY RANGESSTANDARD DOSE: 2.0 - 3.0 Includes: PROPHYLAXIS forvenous thrombosis, systemic embolization; TREATMENT for venous thrombosis and/or pulmonary embolus.HIGH RISK: Target INR is 2.5-3.5 for patients with mechanical heart valves.[id number] 05:18:00 Test Item Value Reference Range Comments FIBRINOGEN LEVEL (MAMIE) (test rhlg=961) 859 mg/dl 225-434 FLOW CYTOMETRY [id number] 17:25:00 Test Item Value Reference Range Comments FLOW CYTOMETRY RESULT POINTER (MAMIE) See Separate Report (test sdzo=2290) FLOW CYTOMETRY AP CASE # (MAMIE) (test [id number] clhj=0070) FLOW [id number] 15:35:00Flow Cytometry Report Case: [id number] Authorizing Provider: Willem Kapoor MD Collected: 05/05/2018 1000 Ordering Location: [address] Received: 05/05/2018 1036 SERVICE Pathologist: Ash [...] process. Please correlate with bone marrow biopsy report([id number]) findings.[id number] year old man undergoing bone marrow evaluation for possible involvement by leukemiaBone marrow aspiratecytoplasmic (c) MPO, cCD79a, CD34, CD19, CD7, CD3, cCD3, CD45, CD16, CD13,CD117, CD11b, CD10, CD36, CD64, CD33, CD14, HLA-DR, cTdT, CD56.Specimen Viability: 97.8% Number of Events Acquired: [id number] myeloblast population identified (41.0% of cellularity)POSITIVE: HW39yfx, cytoplasmic (c) MPO, CD34, CD19(partial), CD13, CD117, [...] developed and their performance characteristics determined by [facility] They have not been cleared orapproved by the U.S. Food and Drug Administration. The FDA has determined that such clearance or approval is not necessary. It should not be regarded as investigational or for research. This laboratoryis certified under the Clinical Laboratory Improvement Amendments of 1988 ("CLIA") as qualified to perform high-complexity clinical testing.CT, BIOPSY, BONE [id number] 11:09:00Reason for exam:->pancytopenia- probable leukemiaFINAL REPORT CT [...] MDReport Verified Date/Time: 2017 11:09:19 Reading Location: [facility] C013X Ortho Consult Reading Room BONE MARROW PROCESS.2018-05-05 10:35:00 Test Item Value Reference Range Comments ANATOMIC CASE# (BEAKER) (test qtvp=1717) [id number] ORDERED BY DOCTOR# (BEAKER) (test fmtw=5406) Emelia PERFORMED BY DOCTOR# (BEAKER) (test gmbf=0261) Ester CLOT RECEIVED? (BEAKER) (test jzft=4857) Yes BIOPSY RECEIVED? (BEAKER) (test itwk=8276) Yes CULTURE RECEIVED? (BEAKER) (test kryy=1476) No FLOW RECEIVED? (BEAKER) (test koqh=1294) Yes CYTOGENICS? (BEAKER) (test uzdm=7389) Yes MOLECULAR GENETICS? (BEAKER) (test ykvq=3267) Yes Good collection by Dr Rouse. Slides are [facility] W/PLT COUNT & AUTO [id number] 10:01:00 Test Item Value Reference Range Comments WHITE BLOOD CELL COUNT (BEAKER) (test kzxo=139) 3.4 K/ L 3.5-10.5 RED BLOOD CELL COUNT (BEAKER) (test bqox=449) 3.53 M/ L 4.63-6.08 HEMOGLOBIN (BEAKER) (test jrha=680) 11.4 GM/DL 13.7-17.5 HEMATOCRIT (BEAKER) (test yjjt=178) 32.8 % 40.1-51.0 MEAN CORPUSCULAR VOLUME (BEAKER) (test qvxn=686) 92.9 fL 79.0-92.2 MEAN CORPUSCULAR HEMOGLOBIN (BEAKER) (test 32.3 pg 25.7-32.2 tovn=522) MEAN CORPUSCULAR HEMOGLOBIN CONC (BEAKER) (test 34.8 GM/DL 32.3-36.5 uenb=975) RED CELL DISTRIBUTION WIDTH (BEAKER) (test 17.0 % 11.6-14.4 zrng=430) PLATELET COUNT (BEAKER) (test ryiq=119) 30 K/CU MM 150-450 MEAN PLATELET VOLUME (BEAKER) (test vwbx=937) 9.5 fL 9.4-12.4 NUCLEATED RED BLOOD CELLS (BEAKER) (test 0 /100 WBC 0-0 mhed=727) (CELLAVISION MANUAL DIFF)2018-05-05 10:01:00 Test Item Value Reference Range Comments NEUTROPHILS - REL (CELLAVISION)(BEAKER) (test 30 % iwas=5003) LYMPHOCYTES - REL (CELLAVISION)(BEAKER) (test 34 % clvn=5596) MONOCYTES - REL (CELLAVISION)(BEAKER) (test 2 % xgvv=3719) BASOPHILS - REL (CELLAVISION)(BEAKER) (test 1 % tcai=6011) BANDS - REL (CELLAVISION)(BEAKER) (test 6 % 0-10 zaui=5982) BLASTS - REL (CELLAVISION)(BEAKER) (test 21 % 0-0 mqnr=0358) ATYPICAL LYMPHOCYTES - REL (CELLAVISION)(BEAKER) 6 % 0-0 (test wyiu=6107) NEUTROPHILS - ABS (CELLAVISION)(BEAKER) (test 1.02 K/ul 1.78-5.38 lizl=8616) LYMPHOCYTES - ABS (CELLAVISION)(BEAKER) (test 1.16 K/ul 1.32-3.57 ront=1526) MONOCYTES - ABS (CELLAVISION)(BEAKER) (test 0.07 K/uL 0.30-0.82 ckln=7425) BASOPHILS - ABS (CELLAVISION)(BEAKER) (test 0.03 K/uL 0.01-0.08 urla=9029) BANDS - ABS (CELLAVISION)(BEAKER) (test 0.20 K/uL 0.00-0.80 suav=5533) BLASTS - ABS (CELLAVISION)(BEAKER) (test 0.71 K/uL 0.00-0.00 jypx=4837) ATYPICAL LYMPHOCYTES - ABS (CELLAVISION)(BEAKER) 0.20 K/uL 0.00-0.00 (test hoda=2690) TOTAL COUNTED (BEAKER) (test qfeo=8515) 100 MANUAL NRBC PER 100 CELLS (BEAKER) (test 3 /100 WBC 0-0 ihvb=3258) WBC MORPHOLOGY (BEAKER) (test jaur=840) Normal PLT MORPHOLOGY (BEAKER) (test fjgl=695) Normal POLYCHROMATOPHILLIC RBCS(BEAKER) (test asnu=685) 1+ few ARTIFACT (CELLAVISION)(BEAKER) (test egbr=6014) Present PLATELET CONCENTRATION (CELLAVISION)(BEAKER) Decreased (test xkmb=1913) Received comment: User comments: Slide comments:URINALYSIS W/ [id number] 08:47:00 Test Item Value Reference Range Comments COLOR (BEAKER) (test apuo=113) Yellow CLARITY (BEAKER) (test rcal=119) Clear SPECIFIC GRAVITY UA (BEAKER) (test pnwi=054) 1.027 1.001-1.035 PH UA (BEAKER) (test ulle=535) 6.0 5.0-8.0 PROTEIN UA (BEAKER) (test uuga=034) 20 mg/dL Negative GLUCOSE UA (BEAKER) (test yqee=478) Negative Negative KETONES UA (BEAKER) (test xqog=481) Negative Negative BILIRUBIN UA (BEAKER) (test fmtt=859) Negative Negative BLOOD UA (BEAKER) (test addy=279) Trace Negative NITRITE UA (BEAKER) (test isva=895) Negative Negative LEUKOCYTE ESTERASE UA (BEAKER) (test rcrv=644) Negative Negative UROBILINOGEN UA (BEAKER) (test updx=031) 3.0 mg/dL 0.2-1.0 RBC UA (BEAKER) (test jwxx=135) 3 /HPF WBC UA (BEAKER) (test rnmp=023) 1 /HPF SQUAMOUS EPITHELIAL (BEAKER) (test gdto=629) < /HPF SOURCE(BEAKER) (test ehgv=1421) Urine, Voided [id number] 07:45:00 Test Item Value Reference Range Comments PHOSPHORUS (BEAKER) (test hsyi=931) 2.0 mg/dL 2.3-4.7 [id number] 07:45:00 Test Item Value Reference Range Comments MAGNESIUM (BEAKER) (test wtif=503) 1.8 mg/dL 1.6-2.6 BASIC METABOLIC [id number] 07:45:00 Test Item Value Reference Range Comments SODIUM (BEAKER) (test 138 meq/L 136-145 ttbw=307) POTASSIUM (BEAKER) (test 3.7 meq/L 3.5-5.1 uprj=908) CHLORIDE (BEAKER) (test 106 meq/L 98-107 ofph=884) CO2 (BEAKER) (test 25 meq/L 22-29 erks=013) BLOOD UREA NITROGEN 13 mg/dL 7-21 (BEAKER) (test yfhy=727) CREATININE (BEAKER) (test 1.06 mg/dL 0.57-1.25 xwqb=581) GLUCOSE RANDOM (BEAKER) 125 mg/dL 70-105 (test oayp=047) CALCIUM (BEAKER) (test 9.3 mg/dL 8.4-10.2 ushw=500) EGFR (BEAKER) (test 71 mL/min/1.73 sq m ESTIMATED GFR IS NOT vkot=5596) ACCURATE CREATININE CLEARANCE IN PREDICTING GLOMERULAR FILTRATION RATE. ESTIMATED GFR IS NOT APPLICABLE FOR DIALYSIS PATIENTS. HEPATIC FUNCTION [id number] 07:45:00 Test Item Value Reference Range Comments TOTAL PROTEIN (BEAKER) (test sroc=852) 7.0 gm/dL 6.0-8.3 ALBUMIN (BEAKER) (test rwou=5072) 3.7 g/dL 3.5-5.0 BILIRUBIN TOTAL (BEAKER) (test jyzg=977) 1.2 mg/dL 0.2-1.2 BILIRUBIN DIRECT (BEAKER) (test sbjm=760) 0.5 mg/dL 0.1-0.5 ALKALINE PHOSPHATASE (BEAKER) (test zyur=152) 37 U/L 40-150 AST (SGOT) (BEAKER) (test cefz=566) 16 U/L 5-34 ALT (SGPT) (BEAKER) (test pcyl=283) 15 U/L 6-55 LACTATE DEHYDROGENASE (LDH)2018-05-05 07:45:00 Test Item Value Reference Range Comments LACTATE DEHYDROGENASE (BEAKER) (test aejw=859) 962 U/L 125-220 RAD, CHEST, 1 VIEW, NON [id number] 04:10:00Reason for exam:->dyspnea, chest painShould this be [...] Samaniego Verified Date/Time: 05/05/2018 04:10:12 Reading Location: [address] Transitional Reading Room URIC [id number] 22:31:00 Test Item Value Reference Range Comments URIC ACID ([facility]) (test ggnm=999) 5.6 mg/dL 2.6-7.2 PERIPHERAL BLOOD SMEAR - PATHOLOGIST [id number] 20:58:00 Test Item Value Reference Range Comments PERIPHERAL SMR REVIEW Circulating blasts present. No ([facility]) (test sbrs=9908) Jono rods identified. Defer final interpretation to flow cytometry and bone marrow studies. Reported to Dr. Mari Moreno [id number] Tito Hoffmann ([facility]) (test nlzc=6890) Alessio(electronic signature) TROPONIN [id number] 20:16:00 Test Item Value Reference Range Comments TROPONIN I ([facility]) (test nqgq=588) 0.01 ng/mL 0.00-0.03 Troponin I (TnI) levels [...] and persistent tachyarrhythmia.CBC W/PLT COUNT & AUTO [id number] 20:11:00 Test Item Value Reference Range Comments WHITE BLOOD CELL COUNT ([facility]) (test phpu=966) 3.2 K/ L 3.5-10.5 RED BLOOD CELL COUNT (AKER) (test uoup=613) 3.21 M/ L 4.63-6.08 HEMOGLOBIN (BEAKER) (test mrqn=436) 10.2 GM/DL 13.7-17.5 HEMATOCRIT (BEAKER) (test xlrv=674) 30.1 % 40.1-51.0 MEAN CORPUSCULAR VOLUME (BEAKER) (test rwro=561) 93.8 fL 79.0-92.2 MEAN CORPUSCULAR HEMOGLOBIN (BEAKER) (test 31.8 pg 25.7-32.2 okyt=398) MEAN CORPUSCULAR HEMOGLOBIN CONC (BEAKER) (test 33.9 GM/DL 32.3-36.5 psaz=809) RED CELL DISTRIBUTION WIDTH (BEAKER) (test 17.0 % 11.6-14.4 gxwv=205) PLATELET COUNT (BEAKER) (test zwyq=845) 30 K/CU MM 150-450 MEAN PLATELET VOLUME (BEAKER) (test dyjk=213) 9.6 fL 9.4-12.4 NUCLEATED RED BLOOD CELLS (BEAKER) (test 0 /100 WBC 0-0 qscb=460) (CELLAVISION MANUAL DIFF)2018-05-04 20:11:00 Test Item Value Reference Range Comments NEUTROPHILS - REL (CELLAVISION)(BEAKER) (test 27 % ppxi=4815) LYMPHOCYTES - REL (CELLAVISION)(BEAKER) (test 39 % cciq=1391) MONOCYTES - REL (CELLAVISION)(BEAKER) (test 1 % pbdm=3768) BASOPHILS - REL (CELLAVISION)(BEAKER) (test 1 % viho=6345) BANDS - REL (CELLAVISION)(BEAKER) (test itmz=9171) 2 % 0-10 BLASTS - REL (CELLAVISION)(BEAKER) (test 29 % 0-0 pnpe=4540) NEUTROPHILS - ABS (CELLAVISION)(BEAKER) (test 0.86 K/ul 1.78-5.38 shgr=8476) LYMPHOCYTES - ABS (CELLAVISION)(BEAKER) (test 1.25 K/ul 1.32-3.57 kgio=1651) MONOCYTES - ABS (CELLAVISION)(BEAKER) (test 0.03 K/uL 0.30-0.82 mqiy=5190) BASOPHILS - ABS (CELLAVISION)(BEAKER) (test 0.03 K/uL 0.01-0.08 gaye=3344) BANDS - ABS (CELLAVISION)(BEAKER) (test mdvr=5841) 0.06 K/uL 0.00-0.80 BLASTS - ABS (CELLAVISION)(BEAKER) (test 0.93 K/uL 0.00-0.00 pfws=0608) TOTAL COUNTED (BEAKER) (test sqob=6592) 100 PLT MORPHOLOGY (BEAKER) (test eahm=819) Normal SMUDGE CELLS (BEAKER) (test kxbq=1003) Present ANISOCYTOSIS (BEAKER) (test amrg=029) 1+ few MICROCYTES (BEAKER) (test remh=830) 1+ few ARTIFACT (CELLAVISION)(BEAKER) (test wfwg=3127) Present PLATELET CONCENTRATION (CELLAVISION)(BEAKER) (test Decreased rgtp=1556) Received comment: User comments: Slide comments:HEPATIC FUNCTION [id number] 20:10:00 Test Item Value Reference Range Comments TOTAL PROTEIN (BEAKER) (test dzzr=133) 7.2 gm/dL 6.0-8.3 ALBUMIN (BEAKER) (test fzzc=7319) 3.9 g/dL 3.5-5.0 BILIRUBIN TOTAL (BEAKER) (test vfpd=339) 1.3 mg/dL 0.2-1.2 BILIRUBIN DIRECT (BEAKER) (test ipuh=923) 0.5 mg/dL 0.1-0.5 ALKALINE PHOSPHATASE (BEAKER) (test zeqy=784) 38 U/L 40-150 AST (SGOT) (BEAKER) (test vpms=569) 17 U/L 5-34 ALT (SGPT) (BEAKER) (test fjar=122) 15 U/L 6-55 BASIC METABOLIC [id number] 20:10:00 Test Item Value Reference Range Comments SODIUM (BEAKER) (test 138 meq/L 136-145 gige=491) POTASSIUM (BEAKER) (test 3.8 meq/L 3.5-5.1 dkpa=430) CHLORIDE (BEAKER) (test 107 meq/L 98-107 bpsg=964) CO2 (BEAKER) (test 22 meq/L 22-29 acym=513) BLOOD UREA NITROGEN 14 mg/dL 7-21 (BEAKER) (test cjur=499) CREATININE (BEAKER) (test 0.99 mg/dL 0.57-1.25 vncp=458) GLUCOSE RANDOM (BEAKER) 110 mg/dL 70-105 (test lugl=076) CALCIUM (BEAKER) (test 9.4 mg/dL 8.4-10.2 zfza=739) EGFR (BEAKER) (test 77 mL/min/1.73 sq m ESTIMATED GFR IS NOT fkvh=6662) ACCURATE CREATININE CLEARANCE IN PREDICTING GLOMERULAR FILTRATION RATE. ESTIMATED GFR IS NOT APPLICABLE FOR DIALYSIS PATIENTS. PROTHROMBIN [id number] 19:42:00 Test Item Value Reference Range Comments PROTIME (BEAKER) (test lwmu=401) 16.0 seconds 11.7-14.7 INR (BEAKER) (test fvrg=402) 1.3 <=5.9 RECOMMENDED COUMADIN/WARFARIN INR THERAPY RANGESSTANDARD DOSE: 2.0 - 3.0 Includes: PROPHYLAXIS forvenous thrombosis, systemic embolization; TREATMENT for venous thrombosis and/or pulmonary embolus.HIGH RISK: Target INR is 2.5-3.5 for patients with mechanical heart valves.
[2018-07-27] MEDS ORDERED: ONDANSETRON 4 MG/2 ML VIAL IV PRN (21:52)
[2018-07-27] MEDS ORDERED: MORPHINE 2 MG/ML SYR IV PRN (21:52)
[2018-07-27] MEDS ORDERED: ACETAMINOPHEN 500 MG TAB PO PRN (21:52)
[2018-07-27] MEDS: NA CHLORIDE 0.9% 1,000 ML IV SCH (23:40)
[2018-07-28 01:41] LABS: Hematocrit 21.4 % (39.6-49.0); MPV 11.9 fL (7.6-11.3); RBC Red Blood Cell Count 2.35 M/uL (4.33-5.43)
[2018-07-28 02:45] LABS: Blood Morphology Comment NOT SEEN (NOT SEEN); Platelet Estimate DECR
[2018-07-28 05:31] LABS: Absolute Lymphocytes (CBC) 0.1 K/uL (0.7-4.9); Eosinophils % 0.8 % (0-4.4); Hematocrit 21.2 % (39.6-49.0); Lymphocytes % 92.7 % (15.3-44.8); MPV 11.1 fL (7.6-11.3); Monocytes % 1.6 % (3.3-12.3); RBC Red Blood Cell Count 2.38 M/uL (4.33-5.43)
[2018-07-28 05:45] LABS: Albumin 2.8 g/dL (3.4-5.0); Bilirubin Total 1.3 mg/dL (0.2-1.0); Potassium 3.3 mmol/L (3.5-5.1); Protein, Total 6.4 g/dL (6.4-8.2)
[2018-07-28] MEDS ORDERED: HYDROCORTISONE SUC 100 MG INJ IV ONE ×2 (05:56→23:51)
[2018-07-28] MEDS ORDERED: ACETAMINOPHEN 325 MG TABLET PO ONE (05:57)
[2018-07-28] MEDS ORDERED: TBO-FILGRASTIM 300 MCG/0.5 ML SYR SQ SCH ×2 (07:00→09:00)
[2018-07-28 07:57] LABS: Anisocytosis 2+; Blood Morphology Comment NOTED (NOT SEEN); Platelet Estimate DECR; Urine White Blood Cell Casts OK
[2018-07-28] MEDS: NA CHLORIDE 0.9% 1,000 ML IV SCH (08:55)
[2018-07-28 10:22] LABS: ALT/SGPT 16 U/L (12-78); AST/SGOT 17 U/L (15-37); Albumin 2.9 g/dL (3.4-5.0); Alkaline Phosphatase 47 U/L (45-117); Bilirubin Direct 0.6 mg/dL (0-0.2); Bilirubin Total 1.6 mg/dL (0.2-1.0); Ferritin 3189.3 ng/mL (26-388); Folic Acid, (Folate) > 20.0 ng/mL (3.1-17.5); Protein, Total 6.6 g/dL (6.4-8.2); Transferrin 185 mg/dL (200-360)
--- NOTE | 2018-07-28 10:41 | P.HP ---
Certification for Inpatient Patient admitted to: Inpatient With expected LOS: >2 Midnights Patient will require the following post-hospital care: None Practitioner: I am a practitioner with admitting privileges, knowledge of patient current condition, hospital course, and medical plan of care. Services: Services provided to patient in accordance with Admission requirements found in Title 42 Section 412.3 of the Code of Federal Regulations Patient History Date of Service: 07/27/18 Reason for admission: thrombocytopenia History of Present Illness: Patient is a 62-year-old gentleman who came to the hospital with pancytopenia. Patient had severe thrombocytopenia. Platelet count was less than 20,000. Will go ahead and transfuse. Will get Hematology consultation. Also white blood cell count is less than 500 with severe neutropenia. Will go ahead and get patient's neupogen as well. Consult Dr. Benitez in a.m.. Clinically patient is doing well with no complaints. No bleeding noted. No fever. Patient will need to be admitted as an inpatient because of numerous medical issues. Allergies No Known Allergies Allergy (Verified 07/27/18 21:14) Home Medications: Cyanocobalamin (Vitamin B-12) [Vitamin B-12] 1,000 mcg PO DAILY 07/28/18 Folic Acid 0.4 mg PO DAILY 07/28/18 Metoprolol Succinate [Toprol Xl] 25 mg PO DAILY 07/28/18 Simvastatin 20 mg PO BEDTIME 07/28/18 - Past Medical/Surgical History Has patient received pneumonia vaccine in the past: No Diabetic: No -: HEART ATTACK -: 2 STENTS PLACEMENT 2012 -: HTN -: LEUKEMIA MAY 2018 Past Surgical History: Patient denies surgical history - Family History Mother Medical History: Cancer Father Notes: Parkinson's - Social History Smoking Status: Never smoker Alcohol use: No CD- Drugs: No Caffeine use: No Place of Residence: Home Review of Systems 10-point ROS is otherwise unremarkable Physical Examination - Vital Signs Temperature: 97.6 F Blood Pressure: 136/63 Pulse: 95 Respirations: 18 Pulse Ox (%): 96 - Physical Exam General: Alert, In no apparent distress, Oriented x3 HEENT: Atraumatic, PERRLA, Mucous membr. moist/pink, EOMI, Sclerae nonicteric Neck: Supple, 2+ carotid pulse no bruit, No LAD, Without JVD or thyroid abnormality Respiratory: Clear to auscultation bilaterally, Normal air movement Cardiovascular: Regular rate/rhythm, Normal S1 S2 Gastrointestinal: Normal bowel sounds, Soft and benign, Non-distended, No tenderness Musculoskeletal: No clubbing, No swelling, No tenderness Integumentary: No rashes Neurological: Normal gait, Normal speech, Normal strength at 5/5 x4 extr, Normal tone, Normal affect Lymphatics: No axilla or inguinal lymphadenopathy - Studies Laboratory Data (last 24 hrs) 07/28/18 05:05: Sodium 139, Potassium 3.3 L, BUN 14, Creatinine 0.96, Glucose 114 H, Total Bilirubin 1.3 H, AST 16, ALT 15, Alkaline Phosphatase 49 07/28/18 05:05: WBC < 0.5 L*, Hgb 7.6 L*, Hct 21.2 L, Plt Count < 11 L* D 07/28/18 01:10: WBC < 0.5 L*, Hgb 7.5 L*, Hct 21.4 L, Plt Count 5 L* D Assessment & Plan - Problems (Diagnosis) (1) Pancytopenia Current Visit: Yes Status: Acute (2) Severe thrombocytopenia Current Visit: Yes Status: Acute (3) History of leukemia Current Visit: Yes Status: Acute (4) Status post chemotherapy Current Visit: Yes Status: Acute - Plan plan: 1. Transfuse platelets to keep greater than 20,000 2. Monitor closely for any signs of bleeding 3. Neupogen 4. Repeat CBC 5. Hematology consultation 6. Monitor labs closely 7. GI and DVT prophylaxis Discharge Plan: Home Plan to discharge in: 24 Hours - Advance Directives Does patient have a Living Will: No Does patient have a Durable POA for Healthcare: No - Code Status/Comfort Care Code Status Assessed: Yes Code Status: Full Code Critical Care: No Time Spent Managing PTS Care (In Minutes): 45
[2018-07-28] MEDS ORDERED: METOPROLOL XL 25 MG TAB PO SCH (13:30)
[2018-07-28 14:16] LABS: MPV 9.1 fL (7.6-11.3)
[2018-07-28 15:48] LABS: Platelet Estimate DECR
--- NOTE | 2018-07-28 18:25 | P.PN ---
Subjective Date of Service: 07/28/18 Chief Complaint: thrombocytopenia Subjective: No C/O voiced Patient seen and examined at bedside. No family at bedside. Chart reviewed and case discussed with nursing staff. No evidence of any active bleeding Review of Systems 10-point ROS is otherwise unremarkable Physical Examination - Vital Signs Temperature: 99.5 F Blood Pressure: 135/65 Pulse: 148 Respirations: 20 Pulse Ox (%): 95 - Physical Exam General: Alert, In no apparent distress HEENT: Atraumatic, PERRLA, EOMI Neck: Supple, JVD not distended Respiratory: Clear to auscultation bilaterally, Normal air movement Cardiovascular: Regular rate/rhythm, Normal S1 S2 Gastrointestinal: Normal bowel sounds, No tenderness Musculoskeletal: No tenderness Integumentary: Rash(es), Skin lesion Neurological: Normal speech, Normal tone, Normal affect Lymphatics: No axilla or inguinal lymphadenopathy - Studies Laboratory Data (last 24 hrs) 07/28/18 13:50: Plt Count 24 L* D 07/28/18 09:05: Total Bilirubin 1.6 H, AST 17, ALT 16, Alkaline Phosphatase 47 07/28/18 05:05: Sodium 139, Potassium 3.3 L, BUN 14, Creatinine 0.96, Glucose 114 H, Total Bilirubin 1.3 H, AST 16, ALT 15, Alkaline Phosphatase 49 07/28/18 05:05: WBC < 0.5 L*, Hgb 7.6 L*, Hct 21.2 L, Plt Count < 11 L* D 07/28/18 01:10: WBC < 0.5 L*, Hgb 7.5 L*, Hct 21.4 L, Plt Count 5 L* D Assessment And Plan - Plan Pancytopenia Severe thrombocytopenia History of leukemia Status post chemotherapy plan: 1. Transfuse platelets to keep greater than 20,000 2. Monitor closely for any signs of bleeding 3. Neupogen, 480 mcg subQ daily 4. Repeat CBC tomorrow morning 5. Hematology consultation. Discussed case with Dr. Benitez. Recommendations appreciated 6. Monitor labs closely 7. GI and DVT prophylaxis Plan: If stable overnight, asymptomatic in the morning and CBC remained stable. 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
[2018-07-28] MEDS ORDERED: METOPROLOL TARTRATE 5 MG/5 ML INJ IV STA (20:07)
[2018-07-28] MEDS ORDERED: METOPROLOL TARTRATE 5 MG/5 ML INJ IV ONE (20:14)
[2018-07-28] MEDS ORDERED: FUROSEMIDE 20 MG/ 2ML VIAL ONE (20:21)
[2018-07-28] MEDS ORDERED: RSI MEDICATION KIT IV ONE (20:26)
[2018-07-28 20:57] LABS: Absolute Lymphocytes (CBC) 0.1 K/uL (0.7-4.9); Eosinophils % 9.3 % (0-4.4); Hematocrit 26.7 % (39.6-49.0); Lymphocytes % 82.4 % (15.3-44.8); MPV 9.2 fL (7.6-11.3); Monocytes % 5.7 % (3.3-12.3); RBC Red Blood Cell Count 2.85 M/uL (4.33-5.43)
[2018-07-28] MEDS ORDERED: ATORVASTATIN 10 MG TAB PO SCH (21:00)
[2018-07-28] MEDS ORDERED: NA CHLORIDE 0.9% 500 ML ONE ×2 (21:16→22:40)
[2018-07-28] MEDS ORDERED: NA CHLORIDE 0.9% 1,000 ML ONE (21:16)
[2018-07-28] MEDS ORDERED: Phenylephrine HCl 10 MG/ML 1 ML VIAL ONE ×3 (21:16→22:55)
[2018-07-28 21:18] LABS: Protime INR 1.37
[2018-07-28 21:21] LABS: Potassium 3.2 mmol/L (3.5-5.1); Troponin I 0.5 ng/mL (0.0-0.045)
[2018-07-28 21:24] LABS: Magnesium 1.3 mg/dL (1.8-2.4)
[2018-07-28 21:26] LABS: Arterial Blood Carboxyhemoglob 0.8 % (0-1.5); Blood Gas Oxyhemoglobin 93.4 % (94-97); Blood O2 Saturation 94.8 % (92-98.5)
[2018-07-28] MEDS ORDERED: FENTANYL CITR 100 MCG/2 ML ONE (21:32)
[2018-07-28] MEDS ORDERED: Magnesium Sulfate 2gm IVPB 2 G/50 ML BAG IV ONE (21:52)
--- NOTE | 2018-07-28 21:58 | RAD REPORT ---
EXAM DESCRIPTION: RAD - Chest Single View - 07/28/2018 9:37 pm CLINICAL HISTORY: Code blue patient, intubation COMPARISON: July 25 TECHNIQUE: AP portable chest image was obtained 2041 hours . FINDINGS: Endotracheal tube has been placed. Tip is T3 level top of the aortic arch. NG tube extends below the diaphragm. Lung volumes are shallow. Dense consolidation is present in the left upper lobe . This could be infectious or aspiration pneumonia. Right upper extremity PICC line remains in place. No measurable pleural effusion and no pneumothorax. No acute bony abnormality seen. No acute aortic findings suspected. IMPRESSION: Infectious versus aspiration pneumonia left upper lobe. ET tube in good position. NG tube tip extends below the diaphragm.
[2018-07-28] MEDS ORDERED: D5W 1,000 ML with NA BICARB 8.4% 100 MEQ IV SCH ×2 (22:00)
[2018-07-28] MEDS ORDERED: CEFEPIME 2 GM VIAL IV SCH (22:00)
[2018-07-28] MEDS ORDERED: NOREPINEPHRINE 4 MG in D5W 250 ML IV PRN (22:04)
[2018-07-28] MEDS ORDERED: NOREPINEPHRINE 4mg/D5W 250mL 4 MG/250 ML BAG IV ONE (22:06)
[2018-07-28] MEDS ORDERED: D5W 250 ML IV ONE (22:18)
[2018-07-28] MEDS ORDERED: WATER FOR INJ,STERILE 10 ML ONE (22:29)
[2018-07-28] MEDS ORDERED: VANCOMYCIN 1 GM/VIAL ONE (22:40)
[2018-07-28] MEDS ORDERED: NOREPINEPHRINE 4 MG/4 ML VIAL ONE ×2 (22:46→22:47)
[2018-07-28] MEDS ORDERED: SODIUM BICARB 50 MEQ/50ML VIAL ONE (22:46)
[2018-07-28] MEDS ORDERED: CEFEPIME 2 GM VIAL ONE (22:46)
[2018-07-28] MEDS ORDERED: D5W 1,000 ML IV ONE (22:52)
[2018-07-28] MEDS ORDERED: VANCOMYCIN 3 GM in NA CHLORIDE 0.9% 500 ML IVPB ONE (23:00)
[2018-07-28] MEDS ORDERED: NA CHLORIDE 0.9% 100 ML ONE (23:02)
[2018-07-28] MEDS ORDERED: EPINEPHrine 1 MG/10 ML SYR IV STA ×2 (23:20→23:40)
[2018-07-28 23:44] LABS: Hematocrit 26.9 % (39.6-49.0); RBC Red Blood Cell Count 2.88 M/uL (4.33-5.43)
[2018-07-28] MEDS ORDERED: HYDROCORTISONE SUC 100 MG INJ ONE (23:50)
[2018-07-29 00:13] LABS: Magnesium 2.3 mg/dL (1.8-2.4)
[2018-07-29 00:18] LABS: Potassium 2.7 mmol/L (3.5-5.1)
[2018-07-29 01:40] LABS: Absolute Lymphocytes (CBC) 0.3 K/uL (0.7-4.9); Lymphocytes % 95.1 % (15.3-44.8); Monocytes % 3.6 % (3.3-12.3)
[2018-07-29] MEDS ORDERED: EPINEPHrine 1 MG/10 ML SYR IV ONE (04:29)
[2018-07-29] MEDS ORDERED: SUCCINYLCHOLINE 20 MG/ML (10 ML) IV ONE (04:29)
[2018-07-29] MEDS ORDERED: DOPAMINE/D5W 400 MG/250 ML BAG IV ONE (04:29)
--- NOTE | 2018-07-29 06:56 | EKG ---
Test Date: 2018-07-28 Test Time: 20:07:02 Pole Framer: RT MEASUREMENT RESULTS: Intervals: Rate: 99 ND: 100 QRSD: 126 QT: 342 QTc: 438 [place]: P: 7 ND: 100 QRS: -41 T: 35 INTERPRETIVE STATEMENTS: Sinus rhythm with short ND with frequent premature ventricular complexes Left axis deviation Right bundle branch block Abnormal ECG Compared to ECG 07/25/2018 10:37:32 Ventricular premature complex(es) now present Short ND interval now present Electronically Signed On 07-29-18 06:55:49 GILL BOX OPERATOR by Kvng Woodard
[2018-07-29] MEDS ORDERED: VANCOMYCIN 1.25 GM in NA CHLORIDE 0.9% 250 ML IVPB SCH (09:00)
[2018-07-29] MEDS ORDERED: METOPROLOL XL 25 MG TAB PO SCH (09:00)
[2018-07-29] MEDS ORDERED: CYANOCOBALAMIN 1,000 MCG TAB PO SCH (09:00)
[2018-07-29] MEDS ORDERED: FOLIC ACID 1 MG TABLET PO SCH (09:00)
[2018-07-29] MEDS ORDERED: TBO-FILGRASTIM 480 MCG/0.8 ML SYR SQ SCH (09:00)
--- NOTE | 2018-07-29 10:57 | EKG ---
Test Date: 2018-07-28 Test Time: 20:30:56 Elder Counselor: RT MEASUREMENT RESULTS: Intervals: Rate: 149 MI: 90 QRSD: 120 QT: 304 QTc: 478 [place]: P: 26 MI: 90 QRS: -76 T: 25 INTERPRETIVE STATEMENTS: Sinus tachycardia with short MI with premature atrial complexes Left axis deviation Right bundle branch block Abnormal ECG Compared to ECG 07/28/2018 20:07:02 Atrial premature complex(es) now present Sinus rhythm no longer present Ventricular premature complex(es) no longer present Electronically Signed On 07-29-18 10:56:37 CONTINUOUS IMPROVEMENT CONSULTANT by Murali Persaud
[2018-07-29] MEDS ORDERED: HYDROCORTISONE SUC 100 MG INJ IV SCH (21:45)
[2018-07-29] MEDS ORDERED: VANCOMYCIN 2 GM in NA CHLORIDE 0.9% 500 ML IVPB SCH (23:00)
--- NOTE | 2018-08-03 09:32 | P.DS ---
Discharge Date: 07/29/18 Disposition: Reason for Admission: Pancytopenia Consultations: Hematology - Problems (1) Pancytopenia Status: Acute (2) Severe thrombocytopenia Status: Acute (3) History of leukemia Status: Acute (4) Status post chemotherapy Status: Acute Brief History of Present Illness: Patient is a 62-year-old gentleman who came to the hospital with pancytopenia. Patient had severe thrombocytopenia. Platelet count was less than 20,000. Will go ahead and transfuse. Will get Hematology consultation. Also white blood cell count is less than 500 with severe neutropenia. Will go ahead and get patient's neupogen as well. Consult Dr. Benitez in a.m.. Clinically patient is doing well with no complaints. No bleeding noted. No fever. Patient will need to be admitted as an inpatient because of numerous medical issues. Hospital Course: Patient was admitted to the hospital and was given platelets. Patient tolerated the platelet transfusion well. He had been doing well but was not really eating much. He developed sinus tachycardia around 1400. Patient's home medications were restarted. Patient's son states that he had an episode of nausea and vomiting around 4:00 p.m. He developed a fever shortly after this of 101 at around 5:00 p.m.. Patient was given acetaminophen. His heart rate remained elevated and he became short of breath around 7:30 p.m.. Spoke with malt house loader, and patient was ordered on BiPAP as well as a chest x-ray was ordered around 7:45 p.m. He clinically continued to worsen and a code 99 was called around 8 o'clock. Patient was able to be resuscitated quickly. ER physician assisted us in intubation. Patient was transferred to ICU. Patient remained hypotensive and was started on Levophed. Spoke with Pulmonary and the feeling was that patient had septic shock. Patient was started on IV antibiotics. Patient required additional pressor support through the night. He continuously declined through the evening. Had a long talk with the family and they wanted everything performed. Patient continued to decline and we had to reposition him. He was becoming more hypoxic and hypotensive. Patient became bradycardic and then he went into PEA most likely because of the worsening hypoxemia secondary to ARDS from septic shock. We had to repeat ACLS protocol. Unfortunately, Mr. Jaramillo was not able to recover. Mr. Jaramillo at 12:12 a.m. from cardiac arrest secondary to septic shock. I addressed the family members in the ICU waiting room, and I left my number with the family to call me if any questions. Laboratory Data at Discharge: WBC < 0.5 K/uL (4.3-10.9) L* 07/28/18 23:30 Hgb 9.3 g/dL (13.6-17.9) L 07/28/18 23:30 Hct 26.9 % (39.6-49.0) L 07/28/18 23:30 Plt Count 23 K/uL (152-406) L* D 07/28/18 23:30 PT 16.0 SECONDS (9.5-12.5) H 07/28/18 20:30 INR 1.37 07/28/18 20:30 APTT 24.9 SECONDS (24.3-36.9) 07/28/18 20:30 Sodium 145 mmol/L (136-145) 07/28/18 23:30 Potassium 2.7 mmol/L (3.5-5.1) L* 07/28/18 23:30 BUN 20 mg/dL (7-18) H 07/28/18 23:30 Creatinine 3.00 mg/dL (0.55-1.3) H 07/28/18 23:30 Glucose 86 mg/dL (74-106) 07/28/18 23:30 Magnesium 2.3 mg/dL (1.8-2.4) D 07/28/18 23:30 Total Bilirubin 1.6 mg/dL (0.2-1.0) H 07/28/18 09:05 AST 17 U/L (15-37) 07/28/18 09:05 ALT 16 U/L (12-78) 07/28/18 09:05 Alkaline Phosphatase 47 U/L (45-117) 07/28/18 09:05 Troponin I 0.50 ng/mL (0.0-0.045) H 07/28/18 20:30 Home Medications: Cyanocobalamin (Vitamin B-12) [Vitamin B-12] 1,000 mcg PO DAILY 07/28/18 Folic Acid 0.4 mg PO DAILY 07/28/18 Metoprolol Succinate [Toprol Xl] 25 mg PO DAILY 07/28/18 Simvastatin 20 mg PO BEDTIME 07/28/18 Time spent managing pt's care (in minutes): 240
== END 2018-07-29 04:30 | disposition expired | DRG 808 ==
LOC: 4TH 19:39 → OBSVTOIN 21:52 → 3RD-ICU 07-28 21:07
PROVIDERS: ADMIT Family Medicine; ATTEND Family Medicine
PROC: 30233R1 Transfusion of Nonautologous Platelets into Peripheral Vein, Percutaneous Approach (ICD-10-PCS; principal; 2018-07-28)
PROC: 5A09357 Assistance with Respiratory Ventilation, Less than 24 Consecutive Hours, Continuous Positive Airway Pressure (ICD-10-PCS; 2018-07-28)
PROC: 0BH17EZ Insertion of Endotracheal Airway into Trachea, Via Natural or Artificial Opening (ICD-10-PCS; 2018-07-28)
PROC: 5A1935Z Respiratory Ventilation, Less than 24 Consecutive Hours (ICD-10-PCS; 2018-07-28)
PROC: 5A12012 Performance of Cardiac Output, Single, Manual (ICD-10-PCS; 2018-07-28)
DX: D61.818 Other pancytopenia (principal); A41.9 Sepsis, unspecified organism; J80 Acute respiratory distress syndrome; R65.21 Severe sepsis with septic shock; Z92.21 Personal history of antineoplastic chemotherapy; R00.0 Tachycardia, unspecified; I95.9 Hypotension, unspecified; I46.8 Cardiac arrest due to other underlying condition; I25.2 Old myocardial infarction; I10 Essential (primary) hypertension; Z85.6 Personal history of leukemia
CPT/HCPCS: 36415; 71045; 80048; 80053; 80076; 82607; 82728; 82746; 82805; 82962; 83010; 83540; 83605; 83615; 83735; 83880; 84145; 84466; 84484; 85025; 85044; 85049; 85379; 85610; 85730; 86850; 86880; 86900; 86901; 87040; 87077; 87186; 87205; 93005; 94002; G0378; J0171; J0330; J0692; J1265; J1446; J1720; J1940; J2370; J3010; J3475; J7030; J7060; P9035